=== PATIENT | male | born 1945 | race Caucasian/White ===

== ENCOUNTER 2023-04-25 18:19 | Emergency (ER) | payer MEDICARE ==
[~2023-04-25] VITALS: Ht 182 cm; Wt 91.0 kg
[~2023-04-25 18:19] MED LIST: AMLO1CAP4 PO; ASP81CT GT; HYDR12.56 PO; PROP1TAB77 PO
[2023-04-25 18:38] LABS: BASOPHILS % (AUTO) 0 % (0-10); EOSINOPHILS # (AUTO) 0.1 10^3/uL (0.0-0.3); EOSINOPHILS % (AUTO) 1 % (0-10); HEMATOCRIT 41 % (40-54); HEMOGLOBIN 14.7 g/dL (13.3-17.7); LYMPHOCYTES # (AUTO) 2.2 10^3/uL (1.0-4.0); LYMPHOCYTES % (AUTO) 19 % (12-44); MEAN CORPUSCULAR HEMOGLOBIN 32 pg (25-34); MEAN CORPUSCULAR HGB CONC 36 g/dL (32-36); MEAN CORPUSCULAR VOLUME 89 fL (80-99); MEAN PLATELET VOLUME 9.6 fL (9.0-12.2); MONOCYTES # (AUTO) 0.6 10^3/uL (0.0-1.0); MONOCYTES % (AUTO) 5 % (0-12); NEUTROPHILS # (AUTO) 8.7 10^3/uL (1.8-7.8); NEUTROPHILS % (AUTO) 75 % (42-75); PLATELET COUNT 277 10^3/uL (130-400); WHITE BLOOD COUNT 11.6 10^3/uL (4.3-11.0)
--- NOTE | 2023-04-25 18:41 | ED Fall/Injury ---
General Chief Complaint: Trauma-Non Activation Stated Complaint: FALL Nursing Triage Note: SEE TRIAGE Source: patient, EMS, old records Exam Limitations: no limitations History of Present Illness Date Seen by Provider: Apr 25, 2023 Time Seen by Provider: 18:24 Initial Comments This is 77-year-old gentleman presents to the emergency room via EMS after suffering a fall in his yard on concrete. He has been unsteady on his feet for about 1 week. He is unsure why that may be but does comment that he has ingrown toenails. He plans to have work done on those in the near future. He denies any chest pain, lightheadedness, dizziness, or shortness of breath. His falls seem to be mechanical in nature without prodrome. He is alert and oriented. He and EMS deny any loss of consciousness. He denies any nausea. Pain is rated as 3 or 4 out of 10 and he declines pain medication at this time. He has some mild pain in his neck and arrives in a c-collar applied by EMS. C-collar was adjusted for comfort during my evaluation. He has abrasions to the forehead, nose, lips, and chin. He has skin tear to the dorsum left hand. There is no significant active bleeding. There is contusion and swelling of the lips and nose. Vision seems unaffected. Patient denies any significant pain or dysfunction elsewhere. He moves all 4 extremities equally. EMS reported soft blood pressure of 99/60 and IV fluids were initiated by EMS. Location Injury Occurred: HOME Allergies and Home Medications Allergies Coded Allergies: No Known Drug Allergies (Unverified , 05/12/10) Patient Home Medication List Home Medication List Reviewed: Yes Amlodipine Besylate/Benazepril (Lotrel 5-10 Mg Capsule) 1 Cap Capsule, 1 EACH PO DAILY, (Reported) Entered as Reported by: DULCE ALBERTO on 04/23/10 0815 Aspirin (Baby Aspirin Chewable Tablet) 81 Mg Chew, 81 MG GT DAILY, (Reported) Entered as Reported by: ELIANE BOUDREAUX on 06/20/13 1314 Hydrochlorothiazide (Hydrochlorothiazide) 12.5 Mg Tablet, 1 EACH PO DAILY, (Reported) Entered as Reported by: DULCE ALBERTO on 04/23/10 0815 Review of Systems Review of Systems Constitutional: no symptoms reported Eyes: No Symptoms Reported Ears, Nose, Mouth, Throat: see HPI Respiratory: no symptoms reported Cardiovascular: see HPI Gastrointestinal: no symptoms reported Genitourinary: no symptoms reported Musculoskeletal: see HPI Skin: see HPI Psychiatric/Neurological: No Symptoms Reported Past Wokvhfz-Mgchnm-Qkvldr Hx Patient Social History Tobacco Use?: No Smoking Status: Former Smoker Substance use?: No Alcohol Use?: No Pt feels they are or have been: No Immunizations Up To Date First/Initial COVID19 Vaccinat: YES Second COVID19 Vaccination Tom: YES Past Medical History Surgery/Hospitalization HX: HTN, L LEG SURG Surgeries: Yes Abdominal (Colonoscopy), Orthopedic (Knee surgery) Cardiac: Yes High Cholesterol, Hypertension Neurological: No Reproductive Disorders: No Genitourinary: Yes (hx of prostate cancer) Gastrointestinal: Yes Diverticulosis, Hemorrhoids, Polyps Endocrine: No HEENT: No Cancer: Yes Prostate Psychosocial: No Integumentary: Yes (Ingrown toenails) Physical Exam Vital Signs Vital Signs - First Documented 04/25/23 18:27 Temp 36.4 Pulse 89 Resp 18 B/P (MAP) 106/82 (90) Pulse Ox 95 O2 Delivery Room Air Capillary Refill : Less Than 3 Seconds Height, Weight, BMI Height: 5'10.00" Weight: 190lbs. oz. 86.195130mt; 27.00 BMI Method: General Appearance: WD/WN, no apparent distress HEENT: PERRL/EOMI, other (Minor abrasions over the forehead. Contusion and abrasions over the nose extensively. Abrasions and contusions with swelling over the lips. Minor abrasions on the chin. No apparent dental injury.) Neck: normal inspection, other (In c-collar) Cardiovascular: regular rate, rhythm, no edema, no murmur Respiratory: chest non-tender, lungs clear, normal breath sounds, no respiratory distress Gastrointestinal: non tender, soft; No distended Extremities: non-tender, other (Skin tear on the dorsum of the left hand) Neurologic/Psychiatric: kettle room helper II-XII nml as tested, no motor/sensory deficits, alert, normal mood/affect, oriented x 3 Skin: normal color, warm/dry, other (as above) Progress/Results/Core Measures Results/Orders Lab Results Laboratory Tests Test 04/25/23 18:30 04/25/23 20:50 Range/Units White Blood Count 11.6 H 4.3-11.0 10^3/uL Red Blood Count 4.65 4.30-5.52 10^6/uL Hemoglobin 14.7 13.3-17.7 g/dL Hematocrit 41 40-54 % Mean Corpuscular Volume 89 80-99 fL Mean Corpuscular Hemoglobin 32 25-34 pg Mean Corpuscular Hemoglobin Concent 36 32-36 g/dL Red Cell Distribution Width 12.5 10.0-14.5 % Platelet Count 277 130-400 10^3/uL Mean Platelet Volume 9.6 9.0-12.2 fL Immature Granulocyte % (Auto) 1 % Neutrophils (%) (Auto) 75 42-75 % Lymphocytes (%) (Auto) 19 12-44 % Monocytes (%) (Auto) 5 0-12 % Eosinophils (%) (Auto) 1 0-10 % Basophils (%) (Auto) 0 0-10 % Neutrophils # (Auto) 8.7 H 1.8-7.8 10^3/uL Lymphocytes # (Auto) 2.2 1.0-4.0 10^3/uL Monocytes # (Auto) 0.6 0.0-1.0 10^3/uL Eosinophils # (Auto) 0.1 0.0-0.3 10^3/uL Basophils # (Auto) 0.0 0.0-0.1 10^3/uL Immature Granulocyte # (Auto) 0.1 0.0-0.1 10^3/uL Sodium Level 134 L 135-145 MMOL/L Potassium Level 3.3 L 3.6-5.0 MMOL/L Chloride Level 99 98-107 MMOL/L Carbon Dioxide Level 20 L 21-32 MMOL/L Anion Gap 15 H 5-14 MMOL/L Blood Urea Nitrogen 18 7-18 MG/DL Creatinine 1.17 0.60-1.30 MG/DL Estimat Glomerular Filtration Rate 64 BUN/Creatinine Ratio 15 Glucose Level 132 H 70-105 MG/DL Calcium Level 9.3 8.5-10.1 MG/DL Corrected Calcium 9.2 8.5-10.1 MG/DL Magnesium Level 1.9 1.6-2.4 MG/DL Total Bilirubin 0.9 0.1-1.0 MG/DL Aspartate Amino Transf (AST/SGOT) 26 5-34 U/L Alanine Aminotransferase (ALT/SGPT) 28 0-55 U/L Alkaline Phosphatase 64 40-136 U/L Total Protein 6.8 6.4-8.2 GM/DL Albumin 4.1 3.2-4.5 GM/DL Serum Alcohol < 10 <10 MG/DL Urine Color YELLOW Urine Clarity CLEAR Urine pH 6.5 5-9 Urine Specific [place] 1.020 1.016-1.022 Urine Protein NEGATIVE NEGATIVE Urine Glucose (UA) NEGATIVE NEGATIVE Urine Ketones 2+ H NEGATIVE Urine Nitrite NEGATIVE NEGATIVE Urine Bilirubin NEGATIVE NEGATIVE Urine Urobilinogen 0.2 < = 1.0 MG/DL Urine Leukocyte Esterase NEGATIVE NEGATIVE Urine RBC (Auto) TRACE H NEGATIVE Urine RBC 0-2 /HPF Urine WBC NONE /HPF Urine Squamous Epithelial Cells NONE /HPF Urine Crystals PRESENT H /LPF Urine Amorphous Sediment FEW NEYMAR URATES H /LPF Urine Bacteria TRACE /HPF Urine Casts PRESENT /LPF Urine Hyaline Casts 2-5 H /LPF Urine Waxy Casts /LPF Urine Mucus MODERATE H /LPF Urine Culture Indicated NO My Orders Orders - KHANG YOUNG MD Ekg Tracing (04/25/23 18:32) Monitor-Rhythm Ecg Trace Only (04/25/23 18:32) Ct Head/Face/Cervical Wo (04/25/23 18:33) Dipht/Pertuss(Acell)/Tet Adult (Dipht/Pe (04/25/23 18:45) Alcohol (04/25/23 18:33) Cbc With Automated Diff (04/25/23 18:33) Comprehensive Metabolic Panel (04/25/23 18:33) Magnesium (04/25/23 18:33) Ua Culture If Indicated (04/25/23 18:33) Dipht/Pertuss(Acell)/Tet Adult (Dipht/Pe (04/25/23 20:55) Medications Given in ED Vital Signs/I&O 04/25/23 04/25/23 18:27 23:20 Temp 36.4 Pulse 89 73 Resp 18 20 B/P (MAP) 106/82 (90) 143/92 Pulse Ox 95 97 O2 Delivery Room Air Room Air 04/25/23 23:59 Intake Total 250 ml Balance 250 ml Blood Pressure Mean: 90 Progress Progress Note #1: Progress Note Patient was interviewed and examined upon arrival. EMS was also interviewed. C-collar remains in place. CT imaging studies were ordered. Labs were also ordered. Labs were reviewed and interpreted in their entirety by me. Slight leukocytosis and slight electrolyte abnormalities were noted, none of which are clinically significant. CT of the head, facial bones, and cervical spine was viewed by me. There is a mass in the left cerebellum as well as nasal fractures. No intracranial hemorrhages noted. Radiologist's report was reviewed as below. Patient has a symptomatic cerebellar mass which will need further evaluation. He needs to be transferred to an appropriate neurosurgical capable facility. I will initiate the transfer process. Progress Note #2: Time: 20:52 Progress Note Patient is stable at this time. I have attempted transfer to the [facility]. At [facility] does not presently have a neurosurgeon environmental services technician. [facility] is at admission capacity. Patient has family in the [place] area, so I will start trying transfers to the [place] area. Progress Note #3: Time: 21:27 Progress Note Report was given to the [facility] transfer engineer. I am awaiting a call back. Progress Note #4: Time: 21:54 Progress Note Patient has been accepted to [facility] by Dr. Ron Reyna. We are awaiting bed assignment to neuro-ICU. No local EMS transfer service is available. Mode of transport is TBA. Progress Note #5: Progress Note Patient was ultimately transferred by air to [facility] in stable condition. Initial ECG Impression Date: Apr 25, 2023 Initial ECG Impression Time: 18:35 Initial ECG Rate: 72 Initial ECG Rhythm: Normal Sinus Comment Sinus rhythm with no ST elevation or depression. Right bundle branch block noted. No axis deviation. Diagnostic Imaging Diagonstic Imaging: CT Plain Films/CT/US/NM/MRI: facial bones, c-spine, head Comments NAME: MICHELE MCCLELLAN MED REC#: [id number] PT STATUS: REG ER : 1945 PHYSICIAN: KHANG YOUNG MD ADMIT DATE: 04/25/23/ER Signed Date of Exam:04/25/23 CT HEAD/FACE/CERVICAL WO PROCEDURE: CT head, face, and cervical spine without contrast. TECHNIQUE: Multiple contiguous axial images were obtained through the head, neck, and facial bones without the use of intravenous contrast. Sagittal and coronal reformations through the cervical spine and facial bones were also performed. Auto Exposure Controls were utilized during the CT exam to meet ALARA standards for radiation dose reduction. INDICATION: Headache, neck pain, and face pain after fall. COMPARISON: None FINDINGS: Mass within the left cerebellar hemisphere measuring 3.7 x 3.0 cm with surrounding edema within the left cerebellar hemisphere and mass effect on the 4th ventricle. The 3rd and 4th ventricle are mildly dilated with the 3rd ventricle measuring 0.9 cm. No acute intracranial hemorrhage. The meyer-white matter differentiation is preserved. No midline shift. No extra-axial fluid collections. The skull is intact. The paranasal sinuses and mastoids are clear. Acute displaced nasal bone fracture. The nasal septum is deviated to the right. No nasal septal hematoma. The maxilla is intact. The zygomatic arch is intact. The pterygoid plates are intact. The orbits are intact. The mandible is intact. Straightening of the cervical lordosis. Mild multilevel facet arthritis. Mild multilevel disc height loss and disc desiccation. No lytic or sclerotic bone lesion. No acute fracture or dislocation of the cervical spine. Included views of the soft tissues demonstrate bilateral carotid atherosclerosis. No mass or lymphadenopathy within the neck. Included lung apices demonstrate no significant findings. IMPRESSION: Mass within the left cerebellar hemisphere causing mass effect on the 4th ventricle. Mild enlargement of the lateral ventricles and 3rd ventricle. Recommend further workup with brain MRI with and without contrast. Advanced chronic small vessel ischemic disease. Mild global volume loss. Acute displaced nasal bone fracture. No acute cervical spine fracture. Dictated by: Dictated on workstation # [id number] Dict: 04/25/23 1855 Trans: 04/25/231899 [facility] [place] [id number] Interpreted by: MUMTAZ TRAN DO Electronically signed by: MUMTAZ TRAN DO 04/25/23 190 Departure Impression Primary Impression: Cerebellar mass Additional Impressions: Disequilibrium Fall on same level Qualified Codes: W18.30XA - Fall on same level, unspecified, initial encounter Nasal fracture Qualified Codes: S02.2XXA - Fracture of nasal bones, initial encounter for closed fracture Multiple abrasions Skin tear of left hand without complication Qualified Codes: S61.412A - Laceration without foreign body of left hand, initial encounter Disposition: 02 XFER [facility] Condition: Stable Transfer Transfer Reason: Exceeds level of care Transfer Time: 23:20 Transfer Facility: [facility] Method of Transfer: Air Departure-Patient Inst. Referrals: FELIPE CHANDLER MD (PCP/Family) Primary Care Physician Copy Copies To 1: [facility]/KHANG PERES MD Apr 25, 2023 18:41
[2023-04-25 18:43] LABS: ALBUMIN 4.1 GM/DL (3.2-4.5); CHLORIDE 99 MMOL/L (98-107); POTASSIUM 3.3 MMOL/L (3.6-5.0); SODIUM 134 MMOL/L (135-145)
[2023-04-25 18:44] LABS: CALCIUM 9.3 MG/DL (8.5-10.1)
[2023-04-25 18:45] LABS: GLUCOSE 132 MG/DL (70-105); TOTAL PROTEIN 6.8 GM/DL (6.4-8.2)
[2023-04-25] MEDS ORDERED: Tetanus/Diphtheria/Pertussis (Acell) ADULT Vaccine 0.5 ML IM ONE ×2 (18:45→20:55)
[2023-04-25 18:46] LABS: CARBON DIOXIDE 20 MMOL/L (21-32)
[2023-04-25 18:47] LABS: BILIRUBIN,TOTAL 0.9 MG/DL (0.1-1.0)
[2023-04-25 18:49] LABS: ALKALINE PHOSPHATASE 64 U/L (40-136); CREATININE SERUM 1.17 MG/DL (0.60-1.30); GFR ESTIMATED 64
[2023-04-25 18:50] LABS: BUN/CREATININE RATIO 15
[2023-04-25 18:52] LABS: ALANINE AMINOTRANSFERASE 28 U/L (0-55); MAGNESIUM 1.9 MG/DL (1.6-2.4)
--- NOTE | 2023-04-25 19:01 | Diagnostic Imaging Report ---
PROCEDURE: CT head, face, and cervical spine without contrast. TECHNIQUE: Multiple contiguous axial images were obtained through the head, neck, and facial bones without the use of intravenous contrast. Sagittal and coronal reformations through the cervical spine and facial bones were also performed. Auto Exposure Controls were utilized during the CT exam to meet ALARA standards for radiation dose reduction. INDICATION: Headache, neck pain, and face pain after fall. COMPARISON: None FINDINGS: Mass within the left cerebellar hemisphere measuring 3.7 x 3.0 cm with surrounding edema within the left cerebellar hemisphere and mass effect on the 4th ventricle. The 3rd and 4th ventricle are mildly dilated with the 3rd ventricle measuring 0.9 cm. No acute intracranial hemorrhage. The meyer-white matter differentiation is preserved. No midline shift. No extra-axial fluid collections. The skull is intact. The paranasal sinuses and mastoids are clear. Acute displaced nasal bone fracture. The nasal septum is deviated to the right. No nasal septal hematoma. The maxilla is intact. The zygomatic arch is intact. The pterygoid plates are intact. The orbits are intact. The mandible is intact. Straightening of the cervical lordosis. Mild multilevel facet arthritis. Mild multilevel disc height loss and disc desiccation. No lytic or sclerotic bone lesion. No acute fracture or dislocation of the cervical spine. Included views of the soft tissues demonstrate bilateral carotid atherosclerosis. No mass or lymphadenopathy within the neck. Included lung apices demonstrate no significant findings. IMPRESSION: Mass within the left cerebellar hemisphere causing mass effect on the 4th ventricle. Mild enlargement of the lateral ventricles and 3rd ventricle. Recommend further workup with brain MRI with and without contrast. Advanced chronic small vessel ischemic disease. Mild global volume loss. Acute displaced nasal bone fracture. No acute cervical spine fracture. Dictated by: Dictated on workstation # [id number]
[2023-04-25 21:08] LABS: AMORPHOUS SEDIMENT,UR FEW AMOR URATES /LPF; BACTERIA,URINE TRACE /HPF; BILIRUBIN,URINE NEGATIVE (NEGATIVE); CLARITY,URINE CLEAR; COLOR,URINE YELLOW; GLUCOSE, URINE (UA) NEGATIVE (NEGATIVE); KETONES,URINE 2+ (NEGATIVE); LEUKOCYTE ESTERASE ,URINE NEGATIVE (NEGATIVE); NITRITE,URINE NEGATIVE (NEGATIVE); PH,URINE 6.5 (5-9); PROTEIN,URINE NEGATIVE (NEGATIVE); RBC,URINE 0-2 /HPF
[2023-04-25 23:20] VITALS: BP 143/92
== END 2023-04-25 23:20 | disposition short-term general hospital (02) ==
LOC: EDUNIT# 18:19 → ER 18:23
DX: S02.2XXA Fracture of nasal bones, initial encounter for closed fracture (principal); S61.412A Laceration without foreign body of left hand, initial encounter; S00.531A Contusion of lip, initial encounter; S00.83XA Contusion of other part of head, initial encounter; G93.9 Disorder of brain, unspecified; I45.10 Unspecified right bundle-branch block; Z23 Encounter for immunization; Z87.891 Personal history of nicotine dependence; W18.30XA Fall on same level, unspecified, initial encounter; Y92.096 Garden or yard of other non-institutional residence as the place of occurrence of the external cause
CPT/HCPCS: 70450; 70486; 72125; 80053; 81000; 83735; 85025; 93005; 93041; 99285; G0480; 36415; 80320; 90715

== ENCOUNTER 2023-05-03 10:33 | Inpatient (IN) | payer MEDICARE ==
[~2023-05-03] VITALS: Ht 177.8 cm; Wt 91.3 kg
[2023-05-03] MEDS ORDERED: ASPI-1238 PO (12:56)
[2023-05-03] MEDS ORDERED: BENA10TA66 PO (12:56)
[2023-05-03] MEDS ORDERED: SENN1TAB93 PO (12:56)
[2023-05-03] MEDS ORDERED: AMLO-250 PO (12:56)
[2023-05-03] MEDS ORDERED: ACET325T38 PO (12:56)
[2023-05-03] MEDS ORDERED: HEPA50002 IJ (12:56)
[2023-05-03] MEDS ORDERED: OXC5T PO (12:56)
[2023-05-03] MEDS ORDERED: HYDR12.56 PO (12:56)
[2023-05-03] MEDS ORDERED: ROSU10TA28 PO (12:56)
[2023-05-03] MEDS ORDERED: CELE400C10 PO (12:56)
[2023-05-03] MEDS ORDERED: ACETAMINOPHEN 325 MG TABLET PO PRN ×2 (13:30→15:30)
[2023-05-03] MEDS ORDERED: diphenhydrAMINE 25 MG TABLET PO PRN (13:30)
[2023-05-03] MEDS ORDERED: CALCIUM CARBONATE 500 MG CHEW TABLET PO PRN (13:30)
[2023-05-03] MEDS ORDERED: DOCUSATE SODIUM 100 MG CAPSULE PO PRN (13:30)
[2023-05-03] MEDS ORDERED: BISACODYL 10 MG SUPPOSITORY PR PRN (13:30)
[2023-05-03] MEDS ORDERED: ONDANSETRON 4 MG ORAL DISSOLVE TABLET PO PRN (13:30)
[2023-05-03] MEDS ORDERED: LACTULOSE SYRUP 10GM/15ML 30ML UDC PO PRN (13:30)
[2023-05-03] MEDS ORDERED: guaiFENesin/CODEINE 10ML UDC PO PRN (13:30)
[2023-05-03] MEDS ORDERED: MELATONIN 3 MG TABLET PO PRN (13:30)
[2023-05-03] MEDS ORDERED: ALPRAZolam 0.25 MG TABLET PO PRN (13:30)
[2023-05-03] MEDS ORDERED: LOPERAMIDE 2 MG CAPSULE PO PRN (13:30)
[2023-05-03] MEDS ORDERED: Sodium Phosphate/Sodium Biphosphate ADULT enema PR PRN (13:30)
--- NOTE | 2023-05-03 13:33 | PM&R Post Admission Assessment ---
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 He has had no f/u for his prostate cancer after management in 2009. He is currently without pain and difficult to stay on topic when conversing and unsure if this is baseline. Chief complaint: Johnny Bautista is a 77 year old male who came into the [facility] ED on 04/25/23 after losing his balance and falling and hitting his face on concrete. HPI: He was taken to the ED via EMS. He and his family report shuffling gait for several months and that he had been having gait imbalance for the week prior to coming to the ED. He had a CT that showed a left cerebellar mass with mild hydrocephalus and a displaced nasal fracture. He was subsequently transferred to [facility]. At [facility] he was seen by neurosurgery who performed a full neuro exam on him, that was unremarkable. He had an MRI done that showed a large posterior fossa mass consistent with metastasis and a chest/abdomen CT that showed a lung mass and adrenal metastasis. Neurosurgery recommended a craniotomy and the pat ient consented. On 04/29/23, neurosurgery performed a suboccipital craniotomy with resection of the posterior fossa brain tumor. Surgery was uneventful. Post- surgical MRI on 04/29/23 showed good resection of the mass. Since the surgery, the patient has been seen by PT and OT and he has had some imbalance on mobility but overall shows improvement. He was subsequently transferred back to [facility] for inpatient rehabilitation on 05/03/23. PMH: Hypertension, hyperlipidemia, prostate cancer Past surgical history: knee surgery, recent craniotomy Allergies: No known allergies Medications: Amlodipine 5mg q.d., lisinopril 10mg q.d., docusate 100 mg BID, milk of magnesium 30ml q.d., senokot 1 tablet BID Social History: , 3 kids, former smoker (quit in 2021, 1ppd/50 years), alcohol 14 beers/week, no drugs Family history: no family history on file ROS: Denies nausea, vomiting, diarrhea, weakness, fatigue, fever/chills, change in appetite, chest pain, shortness of breath, orthopnea, headache, Admits: constipation, vision difficulty since his fall because he broke his glasses Exam: General: no acute distress, comfortable in bed, AOx3 HEENT: bruising under right eye, otherwise atraumatic, no JVD Heart: normal sinus rhythm, no murmurs appreciated Lungs: CTA bilaterally, no wheezing/rhonchi/rales appreciated on auscultation Neuro: no deficits in sensation, no deficits in muscle strength testing Extremities: pulses +2/4, no lower extremity edema Imaging and Labs: [facility] CT 04/25/23: left cerebellar mass with mild hydrocephalus and a displaced nasal fracture [facility] head MRI: large posterior fossa mass consistent with metastasis [facility] chest/abdomen CT: lung mass and adrenal metastasis No current labs since admission to [facility] Assessment: - s/p craniotomy - 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 - HTN - prostate cancer - hyperlipidemia Plan: - PT/OT - supportive treatment, pain control - regular neurological assessments - get oncology on board - restart home medications Past Powrbvf-Gtmxkp-Ggiemd Hx Past Med/Social Hx: Reviewed Nursing Past Med/Soc Hx, Reviewed and Corrections made Patient Social History Marrital Status: Employed/Student: retired Alcohol Use: Denies Use Smoking Status: Former Smoker Immunizations Up To Date Date of Pneumonia Vaccine: Jun 05, 2010 Date of Influenza Vaccine: Jul 06, 2014 Past Medical History Surgeries: Abdominal, Orthopedic craniotomy Cardiac: High Cholesterol, Hypertension Reproductive: No Gastrointestinal: Diverticulosis, Hemorrhoids, Polyps Cancer: Prostate PM&R Allergy/Meds/Data Review Allergies Coded Allergies: No Known Drug Allergies (Unverified , 05/12/10) Home Medications Scheduled Amlodipine Besylate (Amlodipine Besylate), 5 MG PO DAILY, (Reported) Aspirin (Aspirin EC), 81 MG PO DAILY, (Reported) Benazepril HCl (Benazepril HCl), 10 MG PO DAILY, (Reported) Celecoxib (Celecoxib), 400 MG PO DAILY, (Reported) Heparin Sodium,Porcine/Pf (Heparin Sod 5,000 Unit/0.5 ml), 0.5 ML IJ Q8H, (Reported) Hydrochlorothiazide (Hydrochlorothiazide), 12.5 MG PO DAILY, (Reported) Rosuvastatin Calcium (Rosuvastatin Calcium), 10 MG PO DAILY, (Reported) Sennosides/Docusate Sodium (Senna-Docusate Sodium Tablet), 1 EACH PO BID, (Reported) Scheduled PRN Acetaminophen (Tylenol), 650 MG PO Q4H PRN for PAIN-MILD (1-4), (Reported) Oxycodone Hcl (Oxyir Tablet), 5-10 MG PO Q4H PRN for PAIN-SEVERE (8-10), (Reported) Discontinued Medications Amlodipine Besylate/Benazepril (Lotrel 5-10 Mg Capsule), 1 EACH PO DAILY, (Reported) Discontinued Reason: No Longer Taking Aspirin (Baby Aspirin Chewable Tablet), 81 MG GT DAILY, (Reported) Discontinued Reason: No Longer Taking Hydrochlorothiazide (Hydrochlorothiazide), 1 EACH PO DAILY, (Reported) Discontinued Reason: No Longer Taking Current Medications Current Medications Reviewed Review of Systems Constitutional: see HPI, malaise, weakness EENTM: no symptoms reported Respiratory: no symptoms reported Cardiovascular: no symptoms reported Gastrointestinal: constipation Genitourinary: decreased output Musculoskeletal: back pain, joint pain Skin: no symptoms reported Psychiatric/Neurological: No Symptoms Reported All Other Systems Reviewed Negative Unless Noted: Yes Physical Exam Physical Exam Vital Signs Capillary Refill : Height, Weight, BMI Height: 5'10.00" Weight: 190lbs. oz. [id number]; 27.00 BMI Method: General Appearance: No Apparent Distress, WD/WN, Chronically ill, Obese Eyes: Bilateral Eye Normal Inspection, Bilateral Eye PERRL HEENT: PERRL/EOMI, Normal ENT Inspection, Pharynx Normal Neck: Full Range of Motion, Normal Inspection, Non Tender, Supple, Carotid Bruit Respiratory: Chest Non Tender, Lungs Clear, Normal Breath Sounds, No Accessory Muscle Use, No Respiratory Distress Cardiovascular: Regular Rate, Rhythm, No Edema, No Gallop, No JVD, No Murmur, Normal Peripheral Pulses Gastrointestinal: Normal Bowel Sounds, No Organomegaly, No Pulsatile Mass, Non Tender, Soft Back: Normal Inspection, No CVA Tenderness, No Vertebral Tenderness Extremity: Normal Capillary Refill, Normal Inspection, Normal Range of Motion, Non Tender, No Calf Tenderness, No Pedal Edema Neurologic/Psychiatric: Alert, Oriented x3, 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 Norm as Tested, Abnormal Gait, Depressed Affect, Motor Weakness (generalized ) Skin: Normal Color, Warm/Dry Lymphatic: No Adenopathy PM&R Medical Assessment & Plan REHAB/MEDICAL ASSESSMENT AND PLAN: REHAB IMPAIRMENT GROUP: Brain dysfunction non-traumatic ETIOLOGIC DIAGNOSIS: Cerebellar mass The comorbidities that impact the patients function and/or functional outcome by: advanced age, presumed cancer diagnosis, confusion REHAB PLAN: The patient is being admitted to our comprehensive inpatient rehabilitation facility and can tolerate the intensity of service consisting of at least: 180 minutes of therapy a day, 5 out of 7 days a week Rehab treatment will consist of: PT OT will focus on regaining function with use of AD in order to regain stamina and prevent falls and return home The patient/family has a good understanding of our discharge process and will benefit from an interdisciplinary inpatient rehabilitation program. The patient has potential to make improvement and is in need of at least two of the following multidisciplinary therapies including but not limited to physical, occupational, speech, and prosthetics and orthotics. Additionally the patient will need services from respiratory, nutritional services, wound care, psychology, etc. (Customize this to each patient). Given the patients complex condition and risk of further medical complications, rehabilitation services cannot be safely or effectively provided at a lower level of care such as a shelter facility. BARRIERS TO DISCHARGE: poor balance and fall risk ESTIMATED LOS: 10 days DISPOSITION: Home RELEVANT CHANGES SINCE PREADMISSION SCREENING: I have compared the patients medical and functional status at the time of the preadmission screening and there are: no changes PROGNOSIS: Fair REHABILITATION GOALS: 1. PT OT will focus on regaining function with use of AD in order to regain stamina and prevent falls and return home All the above goals were reviewed with the patient and he/she is in agreement. By signing this document, I acknowledge that I have personally performed a full physical examination on this patient within 24 hours of admission to this inpatient rehabilitation facility and have determined the patient to be able to tolerate the above course of treatment at an intensive level for a reasonable period of time. I will be completing a detailed individualized Plan of Care for this patient by day #4 of the patients stay based upon the Preadmission Screen, the Post-Admission Evaluation, and the therapy evaluations. Admission Dx/Comorbidities: (1) Brain dysfunction ICD Codes: G93.89 - Other specified disorders of brain (2) Brain injury ICD Codes: S06.9XAA - Unspecified intracranial injury with loss of consciousness status unknown, initial encounter (3) Cerebellar mass Status: Acute ICD Codes: G93.89 - Other specified disorders of brain (4) Disequilibrium Status: Acute ICD Codes: R42 - Dizziness and giddiness Assessment/Plan Assessment and Plan Assess & Plan/Chief Complaint Assessment: Cerebellar mass causing imbalance and falls Lung mass h/o prostate cancer 2009 without follow up HTN HLP Plan: Home meds Monitor for falls PT OT LOIDA CHRISTIAN DO May 03, 2023 13:33
[2023-05-03 14:30] VITALS: BP 156/80
--- OUTSIDE RECORDS SUMMARY | 2023-05-03 14:36 | XMS REPORT | Encounter Summary ---
Author Author [facility] Organization [facility] Address Unknown Phone Unavailable Care Team Providers Care Pharmaceutical Salesperson Name Role Phone JenniferAlexia tamayo FREDRICK PCP Reason for Referral * Consult, Test & Treat (Discharge Pending) - New Request Diagnoses / Procedures Referred By Contact Referred To Conta ct Specialty Diagnoses Brain mass Procedures APPOINTMENT REQUEST: [facility] Lubna Molina APRN-NP [address] [facility] [address] [place] [address] [address] [place] [address] Oncology Referral ID Status Reason Start Date Expiration Visits Vi sits Date Requested Authorized [id number] New Request 04/28/2023 04/27/2024 1 1 * Consult, Test & Treat (Discharge Pending) - New Request Diagnoses / Procedures Referred By Contact Referred To Conta ct Specialty Procedures APPOINTMENT REQUEST: NEUROSURGERY Glenn Flores MD [address] Ortho/Med Pavilion [address] [place] [address] [facility] [address] 3, [address] [place] [address] Neurosurgery Referral ID Status Reason Start Date Expiration Visits Vi sits Date Requested Authorized [id number] New Request 04/26/2023 04/25/2024 1 1 Reason for Visit * Auth/Cert (Routine) Diagnoses / Procedures Referred By Contact Referred To Conta ct Specialty Diagnoses Brain mass fall - new brain mass Referral ID Status Reason Start Date Expiration Visits Vi sits Date Requested Authorized [id number] 1 1 Encounter Details Care Team Description Date Type Department Ron Reyna MD [address] [place] [address] Glenn Flores MD [address] Ortho/Med Pavilion [address] [place] [address] Brain mass Discharge Disposition: Rehab Facility (Not [facility]) 04/26/2023 Hospital Intensive Care Unit CA5: 12:23 AM Encounter [facility] A CDT - [address] [facility] 05/03/2023 Level 5 11:49 AM [place], [place] CDT [id number] Social History Date Tobacco Use Types Packs/Day Years Used Quit: 09/05/2021 Smoking Tobacco: Former Cigarettes 1 50 Smokeless Tobacco: Never Tobacco Cessation: Counseling Given: Not Answered Comments Alcohol Use Standard Drinks/Week 2 beers every night Yes 14 (1 standard drink = 0.6 oz pure alcohol) Date Recorded Alcohol Use Answer Alcohol Use Yes Male: 9+ ounces (15+ Standard Drinks) per week Not o n file Threshold Female: 4.8+ ounces (8+ Standard Drinks) per week No t on file Threshold Date Recorded Sex and Gender Information Value 04/26/2023 5:30 AM CDT Sex Assigned at Male 04/26/2023 5:30 AM CDT Gender Identity Male 04/26/2023 5:30 AM CDT Sexual Orientation Straight documented as of this encounter Last Filed Vital Signs Reading Time Taken Comments Vital Sign 151/81 05/03/2023 8:00 AM CDT Blood Pressure 63 05/03/2023 8:00 AM CDT Pulse 36.8 C (98.2 F) 05/03/2023 8:00 AM CDT Temperature - - Respiratory Rate 96% 05/03/2023 8:00 AM CDT Oxygen Saturation - - Inhaled Oxygen Concentration 80.7 kg (177 lb 14.6 oz) 04/27/2023 5:00 AM CDT Weight 177.8 cm (5' 10") 04/26/2023 12:00 AM CDT Height 25.53 04/26/2023 12:00 AM CDT Body Mass Index documented in this encounter Functional Status Date of Assessment Functional Status Response 04/26/2023 Does the patient have a hearing impairment: No documented as of this encounter Discharge Summaries * Mary Green LMSW - 05/03/2023 7:22 AM CDT Case Management Progress Note NAME:Johnny Bautista : 945 AGE: 77 y.o. ADMISSION DATE: 04/26/2023 DAYS ADMITTED: LOS: 7 days Today's Date: 05/03/2023 PLAN: Pt will dc to [facility] today around 1130 via family trans port. Expected Discharge Date: 05/03/2023 12:00 PM Is Patient Medically Stable: Yes Are there Barriers to Discharge? no INTERVENTION/DISPOSITION: Discharge Planning Discharge Planning: No Needs Identified SW was notified insurance was approved. Family will be at the hospital by noon today to transport pt to [facility]. Has to be there by 3pm to be admitted. UVALDO notified provider [place] of dc today at 1130 UVALDO notified bedside nurse of dc today at 1130 and provided number for report. Said family is parking at the [facility] and nurse can bring him down. UVALDO printed and delivered transfer packet to pt bedside. UVALDO notified pt's family of dc today . REPORT [phone] UVALDO faxed dc orders to [phone] Transportation Does the Patient Need Case Management to Arrange Discharge Transport ? (ex: facility, ambulance, wheelchair/stretcher, Medicaid, cab, other): No Will the Patient Use Family Transport?: Yes Transportation Name, Phone and Availability #1: Tara [phone] Support Support: Pt/Family Updates re:POC or DC Plan, Huddle/team update Info or Referral Information or Referral to Community Resources: No Needs Identified Positive SDOH Domains and Potential Barriers Medication Needs Medication Needs: No Needs Identified Financial Financial: No Needs Identified Legal Legal: No Needs Identified Other Other/None: No needs identified Discharge Disposition Selected Continued Care - Admitted Since 04/26/2023 No services have been selected for the patient. SHAWNA Dunbar LMSW Social Work Case Management Available on [employer] * Geovanna Arteaga - 05/02/2023 5:56 PM CDT Per vm from [facility], this member has been approved for care at [facility] in [place] starting 04/30/23-05/13/23. Auth number is [id number]. Geovanna Arteaga Glass Forming Engineer * Geovanna Arteaga - 05/02/2023 4:55 PM CDT Request to check [facility] health status per OCTAVIO Dunbar. Auth is still pend ing at this time, Geovanna Arteaga Glass Forming Engineer * Aletha Toribio - 05/02/2023 1:15 PM CDT SPAGHETTI PRESS HELPER Note: Request from OCTAVIO Dunbar to check [facility] status, auth is still pend ing. ZEINA updated [facility] with chosen facility and sent updated clinical throu gh the portal. Aletha Toribio Glass Forming Engineer For additional assistance please contact [facility] * * Mary Green LMSW - 05/02/2023 8:05 AM CDT Case Management Progress Note NAME:Johnny Bautista : 945 AGE: 77 y.o. ADMISSION DATE: 04/26/2023 DAYS ADMITTED: LOS: 6 days Today's Date: 05/02/2023 PLAN: DC planning ongoing IPR vs home (pt's preference). Expected Discharge Date: 05/02/2023 12:00 PM Is Patient Medically Stable: No, Please explain: ongoing medical care Are there Barriers to Discharge? no INTERVENTION/DISPOSITION: Discharge Planning Discharge Planning: No Needs IdentifiedSW reviewed EMR and rehab doc saw pt. Pt prefers to go home with OTPT therapies if he can progress home. W ill discuss options with pt and family today. SW met with pt and family at bedside to discuss options for discharge. Pt is st ill resistant to rehab. Family expressed concerns with caring for him as she recently had cataract surgery. She can't drive him to OTPT therapy right aw ay. Expressed to pt why it would be important for him to be stronger before re turning home. Family will continue to discuss options but SW will try to get a rehab plan in place. Family does feel comfortable driving pt to rehab if therapy says this would be safe. [place] I[facility] can clinically accept. Waiting on insurance auth. Will have a b ed tomorrow. Have to be there by 3pm that day. Checked with therapy to see if family could safely transport pt to rehab. Therap y said family could transport. SW tasked SPAGHETTI PRESS HELPER to [facility] and [facility] as identified facility. Auth is still pending. Transportation Does the Patient Need Case Management to Arrange Discharge Transport ? (ex: facility, ambulance, wheelchair/stretcher, Medicaid, cab, other): No Will the Patient Use Family Transport?: Yes Transportation Name, Phone and Availability #1: Tara [phone] Support Support: Pt/Family Updates re:POC or DC Plan, Huddle/team update Info or Referral Information or Referral to Community Resources: No Needs Identified Positive SDOH Domains and Potential Barriers Medication Needs Medication Needs: No Needs Identified Financial Financial: No Needs Identified Legal Legal: No Needs Identified Other Other/None: No needs identified Discharge Disposition Selected Continued Care - Admitted Since 04/26/2023 No services have been selected for the patient. SHAWNA Dunbar LMSW Social Work Case Management Available on [employer] Work * Maida Kellogg - 04/30/2023 3:08 PM CDT [facility] ID : [facility] Auth ID : [id number] Service : IRF non-contracted Dates : NRD : * Mary Green LMSW - 04/30/2023 1:46 PM CDT Case Management Progress Note NAME:Johnny Bautista : 945 AGE: 77 y.o. ADMISSION DATE: 04/26/2023 DAYS ADMITTED: LOS: 4 days Today's Date: 04/30/2023 PLAN: Anticipate dc to IPR pending medical stability, facility acceptance and in surance auth. Expected Discharge Date: 05/02/2023 12:00 PM Is Patient Medically Stable: No, Please explain: ongoing medical care Are there Barriers to Discharge? No INTERVENTION/DISPOSITION: Discharge Planning Discharge Planning: No Needs Identified UVALDO was notified pt will nee d IPR placement. UVALDO called pt's to discuss possible placement but it kept going straight to [facility]. Reached pt's Tara and she put her kids on the call as well, so SW could disc uss possible facility options. Would prefer to get closer to home and go to [facility] I[facility]. UVALDO tasked SPAGHETTI PRESS HELPER to start auth through [facility] for IPR. UVALDO sent a referral to [facility] I[facility]. Transportation Does the Patient Need Case Management to Arrange Discharge Transport ? (ex: facility, ambulance, wheelchair/stretcher, Medicaid, cab, other): No Will the Patient Use Family Transport?: Yes Transportation Name, Phone and Availability #1: Tara [phone] Support Support: Pt/Family Updates re:POC or DC Plan, Huddle/team update Info or Referral Information or Referral to Community Resources: No Needs Identified Positive SDOH Domains and Potential Barriers Medication Needs Medication Needs: No Needs Identified Financial Financial: No Needs Identified Legal Legal: No Needs Identified Other Other/None: No needs identified Discharge Disposition Selected Continued Care - Admitted Since 04/26/2023 No services have been selected for the patient. Mary Green LMSW Social Work Case Management Available on [employer] Everywhere Work * Glory Cowan RN - 04/29/2023 3:09 PM CDT Case Management Progress Note NAME:Johnny Bautista : 945 AGE: 77 y.o. ADMISSION DATE: 04/26/2023 DAYS ADMITTED: LOS: 3 days Today's Date: 04/29/2023 PLAN: Patient to OR today. Expected Discharge Date: 05/02/2023 12:00 PM Is Patient Medically Stable: No, Please explain: OR today Are there Barriers to Discharge? No NCM reviewed EMR NCM attended and participated in neurosurgery huddle. Patient to OR today. NCM delivered Jury excuse letter to Francisca Bautista and received confirmat ion of fax. NCM will continue to follow for any discharge needs that may arise. INTERVENTION/DISPOSITION: Discharge Planning Discharge Planning: No Needs Identified Transportation Does the Patient Need Case Management to Arrange Discharge Transport ? (ex: facility, ambulance, wheelchair/stretcher, Medicaid, cab, other): No Will the Patient Use Family Transport?: Yes Transportation Name, Phone and Availability #1: Norbert Pacheco [phone] Support Support: Pt/Family Updates re:POC or DC Plan, Huddle/team update Info or Referral Information or Referral to Community Resources: No Needs Identified Positive SDOH Domains and Potential Barriers Medication Needs Medication Needs: No Needs Identified Financial Financial: No Needs Identified Legal Legal: No Needs Identified Other Other/None: No needs identified Discharge Disposition Selected Continued Care - Admitted Since 04/26/2023 No services have been selected for the patient. Glory Cowan RN Glory Cowan, RN, BSN Nurse Auto Engine Mechanic Available on [employer] * Glory Cowan RN - 04/26/2023 11:21 AM CDT Case Management Admission Assessment NAME:Johnny Bautista :[birth year] AGE: 77 y.o. ADMISSION DATE: 04/26/2023 DAYS ADMITTED: LOS: 0 days Todays Date: 04/26/2023 Source of Information: Patient and EMR. Problem: 8 AM lost balance and fell on his face on to concrete. Was taken by EMS to [facility]. 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 This CM met with pt for assessment on this date. Provided contact information a nd explanation of SW/NCM roles. Reviewed [facility], Preparing for Disc harge, and Preferred Provider Network hand-outs. Provided opportunity for quest ions and discussion. Pt/family encouraged to contact Case Management team with q uestions and concerns during hospitalization and until patient is able to transi tion back to the patient's primary care physician. NCM reviewed EMR NCM attended and participated in neurosurgery huddle. Pt resides in a two-level home with 3 steps to entry. Pt lives with Tara. Pt was independent with ADLs prior to admission. Pt could have 24/7 supervision, if needed. Pt utilizes no DME. Pt's previous history of HH, dialysis, eternal feeds, infusions, SNF, IPR an d LTACH includes: None Patient is current with PCP and has seen her within the last month. NCM to continue to follow for any dc needs that may arise. Plan Plan: Case Management Assessment, Assist PRN with SW/NCM Services Patient Address/Phone [address] [place] [id number] There are no phone numbers on file. Emergency Contact Extended Emergency Contact Information Primary Emergency Contact: Francisca Bautista "Tara" Mobile Relation: Spouse Healthcare Directive Healthcare Directive: No, patient does not have a healthcare directive Would patient like to fill out a (a new) Healthcare Directive?: No, patient decl ined Psych Advance Directive (Psych unit only): No, patient does not have a Psych Adv ance Directive Transportation Does the Patient Need Case Management to Arrange Discharge Transport? (ex: facil ity, ambulance, wheelchair/stretcher, Medicaid, cab, other): No Will the Patient Use Family Transport?: Yes Transportation Name, Phone and Availability #1: Norbert Pacheco [phone] Expected Discharge Date 04/29/2023 Living Situation Prior to Admission Living Arrangements Type of Residence: Home, independent Living Arrangements: Spouse/significant other Bathroom Shower / Tub: Walk-in Shower How many levels in the residence?: 2 Does residence have entry and/or inside stairs?: Yes (3 steps to enter) Assistance needed prior to admit or anticipated on discharge: Yes Who provides assistance or could if needed?: Are they in good health?: Yes Can support system provide 24/7 care if needed?: Yes Level of Function Prior level of function: Independent Cognitive Abilities Cognitive Abilities: Alert and Oriented, Engages in problem solving and planning , Participates in decision making, Recognizes impact of health condition on life style, Understands nature of health condition Financial Resources Coverage Primary Insurance: Medicare Secondary Insurance: Commercial insurance Additional Coverage: RX (Medicare Part D and [facility] AARP) Source of Income Source Of Income: SSI Financial Assistance Needed? NA Psychosocial Needs Mental Health Mental Health History: No Substance Use History Substance Use History Screen: Yes Comment: Patient has a few alcohol beverages per night Other NA Current/Previous Services PCP Alexia Benavides, , Pharmacy No Pharmacies Listed Durable Medical Equipment Durable Medical Equipment at home: None Home Health Receiving home health: No Hemodialysis or Peritoneal Dialysis Undergoing hemodialysis or peritoneal dialysis: No Tube/Enteral Feeds Receive tube/enteral feeds: No Infusion Receive infusions: No Private Duty Private duty help used: No Home and Community Based Services Home and community based services: No Young White Young White: N/A Hospice Hospice: No Outpatient Therapy PT: No OT: No BLUE LINE OPERATOR: No Half-Way Facility/Mcfp SNF: No NH: No Inpatient Rehab IPR: No [facility] LTACH: No Acute Hospital Stay Acute Hospital Stay: In the past Was patient's stay within the last 30 days?: No Glory Cowan RN, BSN Nurse Auto Engine Mechanic Available on [employer] documented in this encounter Discharge Instructions * Instructions* Dobbins, Carolyn, RN - 04/29/2023 3:51 PM CDT Johnny Bautista Suboccipital Craniotomy for Resection of Mass on 04/29/2023 with Glenn Flores MD Neurosurgery Discharge Instructions Contact information: Call the Neurosurgery clinic if you have questions or are experiencing problems at [phone]. After 5 PM, weekends, holidays please call [phone] to reach Neurosurgery senior vice president and chief information officer. Post-operative wound care: Your incision has sutures in place. Your incision may be open to air. Keep your incision dry for 5 days. Shower neck down until 05/03/23. Starting 04/07 use non-medicated soap to wash incision daily, pat dry and leave open to ai r. Avoid heavy water pressure over incision site. Only touch your incision with clean hands. Do not apply lotion, cream, or ointme nts to incision. Do not submerge (pool/tub) incision under water at all for 4 weeks. Have someone look at your incision every day. It should look the same or better each day. Activity restrictions: Avoid pushing, pulling, or lifting more than 10 pounds (about a gallon of milk). If you hold children, they should be placed in your lap or crawl into lap if old enough. Do NOT drive until you are cleared by your physician. Avoid bearing down or straining to have bowel movements. You must be off all pain medication before driving restriction is released. Post-operative pain and medications: Please use your pain medications and muscle relaxers as prescribed. Do not take NSAIDS (Ibuprofen, Advil, Aleve, Motrin, Naproxen) until Doctor appr sih. Pain medications can make you constipated. Please take stool softeners to aid t his process. Tylenol is approved for pain control. This is available over the counter. Follow up appointment: Scheduled appointments: May 11, 2023 1:30 PM Telehealth visit with BERNARDA Canas Neurosurgery: Medical [facility] (NeuroSurgery) [address] [facility] [address]. [address], [address] [facility] [id number] May 13, 2023 11:30 AM Simulation with Jorge Hester MD Radiation Oncology: Bruce stuart Tracykristel Rolle Rad Oncology Pav[facility] ([facility] Radiat ion Oncology) [address] [facility] [phone] May 17, 2023 11:45 AM (Arrive by 11:15 AM) MRI HEAD WO/W CONTRAST with MRI - [place] (1.5T) Imaging, MRI: [place] ([facility] Radiology) [address] [employer] [facility] [address] May 26, 2023 4:00 PM Postoperative visit with Glenn Flores MD Neurosurgery: [facility] (NeuroSurgery) [address] [facility] [address] Reasons to call the Neurosurgery Clinic ([phone]): Concerning lethargy (sleepiness), decreased level of consciousness, new confusio n. Worsening vision, facial weakness, tongue weakness, new hearing, or balance diff iculties. Fever 101 or greater. Redness or swelling of incision. Continuous oozing or persistent clear fluid coming from incision. Headaches increasing in severity and occurrences. A noticeable and increasing fluid collection developing under the skin, around y our incision. Intense pain that is getting worse or unrelieved by pain medications or muscle r elaxers. documented in this encounter Medications at Time of Discharge Start Date End Date Medication Sig Dispensed Refills 05/03/2023 acetaminophen (TYLENOL) Take two 0 325 mg tablet tablets by mouth every 4 hours as needed. amLODIPine (NORVASC) 5 mg Take one 0 tablet tablet by mouth daily. aspirin EC (ASPIR-LOW) 81 Take one 0 mg tablet tablet by mouth daily. benazepriL (LOTENSIN) 10 Take one 0 mg tablet tablet by mouth daily. 02/23/2023 celecoxib (CELEBREX) 400 Take one 0 mg capsule capsule by mouth daily. 05/03/2023 heparin (porcine) PF Inject 0.5 mL 0 5,000units/0.5mL under the injection syringe skin every 8 hours. DVT ppx hydroCHLOROthiazide 12.5 Take one 0 mg capsule capsule by mouth every morning. 05/03/2023 oxyCODONE (ROXICODONE) 5 Take one 0 mg tablet tablet to two tablets by mouth every 4 hours as needed. 02/23/2023 rosuvastatin (CRESTOR) 10 Take one 0 mg tablet tablet by mouth daily. 05/03/2023 sennosides-docusate Take one 90 tablet 0 sodium (SENOKOT-S) 8.6/50 tablet by mg tablet mouth twice daily. documented as of this encounter Ordered Prescriptions Start Date End Date Prescription Sig Dispensed Refills 05/03/2023 sennosides-docusate Take one 90 tablet 0 sodium (SENOKOT-S) 8.6/50 tablet by mg tablet mouth twice daily. 05/03/2023 oxyCODONE (ROXICODONE) 5 Take one 0 mg tablet tablet to two tablets by mouth every 4 hours as needed. 05/03/2023 heparin (porcine) PF Inject 0.5 mL 0 5,000units/0.5mL under the injection syringe skin every 8 hours. DVT ppx 05/03/2023 acetaminophen (TYLENOL) Take two 0 325 mg tablet tablets by mouth every 4 hours as needed. documented in this encounter Discharge Disposition Code Departure Means Destination Disposition Wheelchair Rehab Facility (Not [facility]) documented in this encounter Progress Notes * Elizabeth Alexis RN - 05/03/2023 10:39 AM CDT 1030: discharge paperwork gone over with Pt. Pt's peripheral IV removed. 1130: Pt transported [facility] front [facility]. All Pt belongings with Pt. P t's family to transport Pt to [facility]. All paperwork given to Pt. 1145: Report given Yany MEADOWS. * Jc Lang APRN-NP - 05/03/2023 6:43 AM CDT Neurosurgery Progress Note Admission Date: 04/26/2023 LOS: 7 days S: Without complaints this AM. Seen with Neurosurgery resident team. O: Vital Signs: 24 Hour Range BP: (105-172)/(78-103) Temp: [36.3 C (97.3 F)-36.8 C (98.2 F)] Pulse: [62-75] Respirations: [12 PER MINUTE-18 PER MINUTE] SpO2: [95 %-97 %] O2 Device: None (Room air) Physical Exam: Alert and engaged in exam Speech fluent Oriented to self, location, and year LENTZ, follows commands in all four symmetrically Incision C/D/I area with some fullness, no drainage or redness A/P: 77 y.o. 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 Also noted multiple suspicious lesions in left adrenal gland. OR 04/29/23 suboccipital crani for tumor resection 04/29 MRI head reviewed and shows good resection, notable DWI hit posterior to re section cavity Labs PRN Rad Onc and Onc following, will need outpatient follow up and treatment planning once dx established. Regular diet Dex taper SQH PT/OT post op evaluation recommend inpatient rehab. Rehab consult appropriate fo r inpatient. Medically ready for rehab Prophylaxis: A) GI: None B) Lines: No C) Urinary Catheter: No D) Antibiotic Usage: No E) VTE: Mechanical prophylaxis; Sequential compression device sq heparin F) Restraints: Patient assessed for need for restraints. Please page [phone] with any questions. BERNARDA Lopez [employer] me * Dot Moon OT - 05/02/2023 2:24 PM CDT OCCUPATIONAL THERAPY NOTE Name: Johnny Bautista : 1945 Age: 77 y.o. Admission Date: 04/26/2023 LOS: 6 days Date of Service: 05/02/2023 Patient unavailable as provider at bedside for extended period of time. OT will continue to follow and provide intervention as indicated. Therapist: Dot Moon, OTR/L [id number] Date: 05/02/2023 * Marilee Decker, PT - 05/02/2023 1:34 PM CDT PHYSICAL THERAPY NOTE Name: Johnny Bautista : 1945 Age: 77 y.o. Admission Date: 04/26/2023 LOS: 6 days Date of Service: 05/02/2023 0901 - Patient declined to participate despite encouragement and education about the role and benefits of Physical Therapy. 1317 - Patient declined to participate despite encouragement and education about the role and benefits of Physical Therapy. Rehabilitation services will contin ue to follow and provide intervention as indicated. Therapist: Marilee Decker, PT Date: 05/02/2023 * Jc Lang APRN-DATABASE DESIGN ANALYST - 05/02/2023 8:47 AM CDT Neurosurgery Progress Note Admission Date: 04/26/2023 LOS: 6 days S: Patient reports he is not resting well at night. Seen with Dr. Flores, we sp ent time encouraging him to consider Rehab prior to home. He also asked up to ev aluate his right thumb, he is able to move it, but it feels weird. O: Vital Signs: 24 Hour Range BP: (144-158)/(78-87) Temp: [36.3 C (97.4 F)-36.6 C (97.9 F)] Pulse: [65-71] Respirations: [16 PER MINUTE-18 PER MINUTE] SpO2: [95 %-97 %] O2 Device: None (Room air) Physical Exam: Alert and engaged in exam Speech fluent Oriented to self, location, and year LENTZ, follows commands in all four symmetrically Right thumb with bruising, able to demonstrate AROM, small area of joint depress ion without tenderness. Incision C/D/I area with some fullness, no drainage or redness A/P: 77 y.o. 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 Also noted multiple suspicious lesions in left adrenal gland. OR 04/29/23 suboccipital crani for tumor resection 04/29 MRI head reviewed and shows good resection, notable DWI hit posterior to re section cavity Na 135-chronic hyponatremia, stable labs Rad Onc and Onc following, will need outpatient follow up and treatment planning once dx established. Regular diet Dex taper SQH tonight PT/OT post op evaluation recommend inpatient rehab. Rehab consult appropriate fo r inpatient. Medically ready for rehab-will need to review thumb x-ray prior to leaving Prophylaxis: A) GI: None B) Lines: No C) Urinary Catheter: No D) Antibiotic Usage: No E) VTE: Mechanical prophylaxis; Sequential compression device sq heparin F) Restraints: Patient assessed for need for restraints. Please page [phone] with any questions. BERNARDA Lopez Voalte me * Gaurav Gimenez MD - 05/01/2023 7:13 AM CDT Neurosurgery Progress Note Admission Date: 04/26/2023 LOS: 5 days S: No acute overnight events. Patient seen this morning without family at the [facility]. He reports no new concerns this AM. Discussed that the recommendation fro m PT/OT was for inpatient rehab and that rehab team should be by to see him at [facility]me point soon. O: Vital Signs: 24 Hour Range BP: (132-155)/(69-87) Temp: [36.7 C (98.1 F)-36.9 C (98.5 F)] Pulse: [63-73] Respirations: [16 PER MINUTE-18 PER MINUTE] SpO2: [95 %-97 %] O2 Device: None (Room air) Physical Exam: Alert and engaged in exam Speech fluent Oriented to self, location, and year LENTZ, follows commands in all four symmetrically Baseline trauma to his nose after recent fall Dressing removed, incision clean dry and intact A/P: 77 y.o. 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 Also noted multiple suspicious lesions in left adrenal gland. OR 04/29/23 suboccipital crani for tumor resection 04/29 MRI head reviewed and shows good resection, notable DWI hit posterior to re section cavity Na 136-chronic hyponatremia, continue to montior Rad Onc and Onc following, will need outpatient follow up and treatment planning once dx established. Regular diet Dex taper Start SQH tonight PT/OT post op evaluation recommend inpatient rehab. Rehab consult pending Continue floor status, dispo pending rehab consult Prophylaxis: A) GI: None B) Lines: No C) Urinary Catheter: No D) Antibiotic Usage: No E) VTE: Mechanical prophylaxis; Sequential compression device F) Restraints: Patient assessed for need for restraints. Please page [phone] with any questions. Gaurav Gimenez MD Voalte me * Priya Santillan, PT - 04/30/2023 1:15 PM CDT PHYSICAL THERAPY RE-ASSESSMENT Name: Johnny Bautista : 1945 Age: 77 y.o. Admission Date: 04/26/2023 LOS: 4 days Date of Service: 04/30/2023 Subjective Significant hospital events: h/o prostate cancer, admitted after fall, nasal bon e fractures, found to have cerebellar mass. s/p suboccipital crani for resection on 04/29. Mental / Cognitive Status: Alert;Oriented;Cooperative Persons Present: Occupational Therapist;Family Pain: Patient complains of pain;Patient does not rate pain Pain Location: Post-surgical Pain Description: Aching Pain Interventions: Patient agrees to participate in therapy;Treatment altered t o patient's pain tolerance;Patient assisted into position of comfort Ambulation Assist: Independent Mobility in Community without Device Patient Owned Equipment: None Home Situation: Lives with Family;Has Assistance Available as Needed Type of Home: House Entry Stairs: 3-5 Stairs;No Rail (3 steps) ROM R LE ROM: WFL L LE ROM: WFL Strength Overall Strength: WFL Posture/Neurological Head Control: Independent Bed Mobility/Transfer Bed Mobility: Supine to Sit: Standby Assist;Safety Considerations Transfer Type: Sit to Stand Transfer: Assistance Level: From;Bed;Minimal Assist Transfer: Assistive Device: Roller Walker Transfers: Type Of Assistance: Verbal Cues;For Balance;For Safety Considerations End Of Activity Status: Up in Chair;Nursing Notified;Instructed Patient to Reque st Assist with Mobility;Instructed Patient to Use Call Light (chair alarm active , all needs met) Balance Sitting Balance: Standby Assist Standing Balance: Minimal Assist Gait Gait Distance: 200 feet Gait: Assistance Level: Minimal Assist;Safety Considerations Gait: Assistive Device: Roller Walker Gait: Descriptors: Pace: Slow;Decreased foot clearance RLE;Decreased heel strike RLE Comments: Veers to right, more prominent with fatigue. Decreased step length on R, more prominent with fatigue. Activity Limited By: Complaint of Fatigue Assessment/Progress Impaired Mobility Due To: Impaired Balance;Safety Concerns;Medical Status Limita tion Assessment/Progress: Should Improve w/ Continued PT;Expect Good Progress AM-PAC 6 Clicks Basic Mobility Inpatient Turning from your back to your side while in a flat bed without using bed rails: None Moving from lying on your back to sitting on the side of a flat bed without usin g bedrails : A Little Moving to and from a bed to a chair (including a wheelchair): A Little Standing up from a chair using your arms (e.g. wheelchair, or bedside chair): A Little To walk in hospital room: A Little Climbing 3-5 steps with a railing: A Lot Basic Mobility Inpatient Raw Score: 18 Standardized (T-scale) Score: 41.05 Goals Goal Formulation: With Patient Time For Goal Achievement: 7 days Patient Will Go Supine To/From Sit: w/ Stand By Assist Patient Will Ambulate: 151-200 Feet, w/ Stand By Assist Patient Will Go Up / Down Stairs: 3-5 Stairs, w/ Minimal Assist Plan Treatment Interventions: Mobility Training;Strengthening;Balance Activities Plan Frequency: 5 Days per Week PT Plan for Next Visit: Re-assess 10MWT, standing balance PT Discharge Recommendations Recommendation: Inpatient setting;Recommend rehab medicine consult Patient Currently Requires Physical Assist With: Ambulation;In and out of house; Stairs;Transfers Comments: Patient independent prior to admit. Will benefit from intensive physic al therapy prior to return home to facilitate indepndent functional mobility. Therapist Priya Santillan, [place], DPT [id number] Date 04/30/2023 * Brenna Dean OT - 04/30/2023 1:10 PM CDT OCCUPATIONAL THERAPY RE-ASSESSMENT NOTE Name: Johnny Bautista : 1945 Age: 77 y.o. Admission Date: 04/26/2023 LOS: 4 days Date of Service: 04/30/2023 Mobility Patient Turn/Position: Chair Progressive Mobility Level: Walk in hallway Distance Walked (feet): 200 ft Level of Assistance: Assist X1 Assistive Device: Walker Activity Limited By: Weakness (balance deficits) Subjective Pertinent Dx per Physician: h/o prostate cancer, admitted after fall, nasal bone fractures, found to have cerebellar mass. s/p suboccipital crani for resection on 04/29. Precautions: Falls Pain / Complaints: Patient agrees to participate in therapy Objective Psychosocial Status: Willing and Cooperative to Participate Persons Present: Family;Physical Therapist Home Living Type of Home: House Home Layout: (3 step entry) Bathroom Shower / Tub: Walk-in Shower Prior Function Level Of [place]: Independent with ADLs and functional transfers Lives With: Spouse Vision Corrective Lenses: Wears glasses all of the time Comment: Pt denies acute visual changes. Appears functional during mobility and ADLs. Will continue to assess. ADL's Where Assessed: Edge of Bed;Standing at Sink;In Bathroom Eating Assist: Independent Eating Deficits: No Assist Needed Grooming Assist: Minimal Assist Grooming Deficits: Steadying;Wash/Dry Face Toileting Assist: Minimal Assist Toileting Deficits: Steadying;Clothing Management Up;Clothing Management Down Comment: Pt retropulsive while standing at the sink and at the toilet. ADL Mobility Bed Mobility: Supine to Sit: Standby assist Transfer Type: Sit to stand Transfer: Assistance Level: From;Bed;Minimal assist Transfer: Assistive Device: Roller walker Transfer: Type of Assistance: For safety considerations;For balance End of Activity Status: Up in chair;Instructed patient to request assist with mo bility;Nursing notified Gait Distance: 200 feet Gait: Assistance Level: Minimal assist Gait: Assistive Device: Roller walker Gait Comments: Pt lists to the R and with fatigue has decreased coordination of RLE. Ambulates at slow pace, also requires cues for walker management. Pt left i n chair at end of session with all needs met and chair alarm set. RN aware. Cognition Overall Cognitive Status: Impaired ROM R UE ROM: WFL R UE ROM Method: Active L UE ROM: WFL L UE ROM Method: Active Education Persons Educated: Patient Teaching Methods: Verbal Instruction Patient Response: Verbalized and Demo Understanding;More Instruction Required Topics: Role of OT, Goals for Therapy Goal Formulation: With Patient Assessment Assessment: Decreased ADL Status;Decreased Safe/Judg during ADL;Decreased Cognit ion;Visual Deficit;Decreased Self-Care Trans;Decreased High-Level ADLs;Decreased Fine Motor Coordination AM-PAC 6 Clicks Daily Activity Inpatient Putting on and taking off regular lower body clothes: A Little Bathing (Including washing, rinsing, drying): A Little Toileting, which includes using toilet, bedpan, or urinal: A Little Putting on and taking off regular upper body clothing: A Little Taking care of personal grooming such as brushing teeth: A Little Eating meals: None Daily Activity Raw Score: 19 Standardized (T-scale) Score: 40.22 Plan OT Frequency: 5x/week OT Plan for Next Visit: UE outcome measure (9-hole), lower body ADLs, mobility w ith RW Further Evaluation Goals Other Further Evaluation Goal : 9 hole peg test ADL Goals Patient Will Perform All ADL's: w/ Modified [place] Functional Transfer Goals Pt Will Perform All Functional Transfers: w/ Stand By Assist OT Discharge Recommendations Recommendation: Inpatient setting;Recommend rehab medicine consult Patient Currently Requires Physical Assist With: All mobility;All personal care ADLs Therapist: ELLIOT Oneill/Angel [id number] Date: 04/30/2023 * Gaurav Gimenez MD - 04/30/2023 7:21 AM CDT Neurosurgery Progress Note Admission Date: 04/26/2023 LOS: 4 days S: No acute overnight events. Patient seen this morning without family at the [facility]. He reports no new concerns this AM. O: Vital Signs: 24 Hour Range BP: (122-152)/(71-91) ABP: (133-174)/(56-70) Temp: [36.6 C (97.8 F)-36.9 C (98.4 F)] Pulse: [58-93] Respirations: [9 PER MINUTE-18 PER MINUTE] SpO2: [92 %-98 %] O2 Device: None (Room air) Physical Exam: Alert and engaged in exam Speech fluent Oriented to self, location, and year LENTZ, follows commands in all four symmetrically Baseline trauma to his nose after recent fall Incision with dressing in place A/P: 77 y.o. 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 Also noted multiple suspicious lesions in left adrenal gland. OR 04/29/23 suboccipital crani for tumor resection MRI head head reviewed and shows good resection, notable DWI hit posterior to re section cavity PT/OT following, will need post op assessment, monitor closely for Rehab need Na 133-chronic hyponatremia, continue to montior Rad Onc and Onc following, will need outpatient follow up and treatment planning once dx established. Regular diet Ancef Dex taper Hold SQH until 48 post op Plan to transition to floor status today Prophylaxis: A) GI: None B) Lines: No C) Urinary Catheter: No D) Antibiotic Usage: No E) VTE: Mechanical prophylaxis; Sequential compression device F) Restraints: Patient assessed for need for restraints. Please page [phone] with any questions. Gaurav Gimenez MD Voalte me * Sea Mejia RN - 04/29/2023 7:18 PM CDT I have reviewed the notes, assessments, and/or procedures performed by ABDIEL Gonzalez, and concur with her/his documentation unless otherwise noted. * Jc Lang APRN-NP - 04/29/2023 10:55 AM CDT Neurosurgery Progress Note Admission Date: 04/26/2023 LOS: 3 days S: No new questions this AM, as ready as he can be for surgery today. O: Vital Signs: 24 Hour Range BP: (121-159)/(74-94) Temp: [36.3 C (97.4 F)-36.8 C (98.2 F)] Pulse: [57-73] Respirations: [13 PER MINUTE-18 PER MINUTE] SpO2: [96 %-99 %] O2 Device: None (Room air) Physical Exam: Alert and engaged in exam Oriented x 3 LENTZ, follows commands Baseline trauma to his nose after recent fall A/P: 77 y.o. male Principal Problem: Brain mass Active Problems: Chronic hyponatremia 04/26-MRI head left cerebellar-vermian mass-concern for mets, noted cerebellar ed loi and brain compression. 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 Also noted multiple suspicious lesions in left adrenal gland. OR 04/29/23 suboccipital crani for tumor resection PT/OT following, will need post op assessment, monitor closely for Rehab need Na 134-chronic hyponatremia Rad Onc and Onc following, will need outpatient follow up and treatment planning once dx established. NPO for OR Pre-op for OR, CHG bath ordered x 2 Prophylaxis: A) GI: None B) Lines: No C) Urinary Catheter: No D) Antibiotic Usage: No E) VTE: Mechanical prophylaxis; Sequential compression device F) Restraints: Patient assessed for need for restraints. Please page [phone] with any questions. BERNARDA Lopez Voalte me * Brenda Alonzo, PT - 04/29/2023 9:53 AM CDT PHYSICAL THERAPY NOTE Name: Johnny Bautista : 1945 Age: 77 y.o. Admission Date: 04/26/2023 LOS: 3 days Date of Service: 04/29/2023 Patient unavailable for therapy treatment on this date due to being off unit in OR for test/ procedure. Therapy will continue to follow and provide further assi stance with care as able. Therapist: Brenda Alonzo, PT Date: 04/29/2023 * Jc Lang APRN-NP - 04/28/2023 1:53 PM CDT Neurosurgery Progress Note Admission Date: 04/26/2023 LOS: 2 days S: Seen with Dr. Flores, patient reports he is ready for surgery tomorrow, no n ew questions. O: Vital Signs: 24 Hour Range BP: (121-150)/(66-94) Temp: [36.4 C (97.5 F)-36.8 C (98.2 F)] Pulse: [55-69] Respirations: [18 PER MINUTE] SpO2: [96 %-97 %] O2 Device: None (Room air) Physical Exam: Alert and engaged in exam Oriented x 3 LENTZ, follows commands Baseline trauma to his nose after recent fall A/P: 77 y.o. male Principal Problem: Brain mass 04/26-MRI head left cerebellar-vermian mass-concern for mets, noted cerebellar ed loi and brain compression. 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 Also noted multiple suspicious lesions in left adrenal gland. Plan for OR 04/29/23 suboccipital crani for tumor resection PT/OT following, will need post op assessment, monitor closely for Rehab need Na 136 Rad Onc and Onc following, will need outpatient follow up and treatment planning once dx established. Regular diet Pre-op for OR, CHG bath ordered x 2 Prophylaxis: A) GI: None B) Lines: No C) Urinary Catheter: No D) Antibiotic Usage: No E) VTE: Mechanical prophylaxis; Sequential compression device F) Restraints: Patient assessed for need for restraints. Please page [phone] with any questions. BERNARDA Lopez Voalte me * Tracy Lubna BERNARDA Wynn - 04/28/2023 10:23 AM CDT Oncology Consult Progress Note Name: Johnny Bautista Today's Date: 04/28/2023 Admission Date: 04/26/2023 LOS: 2 days Assessment/Plan: Principal Problem: Brain mass Brain mass Left lung mass - +hx tobacco use, quit in Oct 2019 - 04/26 MRI head: L cerebellar mass, presumably a hemorrhagic met w/ associated e chinyere and mass effect, without obvious obstructive hydrocephalus. Add'l R cerebel lar focus- could be benign enhancement vs add'l tiny met. - CT c/a/p: 3.6 X 2.5cm ARCHANA perihilar mass. At least 2 lung nodules in LLL, mult iple other sub cm lung nodules indeterminate. Mediastinal or L hilar metastatic LAD. Indeterminate R hilar LAD. Left adrenal met. - Neurosurgery following- OR on Sunday 04/29 for brain mass resection - Rad Onc consulted- plan for post op radiation, plan simulation ~2 weeks post o p History of prostate cancer - 2009, received brachytherapy only - last PSA <1 (within the past year) per patient Plan - follow up pathology from brain resection, plan to send NGS testing on tissue - systemic treatment recommendation pending tissue diagnosis - Med Onc follow up at [facility] after discharge, patient may wish to receive ongoing treatments closer to home in [facility] Patient discussed with Dr. Adkins Subjective Johnny Bautista is a 77 y.o. male. His pain is controlled. Still having problems with walking. Medications Scheduled Meds:amLODIPine (NORVASC) tablet 5 mg, 5 mg, Oral, QDAY And lisinopriL (ZESTRIL) tablet 10 mg, 10 mg, Oral, QDAY docusate (COLACE) capsule 100 mg, 100 mg, Oral, BID milk of magnesium oral suspension 30 mL, 30 mL, Oral, QDAY sennosides-docusate sodium (SENOKOT-S) tablet 1 tablet, 1 tablet, Oral, BID Continuous Infusions: PRN and Respiratory Meds:acetaminophen Q4H PRN, ondansetron (ZOFRAN) IV Q6H PRN, oxyCODONE Q4H PRN Objective Vital Signs: Last Filed Vital Signs: 24 Carol Ann r Range BP: 135/74 (04/28 741) Temp: 36.7 C (98 F) (04/28 741) Pulse: 69 (04/28 741) Respirations: 18 PER MINUTE (04/28 741) SpO2: 96 % (04/28 741) O2 Device: None (Room air) (04/28 741) BP: (135-150)/(66-78) Temp: [36.4 C (97.5 F)-36.7 C (98 F)] Pulse: [55-69] Respirations: [18 PER MINUTE] SpO2: [96 %-97 %] O2 Device: None (Room air) Vitals: 04/26/23 0000 04/26/23 0400 04/27/23 0500 Weight: 87.5 kg (192 lb 14.4 oz) 87.5 kg (192 lb 14.4 oz) 80.7 kg (177 lb 14.6 o z) Intake/Output Summary: (Last 24 hours) Intake/Output Summary (Last 24 hours) at 04/28/2023 1023 Last data filed at 04/28/2023 0346 Gross per 24 hour Intake 483 ml Output -- Net 483 ml Stool Occurrence: 1 Review of Systems Constitutional: Positive for malaise/fatigue. Neurological: Negative for headaches. Gait disturbance Physical Exam General appearance: alert, cooperative and no distress Head: Normocephalic, bruising and healing abrasions to face Eyes: PERRL Lungs: non labored, on RA Neurologic: Grossly normal Lab Review 24-hour labs: Results for orders placed or performed during the hospital encounter of 04/26/23 (from the past 24 hour(s)) BASIC METABOLIC PANEL Collection Time: 04/28/23 3:41 AM Result Value Ref Range Sodium 136 (L) 137 - 147 MMOL/L Potassium 3.5 3.5 - 5.1 MMOL/L Chloride 102 98 - 110 MMOL/L CO2 23 21 - 30 MMOL/L Anion Gap 11 3 - 12 Glucose 98 70 - 100 MG/DL Blood Urea Nitrogen 14 7 - 25 MG/DL Creatinine 0.82 0.4 - 1.24 MG/DL Calcium 9.3 8.5 - 10.6 MG/DL eGFR >60 >60 mL/min CBC Collection Time: 04/28/23 3:41 AM Result Value Ref Range White Blood Cells 9.3 4.5 - 11.0 K/UL RBC 4.56 4.4 - 5.5 M/UL Hemoglobin 14.6 13.5 - 16.5 GM/DL Hematocrit 42.8 40 - 50 % MCV 94.0 80 - 100 FL MCH 32.1 26 - 34 PG MCHC 34.2 32.0 - 36.0 G/DL RDW 13.8 11 - 15 % Platelet Count 248 150 - 400 K/UL MPV 8.0 7 - 11 FL Point of Care Testing (Last 24 hours) Glucose: 98 (04/28/23 0341) Radiology and other Diagnostics Review: Pertinent radiology reviewed. Lubna Molina APRN Pager [phone] Voalte * Brenda Alonzo, PT - 04/27/2023 11:32 AM CDT PHYSICAL THERAPY PROGRESS NOTE Name: Johnny Bautista : 1945 Age: 77 y.o. Admission Date: 04/26/2023 LOS: 1 day Date of Service: 04/27/2023 Mobility Patient Turn/Position: Weight shifted (Bed) Progressive Mobility Level: Walk in hallway Distance Walked (feet): 125 ft Level of Assistance: Assist X1 Assistive Device: Walker Activity Limited By: Patient request to stop Subjective Significant hospital events: PMH of HTN, HLD, Prostate Cancer, Knee Surgery. Jasmnie coronelnt had been experiencing gait imbalance for the past week. 04/25 AM lost balanc e and fell on his face on to concrete. Imaging positive for L cerebellar mass wi th mild hydrocephalus and displaced nasal fractures. Anticipate OR this Sunday 04/29 with neurosurgery. Mental / Cognitive Status: Alert;Oriented;To Person;To Place;To Situation;Reinaldo ative;Follows Commands Persons Present: Occupational Therapist (at end of therapy session) Pain: Patient complains of pain Ambulation Assist: Independent Mobility in Community without Device Patient Owned Equipment: None Home Situation: Lives with Family;Has Assistance Available as Needed (spouse) Type of Home: House Entry Stairs: 3-5 Stairs;No Rail (3 steps to enter) Bed Mobility/Transfer Bed Mobility: Sit to Supine: Standby Assist Comments: Patient sitting on the toilet upon arrival. Transfer Type: Sit to/from Stand Transfer: Assistance Level: To/From;Bed;Toilet;Standby Assist Transfer: Assistive Device: Roller Walker Transfers: Type Of Assistance: For Balance;For Safety Considerations;Requires Ex tra Time End Of Activity Status: Instructed Patient to Request Assist with Mobility;Instr ucted Patient to Use Call Light;Nursing Notified;In Bed (OT in room at end of ) Balance Sitting Balance: Standby Assist Standing Balance: Minimal Assist Gait Gait Distance: 125 feet Gait: Assistance Level: Minimal Assist;Safety Considerations (CGA) Gait: Assistive Device: Roller Walker Gait: Descriptors: Pace: Slow;Forward trunk flexion;Decreased step length;No bal ance loss;Decreased foot clearance RLE;Decreased foot clearance LLE Activity Limited By: Patient Choice Education Persons Educated: Patient Patient Barriers To Learning: None Noted Teaching Methods: Verbal Instruction Patient Response: More Instruction Required Topics: Plan/Goals of PT Interventions;Use of Assistive Device/Orthosis;Mobility Progression;Safety Awareness;Importance of Increasing Activity;Recommend Contin ued Therapy Assessment/Progress Impaired Mobility Due To: Impaired Balance;Safety Concerns;Medical Status Limita tion Assessment/Progress: Expect Good Progress Patient completed 10MWT with RW use. Patient completed with an average of 16.5 seconds with roller walker and minimal assistance. Patient's score indicates pat ient is a household walker and requires intervention to reduce falls. AM-PAC 6 Clicks Basic Mobility Inpatient Turning from your back to your side while in a flat bed without using bed rails: None Moving from lying on your back to sitting on the side of a flat bed without usin g bedrails : A Little Moving to and from a bed to a chair (including a wheelchair): A Little Standing up from a chair using your arms (e.g. wheelchair, or bedside chair): A Little To walk in hospital room: A Little Climbing 3-5 steps with a railing: A Lot Basic Mobility Inpatient Raw Score: 18 Standardized (T-scale) Score: 41.05 Goals Goal Formulation: With Patient Time For Goal Achievement: 7 days Patient Will Go Supine To/From Sit: w/ Stand By Assist Patient Will Ambulate: 151-200 Feet, w/ Stand By Assist Patient Will Go Up / Down Stairs: 3-5 Stairs, w/ Minimal Assist Plan Treatment Interventions: Mobility Training;Strengthening;Balance Activities Plan Frequency: 5-7 Days per Week PT Plan for Next Visit: Will assess balance with outcome measure and balance wit hout a device longer distances as long as BP is within goal ranges. PT Discharge Recommendations Recommendation: Inpatient setting (as pt awaiting further intervention on 04/29. Will readdress recommendations post procedurally.) Therapist: Brenda Alonzo, PT Date: 04/27/2023 * Swetha Weldon OT - 04/27/2023 11:32 AM CDT OCCUPATIONAL THERAPY ASSESSMENT NOTE Name: Johnny Bautista : 1945 Age: 77 y.o. Admission Date: 04/26/2023 LOS: 1 day Date of Service: 04/27/2023 Mobility Progressive Mobility Level: Walk in room Distance Walked (feet): 35 ft Level of Assistance: Assist X1 Assistive Device: Walker Subjective Pertinent Dx per Physician: h/o prostate cancer, admitted after fall, nasal bone fractures, found to have cerebellar mass. Plan for resection 04/29. Precautions: Falls Pain / Complaints: Patient has no c/o pain Objective Psychosocial Status: Willing and Cooperative to Participate Home Living Type of Home: House Home Layout: (3 step entry) Prior Function Level Of [place]: Independent with ADLs and functional transfers Lives With: Spouse Vision Corrective Lenses: Wears glasses all of the time Comment: currently wearing a pair of sunglasses with old prescription lenses, as his up to date prescription glasses were broken in the fall. Pt reports he is h aving difficulty seeing adequately. While seated edge of bed pt reached for OT's pant leg, grasping zipper, then realized it was a zipper and said, "oh, that's a zipper. I thought it was lint." Pt able to track in all quadrants but eye move ments not smooth. Difficult to fully assess as pt's sunglasses are very dark. Pt was able to do finger to nose testing with good accuracy, though slowing down s lightly with LUE to accurately touch target. Reports he has noticed some difficu lty with accurately reaching for ADL objects. Unclear if this is due to vision o r coordination deficit. Will continue to monitor. ADL's LE Dressing Assist: Stand By Assist LE Dressing Deficits: Don/Doff R Sock;Don/Doff L Sock (sitting edge of bed. Comb ination of crossing legs in lap and bending forward. No loss of balance or dizzi ness.) ADL Mobility Bed Mobility: Supine to Sit: Standby assist Bed Mobility: Sit to Supine: Standby assist Transfer Type: Sit to stand;Stand to sit;Stand pivot Transfer: Assistance Level: Minimal assist Gait Distance: 35 feet Gait: Assistance Level: Minimal assist Gait: Assistive Device: Roller walker Activity Tolerance Comment: Pt had just completed session with PT prior to OT session. Cognition Social Interaction: Cueing for Appropriateness Cognition Comment: Pt reached to pick off what he thought was a piece of lint of f of OT's pant leg (it was actually the zipper). ROM Coordination: Serial Opposition WNL for Rate, Rhythm, Placement (no obvious atax ia, though does slow down with dominant LUE when nearing target. Unclear if due to vision vs coordination impairment. Will continue to monitor.) ROM Comments: BUE WFL Sensory Comment: denies deficit UE Strength / Tone Strength Comments: BUE WFL Education Persons Educated: Patient Teaching Methods: Verbal Instruction Patient Response: Verbalized and Demo Understanding;More Instruction Required Topics: Role of OT, Goals for Therapy Goal Formulation: With Patient Assessment Assessment: Decreased ADL Status;Decreased Safe/Judg during ADL;Decreased Cognit ion;Visual Deficit;Decreased Self-Care Trans;Decreased High-Level ADLs Prognosis: Good;w/Cont OT s/p Acute Discharge AM-PAC 6 Clicks Daily Activity Inpatient Putting on and taking off regular lower body clothes: A Little Bathing (Including washing, rinsing, drying): A Little Toileting, which includes using toilet, bedpan, or urinal: A Little Putting on and taking off regular upper body clothing: A Little Taking care of personal grooming such as brushing teeth: A Little Eating meals: None Daily Activity Raw Score: 19 Standardized (T-scale) Score: 40.22 Plan OT Frequency: 3-5x/week OT Plan for Next Visit: re-eval postop (OR planned 04/29) Further Evaluation Goals Other Further Evaluation Goal : 9 hole peg test ADL Goals Patient Will Perform All ADL's: w/ Minimal Assist Functional Transfer Goals Pt Will Perform All Functional Transfers: w/ Stand By Assist, w/ Good Judgment/S afety OT Discharge Recommendations Recommendation: Inpatient setting;Recommend rehab medicine consult Patient Currently Requires Physical Assist With: All mobility;All personal care ADLs;All home functioning ADLs Comments: 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 Therapist: Swetha Weldon OT Date: 04/27/2023 * Jc Lang APRN-DATABASE DESIGN ANALYST - 04/27/2023 10:45 AM CDT Neurosurgery Progress Note Admission Date: 04/26/2023 LOS: 1 day S: Reports he is doing well this AM, denies any further questions regarding upco mary kate surgery on Tuesday. Reports he is eating fine. Encourage out of bed activity , up to chair work with therapy to keep his strength up. O: Vital Signs: 24 Hour Range BP: (118-157)/(63-103) Temp: [36.3 C (97.3 F)-36.7 C (98 F)] Pulse: [58-68] Respirations: [8 PER MINUTE-18 PER MINUTE] SpO2: [94 %-97 %] O2 Device: None (Room air) Physical Exam: Alert and engaged in exam Oriented x 3 LENTZ, follows commands Baseline trauma to his nose after recent fall A/P: 77 y.o. male Principal Problem: Brain mass 04/26-MRI head left cerebellar-vermian mass-concern for mets, noted cerebellar ed loi and brain compression. 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 Also noted multiple suspicious lesions in left adrenal gland. Plan for OR 04/29/23 suboccipital crani for tumor resection PT/OT following, will need post op assessment, monitor closely for Rehab need Na 134 Rad Onc and Onc following, will need outpatient follow up and treatment planning once dx established. Regular diet Prophylaxis: A) GI: None B) Lines: No C) Urinary Catheter: No D) Antibiotic Usage: No E) VTE: Mechanical prophylaxis; Sequential compression device F) Restraints: Patient assessed for need for restraints. Please page [phone] with any questions. BERNARDA Lopez Voalte me * Swetha Weldon, OT - 04/26/2023 3:49 PM CDT OCCUPATIONAL THERAPY NOTE Name: Johnny Bautista : 1945 Age: 77 y.o. Admission Date: 04/26/2023 LOS: 0 days Date of Service: 04/26/2023 Pt educated on OT role and initially agreeable to session, however then declined to get up at this time. Agreeable to OT follow up tomorrow. 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 Lives with his . Has no DME. Will continue to follow. Therapist: Swetha Weldon OT Date: 04/26/2023 * Evelin Holt, PT - 04/26/2023 1:34 PM CDT PHYSICAL THERAPY ASSESSMENT Name: Johnny Bautista : 1945 Age: 77 y.o. Admission Date: 04/26/2023 LOS: 0 days Date of Service: 04/26/2023 Mobility Patient Turn/Position: Chair Distance Walked (feet): 20 ft Level of Assistance: Assist X1 Assistive Device: Walker Subjective Significant hospital events: PMH of HTN, HLD, Prostate Cancer, Knee Surgery. Jasmine baird had been experiencing gait imbalance for the past week. 04/25 AM lost balanc e and fell on his face on to concrete. Imaging positive for L cerebellar mass wi th mild hydrocephalus and displaced nasal fractures. Anticipate OR this Sunday 04/29 with neurosurgery. Mental / Cognitive Status: Alert;Oriented;To Person;To Place;To Situation;Reinaldo ative;Follows Commands Persons Present: Nursing Staff Pain: Patient demonstrates non-verbal signs of pain (denies headache but says "f marcel hurts some") Ambulation Assist: Independent Mobility in Community without Device Patient Owned Equipment: None Home Situation: Lives with Family;Has Assistance Available as Needed (spouse) Type of Home: House Entry Stairs: 3-5 Stairs;No Rail (3 steps to enter) Strength Strength Position Assessed: Supine Overall Strength: WFL (BLE) Posture/Neurological Head Control: Able to Assist With Head/Neck Control Posture/Neuro Comments: Pt currently with impaired vision at this time due to hi s prescription glasses are broken. He reports his spouse should be bringing his prescription sunglasses up so that he can read/ see better. Once standing pt r eports challenges in getting his LE's to move "right". Pt had received medication prior to this therapist arrival to get SBP back into range. SBP began at 174/91 in supine and after sitting up was 153/84. In stand ing BP was 127/76. Pt denied dizziness but endorsed feelings of unsteadiness. After short bout of ambulation in the room and sitting break BP was 146/99. Pt agreeable to sitting up in bedside chair to eat breakfast that he ordered. Bed Mobility/Transfer Bed Mobility: Supine to Sit: Standby Assist Transfer Type: Sit to/from Stand Transfer: Assistance Level: To/From;Bed;Bed Side Chair;Minimal Assist Transfer: Assistive Device: Roller Walker Transfers: Type Of Assistance: For Balance;For Safety Considerations;Requires Ex tra Time End Of Activity Status: Up in Chair;Instructed Patient to Request Assist with Mo bility;Instructed Patient to Use Call Light;Nursing Notified (nursing assisted p t with ordering breakfast) Balance Sitting Balance: Standby Assist Standing Balance: Minimal Assist Gait Gait Distance: 30 feet Gait: Assistance Level: Minimal Assist Gait: Assistive Device: Roller Walker Gait: Descriptors: Variable step length (shuffling/decreased foot clearance.) Comments: Provided pt with walker to use with nursing staff as pt using IV pole and furniture walking to the bathrooms. Also did 20 reps of standing marching with equal foot clearance noted and no ove rt signs of ataxia. Anticipate that balance deficits may be visuospatial in juan ure but could be difficult to determine due to impaired vision also due to lack of needed vision prescription to accommodate for baseline deficits. Education Persons Educated: Patient Patient Barriers To Learning: None Noted Teaching Methods: Verbal Instruction Patient Response: More Instruction Required Topics: Plan/Goals of PT Interventions;Use of Assistive Device/Orthosis;Mobility Progression;Safety Awareness;Importance of Increasing Activity;Recommend Contin ued Therapy Assessment/Progress Impaired Mobility Due To: Impaired Balance;Safety Concerns;Medical Status Limita tion Assessment/Progress: Expect Good Progress AM-PAC 6 Clicks Basic Mobility Inpatient Turning from your back to your side while in a flat bed without using bed rails: None Moving from lying on your back to sitting on the side of a flat bed without usin g bedrails : A Little Moving to and from a bed to a chair (including a wheelchair): A Little Standing up from a chair using your arms (e.g. wheelchair, or bedside chair): A Little To walk in hospital room: A Little Climbing 3-5 steps with a railing: A Lot Basic Mobility Inpatient Raw Score: 18 Standardized (T-scale) Score: 41.05 Goals Goal Formulation: With Patient Time For Goal Achievement: 7 days Patient Will Go Supine To/From Sit: w/ Stand By Assist Patient Will Ambulate: 151-200 Feet, w/ Stand By Assist Patient Will Go Up / Down Stairs: 3-5 Stairs, w/ Minimal Assist Plan Treatment Interventions: Mobility Training;Strengthening;Balance Activities Plan Frequency: 5-7 Days per Week PT Plan for Next Visit: Will assess balance with outcome measure and balance wit hout a device longer distances as long as BP is within goal ranges. PT Discharge Recommendations Recommendation: Inpatient setting at this time as pt awaiting further interventi on on 04/29. Will readdress recommendations post procedurally. Therapist Evelin Holt, PT Date 04/26/2023 * Yanci Marlow APRN-NP - 04/26/2023 9:21 AM CDT Neurosurgery Progress Note Admission Date: 04/26/2023 LOS: 0 days Subjective: No acute events noted. Seen this AM with the neurosurgery resident marcella rojas and discussed with Dr. Flores. No family present during exam. Objective: Awake and alert Oriented to person, place and time LENTZ, follows commands A/P: Johnny Bautista is a 77 y.o. male with Brain mass [G93.89] Patient Active Problem List Diagnosis Date Noted Brain mass 04/26/2023 Neuro: Neurologically stable >MRI head reviewed >neuro checks Q2H > OR Tuesday for mass resection (case requested) Pulmonary: Stable on room air; titrated to keep SpO2> 92% CV: Maintain normotension GI: Regular diet FEN: Maintain euvolemia; Na 131, recheck at 1000 ID: Afebrile, WBC 13.8 Heme: Hgb 15.1; Plt 285 Disposition/Family: Progress to med/surg status. PT/OT as able. Oncology and Ra diation oncology consulted Prophylaxis: A)GI: PPI B) Lines: No C) Urinary Catheter: No D) Antibiotic Usage: No E) VTE: Mechanical prophylaxis; Sequential compression device F) Restraints: Patient assessed for need for restraints. Please page [phone] with any questions. BERNARDA Benson Voalte me * Nba Sepulveda DO - 04/26/2023 9:07 AM CDT Neuro Critical Care Progress Note Johnny Bautista Admission Date: 04/26/2023 LOS: 0 days Full Code Patient Active Problem List Diagnosis (Hosp) Brain mass A/P 77-year-old male with large cerebellar mass likely metastasis cerebellar mas s Neuro: Cerebellar mass, facial fractures - OR Tuesday per Neurosurgery - Trauma to see for facial injury - Will discuss with nsgy about dexamethasone - close neuro checks Sedation/Pain Management: Tylenol and oxycodone and Zofran Cardiac: History of hypertension hyperlipidemia blood pressure goal <160 Can restart home BP meds hold 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 I spent 50 minutes (excluding time spent performing or supervising any procedures) providing and personally directi critical care services including laboratory data review, radiographic interpr etations, blood gas analysis, formulating rapid response care plan and discussin g prognosis with patient and family. Johnny Bautista is a 77 y.o. male. Overnight Events: No new events noted. Patie nt resting comfortably, discussed ct and mri results Vital Signs: Last Filed Vital Signs: 24 Hour Ra nge BP: 146/76 (04/26 900) Temp: 36.6 C (97.9 F) (04/26 800) Pulse: 61 (04/26 900) Respirations: 13 PER MINUTE (04/26 900) SpO2: 95 % (04/26 900) O2 Device: None (Room air) (04/26 900) Height: 177.8 cm (5' 10") (04/26 0000) Weight: 87.5 kg (192 lb 14.4 oz) (04/26 0400) Admission / Dosing Weight: 87.5 kg (192 lb 14.4 oz) (04/26 0000) BP: (124-165)/ (68-101) Temp: [36.5 C (97.7 F)-36.7 C (98.1 F)] Pulse: [58-82] Respirations: [13 PER MINUTE-17 PER MINUTE] SpO2: [94 %-97 %] O2 Device: None (Room air) Intake/Output Summary: (Last 24 hours) Intake/Output Summary (Last 24 hours) at 04/26/2023906 Last data filed at 04/26/2023 0900 Gross per 24 hour Intake 25 ml Output 1800 ml Net -1775 ml Physical Exam: Neuro: Mental Status: Awake and alert Speech: Fluent, clear Cranial Nerves: Pupils equal and reactive, no nystagmuc Motor: antigravity x 4 Cerebellar: ataxia with FNF on the left and HTS on the left Sensory: intact to light touch HEENT: Bruising on nose and face Lungs: clear to auscultation bilaterally Heart: regular rate and rhythm, S1, S2 normal, no murmur, click, rub or gallop Abdomen: soft, non-tender. Bowel sounds normal. No masses, no organomegaly Extremities: extremities normal, atraumatic, no cyanosis or edema Skin: Skin color, texture, turgor normal. No rashes or lesions Radiology and Other Diagnostic Procedures Review: Pertinent radiologic and diag nostic procedures reviewed. Nba Sepulveda DO Date: 04/26/[phone] * Leslie Lange RN - 04/26/2023 7:01 AM CDT I have reviewed the notes, assessments, and/or procedures performed by lorna Monique nd concjose rafael with her/his documentation unless otherwise noted. * Fabi Parmar APRN-NP - 04/26/2023 6:33 AM CDT Neuro Critical Care Progress Note Johnny Bautista Admission Date: 04/26/2023 LOS: 0 days Full Code ASSESSMENT/PLAN Patient Active Problem List Diagnosis Date Noted Brain mass 04/26/2023 Johnny Bautista is a 77 y.o. male with a PMH of HTN, HLD, Prostate Cancer, Knee S urgery. Patient had been experiencing gait imbalance for the past week. 8 AM lost balance and fell on his face on to concrete. Was taken by EMS to [facility]. Initial imaging with CT showed a left cerebellar mass with mild hydrocephalus and displaced nasal fractures. Requested for transfer out to [facility] e to lack of NSGY services at sending hospital. Patient admitted to [facility] for monitoring and further management by NSGY. NEICU consulted to assist with ongoi ng management. Hospital and ICU course: 04/25: Admit to NEICU 04/26: Consulted Oncology, restarted VOLLEYBALL ASSISTANT COACH lotrel. Neuro/ENT: Left Cerebellar Mass, presumably hemorrhagic met w assoc. edema and mass effect Displaced Nasal Fractures - 1 week Hx of Disequilibrium - Lost balance and fell on his face onto concrete 04/25 AM - Taken by EMS to [facility] - CTH, Face, Neck @ OSH: 3.7 cm x 3 cm mass within left cerebellar hemisphere ca using mass effect on the 4th ventricle, mild enlargement of the lateral ventricl es and 3rd ventricle. No midline shift. Displaced nasal fractures. No C-Spine in jury. - NSG primary: No acute surgical intervention MRI 04/26: Heterogeneously enhancing hemorrhagic left cerebellar-vermian mass, presumably a hemorrhagic metastasis. Associated cerebellar edema and posterior fossa mass ef fect without obvious obstructive hydrocephalus. Additional enhancing punctate ri ght cerebellar focus, nonspecific, though, likely benign venous enhancement or a n additional tiny metastasis. At least mild generalized cerebral volume loss and marked supratentorial white matter and mild pontine FLAIR hyperintensities, lik keila sequelae of chronic microvascular ischemia. Small right frontal scalp contus ion and presumed left suboccipital paraspinous musculature strain. Plan: - NSG following for cerebellar mass, likely OR 04/29 for resection - Trauma consulted for nasal fractures - Neuro-ICU monitoring, neurochecks q 1 hrs Sedation/Pain Management: - PRN Tyelonol 650mg q4 - PRN fentanyl 25-50 q1 - PRN oxycodone 5-10mg q4 - Assess for delirium daily Cardiac: HTN HLD - Restarted VOLLEYBALL ASSISTANT COACH Lotrel 5/10 mg Daily, - Continue to gold HCTZ 12.5 mg Daily, ASA81 mg - SBP goal: <160 - MAP goal > 65 Plan: - Restarted VOLLEYBALL ASSISTANT COACH Lotrel - Hold HCTZ if surgery necessitated tomorrow - PRN Labetalol and Hydralazine to maintain BP goals Respiratory: h/o Tobacco abuse (quit Sep/Oct 2019) Left Lower lobe Lung nodules (new) - saturating well on room air - PaO2 goal >100, Spo2 goal >95%, CTA chest 04/26: At least 2 suspicious pulmonary nodules in left lower lobe. Multiple other subcentimeter pulmonary nodules remain indeterminate and attention on follow-up is recommended. Mediastinal or left hilar metastatic lymphadenopathy. Indeterminate right hilar lymphadenopathy. GI/: - Feeding: NPO - neuro bowel regimen, ensure daily BM Heme/Onc: h/o Prostate cancer - 2009, received brachytherapy only - Last PSA <1 (within the past year) per patient Left upper lobe perihilar mass (3.6x 2.5cm) - Newly diagnosed Left adrenal Met - newly diagnosed - Consulted oncology, recs pending - Hgb 15.1/ Plts 285 - DVT ppx: SCDs - assess for coagulopathy, maintain platelets above 100k, INR <1.5 - Daily CBC ID: - Afebrile - WBC 13.8 - aim for normothermia, Temp <38.3 celsius, normothermia protocol if febrile Renal: - Creat 0.95/ BUN 16 - Aim for normovolemia Intake/Output Summary (Last 24 hours) at 04/26/2023 0645 Last data filed at 04/26/2023 0400 Gross per 24 hour Intake -- Output 1050 ml Net -1050 ml CTA A/P 04/26: Left adrenal metastases Endocrine: - Blood glucose on chemistry 112 - Blood glucose goal 100-180mg/dl FEN: - IVF: SL - Magnesium goal >2.0, i-Bryn goal > 1.0, Potassium goal >4.0 mEq/L - Adult critical care electrolyte replacement ordered Prophylaxis Review: A) GI: None B) Lines: No, PIV x 2 C) Urinary Catheter: No D) Antibiotic Usage: No E) VTE: Mechanical prophylaxis; Sequential compression device F) Isolation: No G)Seizures: No H) Restraints: Patient assessed for need for restraints. I) Disposition/Family: Unchanged. Primary service: Neurosurgery Consults: Neurocritical care, PT/OT and Rehab SUBJECTIVE Johnny Bautista is a 77 y.o. male. Overnight Events: No new events noted. Patie nt in bed this morning resting. Stated he was having some pain in his face in ar eas of injury but stated tylenol is working. Just wanted to know the plan for . Advised him that once the images result we will discuss at bedside with Tenisha Sepulveda OBJECTIVE Vital Signs: Last Filed Vital Signs: 24 Hour Ra nge BP: 138/78 (04/26 0600) Temp: 36.7 C (98.1 F) (04/26 400) Pulse: 58 (04/26 600) Respirations: 15 PER MINUTE (04/26 600) SpO2: 94 % (04/26 600) O2 Device: None (Room air) (04/26 600) Height: 177.8 cm (5' 10") (04/26) Weight: 87.5 kg (192 lb 14.4 oz) (04/26 400) Admission / Dosing Weight: 87.5 kg (192 lb 14.4 oz) (04/26) BP: (124-165)/ (78-101) Temp: [36.5 C (97.7 F)-36.7 C (98.1 F)] Pulse: [58-82] Respirations: [13 PER MINUTE-17 PER MINUTE] SpO2: [94 %-97 %] O2 Device: None (Room air) Intensity Pain Scale (Self Report): (not recorded) Vitals: 04/26/23 0000 04/26/23 0400 Weight: 87.5 kg (192 lb 14.4 oz) 87.5 kg (192 lb 14.4 oz) Artificial airway: None Ventilator/ Respiratory Therapy: No Vent weaning trial: Not applicable Lines: Peripheral Line Drains: None Critical Care Vitals: ICP Monitoring: Hemodynamics/Oxycalcs: Intake/Output Summary: (Last 24 hours) Intake/Output Summary (Last 24 hours) at 04/26/2023 0651 Last data filed at 04/26/2023 0400 Gross per 24 hour Intake -- Output 1050 ml Net -1050 ml Physical Exam: Blood pressure 138/78, pulse 58, temperature 36.7 C (98.1 F), height 177.8 c m (5' 10"), weight 87.5 kg (192 lb 14.4 oz), SpO2 94 %. Lynnette coma score: E: 4 - Opens eyes on own M: 6 - Follows simple motor commands V: 5 - Alert and oriented Neuro: Mental Status: A/O x 4 Cranial Nerves: Cranial nerves 2-12 INTACT by inspection. - Pupil exam: Size: 3 Reactivity: Brisk and Reactive bilaterally - EOM: Intact - Corneal reflex: R - present L - present - Grimace/facial movement: present - Cough: present - Gag reflex: present Motor: RUE: Strength: 5/5; FCs RLE: Strength: 5/5; FCs LUE: Strength: 5/5; FCs LLE: Strength: 5/5; FCs Sensory: normal Coordination: dizzy and off balance when walking Lungs: clear to auscultation bilaterally Pulmonary: Respiratory status: Stable Heart: regular rate and rhythm, S1, S2 normal, no murmur, click, rub or gallop Abdomen: soft, non-tender. Bowel sounds normal. No masses, no organomegaly Extremities: extremities normal, atraumatic, no cyanosis or edema Skin: Skin color, texture, turgor normal. No rashes or lesions Point of Care Testing: (Last 24 hours) Glucose: (!) 112 (04/26/23 0050) Lab Review: Hematology: Lab Results Component Value Date HGB 15.1 04/26/2023 HCT 43.5 04/26/2023 PLTCT 285 04/26/2023 WBC 13.8 04/26/2023 NEUT 71 04/26/2023 ANC 9.82 04/26/2023 ALC 3.14 04/26/2023 SOWMYA 5 04/26/2023 AMC 0.69 04/26/2023 EOSA 0 04/26/2023 ABC 0.11 04/26/2023 MCV 92.6 04/26/2023 MCH 32.2 04/26/2023 MCHC 34.8 04/26/2023 MPV 8.3 04/26/2023 RDW 13.7 04/26/2023 , Coagulation: Lab Results Component Value Date PT 11.9 04/26/2023 PTT 28.5 04/26/2023 INR 1.1 04/26/2023 and Endocrine: No results found for: "MIA", "FREET4", "TSH" Radiology and Other Diagnostic Procedures Review: Pertinent radiologic and diag nostic procedures reviewed. I spent 45 minutes managing the care of this patient. Johnny Bautista is in criti bryn condition s/p fall at home and newly diagnosed cerebellar mass, as well as n ewly diagnosed lung and adrenal mass. Cares included: detailed neurologic and sy stems exam, medication review, laboratory data review and interpretation, electr olyte management, review of available imaging, DVT/PE prophylaxis review, diet r eview, activity review, and coordination of care with consulted teams BERNARDA Dalal Date: 04/26/[phone] * Eneida Willis RN - 04/26/2023 6:27 AM CDT Pt arrived via flight team at 0000. Pt was settled then taken to CT and MRI. Inge hna with neurology notified about sodium of 131 at 0200, urine sent. Pt remaine d stable throughout shift. documented in this encounter H&P Notes * Glenn Flores MD - 04/25/2023 11:12 PM CDT Neurosurgery History and Physical Note Admission Date: 04/26/2023 LOS: 0 days Assessment/Plan: Johnny Bautista is a 77 y.o. male with PMH of HTN, HLD, Prostate Cancer, Knee Angelina mamta. Patient had been experiencing gait imbalance ~1 week. 8 AM lost balance and fell on his face on to concrete. Initial imaging at OSH showed a left cereb ellar mass with mild hydrocephalus and displaced nasal fractures. On exam pt is AOx3, no focal deficits. VOLLEYBALL ASSISTANT COACH ASA 81 - No acute neurosurgical intervention - NEICU admission, EVD watch - MRI w/wo contrast, tumor protocol - CT CAP to evaluate for metastatic disease - NPO for possible surgical intervention - Hold steroids until after MRI head - Hold AC/AP Marichuy Saez MD Neurological Surgery, PGY-2 Please page [phone] with questions. History of Present Illness: Johnny Bautista is a 77 y.o. male with HTN, HLD, Prostate Cancer, Knee Surgery. P atient states that he has been experiencing gait imbalance for the past week, st ates that he is dizzy when he is squatting as well. Denied any dizziness with po stural changes. On 04/25 AM he lost balance and fell on his face on to concrete, broke glasses. Initially he was taken by EMS to [facility]. Denied any headaches. Initial imaging with CT showed a left cerebellar mass with mild hydrocephalus and displaced nasal fractures. Transfered to for higher level o f care. Pt has history of prostate cancer in 2009, was treated with brachytherapy. Follo PSA yearly, states levels have been low. Does not follow with oncologist Past Medical History: History of prostate cancer Past Surgical History: No past surgical history on file. Social History: Family History: Non contributory Allergies: Patient has no allergy information on record. Medications: VOLLEYBALL ASSISTANT COACH: No current outpatient medications Inpatient: Scheduled Meds:Continuous Infusions: PRN and Respiratory Meds: Review of Systems: Full 10 point review of systems negative except for HPI Physical Exam: Vital Signs: Last Filed in 24 hours Vital Signs: 24 hour Range BP: (P) 156/101 (04/26) Temp: 36.5 C (97.7 F) (04/26) Pulse: (P) 82 (04/26) Respirations: (P) 17 PER MINUTE (04/26) SpO2: (P) 96 % (04/26) O2 Device: (P) None (Room air) (04/26) BP: (P) 156/101 Temp: [36.5 C (97.7 F)] Pulse: [82] Respirations: [17 PER MINUTE] SpO2: [96 %] O2 Device: (P) None (Room air) General appearance: No acute distress Neurologic Exam: Mental Status: Awake, alert and oriented x 4, fluent speech, normal cognition Pupils: Pupils equal round and reactive to light Cranial Nerves: CN II-XII individually tested and found to be intact, gag not te sted Motor: AA EF EE G HF KF KE DF PF Left 5 5 5 5 5 5 5 5 5 Right 5 5 5 5 5 5 5 5 5 Normal muscle bulk and tone No pronator drift Sensation: Sensation intact to light touch throughout Deep Tendon Reflexes: Brisk reflexes throughout Plantar responses toes downgoing bilaterally RLUE clonus No whitfield's sign bilaterally Cerebellar: No dysmetria, No dysdiadochokinesia LabTests: Hematology: No results found for: "HGB", "HCT", "PLTCT", "WBC", "NEUT", "ANC", "LYMPH", "ALC", "ABSLYMPHCT", "SOWMYA", "AMC", "EOSA", "ABC", "BASOPHILS", "MCV", "MCH", "MCHC", "MPV", "RDW" General Chemistry: No results found for: "NA", "K", "CL", "CO2", "BUN", "CR", "G MANDA", "OBSCA", "CA", "MG", "PO4", "FREEPHENY" General Chemistry: No results found for: "GAP", "KETONES", "ALBUMIN", "LACTIC", "TOTBILI", "DBILI", "BILIIND", "TOTBILCB", "TOTPROT", "LIPASE", "THAI", "AST", "A LT", "ALKPHOS", "LDH" Radiology and other Diagnostics Review: Pertinent radiology reviewed Marichuy Saez MD 04/26/2023 Neurological Surgery, PGY-2 ATTESTATION I personally performed the manzano portions of the E/M visit, discussed case with re sident and concur with resident documentation of history, physical exam, assessm ent, and treatment plan unless otherwise noted. Patient presenting with falls and gait difficulty. His brain MRI: large posterior fossa mass consistent with metastasis. His CT chest/abdomen and pelvis: suggestive of lung and adrenal metastatic disea se. I discussed the condition with him and answered his questions. In view of the large size of the posterior fossa mass, I recommend craniotomy fo r resection. Risks of surgery clearly discussed. The plan is to proceed with surgery on Tuesday Staff name: Glenn Flores MD Date: 04/26/2023 documented in this encounter Procedure Notes * Glenn Flores MD - 04/29/2023 4:02 PM CDT THE [address] [id number] PATIENT NAME: JOHNNY BAUTISTA MR#/PT#: [id number] Page 1 OPERATIVE REPORT DATE OF OPERATION: 04/29/2023 SURGEON: Glenn Flores MD DIRECTOR INTERNAL COMMUNICATIONS(S): Dr. Gaurav Gimenez. PREOPERATIVE DIAGNOSIS: Posterior fossa brain tumor. POSTOPERATIVE DIAGNOSIS: The same. OPERATIVE PROCEDURE: Suboccipital craniotomy, resection of posterior fossa brain tumor. ANESTHESIA: General. FINDINGS: The frozen section was consistent with a brain metastasis. DESCRIPTION AND FINDINGS OF OPERATIVE PROCEDURE: Under general anesthesia, the patient's head was fixed in [place] head waiter. The patient was put in the prone position with the head in the midline. The po sterior aspect of the head was shaved using the clipper, scrubbed and draped in the regular fashion. A linear skin incision was done in the midline. The incis ion was deepened down to the bone and self-retaining retractor was applied. The n, using the high-speed drill, a suboccipital craniotomy was performed and the b one flap was capped and used at the end of the surgery. Then, the dura was open ed and reflected using 4-0 Nurolon sutures. At that point, under the microscope and using microsurgical techniques, the cortical surface of the cerebellum was coagulated and opened and dissection was done until reaching the tumor. The taty or itself was rather soft and friable and it was significantly vascular with amanda dence of previous hemorrhage. It was overall consistent with the appearance of brain metastasis. Dissection was performed at the interface between the normal cerebellar tissue and the tumor and this plane was carried out in all directions until complete removal of the tumor. At the end of surgery, hemostasis was sec ured then for the closure we used a piece of Lyoplant that was sutured to the re st of the dura using 4-0 Nurolon sutures. The craniotomy flap was put back and fixed to the rest of the skull using miniplates and screws. The rest of the marc sure was done using 2-0 Vicryl for closure of the muscular layer and fascia, 2-0 Vicryl for closure of the galea and 3-0 nylon for closure of the skin. The jasmine baird tolerated the procedure well, then was transferred to the intensive care un it for further monitoring and care. ESTIMATED BLOOD LOSS: 150 mL. SPECIMENS REMOVED: Posterior fossa brain tumor. Glenn Flores MD RC / MEDQ /[id number] cc: - Glenn Flores MD documented in this encounter Consult Notes * Dev Alberto DO - 05/01/2023 2:51 PM CDTAssociated Order(s): CONSULT REHABILITATION MEDICINE PHYSICIAN Physical Medicine & Rehabilitation Consult Service Name: Johnny Bautista : 1945 Age: 77 y.o. Admission Date: 04/26/2023 LOS: 5 days Date of Service: 05/01/2023 Date of Service: 05/01/2023 Financial Class: Payor: [facility] MEDICARE / Plan: [facility] MEDICARE REPLACEMENT - [id number] / Product Type: Medicare / Referring Physician: Glenn Flores MD Reason for Consult: evaluate for Post-Acute Rehab/Placement Precautions: Fall, Weight Bearing Precautions: none Assessment & Plan: Principal Problem: Brain mass Active Problems: Chronic hyponatremia HTN (hypertension) HLD (hyperlipidemia) Gait abnormality Impaired mobility/ADLs Impaired transfers Johnny Bautista is a 77 y.o. year old male admitted to [facility] on 04/26/2023 with the following issues: non-traumatic brain injury Impairments: loss of coordination, poor activity tolerance, sensory loss and wea kness Activity Limitations: transfers, ambulation and stairs Participation Restrictions: unable to return home safely Family / Patient Dispositional Goals: return home to previous level of function Overall Functional Goals Gait and mobility independent Transfers independent Upper body dressing independent Lower body dressing independent Toileting independent Bathing independent Cognition / Communication Cognition grossly intact and Speech intact Recommendations: Post-acute care rehabilitation needs: acute inpatient rehabilitation Patient s medical complexity warrants daily physician oversight and functional goals con sistent with intensive rehabilitation in acute inpatient rehabilitation. We have discussed with the patient that he would be a good candidate for inpatie nt rehabilitation. However we understand patient's current desires to discharge home with outpatient therapies. We will continue to follow him and if patient decides to pursue inpatient rehab he would be more than glad to assist in provid ing further recommendations as needed. Barriers/Facilitators: Barriers: Patient motivation Facilitators: good home setup, controlled pain, good family / social support, im proving strength / endurance and improving medical condition Rehabilitation Prognosis: Good . Tolerance for three hours of therapy a day: Good Prior to the inpatient rehabilitation admission complete the following: *Endurance The patient will need to be clearly able to or reasonably expected to be able to endure 3 hours of constructive therapy per day. This will need to be determined prior to considering admission to acute inpatient rehabilitation. *Therapeutic goals The patient will need to have clear therapeutic goals with at least 2 out of 3 therapeutic disciplines, including PT, OT, and BLUE LINE OPERATOR. This will need to be determined prior to considering admission to acute inpatient rehabil itation. Impaired gait/mobility/transfers: The patient will benefit from continued work with PT to address mobility deficit s Impaired ADLs: The patient will benefit from ongoing OT to address functional deficits Other recommendations (bowel, bladder, skin, pain, etc.) Thank you for this consultation. Please call our consult pager with questions o r concerns. Dev Alberto, DO Rehab Consult Pager: [place] History of Present Illness: CC: Brain mass Hospital Course: Mr. Bautista is a pleasant 77 y.o. male with PMH of HTN, HLD, Pro state Cancer, Knee Surgery, who was admitted for left cerebellar vermian mass co ncern for mets. Patient has been having a shuffling gait for multiple months pe r family members has been independent of all activities of daily living as well as mobility. Has only had 1 other recent fall within the last year. Derian pedraza had another fall within the last week and as result was brought to the hospi puma for evaluation and work-up. Imaging found with intracranial mass and underw ent surgical excision on 04/29/2023. Since surgery has been having some imbalanc e on mobility however has shown significant improvement since surgery. On discu ssion with rehab team patient understands potential benefit from inpatient hospi talization however is extremely reluctant and is currently pursuing discharge ho ca. The primary team has consulted PT and OT, and will continue working with therapi es to address functional and mobility deficits, rehab is now consulted for post- acute rehab/placement recommendations. BLUE LINE OPERATOR has not yet been consulted. The patient's family/social support consists of: Multiple family members. Medical History: Diagnosis Date Prostate cancer (HCC) 2009 Surgical History: Procedure Laterality Date Suboccipital crainiotomy for resection of mass Left 04/29/2023 Performed by Glenn Flores MD at [facility] OR MICROSURGICAL TECHNIQUES - REQUIRING OPERATING MICROSCOPE USE Left 04/29/2023 Performed by Glenn Flores MD at [facility] OR Social History Socioeconomic History Marital status: Number of children: 3 Tobacco Use Smoking status: Former Packs/day: 1.00 Years: 50.00 Additional pack years: 0.00 Total pack years: 50.00 Types: Cigarettes Quit date: 09/05/2021 Years since quittin.6 Smokeless tobacco: Never Vaping Use Vaping Use: Never used Substance and Sexual Activity Alcohol use: Yes Alcohol/week: 14.0 standard drinks of alcohol Types: 14 Cans of beer per week Comment: 2 beers every night Drug use: Not Currently Family history reviewed; non-contributory History reviewed. No pertinent family history. Scheduled Meds:amLODIPine (NORVASC) tablet 5 mg, 5 mg, Oral, QDAY And lisinopriL (ZESTRIL) tablet 10 mg, 10 mg, Oral, QDAY dexAMETHasone tablet 2 mg, 2 mg, Oral, BID docusate (COLACE) capsule 100 mg, 100 mg, Oral, BID heparin (porcine) PF syringe 5,000 Units, 5,000 Units, Subcutaneous, Q8H milk of magnesium oral suspension 30 mL, 30 mL, Oral, QDAY sennosides-docusate sodium (SENOKOT-S) tablet 1 tablet, 1 tablet, Oral, BID Continuous Infusions: PRN and Respiratory Meds:acetaminophen Q4H PRN, calcium gluconate IV PRN (On Ca ll from Rx) AND Ionized Calcium PRN AND Notify Physician Ongoing, hydrAL AZINE Q4H PRN, labetalol (NORMODYNE; TRANDATE) injection Q1H PRN, magnesium sulf ate PRN AND Magnesium PRN AND Notify Physician Ongoing, ondansetron (ZOF RAN) IV Q6H PRN, oxyCODONE Q4H PRN, potassium chloride PRN OR potassium chlo ride PRN OR potassium chloride in water PRN No Known Allergies Prior Level of Function: Gait and mobility independent Transfers independent Upper body dressing independent Lower body dressing independent Toileting independent Bathing independent The patient was independent for all mobility/ambulation and activities of daily living. Home Environment: Home Situation: Lives with Family; Has Assistance Available as Needed (04/30/2023 3:00 PM) Patient Owned Equipment: None (04/30/2023 3:00 PM) Type of Home: House (04/30/2023 3:00 PM) Entry Stairs: 3-5 Stairs; No Rail (3 steps) (04/30/2023 3:00 PM) No data recorded No data recorded No data recorded @ADDRESSFULL@ Current Level Of Function: PT Gait:Gait Distance: 200 feet Gait: Assistance Level: Minimal Assist, Safety C onsiderations Gait: Assistive Device: Roller Walker Bed Mobility/Transfers Bed Mobility: Supine to Sit: Standby Assist, Safety Considerations Bed Mobility: Sit to Supine: Standby Assist Comments: Patient sitting on the toilet upon arrival. Transfer Type: Sit to Stand Transfer: Assistance Level: From, Bed, Minimal Assist Transfer: Assistive Device: Roller Walker Transfers: Type Of Assistance: Verbal Cues, For Balance, For Safety Consideratio ns End Of Activity Status: Up in Chair, Nursing Notified, Instructed Patient to Req uest Assist with Mobility, Instructed Patient to Use Call Light (chair alarm act norman, all needs met) OT ADL's Where Assessed: Edge of Bed, Standing at Sink, In Bathroom Eating Assist: Independent Eating Deficits: No Assist Needed Grooming Assist: Minimal Assist Grooming Deficits: Steadying, Wash/Dry Face LE Dressing Assist: Stand By Assist LE Dressing Deficits: Don/Doff R Sock, Don/Doff L Sock (sitting edge of bed. Com bination of crossing legs in lap and bending forward. No loss of balance or dizz iness.) Toileting Assist: Minimal Assist Toileting Deficits: Steadying, Clothing Management Up, Clothing Management Down Comment: Pt retropulsive while standing at the sink and at the toilet. BLUE LINE OPERATOR COGNITIVE EVALUATION SUMMARY PRAGMATICS: BEHAVIOR: AUDITORY COMPREHENSION: ORIENTATION: AUDITORY ATTENTION/WORKING MEMORY: AUDITORY MEMORY/SUSTAINED ATTENTION: NEW LEARNING: SEQUENCING/ORGANIZATION: PROBLEM SOLVING: REASONING: MATH/MONEY SKILLS: VISUAL PERCEPTUAL: SWALLOW EVALUATION SUMMARY Review of Systems: A 14 point review of systems was negative except for: that noted in the HPI Physical Exam: BP: 146/82 (05/01 1200) Temp: 36.6 C (97.9 F) (05/01 1200) Pulse: 65 (05/01 1200) Respirations: 16 PER MINUTE (05/01 1200) SpO2: 97 % (05/01 1200) O2 Device: None (Room air) (05/01 1200) SpO2 Pulse: 64 (05/01 0400) Body mass index is 25.53 kg/m. Gen: Alert & Oriented X 3 HEENT: EOMI, posterior incisions noted Neck: Supple, no elevated JVP Heart: Extremities well perfused Lungs: non labored breathing Abdomen: Soft, non-tender, non-distended, +BS : - Phillips Skin: no gross lesions appreciated Ext: purposeful movement of extremities MS: Root Right Left Shoulder Abduction C5 5 5 Elbow Flexion C5 5 5 Elbow Extension C7 5 5 Wrist Extension C6 5 5 Finger Flexion C8 5 5 Finger Abduction T1 5 5 Hip Flexion L2 5 5 Knee Flexion L5/S1 5 5 Knee Extension L3 5 5 Dorsiflexion L4 5 5 Plantarflexion S1 5 5 EHL Extension L5 5 5 Neuro: Cranial Nerves Cranial Nerves 2-12 are grossly intact Babinski Plantar Reflex is Downgoing Bilaterally Upper Extremity Tone Normal Lower Extremity Tone Normal Upper Extremity Sensation Intact to light touch bilaterally Lower Extremity Sensation Intact to light touch bilaterally Memory/Cognition/Speech Within limits Intake/Output Summary (Last 24 hours) at 05/01/2023 1451 Last data filed at 05/01/2023 0600 Gross per 24 hour Intake 350 ml Output 600 ml Net -250 ml Hematology: Lab Results Component Value Date HGB 13.1 05/01/2023 HCT 37.2 05/01/2023 PLTCT 232 05/01/2023 WBC 13.4 05/01/2023 NEUT 71 04/26/2023 ANC 9.82 04/26/2023 ALC 3.14 04/26/2023 SOWMYA 5 04/26/2023 AMC 0.69 04/26/2023 EOSA 0 04/26/2023 ABC 0.11 04/26/2023 MCV 93.1 05/01/2023 MCH 32.8 05/01/2023 MCHC 35.3 05/01/2023 MPV 8.1 05/01/2023 RDW 13.9 05/01/2023 , Coagulation: Lab Results Component Value Date PT 11.9 04/26/2023 PTT 28.5 04/26/2023 INR 1.1 04/26/2023 and General Chemistry: Lab Results Component Value Date NA 136 05/01/2023 K 3.9 05/01/2023 CL 102 05/01/2023 CO2 24 05/01/2023 GAP 10 05/01/2023 BUN 17 05/01/2023 CR 0.84 05/01/2023 GLU 127 05/01/2023 CA 9.1 05/01/2023 ALBUMIN 4.3 04/26/2023 OBSCA 1.16 05/01/2023 MG 2.0 05/01/2023 TOTBILI 0.8 04/26/2023 PO4 2.6 05/01/2023 Radiology: Reviewed Dev Alberto DO Associated attestation - Christa Brenner MD - 05/01/2023 10:56 PM CDT ATTESTATION I personally observed the resident performing the E/M, discussed case with resid ent, and concur with resident documentation of history, physical assessment and treatment plan unless otherwise noted. 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 Patient demonstrates goals with PT, OT and may benefit from BLUE LINE OPERATOR cognitive evalua tion. he would be able to tolerate and benefit from 3 hours of therapy per day. Patient seen with many family members at the bedside. Discussed discharge to IR F vs further mobility progression in acute care with subsequent ability to retur n home with family assist and home health/ outpatient therapies. Patient is in favor of discharge as soon as possible but family seems to prefer consideration of IRF which the patient is currently appropriate for. Staff name: Christa Brenner MD Date: 05/01/2023 * Leia Yang, FREDRICK-DATABASE DESIGN ANALYST - 04/29/2023 5:03 PM CDTAssociated Order(s): CONSULT NEURO CRITICAL CARE PHYSICIAN Neuro Critical Care Consult Johnny Bautista Admission Date: 04/26/2023 LOS: 3 days Full Code ASSESSMENT/PLAN Patient Active Problem List Diagnosis Date Noted Chronic hyponatremia 04/29/2023 Brain mass 04/26/2023 Johnny Bautista is a 77 y.o. male with a Medical Hx. Significant for HTN, HLD, Pr ostate Cancer, Knee Surgery. Patient had been experiencing gait imbalance for th e past week. Initially admitted 8/ AM after he lost balance and fell on his fa ce on to concrete. Was taken by EMS to [facility]. Initial imaging with CT showed a left cerebellar mass with mild hydrocephalus and displaced desmond al fractures. Requested for transfer to due to lack of NSGY services at [facility]. [facility] s/p crani for resection of the left c erebellar mass. Hospital and ICU course: 04/25: Admit to NEICU 04/29: Return to NEICU post op Neuro/ENT: Left Cerebellar Mass Displaced Nasal Fractures - 1 week Hx of Disequilibrium - Lost balance and fell on his face onto concrete 04/25 AM - Taken by EMS to [facility], Face, Neck: 3.7 cm x 3 cm mass within left cerebellar hemisphere causing mass effect on the 4th ventricle, mild enlargement of the lateral ventricles and 3rd ventricle. No midline shift. Displaced nasal fractures. No C-Spine injury. - MRI 04/26: Heterogeneously enhancing hemorrhagic left cerebellar-vermian mass , presumably a hemorrhagic metastasis - 04/29 s/p crani for resection of L cerebellar mass - Dexamethasone 4mg q6h - Ancef surgical ppx - MRI post op pending - Trauma followed for nasal fx - Neuro-ICU monitoring, neurochecks q 1 hrs, parameters for Prevention of second is[place] brain injury(avoid hypotension, hypoxia, fever, hyperglycemia,significant an emia, diagnose and treatment of seizures, electrolyte abnormalities) Sedation/Pain Management: - PRN APAP, oxycodone - Assess for delirium daily Cardiac: HTN HLD - VOLLEYBALL ASSISTANT COACH Meds: Lotrel 5/10 mg Daily, HCTZ 12.5 mg Daily, ASA 81 mg Plan: - SBP goal < 160 mmHg - MAP goal > 65 - PRN Labetalol and Hydralazine to maintain BP goals - Continue amlodipine 5mg daily, lisinopril 10mg daily - Hold ASA post op Respiratory: h/o Tobacco abuse (quit Oct 2019) Left upper lobe perihilar mass (3.6x 2.5cm) - Newly diagnosed CTA chest 04/26: At least 2 suspicious pulmonary nodules in left lower lobe. Multiple other subcentimeter pulmonary nodules remain indeterminate and attention on follow-up is recommended. Mediastinal or left hilar metastatic lymphadenopathy. Indeterminate right hilar lymphadenopathy. - Doing well on RA - PaO2 goal >100, Spo2 goal >95%, PCO2 goal 35-40 torr, chest physiotherapy, bronchotherapy, PD& V q 6 hrs GI: - Feeding: Regular Diet - Neurosurgery bowel regimen, ensure daily BM Heme/Onc: H/o Prostate CA Left upper lobe perihilar mass (3.6x 2.5cm) - Newly diagnosed Left adrenal Met - newly diagnosed Left cerebellar mass - assess for coagulopathy, maintain platelets above 100k, INR <1.5 - Daily CBC ID: - Daily CBC - aim for normothermia, Temp <38.3 celsius, normothermia protocol if febrile Renal: - Daily BMP - Monitor I/Os - Aim for normovolemia - Daily BMP Endocrine: - Blood glucose goal 100-180mg/dl FEN: - IVF: SL- Given 2L IVF and albumin in OR - Replace electrolytes as needed - Magnesium goal >2.0, i-Bryn goal > 1.0, Potassium goal >4.0 mEq/L Primary service: NSGY Consults: [facility] SUBJECTIVE Chief Complaint: Fall, Left Cerebellar Mass History of Present Illness: Johnny Bautista is a 77 y.o. male with a Medical Hx. Significant for HTN, HLD, Pr ostate Cancer, Knee Surgery. Patient had been experiencing gait imbalance for th e past week. 8/ AM lost balance and fell on his face on to concrete. Was taken by EMS to [facility]. Initial imaging with CT showed a left cereb ellar mass with mild hydrocephalus and displaced nasal fractures. Requested for transfer out to due to lack of NSGY services at sending hospital. Patient adm itted to [facility] for monitoring and further management by NSGY. He now presents back to [facility] s/p crani for resection of the left cerebellar mass. History reviewed. No pertinent past medical history. History reviewed. No pertinent surgical history. History reviewed. No pertinent family history. Social History Social History Narrative Not on file Code Status: Full Code Decision Maker: , Francisca Bautista Immunizations (includes history and patient reported): Immunization History Administered Date(s) Administered COVID-19 (MODERNA), mRNA vacc, 100 mcg/0.5 mL (PF) 10/02/2020, 10/30/2020, 1 09/23/2020, 12/09/2021 Allergies: Patient has no known allergies. Medications Prior to Admission Medication Sig amLODIPine-benazepril (LOTREL) 5-10 mg capsule Take one capsule by mouth niles ly. aspirin EC (ASPIR-LOW) 81 mg tablet Take one tablet by mouth daily. hydroCHLOROthiazide 12.5 mg capsule Take one capsule by mouth every morning. Review of Systems: All other systems reviewed and are negative. OBJECTIVE Vital Signs: Last Filed Vital Signs: 24 Hour Ra nge BP: 152/91 (04/29 939) Temp: 36.7 C (98 F) (04/29 939) Pulse: 62 (04/29 939) Respirations: 13 PER MINUTE (04/29 939) SpO2: 98 % (04/29 939) O2 Device: None (Room air) (04/29 939) SpO2 Pulse: 63 (04/29 939) BP: (133-159)/(74-91) Temp: [36.3 C (97.4 F)-36.7 C (98 F)] Pulse: [57-73] Respirations: [13 PER MINUTE-18 PER MINUTE] SpO2: [96 %-99 %] O2 Device: None (Room air) Intensity Pain Scale (Self Report): (not recorded) Vitals: 04/26/23 0000 04/26/23 0400 04/27/23 0500 Weight: 87.5 kg (192 lb 14.4 oz) 87.5 kg (192 lb 14.4 oz) 80.7 kg (177 lb 14.6 o z) Artificial airway: None Ventilator/ Respiratory Therapy: No Vent weaning trial: Not applicable Lines: Peripheral Line Drains: None Critical Care Vitals: ICP Monitoring: Hemodynamics/Oxycalcs: Intake/Output Summary: (Last 24 hours) Intake/Output Summary (Last 24 hours) at 04/29/2023 1707 Last data filed at 04/29/2023 1630 Gross per 24 hour Intake 2090 ml Output 435 ml Net 1655 ml Stool Occurrence: 0 Physical Exam: Blood pressure (!) 152/91, pulse 62, temperature 36.7 C (98 F), height 177.8 cm (5' 10"), weight 80.7 kg (177 lb 14.6 oz), SpO2 98 %. Lynnette coma score: E: 4 - Opens eyes on own M: 6 - Follows simple motor commands V: 5 - Alert and oriented Neuro: Mental Status: Alert, Oriented x4, Speech Intact Cranial Nerves: Cranial nerves 2-12 INTACT. - Pupil exam: Size: 3mm B/L Reactivity: Brisk - EOM:intact - Corneal reflex: R - present L - present - Grimace/facial movement: present - Cough: present Motor: RUE: Strength: 5/5; RLE: Strength: 5/5; LUE: Strength: 5/5; LLE: Strength: 5/5; Sensory: normal Coordination: Intact, No gross ataxia or dysmetria on FTN or HTS Lungs: clear to auscultation bilaterally Pulmonary: Respiratory status: Stable Heart: regular rate and rhythm, S1, S2 normal, no murmur, click, rub or gallop Abdomen: soft, non-tender. Bowel sounds normal. No masses, no organomegaly Extremities: extremities normal, atraumatic, no cyanosis or edema Skin: Skin color, texture, turgor normal. No rashes or lesions Point of Care Testing: (Last 24 hours): Glucose: (!) 105 (04/29/23 0340) Lab Review: 24-hour labs: Results for orders placed or performed during the hospital encounter of 04/26/23 (from the past 24 hour(s)) BASIC METABOLIC PANEL Collection Time: 04/29/23 3:40 AM Result Value Ref Range Sodium 134 (L) 137 - 147 MMOL/L Potassium 3.8 3.5 - 5.1 MMOL/L Chloride 100 98 - 110 MMOL/L CO2 23 21 - 30 MMOL/L Anion Gap 11 3 - 12 Glucose 105 (H) 70 - 100 MG/DL Blood Urea Nitrogen 14 7 - 25 MG/DL Creatinine 1.00 0.4 - 1.24 MG/DL Calcium 9.2 8.5 - 10.6 MG/DL eGFR >60 >60 mL/min CBC Collection Time: 04/29/23 3:40 AM Result Value Ref Range White Blood Cells 11.1 (H) 4.5 - 11.0 K/UL RBC 4.58 4.4 - 5.5 M/UL Hemoglobin 14.7 13.5 - 16.5 GM/DL Hematocrit 42.9 40 - 50 % MCV 93.5 80 - 100 FL MCH 32.0 26 - 34 PG MCHC 34.2 32.0 - 36.0 G/DL RDW 13.5 11 - 15 % Platelet Count 271 150 - 400 K/UL MPV 8.5 7 - 11 FL Radiology and Other Diagnostic Procedures Review: Pertinent radiologic and diag nostic procedures reviewed. I spent 35 minutes managing the care of this patient. Johnny Bautista is in criti bryn condition s/p fall at home and newly diagnosed cerebellar mass s/p crani for resection, as well as newly diagnosed lung and adrenal mass. Cares included: d etailed neurologic and systems exam, medication review, laboratory data review a nd interpretation, electrolyte management, review of available imaging, DVT/PE p rophylaxis review, diet review, activity review, mechanical ventilation and jose maria tion management, and coordination of care with consulted teams Leia Yang, DIETARY ASSISTANT-DATABASE DESIGN ANALYST Date: 04/29/[phone] * Jorge Hester MD - 04/26/2023 5:47 PM CDTAssociated Order(s): CONSULT RADIATION ONCOLOGY PHYSICIAN Radiation Oncology Consultation Date: 04/25/2023 Johnny Bautista is a 77 y.o. male. Requesting Provider: Riaz Fagan MD The encounter diagnosis was Brain mass. Staging: Cancer Staging No matching staging information was found for the patient. History of Present Illness: Johnny Bautista is a 77 y.o. male with history of prostate cancer treated with br achytherapy, and previous smoking history now admitted to [facility] following a fall with imaging work-up showing a cerebellar mass. Patient notes an approximate 2-week history of difficulty with balance. He suff ered a fall on April 25 and was admitted locally where head CT showed a cerebel lar mass and nasal fractures. He was transferred to [facility] for further care. Brain MRI today showed heterogeneously enhancing hemorrhagic left cerebellar donavon van mass consistent with metastasis. The mass measures 4.3 x 3.2 x 2.7 cm. An additional punctate nonspecific right cerebellar was also noted. CT scans of t he chest abdomen and pelvis showed a left upper lobe lung mass, additional suspi cious pulmonary nodules, mediastinal or hilar adenopathy, and suspected adrenal metastases. We have been consulted for management recommendations. Per the patient report zahira ferreira has felt unsteady on his feet over the last couple of weeks. He has had a sin gle fall resulting in abrasions to his face. He notes he has had 1 other previo us fall which occurred approximately 6 months ago. He denies any associated hea daches, cough, shortness of breath, or unexplained weight loss. Past Medical History: Patient Active Problem List Diagnosis Date Noted Brain mass 04/26/2023 No past medical history on file. No past surgical history on file. Social History Tobacco Use Smoking status: Former Packs/day: 1.00 Years: 50.00 Additional pack years: 0.00 Total pack years: 50.00 Types: Cigarettes Quit date: 09/05/2021 Years since quittin.6 Smokeless tobacco: Never Vaping Use Vaping Use: Never used Substance and Sexual Activity Alcohol use: Yes Alcohol/week: 14.0 standard drinks of alcohol Types: 14 Cans of beer per week Comment: 2 beers every night Drug use: Not Currently Prior Radiation History: Prostate brachytherapy Medications No current outpatient medications on file. Allergies: No Known Allergies Family History: No family history on file. Review of Systems Patient Evaluated for a Clinical Trial: No treatment clinical trial available fo r this patient. KARNOFSKY PERFORMANCE SCORE: 50% Requires considerable assistance and frequent medical care Physical Exam General: Elderly man, lying in hospital bed, in no acute distress. Mental Status: Patient is alert and well oriented with clear speech and normal affect. Head: Normocephalic. Multiple abrasions on face. Neurologic: Patient is moving all extremities spontaneously. LABORATORY: Comprehensive Metabolic Profile Lab Results Component Value Date/Time NA 132 (L) 04/26/2023 11:00 AM K 3.5 04/26/2023 12:50 AM CL 97 (L) 04/26/2023 12:50 AM CO2 20 (L) 04/26/2023 12:50 AM GAP 14 (H) 04/26/2023 12:50 AM BUN 16 04/26/2023 12:50 AM CR 0.95 04/26/2023 12:50 AM GLU 112 (H) 04/26/2023 12:50 AM Lab Results Component Value Date/Time CA 9.5 04/26/2023 12:50 AM PO4 3.2 04/26/2023 12:50 AM ALBUMIN 4.3 04/26/2023 12:50 AM TOTPROT 7.4 04/26/2023 12:50 AM ALKPHOS 67 04/26/2023 12:50 AM AST 31 04/26/2023 12:50 AM ALT 22 04/26/2023 12:50 AM TOTBILI 0.8 04/26/2023 12:50 AM CBC w diff Lab Results Component Value Date/Time WBC 13.8 (H) 04/26/2023 12:50 AM RBC 4.69 04/26/2023 12:50 AM HGB 15.1 04/26/2023 12:50 AM HCT 43.5 04/26/2023 12:50 AM MCV 92.6 04/26/2023 12:50 AM MCH 32.2 04/26/2023 12:50 AM MCHC 34.8 04/26/2023 12:50 AM RDW 13.7 04/26/2023 12:50 AM PLTCT 285 04/26/2023 12:50 AM MPV 8.3 04/26/2023 12:50 AM Lab Results Component Value Date/Time NEUT 71 04/26/2023 12:50 AM ANC 9.82 (H) 04/26/2023 12:50 AM LYMA 23 (L) 04/26/2023 12:50 AM ALC 3.14 04/26/2023 12:50 AM SOWMYA 5 04/26/2023 12:50 AM AMC 0.69 04/26/2023 12:50 AM EOSA 0 04/26/2023 12:50 AM AEC 0.03 04/26/2023 12:50 AM BASA 1 04/26/2023 12:50 AM ABC 0.11 04/26/2023 12:50 AM IMAGING: CT chest, abdomen, pelvis 04/26/23 CHEST FINDINGS: Lower Neck: Unremarkable Axilla, Mediastinum, and Nupur: Mediastinal or left hilar lymphadenopathy. Examples include a 1.8 cm subcarinal lymph node on image 58 series 2, and 1.3 cm left hilar lymph node on image 36 series 2. Nonenlarged right hilar lymph nodes, indeterminate. There is no axillary lymphadenopathy. Heart and Great Vessels: The heart is not enlarged. No pericardial effusion. Normal caliber thoracic aorta with moderate atherosclerotic changes. At least moderate atherosclerotic changes of coronary arteries. Airway, Lungs, and Pleura: There is 3.6 x 2.5 cm lobulated mass in left upper lobe perihilar region on image 53 series 302. A few other suspicious pulmonary nodules are noted. These include 9 mm left lower lobe nodule on image 55 series 302, and 8 mm pulmonary nodule along the medial aspect of left lower lobe on image 51 series 302. Scattered other subcentimeter groundglass and pulmonary nodules which remain indeterminate, for example 4 mm nodule in right upper lobe on image 35, and 7 mm groundglass nodule in right apex on image 18 series 302. No pleural effusion. Scattered areas of atelectasis and/of scarring. Chest Wall and Osseous Structures: No suspicious bony lesion. ABDOMEN AND PELVIS FINDINGS: Liver and Biliary system: Tiny hepatic hypodensity in the dome, likely representing a tiny biliary radicle versus cyst. No suspicious liver lesion. No intrahepatic or extrahepatic biliary dilatation. Spleen: Unremarkable. Adrenal Glands and Kidneys: Multiple suspicious lesions in left adrenal gland which overall measures 3.2 x 1.9 cm on image 179 series 2. No discrete lesion noted in the right adrenal gland. Renal cysts. No suspicious renal lesion. No hydronephrosis. Pancreas and Retroperitoneum: Unremarkable. Aorta and Major Vessels: Normal caliber abdominal aorta and iliac arteries with moderate to severe atherosclerotic changes. Bowel, Mesentery, and Peritoneal space: Colonic diverticulosis without diverticulitis. No dilated loops of small bowel or colon. No mesenteric lymphadenopathy. No ascites. Pelvis: Normal urinary bladder. Brachytherapy seeds are in place within prostate gland. The prostate gland is atrophic. No pelvic lymphadenopathy. Abdominal Wall and Osseous Structures: Small fat-containing right inguinal hernia. No suspicious bony lesion. IMPRESSION In this patient with newly diagnosed brain mass lesion, there is concern for primary malignancy in the left upper lobe perihilar region. At least 2 suspicious pulmonary nodules in left lower lobe. Multiple other subcentimeter pulmonary nodules remain indeterminate and attention on follow-up is recommended. Mediastinal or left hilar metastatic lymphadenopathy. Indeterminate right hilar lymphadenopathy. Left adrenal metastases. MRI Head 04/26/23 IMPRESSION 1. Heterogeneously enhancing hemorrhagic left cerebellar-vermian mass, presumably a hemorrhagic metastasis. Associated cerebellar edema and posterior fossa mass effect without obvious obstructive hydrocephalus. 2. Additional enhancing punctate right cerebellar focus, nonspecific, though, likely benign venous enhancement or an additional tiny metastasis. 3. At least mild generalized cerebral volume loss and marked supratentorial white matter and mild pontine FLAIR hyperintensities, likely sequelae of chronic microvascular ischemia. 4. Small right frontal scalp contusion and presumed left suboccipital paraspinous musculature strain. PATHOLOGY: NA ASSESSMENT: 77 y.o. male with with a history of prostate cancer and smoking hist ory who was admitted locally following a fall. Imaging work-up showed cerebella r mass and he was transferred to [facility] for further care. He has had imaging work -up including a brain MRI showing a large cerebellar mass as well as CT scans of the chest abdomen and pelvis showing a suspected left lung primary malignancy w ith metastases to mediastinal and hilar lymph nodes as well as adrenal gland. W e have been consulted for management recommendations. We discussed the patient's presentation is most consistent with a primary lung c ancer. He does have a single large brain metastasis with mass effect and associ ated symptoms noted on MRI of his head. He has been evaluated by neurosurgery w [facility] recommendations for surgical resection, tentatively scheduled for 3 days fro m now. We agree with recommendations for surgical resection of his dominant bra in mass and would plan for postoperative radiation to the operative bed. We rosi l make arrangements for CT simulation and treatment planning imaging to be perfo rmed approximately 2 weeks after completion of his surgery. RECOMMENDATIONS: 1. Agree with recommendations for surgical resection of brain mass. 2. Patient will need post operative radiation therapy. We will make arrangemen ts for treatment planning imaging and CT simulation to be performed approximatel y 2 weeks post operatively. Please call or page with questions Jorge Hester MD Radiation Oncology CC: A copy of this note has been sent to the referring provider, Riaz Lozoya MD. * ManiluisaLubna Kingsley, DIETARY ASSISTANT-DATABASE DESIGN ANALYST - 04/26/2023 1:17 PM CDTAssociated Order(s): CONSULT ONCOLOGY PHYSICIAN Duplicate order. See Onc consult note signed by Dr. Adkins on 04/26/23. * ManiluisaLubna, FREDRICK-DATABASE DESIGN ANALYST - 04/26/2023 9:28 AM CDTAssociated Order(s): CONSULT ONCOLOGY PHYSICIAN Oncology Consult Note Admission Date: 04/26/2023 LOS: 0 days Reason for Consult: hx of prostate CA; new brain mass with concerning nodules o n CT C/A/P Consult type: Co-Management w/Signed Orders Assessment/Plan Brain mass Left lung mass - +hx tobacco use, quit in Oct 2019 - 04/26 MRI head: L cerebellar mass, presumably a hemorrhagic met w/ associated e chinyere and mass effect, without obvious obstructive hydrocephalus. Add'l R cerebel lar focus- could be benign enhancement vs add'l tiny met. - CT c/a/p: 3.6 X 2.5cm ARCHANA perihilar mass. At least 2 lung nodules in LLL, mult iple other sub cm lung nodules indeterminate. Mediastinal or L hilar metastatic LAD. Indeterminate R hilar LAD. Left adrenal met. - Neurosurgery following- likely OR on Sunday 04/29 for brain mass resection History of prostate cancer - 2009, received brachytherapy only - last PSA <1 (within the past year) per patient Plan - agree with resection of left cerebellar mass, this will provide the best local control - recommend Radiation Oncology evaluation for radiation options for brain mass - follow up pathology from brain resection, plan to send NGS testing on tissue - systemic treatment recommendation pending tissue diagnosis - Med Onc follow up in [facility] after discharge Thank you for this consult. Please page with questions. Patient seen and discuss ed with Dr. Adkins. History of Present Illness: Johnny Bautista is a 77 y.o. male who presented to [facility] on 04/26/23 with c/o gait imbalance for the past week. Yesterday morning he fell and was taken to a local hospital. 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 He was transferred to [facility] for care. Other than gait disturbances, he denies other acute complaints- no weight loss, dyspnea, cough, bowel changes or bleeding. He lives with his , has been inde pendent of ADLs. No past medical history on file. No past surgical history on file. Social History Tobacco Use Smoking status: Former Packs/day: 1.00 Years: 50.00 Additional pack years: 0.00 Total pack years: 50.00 Types: Cigarettes Quit date: 09/05/2021 Years since quittin.6 Smokeless tobacco: Never Substance and Sexual Activity Alcohol use: Yes Alcohol/week: 14.0 standard drinks of alcohol Types: 14 Cans of beer per week Comment: 2 beers every night Drug use: Not Currently No family history on file. Allergies: Patient has no known allergies. Scheduled Meds:amLODIPine (NORVASC) tablet 5 mg, 5 mg, Oral, QDAY And lisinopriL (ZESTRIL) tablet 10 mg, 10 mg, Oral, QDAY docusate (COLACE) capsule 100 mg, 100 mg, Oral, BID milk of magnesium oral suspension 30 mL, 30 mL, Oral, QDAY sennosides-docusate sodium (SENOKOT-S) tablet 1 tablet, 1 tablet, Oral, BID SODIUM CHLORIDE 0.9 % IV SOLP (Cabinet Override), , , NOW Continuous Infusions: PRN and Respiratory Meds:acetaminophen Q4H PRN, calcium gluconate IV PRN (On Ca ll from Rx) AND Ionized Calcium PRN AND Notify Physician Ongoing, fentaN YL citrate PF Q1H PRN, magnesium sulfate PRN AND Magnesium PRN AND Notif y Physician Ongoing, ondansetron (ZOFRAN) IV Q6H PRN, oxyCODONE Q4H PRN, potassi um chloride PRN OR potassium chloride PRN OR potassium chloride in water PRN Review of Systems: Constitutional: negative for fevers, chills and weight loss Eyes: negative for visual disturbance ENT: negative for nasal congestion, epistaxis and sore throat Respiratory: negative for cough, hemoptysis or dyspnea on exertion Cardiovascular: negative for chest pain, chest pressure/discomfort, lower extrem ity edema Gastrointestinal: negative for dysphagia, nausea, vomiting, diarrhea, constipati on and abdominal pain Genitourinary:negative for frequency and dysuria Integument/breast: negative for rash Hematologic/lymphatic: negative for bleeding Musculoskeletal:negative for myalgias and back pain Neurological: + dizziness and coordination problems Behavioral/Psych: negative for altered mental status Vital Signs: Last Filed in 24 hours Vital Signs: 24 hour Range BP: 146/76 (04/26 900) Temp: 36.6 C (97.9 F) (04/26 800) Pulse: 61 (04/26 900) Respirations: 13 PER MINUTE (04/26 900) SpO2: 95 % (04/26 900) O2 Device: None (Room air) (04/26 900) Height: 177.8 cm (5' 10") (04/26 0000) BP: (124-165)/(68-101) Temp: [36.5 C (97.7 F)-36.7 C (98.1 F)] Pulse: [58-82] Respirations: [13 PER MINUTE-17 PER MINUTE] SpO2: [94 %-97 %] O2 Device: None (Room air) Physical Exam: General appearance: alert, cooperative and no distress Head: Normocephalic, bruising and abrasions s/p fall Eyes: PERRL Lungs: non labored, on RA Neurologic: Grossly normal Skin: No rash Lab/Radiology/Other Diagnostic Tests: 24-hour labs: Results for orders placed or performed during the hospital encounter of 04/26/23 (from the past 24 hour(s)) CBC AND DIFF Collection Time: 04/26/23 12:50 AM Result Value Ref Range White Blood Cells 13.8 (H) 4.5 - 11.0 K/UL RBC 4.69 4.4 - 5.5 M/UL Hemoglobin 15.1 13.5 - 16.5 GM/DL Hematocrit 43.5 40 - 50 % MCV 92.6 80 - 100 FL MCH 32.2 26 - 34 PG MCHC 34.8 32.0 - 36.0 G/DL RDW 13.7 11 - 15 % Platelet Count 285 150 - 400 K/UL MPV 8.3 7 - 11 FL Neutrophils 71 41 - 77 % Lymphocytes 23 (L) 24 - 44 % Monocytes 5 4 - 12 % Eosinophils 0 0 - 5 % Basophils 1 0 - 2 % Absolute Neutrophil Count 9.82 (H) 1.8 - 7.0 K/UL Absolute Lymph Count 3.14 1.0 - 4.8 K/UL Absolute Monocyte Count 0.69 0 - 0.80 K/UL Absolute Eosinophil Count 0.03 0 - 0.45 K/UL Absolute Basophil Count 0.11 0 - 0.20 K/UL PROTIME INR (PT) Collection Time: 04/26/23 12:50 AM Result Value Ref Range Protime 11.9 9.5 - 14.2 SEC INR 1.1 0.8 - 1.2 PTT (APTT) Collection Time: 04/26/23 12:50 AM Result Value Ref Range APTT 28.5 24.0 - 36.5 SEC COMPREHENSIVE METABOLIC PANEL Collection Time: 04/26/23 12:50 AM Result Value Ref Range Sodium 131 (L) 137 - 147 MMOL/L Potassium 3.5 3.5 - 5.1 MMOL/L Chloride 97 (L) 98 - 110 MMOL/L Glucose 112 (H) 70 - 100 MG/DL Blood Urea Nitrogen 16 7 - 25 MG/DL Creatinine 0.95 0.4 - 1.24 MG/DL Calcium 9.5 8.5 - 10.6 MG/DL Total Protein 7.4 6.0 - 8.0 G/DL Total Bilirubin 0.8 0.3 - 1.2 MG/DL Albumin 4.3 3.5 - 5.0 G/DL Alk Phosphatase 67 25 - 110 U/L AST (SGOT) 31 7 - 40 U/L CO2 20 (L) 21 - 30 MMOL/L ALT (SGPT) 22 7 - 56 U/L Anion Gap 14 (H) 3 - 12 eGFR >60 >60 mL/min IONIZED CALCIUM Collection Time: 04/26/23 12:50 AM Result Value Ref Range Ionized Calcium 1.07 1.0 - 1.3 MMOL/L MAGNESIUM Collection Time: 04/26/23 12:50 AM Result Value Ref Range Magnesium 2.1 1.6 - 2.6 mg/dL PHOSPHORUS Collection Time: 04/26/23 12:50 AM Result Value Ref Range Phosphorus 3.2 2.0 - 4.5 MG/DL SODIUM-URINE RANDOM Collection Time: 04/26/23 3:00 AM Result Value Ref Range Sodium, Random 62 MMOL/L OSMOLALITY-URINE RANDOM Collection Time: 04/26/23 3:00 AM Result Value Ref Range Osmolality-Urine 300 50 - 1,400 MOS/KG CREATININE-URINE RANDOM Collection Time: 04/26/23 3:00 AM Result Value Ref Range Creatinine, Random 25 MG/DL UREA NITROGEN-URINE RANDOM Collection Time: 04/26/23 3:00 AM Result Value Ref Range Urea Nitrogen 203 MG/DL OSMOLALITY Collection Time: 04/26/23 3:00 AM Result Value Ref Range Osmolality 286 280 - 307 MOSMOL/KG Pertinent radiology reviewed. Lubna Molina APRN Pager [phone] Voalte Associated attestation - Deshawn Adkins MD - 04/26/2023 5:17 PM CDT I personally interviewed and examined the patient. I have reviewed the history, physical, impression and plan outlined by the Nurse Practitioner Lubna Molina APRN The patient presents with (HPI) admitted with poor balance, brain/ cerebellar ma ss. CT showed lung and adrenal mass as well. On examination there is CT and MRI reviewed. 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 My plan is agree with resection of large mass for better local control, this rosi l also provide histological diagnosis and tissue for NGS. We will make more spec [facility] recommendation of systemic therapy after pathology and molecular profile av ailable. Recommend post resection radiation at this time and follow up in medica l oncology. Deshawn Adkins MD * Torrie Mays MBBS - 04/25/2023 10:03 PM CDTAssociated Order(s): CONSULT NEURO CRITICAL CARE PHYSICIAN Neuro Critical Care Consult Johnny Bautista Admission Date: (Not on file) LOS: 0 days No Order ASSESSMENT/PLAN There are no problems to display for this patient. Johnny Bautista is a 77 y.o. male with a Medical Hx. Significant for HTN, HLD, Pr ostate Cancer, Knee Surgery. Patient had been experiencing gait imbalance for e past week. 04/25 AM lost balance and fell on his face on to concrete. Was taken by EMS to [facility] [facility]. Initial imaging with CT showed a left cereb ellar mass with mild hydrocephalus and displaced nasal fractures. Requested for transfer out to due to lack of NSGY services at sending hospital. Patient adm itted to NEICU for monitoring and further management by NSGY. NEICU consulted to assist with ongoing management. Hospital and ICU course: 04/25: Admit to NEICU Neuro/ENT: Left Cerebellar Mass Displaced Nasal Fractures - 1 week Hx of Disequilibrium - Lost balance and fell on his face onto concrete 04/25 AM - Taken by EMS to [facility] - CTH, Face, Neck: 3.7 cm x 3 cm mass within left cerebellar hemisphere causing mass effect on the 4th ventricle, mild enlargement of the lateral ventricles and 3rd ventricle. No midline shift. Displaced nasal fractures. No C-Spine injury. Plan: - MRI Head w/wo Tumour Protocol - Consider LP after MRI - OP, CP - Cell counts, Glucose, WBC, Protein - Cytology, Flow Cytometry - Neurosurgery Primary - No acute surgical intervention - CT CAP for metastatic disease - Trauma Consult - Neuro-ICU monitoring, neurochecks q 1 hrs, parameters for Prevention of second israel brain injury(avoid hypotension, hypoxia, fever, hyperglycemia,significant an emia, diagnose and treatment of seizures, electrolyte abnormalities) Sedation/Pain Management: - Patient denies pain - Assess for delirium daily Cardiac: HTN HLD - VOLLEYBALL ASSISTANT COACH Meds: Lotrel 5/10 mg Daily, HCTZ 12.5 mg Daily, ASA81 mg Plan: - Hold VOLLEYBALL ASSISTANT COACH Benazepril and HCTZ if surgery necessitated tomorrow - PRN Labetalol and Hydralazine to maintain BP goals - SBP goal < 160 mmHg - MAP goal > 65 Respiratory: - No current respiratory concerns, saturating well on room air Plan: - PaO2 goal >100, Spo2 goal >95%, PCO2 goal 35-40 torr, chest physiotherapy, bronchotherapy, PD& V q 6 hrs GI: - Feeding: PO, Advance as tolerated to Regular Diet Plan: - Neurosurgery bowel regimen, ensure daily BM - PRN Senna-Docusate - PRN Miralax Heme: - No current hematological concerns Plan: - assess for coagulopathy, maintain platelets above 100k, INR <1.5 - Daily CBC ID: - WBC on admit - No current infectious concerns Plan: - aim for normothermia, Temp <38.3 celsius, normothermia protocol if febrile Renal: - No history of renal dysfunction Plan: - Monitor I/Os - Aim for normovolemia - Daily BMP Endocrine: - Blood glucose goal 100-180mg/dl FEN: - IVF: None for now - Magnesium goal >2.0, i-Bryn goal > 1.0, Potassium goal >4.0 mEq/L Prophylaxis Review: A)GI: None B) Lines: PIV x2 C) Urinary Catheter: None D) Antibiotic Usage: No E) VTE: Mechanical prophylaxis; Sequential compression device F) Isolation: No G)Seizures: No I) Restraints: Patient assessed for need for restraints. Disposition/Family: Unchanged. Primary service: NSGY Consults: RICHARD SUBJECTIVE Chief Complaint: Fall, Left Cerebellar Mass on Imaging History of Present Illness: Johnny Bautista is a 77 y.o. male with a Medical Hx. Significant for HTN, HLD, Pr ostate Cancer, Knee Surgery. Patient had been experiencing gait imbalance for th e past week. 8 AM lost balance and fell on his face on to concrete. Was taken by EMS to [facility]. Initial imaging with CT showed a left cereb ellar mass with mild hydrocephalus and displaced nasal fractures. Requested for transfer out to due to lack of NSGY services at sending hospital. Patient adm itted to [facility] for monitoring and further management by NSGY. NEICU consulted to assist with ongoing management. Patient reports he was diagnosed with prostate cancer 2009 and was treated with Brachytherapy. No ongoing chemotherapy. Undergoes regular PSA screening which leger s been unremarkable so far. Patient denies any fevers, chills, nightsweats, headaches, nausea, visual change s, ringing in ears, nasal stuffiness/discharge, oral ulcers, difficulty swallowi ng, throat pain, cough, shortness of breath, chest pain, abdominal pain, diarrhe a or constipation, urinary disturbances, blood in stool or urine, joint pain/swe lling, skin rashes, or weakness/numbness/tingling of extremities. No past medical history on file. No past surgical history on file. No family history on file. Social History Social History Narrative Not on file Code Status: Full Code Decision Maker: , Francisca Bautista Immunizations (includes history and patient reported): There is no immunization history on file for this patient. Allergies: Patient has no allergy information on record. No medications prior to admission. Review of Systems: All other systems reviewed and are negative. OBJECTIVE Vital Signs: Last Filed Vital Signs: 24 Hour Ra nge Intensity Pain Scale (Self Report): (not recorded) There were no vitals filed fo r this visit. Artificial airway: None Ventilator/ Respiratory Therapy: No Vent weaning trial: Not applicable Lines: Peripheral Line Drains: None Critical Care Vitals: ICP Monitoring: Hemodynamics/Oxycalcs: Intake/Output Summary: (Last 24 hours) No intake or output data in the 24 hours ending 04/25/23 2203 Physical Exam: There were no vitals taken for this visit. [place]enton coma score: E: 4 - Opens eyes on own M: 6 - Follows simple motor commands V: 5 - Alert and oriented Neuro: Mental Status: Alert, Oriented x4, Speech Intact Cranial Nerves: Cranial nerves 2-12 INTACT. - Pupil exam: Size: 3mm B/L Reactivity: Brisk - EOM: Full, No nystagmus - Visual Hutton: Full to Counting Fingers - Corneal reflex: R - present L - present - Grimace/facial movement: present - Cough: present - Gag reflex: present Motor: RUE: Strength: 5/5; RLE: Strength: 5/5; LUE: Strength: 5/5; LLE: Strength: 5/5; Sensory: normal Coordination: Intact, No gross ataxia or dysmetria on FTN or HTS DTRs: Right LE 3+ Knee with Crossed Adductors, 5-6 beats of clonus, Babinski up Gait: Slow, broad based Lungs: clear to auscultation bilaterally Pulmonary: Respiratory status: Stable Heart: regular rate and rhythm, S1, S2 normal, no murmur, click, rub or gallop Abdomen: soft, non-tender. Bowel sounds normal. No masses, no organomegaly Extremities: extremities normal, atraumatic, no cyanosis or edema Skin: Skin color, texture, turgor normal. No rashes or lesions Point of Care Testing: (Last 24 hours): Lab Review: 24-hour labs: Results for orders placed or performed during the hospital encounter of 04/26/23 (from the past 24 hour(s)) CBC AND DIFF Collection Time: 04/26/23 12:50 AM Result Value Ref Range White Blood Cells 13.8 (H) 4.5 - 11.0 K/UL RBC 4.69 4.4 - 5.5 M/UL Hemoglobin 15.1 13.5 - 16.5 GM/DL Hematocrit 43.5 40 - 50 % MCV 92.6 80 - 100 FL MCH 32.2 26 - 34 PG MCHC 34.8 32.0 - 36.0 G/DL RDW 13.7 11 - 15 % Platelet Count 285 150 - 400 K/UL MPV 8.3 7 - 11 FL Neutrophils 71 41 - 77 % Lymphocytes 23 (L) 24 - 44 % Monocytes 5 4 - 12 % Eosinophils 0 0 - 5 % Basophils 1 0 - 2 % Absolute Neutrophil Count 9.82 (H) 1.8 - 7.0 K/UL Absolute Lymph Count 3.14 1.0 - 4.8 K/UL Absolute Monocyte Count 0.69 0 - 0.80 K/UL Absolute Eosinophil Count 0.03 0 - 0.45 K/UL Absolute Basophil Count 0.11 0 - 0.20 K/UL IONIZED CALCIUM Collection Time: 04/26/23 12:50 AM Result Value Ref Range Ionized Calcium 1.07 1.0 - 1.3 MMOL/L Radiology and Other Diagnostic Procedures Review: Pertinent radiologic and diag nostic procedures reviewed. WALTER Marinelli Date: 04/25/[phone] documented in this encounter Nursing Notes * Carolyn Dobbins RN - 05/03/2023 10:39 AM CDT Johnny Bautista Suboccipital Craniotomy for Resection of Mass on 04/29/2023 with Glenn Flores MD Neurosurgery Discharge Instructions Contact information: Call the Neurosurgery clinic if you have questions or are experiencing probl ems at [phone]. After 5 PM, weekends, holidays please call [phone] to reach Neurosurger y senior vice president and chief information officer. Post-operative wound care: Your incision has dissolving sutures in place. Your incision may be open to air. Keep your incision dry for 5 days. Shower neck down until 05/03/23. Starting 05/04/23 use non-medicated soap to wash incision daily, pat dry and leave open to air. Avoid heavy water pressure over incision site. Only touch your incision with clean hands. Do not apply lotion, cream, or oi ntments to incision. Do not submerge (pool/tub) incision under water at all for 4 weeks. Have someone look at your incision every day. It should look the same or bet ter each day. Activity restrictions: Avoid pushing, pulling, or lifting more than 10 pounds (about a gallon of mi lk). If you hold children, they should be placed in your lap or crawl into lap i f old enough. Do NOT drive until you are cleared by your physician. Avoid bearing down or straining to have bowel movements. You must be off all pain medication before driving restriction is released. Post-operative pain and medications: Please use your pain medications and muscle relaxers as prescribed. Do not take NSAIDS (Ibuprofen, Advil, Aleve, Motrin, Naproxen) until Doctor approved. Pain medications can make you constipated. Please take stool softeners to a id this process. Tylenol is approved for pain control. This is available over the counter. Follow up appointment: Scheduled appointments: May 11, 2023 1:30 PM Telehealth visit with BERNARDA Canas Neurosurgery: [facility] [address] [facility] [facility] [id number] May 13, 2023 11:30 AM Simulation with Jorge Hester MD Radiation Oncology: [facility] ([facility] Radiat ion Oncology) [address] [facility] [address] [facility] [facility] [address] May 17, 2023 11:45 AM (Arrive by 11:15 AM) MRI HEAD WO/W CONTRAST with MRI - [facility] (1.5T) Imaging, MRI: [facility] ([facility]) [address] [employer] [facility] [id number] May 26, 2023 4:00 PM Postoperative visit with Glenn Flores MD Neurosurgery: [facility] ([facility]) [address] [facility]. [address] [facility] [id number] Reasons to call the Neurosurgery Clinic ([phone]): Concerning lethargy (sleepiness), decreased level of consciousness, new conf usion. Worsening vision, facial weakness, tongue weakness, new hearing, or balance difficulties. Fever 101 or greater. Redness or swelling of incision. Continuous oozing or persistent clear fluid coming from incision. Headaches increasing in severity and occurrences. A noticeable and increasing fluid collection developing under the skin, arou nd your incision. Intense pain that is getting worse or unrelieved by pain medications or musc le relaxers. Education document reviewed with patient/ on speaker phone. Incision with d issolving sutures/clean/dry/HEPATOLOGIST. Advised of wound care, activity restrictions, goals of mobility. Discussed prescribed medications for optimal pain control. Appointments confirmed, all question answered, encouraged to call with any fernández es/needs. Carolyn Dobbins RN Clinical Nurse Coordinator Neurosurgery Available via Vo[employer]te documented in this encounter Miscellaneous Notes * Care Plan - Kana Garcia RN - 05/01/2023 5:30 AM CDT Problem: Discharge Planning Goal: Participation in plan of care Outcome: Goal Ongoing Flowsheets (Taken 05/01/2023527) Participation in Plan of Care: Involve patient/caregiver in care planning decisi on making Goal: Knowledge regarding plan of care Outcome: Goal Ongoing Flowsheets (Taken 05/01/2023527) Knowledge regarding plan of care: Provide plan of care education Provide fall prevention education Provide infection prevention education Provide medication management education Goal: Prepared for discharge Outcome: Goal Ongoing Problem: High Fall Risk Goal: High Fall Risk Outcome: Goal Ongoing Flowsheets (Taken 05/01/2023527) High Fall Risk: All patients will receive: High fall risk sign, yellow wristband, yellow socks, gait belt, and shower shoes Engage bed alarm - middle setting Stay with the patient while toileting/showering PT/OT consult for fall prevention assessment if scoring in Unsteady Gait or Vis ual or Auditory impairment Move patient near RN station if confused (if possible) Remove excess equipment/supplies Educate patient to use call-light if tethered Use safe patient handling equipment as appropriate Problem: Skin Integrity Goal: Skin integrity intact Outcome: Goal Ongoing Flowsheets (Taken 05/01/2023 05) Skin integrity intact: Promote nutrition Assure position change Monitor skin integrity Reduce skin shear, friction and tissue load Provide skin care interventions Goal: Healing of skin (Wound & Incision) Outcome: Goal Ongoing Flowsheets (Taken 05/01/2023527) Healing of wound (wounds and Incisions): Assess for signs and symptoms of wound infection Assess wound site healing Implement wound/incision care as ordered Provide wound/incision care as ordered Goal: Healing of skin (Pressure Injury) Outcome: Goal Ongoing * Care Plan - Dorothy Interiano RN - 04/29/2023 1:01 AM CDT Problem: Discharge Planning Goal: Participation in plan of care Outcome: Goal Ongoing Goal: Knowledge regarding plan of care Outcome: Goal Ongoing Goal: Prepared for discharge Outcome: Goal Ongoing Problem: High Fall Risk Goal: High Fall Risk Outcome: Goal Ongoing Problem: Skin Integrity Goal: Skin integrity intact Outcome: Goal Ongoing Goal: Healing of skin (Wound & Incision) Outcome: Goal Ongoing Goal: Healing of skin (Pressure Injury) Outcome: Goal Ongoing * Clinical Clarification - Jc Lang APRN-NP - 04/28/2023 5:27 PM CDT Request for Documentation Clarification Johnny Bautista ; VISIT [id number] Query Response Sent: 04/28/23 17:26 CDT From: JC LANG APRN-NP Query question: Based on the clinical information below, please specify the appr opriate diagnosis below Provider response: Other explanation of clinical findings: Chronic hyponatremia Original Query Sent: 04/28/23 15:29 CDT From: Francisco Leahy CDI To: JC LANG APRN-NP This query and your reply are permanent parts of the medical record. The fact th at this query asks for additional clarification does not imply that any particul ar answer is desired or expected. Based on the clinical information below, please specify the appropriate diagnosi s below * Hyponatremia * Other explanation of clinical findings Clinical Information * Patient Summary: 77 y/o M admitted with Left Cerebellar Mass, presumably hemor rhagic met w assoc. 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" * Care Plan - Sharron Menjivar RN - 04/28/2023 10:10 AM CDT Problem: Discharge Planning Goal: Participation in plan of care Outcome: Goal Ongoing Goal: Knowledge regarding plan of care Outcome: Goal Ongoing Goal: Prepared for discharge Outcome: Goal Ongoing Problem: High Fall Risk Goal: High Fall Risk Outcome: Goal Ongoing Problem: Skin Integrity Goal: Skin integrity intact Outcome: Goal Ongoing Goal: Healing of skin (Wound & Incision) Outcome: Goal Ongoing Goal: Healing of skin (Pressure Injury) Outcome: Goal Ongoing * Care Plan - Dorothy Interiano RN - 04/28/2023 12:01 AM CDT Problem: Discharge Planning Goal: Participation in plan of care Outcome: Goal Ongoing Goal: Knowledge regarding plan of care Outcome: Goal Ongoing Goal: Prepared for discharge Outcome: Goal Ongoing Problem: High Fall Risk Goal: High Fall Risk Outcome: Goal Ongoing Problem: Skin Integrity Goal: Skin integrity intact Outcome: Goal Ongoing Goal: Healing of skin (Wound & Incision) Outcome: Goal Ongoing Goal: Healing of skin (Pressure Injury) Outcome: Goal Ongoing * Care Plan - Sharron Menjivar RN - 04/27/2023 10:43 AM CDT Problem: Discharge Planning Goal: Participation in plan of care Outcome: Goal Ongoing Goal: Knowledge regarding plan of care Outcome: Goal Ongoing Goal: Prepared for discharge Outcome: Goal Ongoing Problem: High Fall Risk Goal: High Fall Risk Outcome: Goal Ongoing Problem: Skin Integrity Goal: Skin integrity intact Outcome: Goal Ongoing Goal: Healing of skin (Wound & Incision) Outcome: Goal Ongoing Goal: Healing of skin (Pressure Injury) Outcome: Goal Ongoing * Care Plan - Eneida Willis RN - 04/26/2023 5:32 AM CDT Problem: Discharge Planning Goal: Participation in plan of care Outcome: Goal Ongoing Goal: Knowledge regarding plan of care Outcome: Goal Ongoing Goal: Prepared for discharge Outcome: Goal Ongoing Problem: High Fall Risk Goal: High Fall Risk Outcome: Goal Ongoing Problem: Skin Integrity Goal: Skin integrity intact Outcome: Goal Ongoing Goal: Healing of skin (Wound & Incision) Outcome: Goal Ongoing Goal: Healing of skin (Pressure Injury) Outcome: Goal Ongoing documented in this encounter Plan of Treatment Date/Time Name Type Priority Associated Diag noses 04/29/2023 2:45 PM CDT SURGICAL PATHOLOGY Pathology Routine Brain mass Order Schedule Name Type Priority Associated Diag noses Release Upon Ordering for 1 Occurrences starting 04/29/2023 SURGICAL PATHOLOGY Pathology Routine Brain mass documented as of this encounter Goals Goal Patient Associated Recent Progress Patient-Stat Aut hor Goal Type Problems ed? Resume normal activities Hospital On track (04/26/2023 Yes Eloy, 5:35 PM CDT) ABDIEL Freeman Note: Walk without falling down documented as of this encounter Procedures Comments Procedure Name Priority Date/Time Associated Diag nosis FINGER MIN 2V RIGHT THUMB Routine 05/02/2023 12:03 PM CDT HC CBC W/ AUTOMATED DIFF Routine 05/02/2023 3:45 AM CDT HC PHOSPHOROUS, SERUM Routine 05/02/2023 3:45 AM CDT HC CALCIUM IONIZED Routine 05/02/2023 3:45 AM CDT HC BASIC METABOLIC PANEL Routine 05/02/2023 3:45 AM CDT HC CBC,AUTOMATED Routine 05/01/2023 4:29 AM CDT HC PHOSPHOROUS, SERUM Routine 05/01/2023 4:29 AM CDT HC MAGNESIUM Add on 05/01/2023 4:29 AM CDT HC CALCIUM IONIZED Routine 05/01/2023 4:29 AM CDT HC BASIC METABOLIC PANEL Routine 05/01/2023 4:29 AM CDT HC CBC,AUTOMATED Routine 04/30/2023 2:25 AM CDT HC PHOSPHOROUS, SERUM Routine 04/30/2023 2:25 AM CDT HC MAGNESIUM Add on 04/30/2023 2:25 AM CDT HC CALCIUM IONIZED Routine 04/30/2023 2:25 AM CDT HC BASIC METABOLIC PANEL Routine 04/30/2023 2:25 AM CDT MRI HEAD WO/W CONTRAST Routine 04/29/2023 11:15 PM CDT MICROSURGICAL TECHNIQUES 04/29/2023 Brain mass - REQUIRING OPERATING 12:34 PM CDT MICROSCOPE USE CRANIECTOMY/ CRANIOTOMY 04/29/2023 Brain mass DECOMPRESSION 12:34 PM CDT HC CBC,AUTOMATED Routine 04/29/2023 3:40 AM CDT HC BASIC METABOLIC PANEL Routine 04/29/2023 3:40 AM CDT HC BLOOD TYPING, ABO 04/28/2023 CONFIRM 91 10:46 AM CDT TYPE & CROSSMATCH Routine 04/28/2023 10:05 AM CDT HC CBC,AUTOMATED Routine 04/28/2023 3:41 AM CDT HC BASIC METABOLIC PANEL Routine 04/28/2023 3:41 AM CDT HC CBC,AUTOMATED Routine 04/27/2023 4:23 AM CDT HC BASIC METABOLIC PANEL Routine 04/27/2023 4:23 AM CDT SODIUM STAT 04/26/2023 11:00 AM CDT MRI HEAD WO/W CONTRAST JANETT 04/26/2023 4:28 AM CDT HC UREA NITROGEN-URINE Routine 04/26/2023 3:00 AM CDT HC SODIUM-URINE Routine 04/26/2023 3:00 AM CDT HC OSMOLALITY-URINE Routine 04/26/2023 3:00 AM CDT HC CREATININE-URINE Routine 04/26/2023 3:00 AM CDT HC OSMOLALITY;BLOOD Routine 04/26/2023 3:[address] ABD/PELV W CONTRAST Routine 04/26/2023 1:[address] CHEST W CONTRAST JANETT 04/26/2023 1:38 AM CDT HC PTT(APTT) STAT 04/26/2023 12:50 AM CDT HC PT(INR) STAT 04/26/2023 12:50 AM CDT HC CBC W/ AUTOMATED DIFF STAT 04/26/2023 12:50 AM CDT HC PHOSPHOROUS, SERUM STAT 04/26/2023 12:50 AM CDT HC MAGNESIUM STAT 04/26/2023 12:50 AM CDT HC CALCIUM IONIZED STAT 04/26/2023 12:50 AM CDT HC COMPREHENSIVE STAT 04/26/2023 METABOLIC PANEL 12:50 AM CDT documented in this encounter Results * FINGER MIN 2V RIGHT THUMB (05/02/2023 12:03 PM CDT) Modality Anatomical Region Laterality Computed Radiography UPPEREXT Right Anatomical Location / Laterality Collection Method / Volume Gavin ection Time Received Time Specimen (Source) 05/02/2023 12:48 PM CDT Right Impressions 05/02/2023 12:50 PM CDT 1. Small ossicle along the radial aspe ct of the first metacarpal head is age- indeterminate but may represent capsular avulsion injury. Correlate with point tenderness. Additional chronic appearing ossicle along the thumb IP joint. Otherwise no acute fracture or malalignment. 2. 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 Mild degenerative changes elsewhere. Finalized by Naresh Willis M.D. on 05/02/2023 12:50 PM. Dictated by Naresh Willis M.D. on 05/02/2023 12:48 PM. Narrative 05/02/2023 12:50 PM CDT EXAM: FINGER MIN 2V RIGHT THUMB CLINICAL INDICATION: 77 years. Fall history with bruising and swelling to right thumb. COMPARISON: None. Procedure Note Naresh Willis MD - 05/02/2023 EXAM: FINGER MIN 2V RIGHT THUMB CLINICAL INDICATION: 77 years. Fall history with bruising and swelling to right thumb. COMPARISON: None. IMPRESSION 1. Small ossicle along the radial aspec t of the first metacarpal head is age- indeterminate but may represent capsular avulsion injury. Correlate with point tenderness. Additional chronic appearing ossicle along the thumb IP joint. Otherwise no acute fracture or malalignment. 2. Severe first CMC and moderate STT kailey int degenerative arthritis. Mild degenerative changes elsewhere. Finalized by Naresh Willis M.D. on 05/02/2023 12:50 PM. Dictated by Naresh Willis M.D. on 05/02/2023 12:48 PM. Jc Lang DIAGNOSTIC IMAGING ORDERABL ES DIETARY ASSISTANT-DATABASE DESIGN ANALYST * (ABNORMAL) CBC AND DIFF (05/02/2023 3:45 AM CDT) Pathologist Signature Component Value Ref Test Method Analysis Performed A t Range Time White Blood Cells 10.6 4.5 - 05/02/2023 [facility] DE PT PATH AND 11.0 4:16 AM LAB MEDICINE K/UL CDT RBC 4.04 (L) 4.4 - 05/02/2023 [facility] DEPT PAT H AND 5.5 M/UL 4:16 AM LAB MEDICINE CDT Hemoglobin 12.9 (L) 13.5 - 05/02/2023 [facility] DEPT PAT H AND 16.5 4:16 AM LAB MEDICINE GM/DL CDT Hematocrit 37.4 (L) 40 - 50 05/02/2023 [facility] DEPT PAT H AND % 4:16 AM LAB MEDICINE CDT MCV 92.4 80 - 100 05/02/2023 [facility] DEPT PAT H AND FL 4:16 AM LAB MEDICINE CDT MCH 31.8 26 - 34 05/02/2023 [facility] DEPT PAT H AND PG 4:16 AM LAB MEDICINE CDT MCHC 34.4 32.0 - 05/02/2023 [facility] DEPT PAT H AND 36.0 4:16 AM LAB MEDICINE G/DL CDT RDW 13.9 11 - 15 05/02/2023 [facility] DEPT PAT H AND % 4:16 AM LAB MEDICINE CDT Platelet Count 266 150 - 05/02/2023 [facility] DEPT PATH AND 400 K/UL 4:16 AM LAB MEDICINE CDT MPV 8.7 7 - 11 05/02/2023 [facility] DEPT PAT H AND FL 4:16 AM LAB MEDICINE CDT Neutrophils 78 (H) 41 - 77 05/02/2023 [facility] DEPT PAT H AND % 4:16 AM LAB MEDICINE CDT Lymphocytes 16 (L) 24 - 44 05/02/2023 [facility] DEPT PAT H AND % 4:16 AM LAB MEDICINE CDT Monocytes 5 4 - 12 % 05/02/2023 [facility] DEPT PAT H AND 4:16 AM LAB MEDICINE CDT Eosinophils 0 0 - 5 % 05/02/2023 [facility] DEPT PAT H AND 4:16 AM LAB MEDICINE CDT Basophils 1 0 - 2 % 05/02/2023 [facility] DEPT PAT H AND 4:16 AM LAB MEDICINE CDT Absolute Neutrophil 8.21 (H) 1.8 - 05/02/2023 [facility] DEPT PATH AND Count 7.0 K/UL 4:16 AM LAB MEDICINE CDT Absolute Lymph Count 1.73 1.0 - 05/02/2023 [facility] DEPT PATH AND 4.8 K/UL 4:16 AM LAB MEDICINE CDT Absolute Monocyte 0.57 0 - 0.80 05/02/2023 [facility] DE PT PATH AND Count K/UL 4:16 AM LAB MEDICINE CDT Absolute Eosinophil 0.02 0 - 0.45 05/02/2023 [facility] DEPT PATH AND Count K/UL 4:16 AM LAB MEDICINE CDT Absolute Basophil 0.06 0 - 0.20 05/02/2023 [facility] DE PT PATH AND Count K/UL 4:16 AM LAB MEDICINE CDT Anatomical Location / Laterality Collection Method / Volume Gavin ection Time Received Time Specimen (Source) BLOOD / Unknown 05/02/2023 3:45 AM CDT 05/02/20 4:05 AM CDT Glenn Flores MD LABORATORY ORDERABLES City/State/ZIP Code Phone Number Performing Address [place] [address], [facility] DEPT PATH AND [address] [facility] LAB MEDICINE * (ABNORMAL) BASIC METABOLIC PANEL (05/02/2023 3:45 AM CDT) Pathologist Signature Component Value Ref Test Method Analysis Performed A t Range Time Sodium 135 (L) 137 - 05/02/2023 [facility] DEPT PAT H AND 147 4:40 AM LAB MEDICINE MMOL/L CDT Potassium 3.8 3.5 - 05/02/2023 [facility] DEPT PAT H AND 5.1 4:40 AM LAB MEDICINE MMOL/L CDT Chloride 101 98 - 110 05/02/2023 [facility] DEPT PAT H AND MMOL/L 4:40 AM LAB MEDICINE CDT CO2 25 21 - 30 05/02/2023 [facility] DEPT PAT H AND MMOL/L 4:40 AM LAB MEDICINE CDT Anion Gap 9 3 - 12 05/02/2023 [facility] DE[facility] PAT H AND 4:40 AM LAB MEDICINE CDT Glucose 126 (H) 70 - 100 05/02/2023 [facility] DE[facility] PAT H AND MG/DL 4:40 AM LAB MEDICINE CDT Blood Urea Nitrogen 16 7 - 25 05/02/2023 [facility] DEPT PATH AND MG/DL 4:40 AM LAB MEDICINE CDT Creatinine 0.82 0.4 - 05/02/2023 [facility] DEPT PAT H AND 1.24 4:40 AM LAB MEDICINE MG/DL CDT Calcium 8.9 8.5 - 05/02/2023 [facility] DEPT PAT H AND 10.6 4:40 AM LAB MEDICINE MG/DL CDT eGFR >60 >60 05/02/2023 [facility] DEPT PAT H AND mL/min 4:40 AM LAB MEDICINE CDT Comment: eGFR calculated using the CKD-EPIcr_R equation Anatomical Location / Laterality Collection Method / Volume Gavin ection Time Received Time Specimen (Source) BLOOD / Unknown 05/02/2023 3:45 AM CDT 05/02/20 4:05 AM CDT Glenn Flores MD LABORATORY ORDERABLES City/State/ZIP Code Phone Number Performing Address Organization [place], [place] [id number] [place], [place] [address]T PATH AND [address] [facility] LAB MEDICINE * IONIZED CALCIUM (05/02/2023 3:45 AM CDT) Pathologist Signature Component Value Ref Test Method Analysis Performed A t Range Time Ionized Calcium 1.12 1.0 - 05/02/2023 [facility] DEPT PATH AND 1.3 4:13 AM LAB MEDICINE MMOL/L CDT Anatomical Location / Laterality Collection Method / Volume Gavin ection Time Received Time Specimen (Source) BLOOD / Unknown 05/02/2023 3:45 AM CDT 05/02/20 23 4:06 AM CDT Ish Doe LABORATORY ORDERABLES DIETARY ASSISTANT-DATABASE DESIGN ANALYST City/State/ZIP Code Phone Number Performing Address Organization [place] [employer] DEPT PATH AND [address] [facility] MEDICINE * PHOSPHORUS (05/02/2023 3:45 AM CDT) Pathologist Signature Component Value Ref Test Method Analysis Performed A t Range Time Phosphorus 2.5 2.0 - 05/02/2023 [facility] DEPT PAT H AND 4.5 4:40 AM LAB MEDICINE MG/DL CDT Anatomical Location / Laterality Collection Method / Volume Gavin ection Time Received Time Specimen (Source) BLOOD / Unknown 05/02/2023 3:45 AM CDT 05/02/20 4:05 AM CDT Ish J Sharp-Jackie LABORATORY ORDERABLES DIETARY ASSISTANT-DATABASE DESIGN ANALYST City/State/ZIP Code Phone Number Performing Address Organization [address] [employer] DEPT PATH AND [address] [facility] * MAGNESIUM (05/01/2023 4:29 AM CDT) Pathologist Signature Component Value Ref Test Method Analysis Performed A t Range Time Magnesium 2.0 1.6 - 05/01/2023 [facility] DEPT PAT H AND 2.6 6:10 AM LAB MEDICINE mg/dL CDT Anatomical Location / Laterality Collection Method / Volume Gavin ection Time Received Time Specimen (Source) 05/01/2023 4:29 AM CDT 05/01/20 4:37 AM CDT Marichuy Saez MD LABORATORY ORDERABLES City/State/ZIP Code Phone Number Performing Address Organization [address] [facility] AND [facility] * IONIZED CALCIUM (05/01/2023 4:29 AM CDT) Pathologist Signature Component Value Ref Test Method Analysis Performed A t Range Time Ionized Calcium 1.16 1.0 - 05/01/2023 [facility] DEPT PATH AND 1.3 5:02 AM LAB MEDICINE MMOL/L CDT Anatomical Location / Laterality Collection Method / Volume Gavin ection Time Received Time Specimen (Source) BLOOD / Unknown 05/01/2023 4:29 AM CDT 05/01/20 4:47 AM CDT Ish J Sharp-Jackie LABORATORY ORDERABLES DIETARY ASSISTANT-DATABASE DESIGN ANALYST City/State/ZIP Code Phone Number Performing [place] [address], [employer] DEPT PATH AND [address] LAB MEDICINE * PHOSPHORUS (05/01/2023 4:29 AM CDT) Pathologist Signature Component Value Ref Test Method Analysis Performed A t Range Time Phosphorus 2.6 2.0 - 05/01/2023 [facility] DEPT PAT H AND 4.5 5:14 AM LAB MEDICINE MG/DL CDT Anatomical Location / Laterality Collection Method / Volume Gavin ection Time Received Time Specimen (Source) BLOOD / Unknown 05/01/2023 4:29 AM CDT 05/01/20 4:37 AM CDT Ish Doe LABORATORY ORDERABLES DIETARY ASSISTANT-DATABASE DESIGN ANALYST City/State/ZIP Code Phone Number Performing [place] [address], [facility] DEPT PATH AND [address] [facility] LAB MEDICINE * (ABNORMAL) CBC (05/01/2023 4:29 AM CDT) Pathologist Signature Component Value Ref Test Method Analysis Performed A t Range Time White Blood Cells 13.4 (H) 4.5 - 05/01/2023 [facility] DE PT PATH AND 11.0 4:50 AM LAB MEDICINE K/UL CDT RBC 4.00 (L) 4.4 - 05/01/2023 [facility] DEPT PAT H AND 5.5 M/UL 4:50 AM LAB MEDICINE CDT Hemoglobin 13.1 (L) 13.5 - 05/01/2023 [facility] DEPT PAT H AND 16.5 4:50 AM LAB MEDICINE GM/DL CDT Hematocrit 37.2 (L) 40 - 50 05/01/2023 [facility] DEPT PAT H AND % 4:50 AM LAB MEDICINE CDT MCV 93.1 80 - 100 05/01/2023 [facility] DEPT PAT H AND FL 4:50 AM LAB MEDICINE CDT MCH 32.8 26 - 34 05/01/2023 [facility] DEPT PAT H AND PG 4:50 AM LAB MEDICINE CDT MCHC 35.3 32.0 - 05/01/2023 [facility] DEPT PAT H AND 36.0 4:50 AM LAB MEDICINE G/DL CDT RDW 13.9 11 - 15 05/01/2023 [facility] DEPT PAT H AND % 4:50 AM LAB MEDICINE CDT Platelet Count 232 150 - 05/01/2023 [facility] DEPT PATH AND 400 K/UL 4:50 AM LAB MEDICINE CDT MPV 8.1 7 - 11 05/01/2023 [facility] DEPT PAT H AND FL 4:50 AM LAB MEDICINE CDT Anatomical Location / Laterality Collection Method / Volume Gavin ection Time Received Time Specimen (Source) BLOOD / Unknown 05/01/2023 4:29 AM CDT 05/01/20 4:37 AM CDT Ron Reyna MD LABORATORY ORDERABLES City/State/ZIP Code Phone Number Performing [place] [address], [facility] DEPT PATH AND [address] [facility] LAB MEDICINE * (ABNORMAL) BASIC METABOLIC PANEL (05/01/2023 4:29 AM CDT) Pathologist Signature Component Value Ref Test Method Analysis Performed A t Range Time Sodium 136 (L) 137 - 05/01/2023 [facility] DEPT PAT H AND 147 5:14 AM LAB MEDICINE MMOL/L CDT Potassium 3.9 3.5 - 05/01/2023 [facility] DEPT PAT H AND 5.1 5:14 AM LAB MEDICINE MMOL/L CDT Chloride 102 98 - 110 05/01/2023 [facility] DEPT PAT H AND MMOL/L 5:14 AM LAB MEDICINE CDT CO2 24 21 - 30 05/01/2023 [facility] DEPT PAT H AND MMOL/L 5:14 AM LAB MEDICINE CDT Anion Gap 10 3 - 12 05/01/2023 [facility] DEPT PAT H AND 5:14 AM LAB MEDICINE CDT Glucose 127 (H) 70 - 100 05/01/2023 [facility] DEPT PAT H AND MG/DL 5:14 AM LAB MEDICINE CDT Blood Urea Nitrogen 17 7 - 25 05/01/2023 [facility] DEPT PATH AND MG/DL 5:14 AM LAB MEDICINE CDT Creatinine 0.84 0.4 - 05/01/2023 [facility] DEPT PAT H AND 1.24 5:14 AM LAB MEDICINE MG/DL CDT Calcium 9.1 8.5 - 05/01/2023 [facility] DEPT PAT H AND 10.6 5:14 AM LAB MEDICINE MG/DL CDT eGFR >60 >60 05/01/2023 [facility] DEPT PAT H AND mL/min 5:14 AM LAB MEDICINE CDT Comment: eGFR calculated using the CKD-EPIcr_R equation Anatomical Location / Laterality Collection Method / Volume Gavin ection Time Received Time Specimen (Source) BLOOD / Unknown 05/01/2023 4:29 AM CDT 05/01/20 4:37 AM CDT Ron Reyna MD LABORATORY ORDERABLES City/State/ZIP Code Phone Number Performing [place] [address], [employer] DEPT PATH AND [address] [facility] LAB MEDICINE * MAGNESIUM (04/30/2023 2:25 AM CDT) Pathologist Signature Component Value Ref Test Method Analysis Performed A t Range Time Magnesium 1.8 1.6 - 04/30/2023 [facility] DEPT PAT H AND 2.6 3:52 AM LAB MEDICINE mg/dL CDT Anatomical Location / Laterality Collection Method / Volume Gavin ection Time Received Time Specimen (Source) 04/30/2023 2:25 AM CDT 04/30/20 2:40 AM CDT Marichuy Saez MD LABORATORY ORDERABLES [facility]/ZIP Code Phone Number Performing [place] [address], [employer] DEPT PATH AND [address] [facility] LAB MEDICINE * IONIZED CALCIUM (04/30/2023 2:25 AM CDT) Pathologist Signature Component Value Ref Test Method Analysis Performed A t Range Time Ionized Calcium 1.07 1.0 - 04/30/2023 [facility] DEPT PATH AND 1.3 2:33 AM LAB MEDICINE MMOL/L CDT Anatomical Location / Laterality Collection Method / Volume Gavin ection Time Received Time Specimen (Source) BLOOD / Unknown 04/30/2023 2:25 AM CDT 04/30/20 2:30 AM CDT Ish Doe LABORATORY ORDERABLES DIETARY ASSISTANT-DATABASE DESIGN ANALYST [facility]/State/ZIP Code Phone Number Performing [place] [address], [employer] DEPT PATH AND [address] [facility]. LAB MEDICINE * PHOSPHORUS (04/30/2023 2:25 AM CDT) Pathologist Signature Component Value Ref Test Method Analysis Performed A t Range Time Phosphorus 2.7 2.0 - 04/30/2023 [facility] DEPT PAT H AND 4.5 3:22 AM LAB MEDICINE MG/DL CDT Anatomical Location / Laterality Collection Method / Volume Gavin ection Time Received Time Specimen (Source) BLOOD / Unknown 04/30/2023 2:25 AM CDT 04/30/20 2:40 AM CDT Ish Doe LABORATORY ORDERABLES DIETARY ASSISTANT-DATABASE DESIGN ANALYST City/State/ZIP Code Phone Number Performing [place] [address], [facility] DEPT PATH AND [address] LAB MEDICINE * (ABNORMAL) CBC (04/30/2023 2:25 AM CDT) Pathologist Signature Component Value Ref Test Method Analysis Performed A t Range Time White Blood Cells 10.9 4.5 - 04/30/2023 [facility] DE PT PATH AND 11.0 2:56 AM LAB MEDICINE K/UL CDT RBC 4.04 (L) 4.4 - 04/30/2023 [facility] DEPT PAT H AND 5.5 M/UL 2:56 AM LAB MEDICINE CDT Hemoglobin 13.0 (L) 13.5 - 04/30/2023 [facility] DEPT PAT H AND 16.5 2:56 AM LAB MEDICINE GM/DL CDT Hematocrit 37.8 (L) 40 - 50 04/30/2023 [facility] DEPT PAT H AND % 2:56 AM LAB MEDICINE CDT MCV 93.5 80 - 100 04/30/2023 [facility] DEPT PAT H AND FL 2:56 AM LAB MEDICINE CDT MCH 32.3 26 - 34 04/30/2023 [facility] DEPT PAT H AND PG 2:56 AM LAB MEDICINE CDT MCHC 34.5 32.0 - 04/30/2023 [facility] DEPT PAT H AND 36.0 2:56 AM LAB MEDICINE G/DL CDT RDW 13.6 11 - 15 04/30/2023 [facility] DEPT PAT H AND % 2:56 AM LAB MEDICINE CDT Platelet Count 261 150 - 04/30/2023 [facility] DEPT PATH AND 400 K/UL 2:56 AM LAB MEDICINE CDT MPV 8.3 7 - 11 04/30/2023 [facility] DEPT PAT H AND FL 2:56 AM LAB MEDICINE CDT Anatomical Location / Laterality Collection Method / Volume Gavin ection Time Received Time Specimen (Source) BLOOD / Unknown 04/30/2023 2:25 AM CDT 04/30/20 23 2:40 AM CDT Ron Reyna MD LABORATORY ORDERABLES City/State/ZIP Code Phone Number Performing [place] [address], [facility] DEPT PATH AND [address] [facility] LAB MEDICINE * (ABNORMAL) BASIC METABOLIC PANEL (04/30/2023 2:25 AM CDT) Pathologist Signature Component Value Ref Test Method Analysis Performed A t Range Time Sodium 133 (L) 137 - 04/30/2023 [facility] DEPT PAT H AND 147 3:22 AM LAB MEDICINE MMOL/L CDT Potassium 3.7 3.5 - 04/30/2023 [facility] DEPT PAT H AND 5.1 3:22 AM LAB MEDICINE MMOL/L CDT Chloride 101 98 - 110 04/30/2023 [facility] DEPT PAT H AND MMOL/L 3:22 AM LAB MEDICINE CDT CO2 22 21 - 30 04/30/2023 [facility] DEPT PAT H AND MMOL/L 3:22 AM LAB MEDICINE CDT Anion Gap 10 3 - 12 04/30/2023 [facility] DEPT PAT H AND 3:22 AM LAB MEDICINE CDT Glucose 145 (H) 70 - 100 04/30/2023 [facility] DEPT PAT H AND MG/DL 3:22 AM LAB MEDICINE CDT Blood Urea Nitrogen 13 7 - 25 04/30/2023 [facility] DEPT PATH AND MG/DL 3:22 AM LAB MEDICINE CDT Creatinine 0.91 0.4 - 04/30/2023 [facility] DEPT PAT H AND 1.24 3:22 AM LAB MEDICINE MG/DL CDT Calcium 8.4 (L) 8.5 - 04/30/2023 [facility] DEPT PAT H AND 10.6 3:22 AM LAB MEDICINE MG/DL CDT eGFR >60 >60 04/30/2023 [facility] DEPT PAT H AND mL/min 3:22 AM LAB MEDICINE CDT Comment: eGFR calculated using the CKD-EPIcr_R equation Anatomical Location / Laterality Collection Method / Volume Gavin ection Time Received Time Specimen (Source) BLOOD / Unknown 04/30/2023 2:25 AM CDT 04/30/20 23 2:40 AM CDT Ron Reyna MD LABORATORY ORDERABLES [facility]/State/ZIP Code Phone Number Performing [place] [address], [employer] DEPT PATH AND [address] [place] [address] * MRI HEAD WO/W CONTRAST (04/29/2023 11:15 PM CDT) Modality Anatomical Region Laterality Magnetic Resonance Head Anatomical Location / Laterality Collection Method / Volume Gavin ection Time Received Time Specimen (Source) 04/29/2023 11:49 PM CDT Impressions 04/30/2023 12:11 AM CDT 1. Interval occipital craniotomy and res ection of the left cerebellar/midline vermin mass. There is fluid, hemorrhage, and gas within the resection cavity with thin marginal nonmasslike enhancement. 2. 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 Additional small infarct within the anterior vermis in front of the resection cavity. 3. Punctate 2 mm enhancing lesion within the inferior left cerebellum suspicious for an additional metastasis. Linear enhancement just lateral to this is thought to most likely be vascular. 4. Stable punctate focus of enhancement within the superior right cerebellum an additional stable punctate focus of enhancement in the anterior right occipital lobe. These are indeterminate and could be either tiny metastases or vascular. 5. Stable cerebellar vasogenic edema, ma ss effect, and fourth ventricular effacement without change of ventricular sizes. 6. Marked cerebral FLAIR hyperintensitie s, compatible with chronic microvascular ischemic changes. Finalized by Bret Santillan M.D. on 04/30/2023 12:11 AM. Dictated by Bret Santillan M.D. on 04/29/2023 11:49 PM. Narrative 04/30/2023 12:11 AM CDT MRI head HISTORY: Status post resection of left cerebellar brain tumor. TECHNIQUE: Multiplanar, multisequence MRI images were obtained through the head with and without contrast. MultiHance was injected. FINDINGS: Comparison is made with a previous MRI of the head from 04/26/2023. There has been an interval midline occipital craniotomy and resection of the mass involving a portion of the cerebellar vermis and left cerebellum. There is precontrast T1 signal within the resection cavity compatible with hemorrhage. There are additional areas of hemorrhage and fluid within the resection cavity as well as small foci of pneumocephalus. Allowing for the high T1 signal hemorrhage within the resection cavity there is some additional thin marginal enhancement and small vessels adjacent to the resection cavity. Posterior to the resection cavity there is restricted diffusion compatible with an acute infarct posterior to the resection cavity. There is also a small area of restricted diffusion within the anterior vermis posterior inferior to the fourth ventricle. A few small foci of pneumocephalus are seen within the posterior fossa. Cerebellar vasogenic edema is not significantly changed with mass effect and effacement of the fourth ventricle. Ventricle sizes are unchanged. Inferolateral to the resection cavity there is a small punctate focus of enhancement within the inferior left cerebellum (image 152 of series 19 and image 67 of series 18 which is suspicious for an additional tiny cerebellar metastasis. Just lateral to this a linear area of enhancement is thought to most likely be vascular (axial images 150 through 152 of series 19 and image 24 through 26 of series 17). A punctate area of enhancement within the upper right cerebellum is unchanged compared to the study from 3 days ago (image 121 of series 19. Elsewhere, there is a punctate area of enhancement within the anterior right occipital lobe on image 104 of series 19. This is unchanged compared to the prior examination from 3 days ago. There is generalized cerebral volume loss. Marked patchy and confluent FLAIR hyperintensities within the cerebral hemispheres are unchanged. A punctate area of chronic microhemorrhage within the left thalamus is unchanged. There has been decrease in size of a small right frontal scalp contusion. The paranasal sinuses and mastoid air cells are clear. Procedure Note Bret Santillan MD - 04/30/2023 MRI head HISTORY: Status post resection of left cerebellar brain tumor. TECHNIQUE: Multiplanar, multisequence MRI images were obtained through the head with and without contrast. MultiHance was injected. FINDINGS: Comparison is made with a previous MRI of the head from 04/26/2023. There has been an interval midline occipital craniotomy and resection of the mass involving a portion of the cerebellar vermis and left cerebellum. There is precontrast T1 signal within the resection cavity compatible with hemorrhage. There are additional areas of hemorrhage and fluid within the resection cavity as well as small foci of pneumocephalus. Allowing for the high T1 signal hemorrhage within the resection cavity there is some additional thin marginal enhancement and small vessels adjacent to the resection cavity. Posterior to the resection cavity there is restricted diffusion compatible with an acute infarct posterior to the resection cavity. There is also a small area of restricted diffusion within the anterior vermis posterior inferior to the fourth ventricle. A few small foci of pneumocephalus are seen within the posterior fossa. Cerebellar vasogenic edema is not significantly changed with mass effect and effacement of the fourth ventricle. Ventricle sizes are unchanged. Inferolateral to the resection cavity there is a small punctate focus of enhancement within the inferior left cerebellum (image 152 of series 19 and image 67 of series 18 which is suspicious for an additional tiny cerebellar metastasis. Just lateral to this a linear area of enhancement is thought to most likely be vascular (axial images 150 through 152 of series 19 and image 24 through 26 of series 17). A punctate area of enhancement within the upper right cerebellum is unchanged compared to the study from 3 days ago (image 121 of series 19. Elsewhere, there is a punctate area of enhancement within the anterior right occipital lobe on image 104 of series 19. This is unchanged compared to the prior examination from 3 days ago. There is generalized cerebral volume loss. Marked patchy and confluent FLAIR hyperintensities within the cerebral hemispheres are unchanged. A punctate area of chronic microhemorrhage within the left thalamus is unchanged. There has been decrease in size of a small right frontal scalp contusion. The paranasal sinuses and mastoid air cells are clear. IMPRESSION 1. Interval occipital craniotomy and res ection of the left cerebellar/midline vermin mass. There is fluid, hemorrhage, and gas within the resection cavity with thin marginal nonmasslike enhancement. 2. 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 Additional small infarct within the anterior vermis in front of the resection cavity. 3. Punctate 2 mm enhancing lesion within the inferior left cerebellum suspicious for an additional metastasis. Linear enhancement just lateral to this is thought to most likely be vascular. 4. Stable punctate focus of enhancement within the superior right cerebellum an additional stable punctate focus of enhancement in the anterior right occipital lobe. These are indeterminate and could be either tiny metastases or vascular. 5. Stable cerebellar vasogenic edema, ma ss effect, and fourth ventricular effacement without change of ventricular sizes. 6. Marked cerebral FLAIR hyperintensitie s, compatible with chronic microvascular ischemic changes. Finalized by Bret Santillan M.D. on 04/30/2023 12:11 AM. Dictated by Bret Santillan M.D. on 04/29/2023 11:49 PM. Glenn Flores MD MR ORDERABLES * (ABNORMAL) CBC (04/29/2023 3:40 AM CDT) Pathologist Signature Component Value Ref Test Method Analysis Performed A t Range Time White Blood Cells 11.1 (H) 4.5 - 04/29/2023 [facility] DE PT PATH AND 11.0 4:41 AM LAB MEDICINE K/UL CDT RBC 4.58 4.4 - 04/29/2023 [facility] DEPT PAT H AND 5.5 M/UL 4:41 AM LAB MEDICINE CDT Hemoglobin 14.7 13.5 - 04/29/2023 [facility] DEPT PAT H AND 16.5 4:41 AM LAB MEDICINE GM/DL CDT Hematocrit 42.9 40 - 50 04/29/2023 [facility] DEPT PAT H AND % 4:41 AM LAB MEDICINE CDT MCV 93.5 80 - 100 04/29/2023 [facility] DEPT PAT H AND FL 4:41 AM LAB MEDICINE CDT MCH 32.0 26 - 34 04/29/2023 [facility] DEPT PAT H AND PG 4:41 AM LAB MEDICINE CDT MCHC 34.2 32.0 - 04/29/2023 [facility] DEPT PAT H AND 36.0 4:41 AM LAB MEDICINE G/DL CDT RDW 13.5 11 - 15 04/29/2023 [facility] DEPT PAT H AND % 4:41 AM LAB MEDICINE CDT Platelet Count 271 150 - 04/29/2023 [facility] DEPT PATH AND 400 K/UL 4:41 AM LAB MEDICINE CDT MPV 8.5 7 - 11 04/29/2023 [facility] DEPT PAT H AND FL 4:41 AM LAB MEDICINE CDT Anatomical Location / Laterality Collection Method / Volume Gavin ection Time Received Time Specimen (Source) BLOOD / Unknown 04/29/2023 3:40 AM CDT 04/29/20 23 3:41 AM CDT Ron Reyna MD LABORATORY ORDERABLES City/State/ZIP Code Phone Number Performing [place] [address], [facility] DEPT PATH AND [address] [facility] LAB MEDICINE * (ABNORMAL) BASIC METABOLIC PANEL (04/29/2023 3:40 AM CDT) Pathologist Signature Component Value Ref Test Method Analysis Performed A t Range Time Sodium 134 (L) 137 - 04/29/2023 [facility] DEPT PAT H AND 147 5:12 AM LAB MEDICINE MMOL/L CDT Potassium 3.8 3.5 - 04/29/2023 [facility] DEPT PAT H AND 5.1 5:12 AM LAB MEDICINE MMOL/L CDT Chloride 100 98 - 110 04/29/2023 [facility] DEPT PAT H AND MMOL/L 5:12 AM LAB MEDICINE CDT CO2 23 21 - 30 04/29/2023 [facility] DEPT PAT H AND MMOL/L 5:12 AM LAB MEDICINE CDT Anion Gap 11 3 - 12 04/29/2023 [facility] DEPT PAT H AND 5:12 AM LAB MEDICINE CDT Glucose 105 (H) 70 - 100 04/29/2023 [facility] DEPT PAT H AND MG/DL 5:12 AM LAB MEDICINE CDT Blood Urea Nitrogen 14 7 - 25 04/29/2023 [facility] DEPT PATH AND MG/DL 5:12 AM LAB MEDICINE CDT Creatinine 1.00 0.4 - 04/29/2023 [facility] DEPT PAT H AND 1.24 5:12 AM LAB MEDICINE MG/DL CDT Calcium 9.2 8.5 - 04/29/2023 [facility] DEPT PAT H AND 10.6 5:12 AM LAB MEDICINE MG/DL CDT eGFR >60 >60 04/29/2023 [facility] DEPT PAT H AND mL/min 5:12 AM LAB MEDICINE CDT Comment: eGFR calculated using the CKD-EPIcr_R equation Anatomical Location / Laterality Collection Method / Volume Gavin ection Time Received Time Specimen (Source) BLOOD / Unknown 04/29/2023 3:40 AM CDT 04/29/20 3:41 AM CDT Ron Reyna MD LABORATORY ORDERABLES City/State/ZIP Code Phone Number Performing [place] [address], [facility] DEPT PATH AND [address] [facility] LAB MEDICINE * BLOOD TYPE CONFIRMATION - ORDER ONLY IF REQUESTED BY LAB (04/28/2023 10:46 AM CDT) Pathologist Signature Component Value Ref Test Method Analysis Performed A t Range Time ABO/RH(D) A POS 04/28/2023 [facility] DEPT PATH AND 11:58 AM LAB MEDICINE CDT Anatomical Location / Laterality Collection Method / Volume Gavin ection Time Received Time Specimen (Source) 04/28/2023 10:46 AM CDT 04/28/20 11:00 AM CDT Glenn Flores MD BLOOD BANK ORDERABLES City/State/ZIP Code Phone Number Performing Address Organization [place], [place] [id number] [place], [place] [address]S DEPT PATH AND [address] [facility] LAB MEDICINE * TYPE & CROSSMATCH (04/28/2023 10:05 AM CDT) Pathologist Signature Component Value Ref Test Method Analysis Performed A t Range Time Units Ordered 2 04/28/2023 [facility] DEPT PATH AND 7:04 PM LAB MEDICINE CDT Crossmatch Expires 05/01/2023,2 04/28/2023 [facility] DEPT PATH AND 359 11:23 AM LAB MEDICINE CDT Record Check 2ND TYPE 04/28/2023 [facility] DEPT PATH AND REQUIRED 10:24 AM LAB MEDICINE CDT ABO/RH(D) A POS 04/28/2023 [facility] DEPT PATH AND 11:23 AM LAB MEDICINE CDT Antibody Screen NEG 04/28/2023 [facility] DEPT PAT H AND 11:23 AM LAB MEDICINE CDT Anatomical Location / Laterality Collection Method / Volume Gavin ection Time Received Time Specimen (Source) BLOOD / Unknown 04/28/2023 10:05 AM CDT 04/28/20 10:23 AM CDT Glenn Flores MD BLOOD BANK ORDERABLES City/State/ZIP Code Phone Number Performing Address [address] [facility] LAB [facility] * CBC (04/28/2023 3:41 AM CDT) Pathologist Signature Component Value Ref Test Method Analysis Performed A t Range Time White Blood Cells 9.3 4.5 - 04/28/2023 [facility] DE PT PATH AND 11.0 4:27 AM LAB MEDICINE K/UL CDT RBC 4.56 4.4 - 04/28/2023 [facility] DEPT PAT H AND 5.5 M/UL 4:27 AM LAB MEDICINE CDT Hemoglobin 14.6 13.5 - 04/28/2023 [facility] DEPT PAT H AND 16.5 4:27 AM LAB MEDICINE GM/DL CDT Hematocrit 42.8 40 - 50 04/28/2023 [facility] DEPT PAT H AND % 4:27 AM LAB MEDICINE CDT MCV 94.0 80 - 100 04/28/2023 [facility] DEPT PAT H AND FL 4:27 AM LAB MEDICINE CDT MCH 32.1 26 - 34 04/28/2023 [facility] DEPT PAT H AND PG 4:27 AM LAB MEDICINE CDT MCHC 34.2 32.0 - 04/28/2023 [facility] DEPT PAT H AND 36.0 4:27 AM LAB MEDICINE G/DL CDT RDW 13.8 11 - 15 04/28/2023 [facility] DEPT PAT H AND % 4:27 AM LAB MEDICINE CDT Platelet Count 248 150 - 04/28/2023 [facility] DEPT PATH AND 400 K/UL 4:27 AM LAB MEDICINE CDT MPV 8.0 7 - 11 04/28/2023 [facility] DEPT PAT H AND FL 4:27 AM LAB MEDICINE CDT Anatomical Location / Laterality Collection Method / Volume Gavin ection Time Received Time Specimen (Source) BLOOD / Unknown 04/28/2023 3:41 AM CDT 04/28/20 3:42 AM CDT Ron Reyna MD LABORATORY ORDERABLES City/State/ZIP Code Phone Number Performing Address [place] [address], [facility] DEPT PATH AND [address] [facility]. LAB MEDICINE * (ABNORMAL) BASIC METABOLIC PANEL (04/28/2023 3:41 AM CDT) Pathologist Signature Component Value Ref Test Method Analysis Performed A t Range Time Sodium 136 (L) 137 - 04/28/2023 [facility] DEPT PAT H AND 147 4:54 AM LAB MEDICINE MMOL/L CDT Potassium 3.5 3.5 - 04/28/2023 [facility] DEPT PAT H AND 5.1 4:54 AM LAB MEDICINE MMOL/L CDT Chloride 102 98 - 110 04/28/2023 [facility] DEPT PAT H AND MMOL/L 4:54 AM LAB MEDICINE CDT CO2 23 21 - 30 04/28/2023 [facility] DEPT PAT H AND MMOL/L 4:54 AM LAB MEDICINE CDT Anion Gap 11 3 - 12 04/28/2023 [facility] DEPT PAT H AND 4:54 AM LAB MEDICINE CDT Glucose 98 70 - 100 04/28/2023 [facility] DEPT PAT H AND MG/DL 4:54 AM LAB MEDICINE CDT Blood Urea Nitrogen 14 7 - 25 04/28/2023 [facility] DEPT PATH AND MG/DL 4:54 AM LAB MEDICINE CDT Creatinine 0.82 0.4 - 04/28/2023 [facility] DEPT PAT H AND 1.24 4:54 AM LAB MEDICINE MG/DL CDT Calcium 9.3 8.5 - 04/28/2023 [facility] DEPT PAT H AND 10.6 4:54 AM LAB MEDICINE MG/DL CDT eGFR >60 >60 04/28/2023 [facility] DEPT PAT H AND mL/min 4:54 AM LAB MEDICINE CDT Comment: eGFR calculated using the CKD-EPIcr_R equation Anatomical Location / Laterality Collection Method / Volume Gavin ection Time Received Time Specimen (Source) BLOOD / Unknown 04/28/2023 3:41 AM CDT 04/28/20 3:42 AM CDT Ron Reyna MD LABORATORY ORDERABLES City/State/ZIP Code Phone Number Performing [place] [address], [facility] DEPT PATH AND [address] [facility] LAB MEDICINE * CBC (04/27/2023 4:23 AM CDT) Pathologist Signature Component Value Ref Test Method Analysis Performed A t Range Time White Blood Cells 8.2 4.5 - 04/27/2023 [facility] DE PT PATH AND 11.0 5:05 AM LAB MEDICINE K/UL CDT RBC 4.40 4.4 - 04/27/2023 [facility] DEPT PAT H AND 5.5 M/UL 5:05 AM LAB MEDICINE CDT Hemoglobin 14.1 13.5 - 04/27/2023 [facility] DEPT PAT H AND 16.5 5:05 AM LAB MEDICINE GM/DL CDT Hematocrit 41.2 40 - 50 04/27/2023 [facility] DEPT PAT H AND % 5:05 AM LAB MEDICINE CDT MCV 93.7 80 - 100 04/27/2023 [facility] DEPT PAT H AND FL 5:05 AM LAB MEDICINE CDT MCH 32.1 26 - 34 04/27/2023 [facility] DEPT PAT H AND PG 5:05 AM LAB MEDICINE CDT MCHC 34.3 32.0 - 04/27/2023 [facility] DEPT PAT H AND 36.0 5:05 AM LAB MEDICINE G/DL CDT RDW 13.5 11 - 15 04/27/2023 [facility] DEPT PAT H AND % 5:05 AM LAB MEDICINE CDT Platelet Count 264 150 - 04/27/2023 [facility] DEPT PATH AND 400 K/UL 5:05 AM LAB MEDICINE CDT MPV 8.1 7 - 11 04/27/2023 [facility] DEPT PAT H AND FL 5:05 AM LAB MEDICINE CDT Anatomical Location / Laterality Collection Method / Volume Gavin ection Time Received Time Specimen (Source) BLOOD / Unknown 04/27/2023 4:23 AM CDT 04/27/20 4:24 AM CDT Ron Reyna MD LABORATORY ORDERABLES City/State/ZIP Code Phone Number Performing [place] [address], [facility] DEPT PATH AND [address] [facility] LAB MEDICINE * (ABNORMAL) BASIC METABOLIC PANEL (04/27/2023 4:23 AM CDT) Pathologist Signature Component Value Ref Test Method Analysis Performed A t Range Time Sodium 134 (L) 137 - 04/27/2023 [facility] DEPT PAT H AND 147 5:24 AM LAB MEDICINE MMOL/L CDT Potassium 3.5 3.5 - 04/27/2023 [facility] DEPT PAT H AND 5.1 5:24 AM LAB MEDICINE MMOL/L CDT Chloride 100 98 - 110 04/27/2023 [facility] DEPT PAT H AND MMOL/L 5:24 AM LAB MEDICINE CDT CO2 24 21 - 30 04/27/2023 [facility] DEPT PAT H AND MMOL/L 5:24 AM LAB MEDICINE CDT Anion Gap 10 3 - 12 04/27/2023 [facility] DEPT PAT H AND 5:24 AM LAB MEDICINE CDT Glucose 117 (H) 70 - 100 04/27/2023 [facility] DEPT PAT H AND MG/DL 5:24 AM LAB MEDICINE CDT Blood Urea Nitrogen 13 7 - 25 04/27/2023 [facility] DEPT PATH AND MG/DL 5:24 AM LAB MEDICINE CDT Creatinine 0.92 0.4 - 04/27/2023 [facility] DEPT PAT H AND 1.24 5:24 AM LAB MEDICINE MG/DL CDT Calcium 9.2 8.5 - 04/27/2023 [facility] DEPT PAT H AND 10.6 5:24 AM LAB MEDICINE MG/DL CDT eGFR >60 >60 04/27/2023 [facility] DEPT PAT H AND mL/min 5:24 AM LAB MEDICINE CDT Comment: eGFR calculated using the CKD-EPIcr_R equation Anatomical Location / Laterality Collection Method / Volume Gavin ection Time Received Time Specimen (Source) BLOOD / Unknown 04/27/2023 4:23 AM CDT 04/27/20 4:24 AM CDT Ron Reyna MD LABORATORY ORDERABLES City/State/ZIP Code Phone Number Performing Address [place] [address], [facility] AND [facility] LAB MEDICINE * (ABNORMAL) SODIUM (04/26/2023 11:00 AM CDT) Pathologist Signature Component Value Ref Test Method Analysis Performed A t Range Time Sodium 132 (L) 137 - 04/26/2023 [facility] DEPT PAT H AND 147 11:57 AM LAB MEDICINE MMOL/L CDT Anatomical Location / Laterality Collection Method / Volume Gavin ection Time Received Time Specimen (Source) BLOOD / Unknown 04/26/2023 11:00 AM CDT 04/26/20 11:24 AM CDT Yanci Marlow LABORATORY ORDERABLES DIETARY ASSISTANT-DATABASE DESIGN ANALYST City/State/ZIP Code Phone Number Performing Address [place] [address], [facility] PATH AND [facility] LAB [facility] * MRI HEAD WO/W CONTRAST (04/26/2023 4:28 AM CDT) Modality Anatomical Region Laterality Magnetic Resonance Head Anatomical Location / Laterality Collection Method / Volume Gavin ection Time Received Time Specimen (Source) 04/26/2023 8:02 AM CDT Impressions 04/26/2023 8:47 AM CDT 1. Heterogeneously enhancing hemorrhag ic left cerebellar-vermian mass, presumably a hemorrhagic metastasis. Associated cerebellar edema and posterior fossa mass effect without obvious obstructive hydrocephalus. 2. Additional enhancing punctate right cerebellar focus, nonspecific, though, likely benign venous enhancement or an additional tiny metastasis. 3. At least mild generalized cerebral volume loss and marked supratentorial white matter and mild pontine FLAIR hyperintensities, likely sequelae of chronic microvascular ischemia. 4. Small right frontal scalp contusion and presumed left suboccipital paraspinous musculature strain. Approved by Schuyler Brown MD on 04/26/2023 8:25 AM By my electronic signature, I attest that I have personally reviewed the images for this examination and formulated the interpretations and opinions expressed in this report Finalized by John Tanner M.D. on 04/26/2023 8:47 AM. Dictated by Schuyler Brown MD on 04/26/2023 8:02 AM. Narrative 04/26/2023 8:47 AM CDT EXAM: MRI BRAIN HISTORY: 77-year-old, brain mass. TECHNIQUE: Multiplanar and multisequence MR imaging of the head was performed. This was done both before and after the administration of MultiHancecontrast. COMPARISON: CT head 04/25/2023. FINDINGS: Heterogeneously enhancing hemorrhagic mass involving the medial left cerebellar hemisphere and vermis measuring 4.3 x 3.2 x 2.7 cm (series 19 image 137 and series 18 image 83). Enhancing lesion rind is most pronounced at the posterior margin, and hemorrhagic elements are most pronounced anteriorly. Surrounding left cerebellar vasogenic edema and associated posterior fossa mass effect. Additional tiny enhancing focus in the right superior cerebellar hemisphere (series 19 image 121). At least mild generalized cerebral volume loss with prominence of the ventricles and subarachnoid spaces. No obvious superimposed hydrocephalus. Marked patchy and confluent supratentorial white matter, and mild pontine FLAIR hyperintensities. Solitary focus of nonspecific microhemorrhage within the left thalamus. The vascular flow-voids are unremarkable. Diffusion weighted imaging is not indicative of acute or recent infarct. Small right frontal scalp contusion. Known nasal bone fractures are better evaluated on dedicated CT. Mild ill-defined signal abnormality and enhancement within the left suboccipital paraspinous musculature, likely low-grade strain. Procedure Note John Tanner MD - 04/26/2023 EXAM: MRI BRAIN HISTORY: 77-year-old, brain mass. TECHNIQUE: Multiplanar and multisequence MR imaging of the head was performed. This was done both before and after the administration of MultiHancecontrast. COMPARISON: CT head 04/25/2023. FINDINGS: Heterogeneously enhancing hemorrhagic mass involving the medial left cerebellar hemisphere and vermis measuring 4.3 x 3.2 x 2.7 cm (series 19 image 137 and series 18 image 83). Enhancing lesion rind is most pronounced at the posterior margin, and hemorrhagic elements are most pronounced anteriorly. Surrounding left cerebellar vasogenic edema and associated posterior fossa mass effect. Additional tiny enhancing focus in the right superior cerebellar hemisphere (series 19 image 121). At least mild generalized cerebral volume loss with prominence of the ventricles and subarachnoid spaces. No obvious superimposed hydrocephalus. Marked patchy and confluent supratentorial white matter, and mild pontine FLAIR hyperintensities. Solitary focus of nonspecific microhemorrhage within the left thalamus. The vascular flow-voids are unremarkable. Diffusion weighted imaging is not indicative of acute or recent infarct. Small right frontal scalp contusion. Known nasal bone fractures are better evaluated on dedicated CT. Mild ill-defined signal abnormality and enhancement within the left suboccipital paraspinous musculature, likely low-grade strain. IMPRESSION 1. Heterogeneously enhancing hemorrhagi c left cerebellar-vermian mass, presumably a hemorrhagic metastasis. Associated cerebellar edema and posterior fossa mass effect without obvious obstructive hydrocephalus. 2. Additional enhancing punctate right cerebellar focus, nonspecific, though, likely benign venous enhancement or an additional tiny metastasis. 3. At least mild generalized cerebral v olume loss and marked supratentorial white matter and mild pontine FLAIR hyperintensities, likely sequelae of chronic microvascular ischemia. 4. Small right frontal scalp contusion and presumed left suboccipital paraspinous musculature strain. Approved by Schuyler Brown MD on 04/26/2023 8:25 AM By my electronic signature, I attest that I have personally reviewed the images for this examination and formulated the interpretations and opinions expressed in this report Finalized by John Tanner M.D. on 04/26/2023 8:47 AM. Dictated by Schuyler Brown MD on 04/26/2023 8:02 AM. Ron Reyna MD MR ORDERABLES * OSMOLALITY (04/26/2023 3:00 AM CDT) Pathologist Signature Component Value Ref Test Method Analysis Performed A t Range Time Osmolality 286 280 - 04/26/2023 [facility] DEPT PAT H AND 307 5:48 AM LAB MEDICINE MOSMOL/K CDT G Anatomical Location / Laterality Collection Method / Volume Gavin ection Time Received Time Specimen (Source) BLOOD / Unknown 04/26/2023 3:00 AM CDT 04/26/20 3:18 AM CDT Ron Reyna MD LABORATORY ORDERABLES City/State/ZIP Code Phone Number Performing [place] [address], [facility] DEPT PATH AND [address] LAB MEDICINE * UREA NITROGEN-URINE RANDOM (04/26/2023 3:00 AM CDT) Pathologist Signature Component Value Ref Test Method Analysis Performed A t Range Time Urea Nitrogen 203 MG/DL 04/26/2023 [facility] DEPT P ATH AND 4:02 AM LAB MEDICINE CDT Anatomical Location / Laterality Collection Method / Volume Gavin ection Time Received Time Specimen (Source) URINE SPECIMEN / Unknown 04/26/2023 3:00 AM CDT 04/26/2023 3:13 AM CDT Urine Ron Reyna MD URINE ORDERABLES [facility]/ZIP Code Phone Number Performing [place] [address], [facility] DEPT PATH AND [address] [facility] LAB MEDICINE * CREATININE-URINE RANDOM (04/26/2023 3:00 AM CDT) Pathologist Signature Component Value Ref Test Method Analysis Performed A t Range Time Creatinine, Random 25 MG/DL 04/26/2023 [facility] D EPT PATH AND 4:02 AM LAB MEDICINE CDT Anatomical Location / Laterality Collection Method / Volume Gavin ection Time Received Time Specimen (Source) URINE SPECIMEN / Unknown 04/26/2023 3:00 AM CDT 04/26/2023 3:13 AM CDT Urine Ron Reyna MD URINE ORDERABLES [facility]/ZIP Code Phone Number Performing [place] [address], [facility] DEPT PATH AND [address] LAB MEDICINE * OSMOLALITY-URINE RANDOM (04/26/2023 3:00 AM CDT) Pathologist Signature Component Value Ref Test Method Analysis Performed A t Range Time Osmolality-Urine 300 50 - 04/26/2023 [facility] DEP T PATH AND 1,400 5:48 AM LAB MEDICINE MOS/KG CDT Anatomical Location / Laterality Collection Method / Volume Gavin ection Time Received Time Specimen (Source) URINE SPECIMEN / Unknown 04/26/2023 3:00 AM CDT 04/26/2023 3:13 AM CDT Urine Ron Reyna MD URINE ORDERABLES [facility]/ZIP Code Phone Number Performing [place] [address], [facility] DEPT PATH AND [address] LAB MEDICINE * SODIUM-URINE RANDOM (04/26/2023 3:00 AM CDT) Pathologist Signature Component Value Ref Test Method Analysis Performed A t Range Time Sodium, Random 62 MMOL/L 04/26/2023 [facility] DEPT PATH AND 4:02 AM LAB MEDICINE CDT Anatomical Location / Laterality Collection Method / Volume Gavin ection Time Received Time Specimen (Source) URINE SPECIMEN / Unknown 04/26/2023 3:00 AM CDT 04/26/2023 3:13 AM CDT Urine Ron Reyna MD URINE ORDERABLES City/State/ZIP Code Phone Number Performing [place] [address], [facility] DEPT PATH AND [address] [facility] * CT ABD/PELV W CONTRAST (04/26/2023 1:38 AM CDT) Modality Anatomical Region Laterality Computed Tomography CHEST/AB/PEL Anatomical Location / Laterality Collection Method / Volume Gavin ection Time Received Time Specimen (Source) 04/26/2023 7:48 AM CDT Impressions 04/26/2023 8:08 AM CDT In this patient with newly diagnosed brain mass lesion, there is concern for primary malignancy in the left upper lobe perihilar region. At least 2 suspicious pulmonary nodules in left lower lobe. Multiple other subcentimeter pulmonary nodules remain indeterminate and attention on follow-up is recommended. Mediastinal or left hilar metastatic lymphadenopathy. Indeterminate right hilar lymphadenopathy. Left adrenal metastases. By my electronic signature, I attest that I have personally reviewed the images for this examination and formulated the interpretations and opinions expressed in this report Finalized by Cal Mcgee MD on 04/26/2023 8:08 AM. Dictated by Michelle Nam MD on 04/26/2023 7:48 AM. Narrative 04/26/2023 8:[address] CHEST, ABDOMEN, AND PELVIS Clinical Indication: New brain mass. Evaluate for metastatic disease. Technique: Multiple contiguous axial images were obtained through the chest, abdomen, and pelvis following the administration of IV contrast material. Arterial and portal venous phases of post contrast imaging were obtained. Post processing coronal and sagittal reconstruction images were made from the axial images. IV contrast: Yes Bowel contrast: None Comparison: None available. CHEST FINDINGS: Lower Neck: Unremarkable Axilla, Mediastinum, and Nupur: Mediastinal or left hilar lymphadenopathy. Examples include a 1.8 cm subcarinal lymph node on image 58 series 2, and 1.3 cm left hilar lymph node on image 36 series 2. Nonenlarged right hilar lymph nodes, indeterminate. There is no axillary lymphadenopathy. Heart and Great Vessels: The heart is not enlarged. No pericardial effusion. Normal caliber thoracic aorta with moderate atherosclerotic changes. At least moderate atherosclerotic changes of coronary arteries. Airway, Lungs, and Pleura: There is 3.6 x 2.5 cm lobulated mass in left upper lobe perihilar region on image 53 series 302. A few other suspicious pulmonary nodules are noted. These include 9 mm left lower lobe nodule on image 55 series 302, and 8 mm pulmonary nodule along the medial aspect of left lower lobe on image 51 series 302. Scattered other subcentimeter groundglass and pulmonary nodules which remain indeterminate, for example 4 mm nodule in right upper lobe on image 35, and 7 mm groundglass nodule in right apex on image 18 series 302. No pleural effusion. Scattered areas of atelectasis and/of scarring. Chest Wall and Osseous Structures: No suspicious bony lesion. ABDOMEN AND PELVIS FINDINGS: Liver and Biliary system: Tiny hepatic hypodensity in the dome, likely representing a tiny biliary radicle versus cyst. No suspicious liver lesion. No intrahepatic or extrahepatic biliary dilatation. Spleen: Unremarkable. Adrenal Glands and Kidneys: Multiple suspicious lesions in left adrenal gland which overall measures 3.2 x 1.9 cm on image 179 series 2. No discrete lesion noted in the right adrenal gland. Renal cysts. No suspicious renal lesion. No hydronephrosis. Pancreas and Retroperitoneum: Unremarkable. Aorta and Major Vessels: Normal caliber abdominal aorta and iliac arteries with moderate to severe atherosclerotic changes. Bowel, Mesentery, and Peritoneal space: Colonic diverticulosis without diverticulitis. No dilated loops of small bowel or colon. No mesenteric lymphadenopathy. No ascites. Pelvis: Normal urinary bladder. Brachytherapy seeds are in place within prostate gland. The prostate gland is atrophic. No pelvic lymphadenopathy. Abdominal Wall and Osseous Structures: Small fat-containing right inguinal hernia. No suspicious bony lesion. Procedure Note Cal Mcgee MD - 04/26/2023 CT CHEST, ABDOMEN, AND PELVIS Clinical Indication: New brain mass. Evaluate for metastatic disease. Technique: Multiple contiguous axial images were obtained through the chest, abdomen, and pelvis following the administration of IV contrast material. Arterial and portal venous phases of post contrast imaging were obtained. Post processing coronal and sagittal reconstruction images were made from the axial images. IV contrast: Yes Bowel contrast: None Comparison: None available. CHEST FINDINGS: Lower Neck: Unremarkable Axilla, Mediastinum, and Nupur: Mediastinal or left hilar lymphadenopathy. Examples include a 1.8 cm subcarinal lymph node on image 58 series 2, and 1.3 cm left hilar lymph node on image 36 series 2. Nonenlarged right hilar lymph nodes, indeterminate. There is no axillary lymphadenopathy. Heart and Great Vessels: The heart is not enlarged. No pericardial effusion. Normal caliber thoracic aorta with moderate atherosclerotic changes. At least moderate atherosclerotic changes of coronary arteries. Airway, Lungs, and Pleura: There is 3.6 x 2.5 cm lobulated mass in left upper lobe perihilar region on image 53 series 302. A few other suspicious pulmonary nodules are noted. These include 9 mm left lower lobe nodule on image 55 series 302, and 8 mm pulmonary nodule along the medial aspect of left lower lobe on image 51 series 302. Scattered other subcentimeter groundglass and pulmonary nodules which remain indeterminate, for example 4 mm nodule in right upper lobe on image 35, and 7 mm groundglass nodule in right apex on image 18 series 302. No pleural effusion. Scattered areas of atelectasis and/of scarring. Chest Wall and Osseous Structures: No suspicious bony lesion. ABDOMEN AND PELVIS FINDINGS: Liver and Biliary system: Tiny hepatic hypodensity in the dome, likely representing a tiny biliary radicle versus cyst. No suspicious liver lesion. No intrahepatic or extrahepatic biliary dilatation. Spleen: Unremarkable. Adrenal Glands and Kidneys: Multiple suspicious lesions in left adrenal gland which overall measures 3.2 x 1.9 cm on image 179 series 2. No discrete lesion noted in the right adrenal gland. Renal cysts. No suspicious renal lesion. No hydronephrosis. Pancreas and Retroperitoneum: Unremarkable. Aorta and Major Vessels: Normal caliber abdominal aorta and iliac arteries with moderate to severe atherosclerotic changes. Bowel, Mesentery, and Peritoneal space: Colonic diverticulosis without diverticulitis. No dilated loops of small bowel or colon. No mesenteric lymphadenopathy. No ascites. Pelvis: Normal urinary bladder. Brachytherapy seeds are in place within prostate gland. The prostate gland is atrophic. No pelvic lymphadenopathy. Abdominal Wall and Osseous Structures: Small fat-containing right inguinal hernia. No suspicious bony lesion. IMPRESSION In this patient with newly diagnosed brain mass lesion, there is concern for primary malignancy in the left upper lobe perihilar region. At least 2 suspicious pulmonary nodules in left lower lobe. Multiple other subcentimeter pulmonary nodules remain indeterminate and attention on follow-up is recommended. Mediastinal or left hilar metastatic lymphadenopathy. Indeterminate right hilar lymphadenopathy. Left adrenal metastases. By my electronic signature, I attest that I have personally reviewed the images for this examination and formulated the interpretations and opinions expressed in this report Finalized by Cal Mcgee MD on 04/26/2023 8:08 AM. Dictated by Michelle Nam MD on 04/26/2023 7:48 AM. Ron Reyna MD CT ORDERABLES * CT CHEST W CONTRAST (04/26/2023 1:38 AM CDT) Modality Anatomical Region Laterality Computed Tomography CHEST Anatomical Location / Laterality Collection Method / Volume Gavin ection Time Received Time Specimen (Source) 04/26/2023 7:48 AM CDT Impressions 04/26/2023 8:08 AM CDT In this patient with newly diagnosed brain mass lesion, there is concern for primary malignancy in the left upper lobe perihilar region. At least 2 suspicious pulmonary nodules in left lower lobe. Multiple other subcentimeter pulmonary nodules remain indeterminate and attention on follow-up is recommended. Mediastinal or left hilar metastatic lymphadenopathy. Indeterminate right hilar lymphadenopathy. Left adrenal metastases. By my electronic signature, I attest that I have personally reviewed the images for this examination and formulated the interpretations and opinions expressed in this report Finalized by Cal Mcgee MD on 04/26/2023 8:08 AM. Dictated by Michelle Nam MD on 04/26/2023 7:48 AM. Narrative 04/26/2023 8:[address] CHEST, ABDOMEN, AND PELVIS Clinical Indication: New brain mass. Evaluate for metastatic disease. Technique: Multiple contiguous axial images were obtained through the chest, abdomen, and pelvis following the administration of IV contrast material. Arterial and portal venous phases of post contrast imaging were obtained. Post processing coronal and sagittal reconstruction images were made from the axial images. IV contrast: Yes Bowel contrast: None Comparison: None available. CHEST FINDINGS: Lower Neck: Unremarkable Axilla, Mediastinum, and Nupur: Mediastinal or left hilar lymphadenopathy. Examples include a 1.8 cm subcarinal lymph node on image 58 series 2, and 1.3 cm left hilar lymph node on image 36 series 2. Nonenlarged right hilar lymph nodes, indeterminate. There is no axillary lymphadenopathy. Heart and Great Vessels: The heart is not enlarged. No pericardial effusion. Normal caliber thoracic aorta with moderate atherosclerotic changes. At least moderate atherosclerotic changes of coronary arteries. Airway, Lungs, and Pleura: There is 3.6 x 2.5 cm lobulated mass in left upper lobe perihilar region on image 53 series 302. A few other suspicious pulmonary nodules are noted. These include 9 mm left lower lobe nodule on image 55 series 302, and 8 mm pulmonary nodule along the medial aspect of left lower lobe on image 51 series 302. Scattered other subcentimeter groundglass and pulmonary nodules which remain indeterminate, for example 4 mm nodule in right upper lobe on image 35, and 7 mm groundglass nodule in right apex on image 18 series 302. No pleural effusion. Scattered areas of atelectasis and/of scarring. Chest Wall and Osseous Structures: No suspicious bony lesion. ABDOMEN AND PELVIS FINDINGS: Liver and Biliary system: Tiny hepatic hypodensity in the dome, likely representing a tiny biliary radicle versus cyst. No suspicious liver lesion. No intrahepatic or extrahepatic biliary dilatation. Spleen: Unremarkable. Adrenal Glands and Kidneys: Multiple suspicious lesions in left adrenal gland which overall measures 3.2 x 1.9 cm on image 179 series 2. No discrete lesion noted in the right adrenal gland. Renal cysts. No suspicious renal lesion. No hydronephrosis. Pancreas and Retroperitoneum: Unremarkable. Aorta and Major Vessels: Normal caliber abdominal aorta and iliac arteries with moderate to severe atherosclerotic changes. Bowel, Mesentery, and Peritoneal space: Colonic diverticulosis without diverticulitis. No dilated loops of small bowel or colon. No mesenteric lymphadenopathy. No ascites. Pelvis: Normal urinary bladder. Brachytherapy seeds are in place within prostate gland. The prostate gland is atrophic. No pelvic lymphadenopathy. Abdominal Wall and Osseous Structures: Small fat-containing right inguinal hernia. No suspicious bony lesion. Procedure Note Cal Mcgee MD - 04/26/2023 CT CHEST, ABDOMEN, AND PELVIS Clinical Indication: New brain mass. Evaluate for metastatic disease. Technique: Multiple contiguous axial images were obtained through the chest, abdomen, and pelvis following the administration of IV contrast material. Arterial and portal venous phases of post contrast imaging were obtained. Post processing coronal and sagittal reconstruction images were made from the axial images. IV contrast: Yes Bowel contrast: None Comparison: None available. CHEST FINDINGS: Lower Neck: Unremarkable Axilla, Mediastinum, and Nupur: Mediastinal or left hilar lymphadenopathy. Examples include a 1.8 cm subcarinal lymph node on image 58 series 2, and 1.3 cm left hilar lymph node on image 36 series 2. Nonenlarged right hilar lymph nodes, indeterminate. There is no axillary lymphadenopathy. Heart and Great Vessels: The heart is not enlarged. No pericardial effusion. Normal caliber thoracic aorta with moderate atherosclerotic changes. At least moderate atherosclerotic changes of coronary arteries. Airway, Lungs, and Pleura: There is 3.6 x 2.5 cm lobulated mass in left upper lobe perihilar region on image 53 series 302. A few other suspicious pulmonary nodules are noted. These include 9 mm left lower lobe nodule on image 55 series 302, and 8 mm pulmonary nodule along the medial aspect of left lower lobe on image 51 series 302. Scattered other subcentimeter groundglass and pulmonary nodules which remain indeterminate, for example 4 mm nodule in right upper lobe on image 35, and 7 mm groundglass nodule in right apex on image 18 series 302. No pleural effusion. Scattered areas of atelectasis and/of scarring. Chest Wall and Osseous Structures: No suspicious bony lesion. ABDOMEN AND PELVIS FINDINGS: Liver and Biliary system: Tiny hepatic hypodensity in the dome, likely representing a tiny biliary radicle versus cyst. No suspicious liver lesion. No intrahepatic or extrahepatic biliary dilatation. Spleen: Unremarkable. Adrenal Glands and Kidneys: Multiple suspicious lesions in left adrenal gland which overall measures 3.2 x 1.9 cm on image 179 series 2. No discrete lesion noted in the right adrenal gland. Renal cysts. No suspicious renal lesion. No hydronephrosis. Pancreas and Retroperitoneum: Unremarkable. Aorta and Major Vessels: Normal caliber abdominal aorta and iliac arteries with moderate to severe atherosclerotic changes. Bowel, Mesentery, and Peritoneal space: Colonic diverticulosis without diverticulitis. No dilated loops of small bowel or colon. No mesenteric lymphadenopathy. No ascites. Pelvis: Normal urinary bladder. Brachytherapy seeds are in place within prostate gland. The prostate gland is atrophic. No pelvic lymphadenopathy. Abdominal Wall and Osseous Structures: Small fat-containing right inguinal hernia. No suspicious bony lesion. IMPRESSION In this patient with newly diagnosed brain mass lesion, there is concern for primary malignancy in the left upper lobe perihilar region. At least 2 suspicious pulmonary nodules in left lower lobe. Multiple other subcentimeter pulmonary nodules remain indeterminate and attention on follow-up is recommended. Mediastinal or left hilar metastatic lymphadenopathy. Indeterminate right hilar lymphadenopathy. Left adrenal metastases. By my electronic signature, I attest that I have personally reviewed the images for this examination and formulated the interpretations and opinions expressed in this report Finalized by Cal Mcgee MD on 04/26/2023 8:08 AM. Dictated by Michelle Nam MD on 04/26/2023 7:48 AM. Ron Reyna MD CT ORDERABLES * PHOSPHORUS (04/26/2023 12:50 AM CDT) Pathologist Signature Component Value Ref Test Method Analysis Performed A t Range Time Phosphorus 3.2 2.0 - 04/26/2023 [facility] DEPT PAT H AND 4.5 1:24 AM LAB MEDICINE MG/DL CDT Anatomical Location / Laterality Collection Method / Volume Gavin ection Time Received Time Specimen (Source) BLOOD / Unknown 04/26/2023 12:50 AM CDT 04/26/20 23 1:02 AM CDT Ron Reyna MD LABORATORY ORDERABLES City/State/ZIP Code Phone Number Performing Address Organization [address] [facility] DEPT PATH AND [address] [facility]. LAB MEDICINE * MAGNESIUM (04/26/2023 12:50 AM CDT) Pathologist Signature Component Value Ref Test Method Analysis Performed A t Range Time Magnesium 2.1 1.6 - 04/26/2023 [facility] DEPT PAT H AND 2.6 1:24 AM LAB MEDICINE mg/dL CDT Anatomical Location / Laterality Collection Method / Volume Gavin ection Time Received Time Specimen (Source) BLOOD / Unknown 04/26/2023 12:50 AM CDT 04/26/20 23 1:02 AM CDT Ron Reyna MD LABORATORY ORDERABLES City/State/ZIP Code Phone Number Performing Address [place] [address], [facility] DEPT PATH AND [address] [facility] LAB MEDICINE * IONIZED CALCIUM (04/26/2023 12:50 AM CDT) Pathologist Signature Component Value Ref Test Method Analysis Performed A t Range Time Ionized Calcium 1.07 1.0 - 04/26/2023 [facility] DEPT PATH AND 1.3 1:00 AM LAB MEDICINE MMOL/L CDT Anatomical Location / Laterality Collection Method / Volume Gavin ection Time Received Time Specimen (Source) BLOOD / Unknown 04/26/2023 12:50 AM CDT 04/26/20 12:59 AM CDT Ron Reyna MD LABORATORY ORDERABLES City/State/ZIP Code Phone Number Performing Address [place] [address], [facility] DEPT PATH AND [address] [facility] LAB MEDICINE * (ABNORMAL) COMPREHENSIVE METABOLIC PANEL (04/26/2023 12:50 AM CDT) Pathologist Signature Component Value Ref Test Method Analysis Performed A t Range Time Sodium 131 (L) 137 - 04/26/2023 [facility] DEPT PAT H AND 147 1:24 AM LAB MEDICINE MMOL/L CDT Potassium 3.5 3.5 - 04/26/2023 [facility] DEPT PAT H AND 5.1 1:24 AM LAB MEDICINE MMOL/L CDT Chloride 97 (L) 98 - 110 04/26/2023 [facility] DEPT PAT H AND MMOL/L 1:24 AM LAB MEDICINE CDT Glucose 112 (H) 70 - 100 04/26/2023 [facility] DEPT PAT H AND MG/DL 1:24 AM LAB MEDICINE CDT Blood Urea Nitrogen 16 7 - 25 04/26/2023 [facility] DEPT PATH AND MG/DL 1:24 AM LAB MEDICINE CDT Creatinine 0.95 0.4 - 04/26/2023 [facility] DEPT PAT H AND 1.24 1:24 AM LAB MEDICINE MG/DL CDT Calcium 9.5 8.5 - 04/26/2023 [facility] DEPT PAT H AND 10.6 1:24 AM LAB MEDICINE MG/DL CDT Total Protein 7.4 6.0 - 04/26/2023 [facility] DEPT P ATH AND 8.0 G/DL 1:24 AM LAB MEDICINE CDT Total Bilirubin 0.8 0.3 - 04/26/2023 [facility] DEPT PATH AND 1.2 1:24 AM LAB MEDICINE MG/DL CDT Albumin 4.3 3.5 - 04/26/2023 [facility] DEPT PAT H AND 5.0 G/DL 1:24 AM LAB MEDICINE CDT Alk Phosphatase 67 25 - 110 04/26/2023 [facility] DEPT PATH AND U/L 1:24 AM LAB MEDICINE CDT AST (SGOT) 31 7 - 40 04/26/2023 [facility] DEPT PAT H AND U/L 1:24 AM LAB MEDICINE CDT CO2 20 (L) 21 - 30 04/26/2023 [facility] DEPT PAT H AND MMOL/L 1:24 AM LAB MEDICINE CDT ALT (SGPT) 22 7 - 56 04/26/2023 [facility] PAT H AND U/L 1:24 AM LAB MEDICINE CDT Anion Gap 14 (H) 3 - 12 04/26/2023 [facility] DEPT PAT H AND 1:24 AM LAB MEDICINE CDT eGFR >60 >60 04/26/2023 [facility] DEPT PAT H AND mL/min 1:24 AM LAB MEDICINE CDT Comment: eGFR calculated using the CKD-EPIcr_R equation Anatomical Location / Laterality Collection Method / Volume Gavin ection Time Received Time Specimen (Source) BLOOD / Unknown 04/26/2023 12:50 AM CDT 04/26/20 23 1:02 AM CDT Ron Reyna MD LABORATORY ORDERABLES [facility]/ZIP Code Phone Number Performing Address Organization [place], [place] [id number] [place] [address] [facility] DEPT PATH AND [address] [facility] LAB MEDICINE * PTT (APTT) (04/26/2023 12:50 AM CDT) Pathologist Signature Component Value Ref Test Method Analysis Performed A t Range Time APTT 28.5 24.0 - 04/26/2023 [facility] DEPT PAT H AND 36.5 SEC 1:16 AM LAB MEDICINE CDT Anatomical Location / Laterality Collection Method / Volume Gavin ection Time Received Time Specimen (Source) BLOOD / Unknown 04/26/2023 12:50 AM CDT 04/26/20 23 1:02 AM CDT Ron Reyna MD LABORATORY ORDERABLES [facility]/ZIP Code Phone Number Performing [place] [address], [facility] DEPT PATH AND [address] LAB MEDICINE * PROTIME INR (PT) (04/26/2023 12:50 AM CDT) Pathologist Signature Component Value Ref Test Method Analysis Performed A t Range Time Protime 11.9 9.5 - 04/26/2023 [facility] DEPT PAT H AND 14.2 SEC 1:16 AM LAB MEDICINE CDT INR 1.1 0.8 - 04/26/2023 [facility] DEPT PAT H AND 1.2 1:16 AM LAB MEDICINE CDT Anatomical Location / Laterality Collection Method / Volume Gavin ection Time Received Time Specimen (Source) BLOOD / Unknown 04/26/2023 12:50 AM CDT 04/26/20 23 1:02 AM CDT Ron Reyna MD LABORATORY ORDERABLES City/State/ZIP Code Phone Number Performing Address Organization [place], [place] [address] DEPT PATH AND [address] [facility] LAB MEDICINE * (ABNORMAL) CBC AND DIFF (04/26/2023 12:50 AM CDT) Pathologist Signature Component Value Ref Test Method Analysis Performed A t Range Time White Blood Cells 13.8 (H) 4.5 - 04/26/2023 [facility] PT PATH AND 11.0 1:09 AM LAB MEDICINE K/UL CDT RBC 4.69 4.4 - 04/26/2023 [facility] DEPT PAT H AND 5.5 M/UL 1:09 AM LAB MEDICINE CDT Hemoglobin 15.1 13.5 - 04/26/2023 [facility] DEPT PAT H AND 16.5 1:09 AM LAB MEDICINE GM/DL CDT Hematocrit 43.5 40 - 50 04/26/2023 [facility] DEPT PAT H AND % 1:09 AM LAB MEDICINE CDT MCV 92.6 80 - 100 04/26/2023 [facility] DEPT PAT H AND FL 1:09 AM LAB MEDICINE CDT MCH 32.2 26 - 34 04/26/2023 [facility] DEPT PAT H AND PG 1:09 AM LAB MEDICINE CDT MCHC 34.8 32.0 - 04/26/2023 [facility] DEPT PAT H AND 36.0 1:09 AM LAB MEDICINE G/DL CDT RDW 13.7 11 - 15 04/26/2023 [facility] DEPT PAT H AND % 1:09 AM LAB MEDICINE CDT Platelet Count 285 150 - 04/26/2023 [facility] DEPT PATH AND 400 K/UL 1:09 AM LAB MEDICINE CDT MPV 8.3 7 - 11 04/26/2023 [facility] DEPT PAT H AND FL 1:09 AM LAB MEDICINE CDT Neutrophils 71 41 - 77 04/26/2023 [facility] DEPT PAT H AND % 1:09 AM LAB MEDICINE CDT Lymphocytes 23 (L) 24 - 44 04/26/2023 [facility] DEPT PAT H AND % 1:09 AM LAB MEDICINE CDT Monocytes 5 4 - 12 % 04/26/2023 [facility] DEPT PAT H AND 1:09 AM LAB MEDICINE CDT Eosinophils 0 0 - 5 % 04/26/2023 [facility] DEPT PAT H AND 1:09 AM LAB MEDICINE CDT Basophils 1 0 - 2 % 04/26/2023 [facility] DEPT PAT H AND 1:09 AM LAB MEDICINE CDT Absolute Neutrophil 9.82 (H) 1.8 - 04/26/2023 [facility] DEPT PATH AND Count 7.0 K/UL 1:09 AM LAB MEDICINE CDT Absolute Lymph Count 3.14 1.0 - 04/26/2023 [facility] DEPT PATH AND 4.8 K/UL 1:09 AM LAB MEDICINE CDT Absolute Monocyte 0.69 0 - 0.80 04/26/2023 [facility] DE PT PATH AND Count K/UL 1:09 AM LAB MEDICINE CDT Absolute Eosinophil 0.03 0 - 0.45 04/26/2023 [facility] DEPT PATH AND Count K/UL 1:09 AM LAB MEDICINE CDT Absolute Basophil 0.11 0 - 0.20 04/26/2023 [facility] DE PT PATH AND Count K/UL 1:09 AM LAB MEDICINE CDT Anatomical Location / Laterality Collection Method / Volume Gavin ection Time Received Time Specimen (Source) BLOOD / Unknown 04/26/2023 12:50 AM CDT 04/26/20 1:02 AM CDT Ron Reyna MD LABORATORY ORDERABLES City/State/ZIP Code Phone Number Performing [place] [address], [facility] DEPT PATH AND [address] [facility] LAB MEDICINE documented in this encounter Visit Diagnoses Diagnosis Brain mass - Primary Unspecified condition of brain Brain mass Unspecified condition of brain Chronic hyponatremia Hyposmolality and/or hyponatremia Chronic hyponatremia Hyposmolality and/or hyponatremia HTN (hypertension) Unspecified essential hypertension HLD (hyperlipidemia) Other and unspecified hyperlipidemia * Advanced Care Planning/Resuscitation Status - Torrie Mays MBBS - 04/26/2023 1:16 AM CDT Advance Care Planning/Resuscitation Status Conversation Individuals present for advance care planning conversation: patient and resident /fellow physician Pertinent details of conversation (including direct quotes from patient or surro gate): When asked about the choice of CPR in the setting of cardiac arrest and i ntubation/mechanical ventilation in the setting of requiring respiratory support , patient agreed that they would want everything done. They did not note any spe cific medical intervention that they would be strictly opposed to. Patient notes he wants his Francisca to make decisions for him if he is unable to do so. Outcome of conversation: Full Code Does patient want a TPOPP form at discharge? Need to assess Documents completed as a result of this conversation: None Other documents present, which outline patient/surrogate wishes: None Attestation? N/A documented in this encounter Admitting Diagnoses Diagnosis Brain mass Unspecified condition of brain documented in this encounter Administered Medications Action Date Dose Rate Site Medication Order MAR Action 05/03/2023 8:04 AM CDT 5 mg amLODIPine (NORVASC) tablet 5 mg Given 5 mg, Oral, DAILY, First dose on Tue04/26/23 at 0915, Until Discontinued, NURSING: Please educate patient and document: Do not give with grapefruit juice. 5 mg Given 05/02/2023 9:03 AM CDT 5 mg Given 05/01/2023 8:46 AM CDT 5 mg Given 04/30/2023 8:58 AM CDT 5 mg Given 04/29/2023 9:01 AM CDT 5 mg Given 04/28/2023 9:01 AM CDT 5 mg Given 04/27/2023 9:29 AM CDT 5 mg Given 04/26/2023 10:07 AM CDT 04/30/2023 1:05 PM CDT 2 g ceFAZolin (ANCEF) IVP 2 g Given 2 g, Intravenous, EVERY 8 HOURS, 3 doses, First dose on Tue04/29/23 at 2130, Last dose on Tue04/30/23 at 1330, IV PUSH -- RECONSTITUTE each 1 g vial b y adding 10 mLs of STERILE WATER (SW) or SODIUM CHLORIDE (NS) 2 g Given 04/30/2023 6:00 AM CDT 2 g Given 04/29/2023 9:00 PM CDT 04/30/2023 6:00 AM CDT 4 mg dexAMETHasone (DECADRON) tablet 4 mg Given 4 mg, Oral, EVERY 6 HOURS, First dose on Tue04/29/23 at 1800, Until Discontinued 4 mg Given 04/29/2023 11:46 PM CDT 4 mg Given 04/29/2023 6:07 PM CDT 04/30/2023 8:45 PM CDT 4 mg dexAMETHasone (DECADRON) tablet 4 mg Given 4 mg, Oral, TWICE DAILY, First dose (after last modification) on Tue 3 at 2100, Until Discontinued 05/01/2023 8:42 PM CDT 2 mg dexAMETHasone tablet 2 mg Given 2 mg, Oral, TWICE DAILY, First dose (after last modification) on Tue 3 at 0900, Until Discontinued 2 mg Given 05/01/2023 8:46 AM CDT 05/03/2023 8:04 AM CDT 2 mg dexAMETHasone tablet 2 mg Given 2 mg, Oral, TWICE DAILY, 3 doses, First dose (after last modification) on Tue05/02/23 at 0900, Last dose on Tue05/03/23 at 0900 2 mg Given 05/02/2023 9:08 PM CDT 2 mg Given 05/02/2023 9:19 AM CDT 05/02/2023 9:08 PM CDT 100 mg docusate (COLACE) capsule 100 mg Given 100 mg, Oral, TWICE DAILY, First dose o n Tue04/26/23 at 0030, Until Discontinued , Hold for loose stools, Admission/Obs/Extended Recovery 100 mg Given 05/02/2023 9:03 AM CDT 100 mg Given 05/01/2023 8:42 PM CDT FENTANYL CITRATE (PF) 50 MCG/ML IJ SOLN (Cabinet Override) NOW, 1 dose, On Tue04/29/23 at 1800, Created by cabinet override, Created by cabinet override 04/29/2023 6:03 PM CDT 25 mcg fentaNYL citrate PF (SUBLIMAZE) Given injection 25 mcg 25 mcg, Intravenous, ONCE, 1 dose, On Tue04/29/23 at 1815 04/29/2023 10:57 PM CDT 15 mL gadobenate dimeglumine (MULTIHANCE) Given injection 15 mL 15 mL, Intravenous, ONCE, 1 dose, On i 04/29/23 at 2300, NOTE: This is a HIGH ALERT Medication. 04/26/2023 4:28 AM CDT 18 mL gadobenate dimeglumine (MULTIHANCE) Given injection 18 mL 18 mL, Intravenous, ONCE, 1 dose, On 04/26/23 at 0430, NOTE: This is a HIGH ALERT Medication. 05/03/2023 6:34 AM CDT 5,000 Units Arm, Lef t heparin (porcine) PF syringe 5,000 Units Given 5,000 Units, Subcutaneous, EVERY 8 HOURS, First dose on Tue05/01/23 at 2100, Until Discontinued, NOTE: This is a HIGH ALERT Medication. 5,000 Units Arm, Right Given 05/02/2023 9:08 PM CDT 5,000 Units Abdominal Tissue Given 05/02/2023 2:50 PM CDT 5,000 Units Abdominal Tissue Given 05/02/2023 6:18 AM CDT 5,000 Units Abdominal Tissue Given 05/01/2023 8:43 PM CDT 04/26/2023 1:37 AM CDT 100 mL iohexoL (OMNIPAQUE-350) 350 mg/mL Given injection 100 mL 100 mL, Intravenous, ONCE, 1 dose, On Tue04/26/23 at 0145, NOTE: This is a HIGH ALERT Medication. 04/29/2023 7:59 PM CDT 10 mg labetaloL (NORMODYNE) injection 10 mg Given 10 mg, Intravenous, EVERY 1 HOUR PRN, Starting on Tue04/29/23 at 1938, Until Tue04/29/23 at 2044, Systolic Blood Pressure..., >160, Hold for heart rate < 60 bpm 05/03/2023 8:04 AM CDT 10 mg lisinopriL (ZESTRIL) tablet 10 mg Given 10 mg, Oral, DAILY, First dose on Tue04/26/23 at 1015, Until Discontinued 10 mg Given 05/02/2023 9:03 AM CDT 10 mg Given 05/01/2023 8:46 AM CDT 10 mg Given 04/30/2023 8:58 AM CDT 10 mg Given 04/29/2023 9:01 AM CDT 10 mg Given 04/28/2023 9:01 AM CDT 10 mg Given 04/27/2023 9:29 AM CDT 10 mg Given 04/26/2023 10:07 AM CDT 05/02/2023 9:08 PM CDT 10 mg oxyCODONE (ROXICODONE) tablet 5-10 mg Given 5-10 mg, Oral, EVERY 4 HOURS PRN, Starting on Tue04/26/23 at 0024, Until Tue05/03/23 at 1349, Pain PO, Other..., Moderate/Severe Pain, Give if patient tolerating PO if [place] not effective., Admission/Obs/Extended Recovery 10 mg Given 05/01/2023 9:19 PM CDT 10 mg Given 05/01/2023 3:40 PM CDT 10 mg Given 05/01/2023 1:13 AM CDT 10 mg Given 04/30/2023 3:55 PM CDT 10 mg Given 04/30/2023 8:58 AM CDT 10 mg Given 04/30/2023 2:18 AM CDT 10 mg Given 04/29/2023 10:16 PM CDT 10 mg Given 04/29/2023 6:39 PM CDT 04/26/2023 11:41 AM CDT 10 mEq 25 mL/hr potassium chloride in water IVPB 10 mEq Given - New 10 mEq, Intravenous, 50 mL, Administer Bag over 30-120 Minutes, NEEDED, Startin g on Tue04/26/23 at 0749, Until Tue04/26/23 at 1350, Other..., For potassiu m replacement, see admin instructions, If urine output < 30mL/hr, SCr > 2mg/dL, o r CrCl =/< 30 mL/min, check with Physicia n prior to giving K+ replacement. For K 3.6 - 4 mmol/L, give 40 mEq PO/NG x1 dose. No recheck. For K 3.1 - 3.5 mmol/L, give 60 mEq PO/NG x1 dose OR 60 mEq IV over 6 hours. Recheck after 2 hours. For K =< 3 mmol/L, administer LUIS E l 40 mEq IV (10mEq x 4 doses) AND 40 mEq PO/NG x1 dose AND notify physician. INFUSION TIME: - Infuse each potassium chloride 10mEq IV over 2hr (5mEq/hr.), if: The patient has a peripheral line. -OR- The patient has other running sources of IV potassium. - Infuse each potassium chloride 10mEq IV over 1hr (10mEq/hr.), if: The patient is non-telemetry, and The patient has NO other running sources of IV potassium, and The patient has a central line. - Infuse each potassium chloride 10mEq IV over 30min (20mEq/hr.), if: The patien t is on telemetry, and The patient has N O other running sources of IV potassium, and The patient has a central line. Recheck serum potassium two hours after completion of appropriate replacement dose. Repeat this standing order x 2. Notify physician if serum potassium < 3.3 mmol/L after three replacements. NOTE: This is a HIGH ALERT Medication. 10 mEq 25 mL/hr Given - New Bag 04/26/2023 8:49 AM CDT 04/26/2023 2:31 PM CDT 40 mEq potassium chloride SR (K-DUR) tablet Given 40-60 mEq 40-60 mEq, Oral, NEEDED, Starting on Tue04/26/23 at 1522, Until Tue04/27/23 at 1121, Other..., For potassium replacement, See admin instructions, Do not use if Cr>2, ESRD, or Tikosyn/Sotalol initiation *For K level 3.6-3.9 -> give 40 mEq of PO KCL *For K level 3.1-3.5 -> give 40 mEq of PO KCL for q4h for 2 doses *For K level 2.5-3 -> Notify physician (routine), then give 60 mEq of PO KCL AND 40 mEq IV (10mEq x 4 doses) . Repea t K level 1 hour after last IV dose. If Repeat K level is <3.3 -> Notify physician (JANETT) and replace as above. *For K level <2.5 -> Notify physician (JANETT) for replacement orders . Give with meal or full glass of water 05/01/2023 6:05 AM CDT 40 mEq potassium chloride SR (K-DUR) tablet Given 40-60 mEq 40-60 mEq, Oral, NEEDED, Starting on Tue04/29/23 at 1943, Until Tue05/02/23 at 0858, Other..., For potassium replacement, Seeadmin instructions, I f urine output < 30mL/hr, SCr > 2mg/dL, o r CrCl =/< 30 mL/min, check with Physicia n prior to giving K+ replacement. For K 3.6 - 4 mmol/L, give 40 mEq PO/NG x1 dose. No recheck. For K 3.1 - 3.5 mmol/L, give 60 mEq PO/NG x1 dose OR 60 mEq IV (10mEq x6 doses). Recheck after 2 hours. For K =< 3 mmol/L, administer KCl 40 mEq IV (10mEq x4 doses) AND 40 mEq PO/NG x1 dose AND notify physician. Recheck serum potassium two hours after completion of appropriate replacement dose. Repeat this standing order x 2. Notify physician if serum potassium < 3.3 mmol/L after three replacements. Give with meal or full glass of water 05/02/2023 9:03 AM CDT 1 tablet sennosides-docusate sodium (SENOKOT-S) Given tablet 1 tablet 1 tablet, Oral, TWICE DAILY, First dose on Tue04/26/23 at 0030, Until Discontinued, Hold for loose stools. If patient unable to take tablet, give 10 mL of senna/docusate (SENOKOT-S) solution. Send inSocialTagget message to pharmacy., If patient unable to take tablet, give 10 mL of senna/docusate (SENOKOT-S) solution., Admission/Obs/Extended Recovery 1 tablet Given 05/01/2023 8:43 PM CDT 04/29/2023 12:32 PM CDT sodium chloride 0.9 % infusion Infusion 1,000 mL, 1,000 mL, Intravenous, at 20 Restarted mL/hr, CONTINUOUS, Starting on Tue04/29/23 at 1230, Until Tue04/29/23 at 1844, Pre-Op 1,000 mL 20 mL/hr Given - New Bag 04/29/2023 12:30 PM CDT SODIUM CHLORIDE 0.9 % IV SOLP (Cabinet Override) NOW, 1 dose, On Tue04/29/23 at 0930, Created by cabinet override, Created by cabinet override 04/26/2023 1:37 AM CDT 50 mL sodium chloride PF 0.9% injection 50 mL Given 50 mL, Intravenous, ONCE, 1 dose, On 04/26/23 at 0145, Intra-procedure (IR) documented in this encounter Discontinued Medications Start Date End Date Medication Sig Discontinue Reason 05/02/2023 amLODIPine-benazepril Take one Removed from (LOTREL) 5-10 mg capsule capsule by [facility] Med List mouth daily. documented as of this encounter Historical Medications * This list may reflect changes made after this encounter. Start Date End Date Medication Sig Dispensed Refills 02/23/2023 rosuvastatin (CRESTOR) 10 Take one 0 mg tablet tablet by mouth daily. 02/23/2023 celecoxib (CELEBREX) 400 Take one 0 mg capsule capsule by mouth daily. benazepriL (LOTENSIN) 10 Take one 0 mg tablet tablet by mouth daily. amLODIPine (NORVASC) 5 mg Take one 0 tablet tablet by mouth daily. hydroCHLOROthiazide 12.5 Take one 0 mg capsule capsule by mouth every morning. aspirin EC (ASPIR-LOW) 81 Take one 0 mg tablet tablet by mouth daily. 05/02/2023 amLODIPine-benazepril Take one 0 (LOTREL) 5-10 mg capsule capsule by mouth daily. added in this encounter Active and Recently Administered Medications Times are shown in CDT. 05/02/2023 05/03/2023 Medication Order 05/01/2023 0903 (Given - Provider: Kerrie Elmore RN) 0804 (Given - Provider: Elizabeth Alexis RN ) amLODIPine (NORVASC) tablet 5 mg(Linked 0846 (Given - Group 1) Provider: [place] 5 mg, Oral, DAILY, First dose on jhon Cadet RN) 04/26/23 at 0915, Until Discontinued, NURSING: Please educate patient and document: Do not give with grapefruit juice. dexAMETHasone tablet 2 mg (CANCELED) 0846 (Given - 2 mg, Oral, TWICE DAILY, First dose Provider: Dakotah (after last modification) on Tue05/01/23 ABDIEL Cadet)20 42 (Given at 0900, Until Discontinued - Provider: Tiago Madrigal RN) 0919 (Given - Provider: Estefany Vasquez RN)210 (Given - Provider: Terri Cisneros RN) 0804 (Given - Provider: Elizabeth Alexis, ABDIEL ) dexAMETHasone tablet 2 mg (COMPLETED) 2 mg, Oral, TWICE DAILY, 3 doses, First dose (after last modification) on Tue05/02/23 at 0900, Last dose on Tue05/03/23 at 0900 0903 (Given - Provider: Kerrie Elmore RN)210 (Given - Provider: Terri Cisneros RN) 0804 (Med Not Given - Provider: Elizabeth salinas RN - Reason: Patient Refused) docusate (COLACE) capsule 100 mg 0846 (Planned Hold - 100 mg, Oral, TWICE DAILY, First dose on Provider: Garry landis Tue04/26/23 at 0030, Until Discontinued, ABDIEL Cadet)20 42 (Given Hold for loose stools, - Provider: Tiago Admission/Obs/Extended Recovery ABDIEL Madrigal) 0618 (Given - Provider: Nelia Rosario)145 0 (Given - Provider: Estefany Vasquez RN)2108 (Given - Provider: Terri Cisneros RN) 0634 (Given - Provider: Terri Cisneros RN ) heparin (porcine) PF syringe 5,000 Units 2042 (Given - 5,000 Units, Subcutaneous, EVERY 8 Provider: Tiago FLANAGAN, First dose on Tue05/01/23 at ABDIEL Madrigal) 2100, Until Discontinued, NOTE: This is a HIGH ALERT Medication. 0903 (Given - Provider: Kerrie Elmore RN) 0804 (Given - Provider: Elizabeth Alexis, ABDIEL ) lisinopriL (ZESTRIL) tablet 10 mg(Linked 0846 (Given - Group 1) Provider: Dakotah 10 mg, Oral, DAILY, First dose on Tue ABDIEL Cadet) 04/26/23 at 1015, Until Discontinued 0904 (Med Not Given - Provider: Kerrie osei RN - Reason: Patient Refused) 0805 (Med Not Given - Provider: Elizabeth salinas, ABDIEL - Reason: Patient Refused) milk of magnesium oral suspension 30 mL 0847 (Planne d Hold - 30 mL, Oral, DAILY, First dose on Tue Provider: Les palm 04/26/23 at 0900, Until Discontinued, Vonda Cadet RN) hold if BM within 24 hours of dose., Admission/Obs/Extended Recovery 0903 (Given - Provider: Kerrie Elmore RN)2144 (Med Not Given - Provider: Terri Cisneros RN - Reason: Patient Refused) 0805 (Med Not Given - Provider: Elizabeth salinas RN - Reason: Patient Refused) sennosides-docusate sodium (SENOKOT-S) 0847 (Planned Hold - tablet 1 tablet Provider: Dakotah 1 tablet, Oral, TWICE DAILY, First dose ABDIEL Cadet)204 3 (Given on Tue04/26/23 at 0030, Until - Provider: Tiago Pearson, Hold for loose stools. If ABDIEL Madrigal ) patient unable to take tablet, give 10 mL of senna/docusate (SENOKOT-S) solution. Send inSocialTagget message to pharmacy., If patient unable to take tablet, give 10 mL of senna/docusate (SENOKOT-S) solution., Admission/Obs/Extended Recovery 05/02/2023 05/03/2023 Medication Order [id number]/[id number] (Med Not Given - Provider: Terri sullivan RN - Reason: Patient Refused - Comment: other pain medication requested) acetaminophen (TYLENOL) tablet 650 mg 650 mg, Oral, EVERY 4 HOURS PRN, Starting on Tue04/26/23 at 0024, Until Tue05/03/23 at 1349, Temp > ..., 38.3 C , TOTAL ACETAMINOPHEN DOSE NOT TO EXCEED 4GM DAILY, Admission/Obs/Extended Recovery 2107 (Given - Provider: Terri Cisneros, ABDIEL ) oxyCODONE (ROXICODONE) tablet 5-10 mg 0113 (Given - 5-10 mg, Oral, EVERY 4 HOURS PRN, Provider: Kana Starting on Tue04/26/23 at 0024, Until ABDIEL Garcia)02 18 (Med e 05/03/23 at 1349, Pain PO, Other..., Not Given - Moderate/Severe Pain, Give if patient Provider: Nae amaro tolerating PO if [place] not effective., ABDIEL Garcia - Reason: Admission/Obs/Extended Recovery Other (Comment) - Comment: duplicate)1540 (Given - Provider: Tiago Madrigal, ABDIEL)2119 (Given - Provider: Tiago Madrigal RN) 0618 (Med Not Given - Provider: Nelia costa - Reason: Patient Refused) potassium chloride SR (K-DUR) tablet 0605 (Given - 40-60 mEq (CANCELED)(Linked Group 2) Provider: Kana 40-60 mEq, Oral, NEEDED, Starting on ABDIEL Garcia) Tue04/29/23 at 1943, Until 05/02/23 at 0858, Other..., For potassium replacement, Seeadmin instructions, I f urine output < 30mL/hr, SCr > 2mg/dL, o r CrCl =/< 30 mL/min, check with Physicia n prior to giving K+ replacement. For K 3.6 - 4 mmol/L, give 40 mEq PO/NG x1 dose. No recheck. For K 3.1 - 3.5 mmol/L, give 60 mEq PO/NG x1 dose OR 60 mEq IV (10mEq x6 doses). Recheck after 2 hours. For K =< 3 mmol/L, administer KCl 40 mEq IV (10mEq x4 doses) AND 40 mEq PO/NG x1 dose AND notify physician. Recheck serum potassium two hours after completion of appropriate replacement dose. Repeat this standing order x 2. Notify physician if serum potassium < 3.3 mmol/L after three replacements. Give with meal or full glass of water Order Group 1: amLODIPine (NORVASC) tablet 5 mgJump to med 5 mg, Oral, DAILY, First dose on Tue at 0915, Until Discontinued
NURSING: Please educate patient and document: Do not give with grapefruit juice.
And lisinopriL (ZESTRIL) tablet 10 mgJump t o med 10 mg, Oral, DAILY, First dose on Tue at 1015, Until Discontinued Group 2: potassium chloride SR (K-DUR) tablet 40 -60 mEq (CANCELED)Jump to med 40-60 mEq, Oral, NEEDED, Starting on Tue04/29/23 at 1943, Until Tue05/02/23 at 0858, Other..., For potassium replacement, Seeadmin i nstructions
If urine output < 30mL/hr, SCr > 2mg/dL, or CrCl =/< 30 mL/min, check with Physicia n prior to giving K+ replacement. For K 3.6 - 4 mmol/L, give 40 mEq PO/NG x1 dose.&nbsp ; No recheck. For K 3.1 - 3.5 mmol/L, give 60 mEq PO/NG x1 dose OR 60 mEq IV (10mEq x6 do ses). Recheck after 2 hours. For K =< 3 mmol/L, administer KCl 40 mEq IV (10mEq x4 doses) AND 40 mEq PO/NG x1 dose AND notify physician. Recheck serum potassium tw o hours after completion of appropriate replacement dose. Repeat this standing order x 2. Notify physician if serum potassium < 3.3 mmol/L after three replacements. Give with meal or fu ll glass of water
Or potassium chloride oral solution 40-60 mEq (CANCELED) 40-60 mEq, Per NG tube, NEEDED, Star ting on Tue04/29/23 at 1943, Until Tue05/02/23 at 0858, Other..., For potassium replacement, Se e admin instructions
If urine output < 30mL/hr, SCr > 2mg/dL, or CrCl =/< 30 mL/min, check [facility] Physician prior to giving K+ replacement. For K 3.6 - 4 mmol/L, give 40 mEq PO/NG x1 do se. No recheck. For K 3.1 - 3.5 mmol/L, give 60 mEq PO/NG x1 dose OR 60 mEq IV (10mEq x6 doses). Recheck after 2 hours. For K =< 3 mmol/L, administer KCl 40 mEq IV (10mEq x4 doses) AND 40 mEq PO/NG x1 dose AND notify physician. Recheck serum po tassium two hours after completion of appropriate replacement dose. Repeat this standing order x 2. N otify physician if serum potassium < 3.3 mmol/L after three replacements.
Or potassium chloride in water IVPB 10 mEq (CANCELED) 10 mEq, Intravenous, 50 mL, Administer over 30-120 Minutes, NEEDED, Starting on Tue04/29/23 at 1943, Until Tue05/02/23 at 0858, Other. .., For potassium replacement, see admin instructions
If urine output < 30mL/hr, SCr > 2mg/dL, o r CrCl =/< 30 mL/min, check with Physician prior to giving K+ replacement. For K 3.6 - 4 m mol/L, give 40 mEq PO/NG x1 dose. No recheck. For K 3.1 - 3.5 mmol/L, g norman 60 mEq PO/NG x1 dose OR 60 mEq IV over 6 hours. Recheck after 2 hours . For K =< 3 mmol/L, administer KCl 40 mEq IV (10mEq x 4 doses) AND 40 mEq PO/NG x1 dose AND not [place] physician. INFUSION TIME: - Infuse each potassium chloride 10mEq IV over 2hr (5 mEq/hr.), if: The patient has a peripheral line. -OR- The patient has other runnin g sources of IV potassium. - Infuse each potassium chloride 10mEq IV over 1hr (10mEq/hr.), if: The patient is non-telemetry, and The patient has NO other running sources of IV potassium, and The patient has a central line. - Infuse each potassium chlo ride 10mEq IV over 30min (20mEq/hr.), if: The patient is on telemetry, and The patient has NO other running sources of IV potassium, and The patient has a central line. Rechec k serum potassium two hours after completion of appropriate replacement dose. Repeat this standing order x 2. Notify physician if serum potassium < 3.3 mmol/L after three replacements. NOTE: Th is is a HIGH ALERT Medication.
documented in this encounter Orders First Ordered Date Medications Ordered That Might Not Have Count Last Ordered Date Been Administered bacitracin zinc topical ointment 1 04/2904/26/2023 calcium gluconate 1 g/NS 100 mL infusion 2 04/29/2023 ceFAZolin (ANCEF) 1 g in sodium chloride 1 04/29/2023 irrigation 0.9% 1,000 mL bottle 04/26/2023 hydrALAZINE (APRESOLINE) injection 10 mg 3 04/29/2023 labetaloL (NORMODYNE) injection 20 mg 1 04/29/2023 lidocaine 1%/EPINEPHrine 1:100,000 1 injection lidocaine PF 1% (10 mg/mL) injection 0.2 1 04/29/2023 mL 04/26/2023 magnesium sulfate 1 g/D5W 100 mL IVPB 3 04/29/2023 04/26/2023 potassium chloride in water IVPB 10 mEq 2 04/29/2023 04/26/2023 potassium chloride oral solution 40-60 3 04/29/2023 mEq thrombin 5,000 unit topical solution 1 0 04/29/2023 acetaminophen (TYLENOL) tablet 650 mg 1 04/26/2023 fentaNYL citrate PF (SUBLIMAZE) 1 2022 injection 25-50 mcg magnesium oxide (MAGOX) tablet 400 mg 1 04/26/2023 milk of magnesium oral suspension 30 mL 1 04/26/2023 ondansetron HCL (PF) (ZOFRAN (PF)) 1 injection 4 mg potassium chloride SR (K-DUR) tablet 1 0 04/26/2023 40-60 mEq SODIUM CHLORIDE 0.9 % IV SOLP (Cabinet 1 04/26/2023 Override) First Ordered Date Lab Orders Without Results Count Last Ordere d Date PREPARE RBC'S 1 04/28/2023 First Ordered Date Diet Count Last Ordered Date DISCHARGE DIET REGULAR 1 05/03/2023 First Ordered Date Nursing Count Last Ordered Date DISCHARGE ACTIVITY NORMAL 1 05/03/2023 DISCHARGE CONTACT 1 05/03/2023 DISCHARGE EDUCATION 1 05/03/2023 DISCHARGE SIGNS/SYMPTOMS 1 05/03/2023 DISCHARGE WOUND CARE 1 05/03/2023 First Ordered Date Consult Count Last Ordered Date CONSULT REHABILITATION MEDICINE 1 2022 PHYSICIAN 04/26/2023 CONSULT NEURO CRITICAL CARE PHYSICIAN 2 04/29/2023 CONSULT ONCOLOGY PHYSICIAN 2 04/26/2023 CONSULT RADIATION ONCOLOGY PHYSICIAN 1 0 04/26/2023 First Ordered Date OT Count Last Ordered Date OT CONSULT OCCUPATIONAL THERAPY 1 2022 First Ordered Date PT Count Last Ordered Date PT CONSULT PHYSICAL THERAPY 1 04/26/2023 First Ordered Date Admission Count Last Ordered Date ADMIT TO INPATIENT (NO BED REQUEST) 1 First Ordered Date Transfer Count Last Ordered Date TRANSFER PATIENT (BED REQUEST) 1 023 First Ordered Date Discharge Count Last Ordered Date DISCHARGE PATIENT NOW 1 05/03/2023 First Ordered Date Equipment Count Last Ordered Date 04/25/2023 COMPRESSION DEVICE, LEG 3 04/27/2023 PUMP IV CONTROL UNIT W/MODULES 1 023 First Ordered Date Vital Signs Count Last Ordered Date VITAL SIGNS 1 04/30/2023 First Ordered Date Activity Count Last Ordered Date MOBILITY 1 04/26/2023 First Ordered Date Appointment Request Count Last Ordered Date [facility]POINTMENT REQUEST[facility] 1 04/28/2023 ([place]) APPOINTMENT REQUEST: NEUROSURGERY 1 04/06 First Ordered Date Case Request Count Last Ordered Date CASE REQUEST 1 04/26/2023 First Ordered Date ADT Patient Update Count Last Ordered Date 04/26/2023 CHANGE SERVICE / LEVEL OF CARE (NO BED 5 04/30/2023 REQUEST) documented in this encounter Additional Health Concerns Noted Time Assessment 05/03/2023 8:00 AM CDT A fall risk assessment has been complet ed for the patient documented as of this encounter Care Teams Start Date End Date Pharmaceutical Salesperson Relationship Specialty 04/26/23 Alexia Benavides APRN PCP - General Family Medicine [address] [phone] documented as of this encounter
--- OUTSIDE RECORDS SUMMARY | 2023-05-03 14:36 | XMS REPORT | Clinical Summary ---
Author Author [facility] Organization [facility] Address Unknown Phone Unavailable Care Team Providers Care Hop Worker Name Role Phone Makayla Alexia ALCALA PCP Source Comments Some departments are not documenting in the electronic medical record. If you d o not see the information that you expected, contact Release of Information in [facility] Information Management department at [phone] for further assistan ce in locating additional records.[facility] Allergies No known active allergies Medications End Date Status Medication Sig Dispensed Refills Start Date Active aspirin EC (ASPIR-LOW) 81 Take one 0 mg tablet tablet by mouth daily. Active hydroCHLOROthiazide 12.5 Take one 0 mg capsule capsule by mouth every morning. Active amLODIPine (NORVASC) 5 mg Take one 0 tablet tablet by mouth daily. Active benazepriL (LOTENSIN) 10 Take one 0 mg tablet tablet by mouth daily. Active celecoxib (CELEBREX) 400 Take one 0 / /202 mg capsule capsule by 3 mouth daily. Active rosuvastatin (CRESTOR) 10 Take one 0 06/2 1/202 mg tablet tablet by 3 mouth daily. Active acetaminophen (TYLENOL) Take two 0 325 mg tablet tablets by 3 mouth every 4 hours as needed. Active heparin (porcine) PF Inject 0.5 mL 0 5,000units/0.5mL under the 3 injection syringe skin every 8 hours. DVT ppx Active oxyCODONE (ROXICODONE) 5 Take one 0 05/03 mg tablet tablet to two 3 tablets by mouth every 4 hours as needed. Active sennosides-docusate Take one 90 tablet 0 sodium (SENOKOT-S) 8.6/50 tablet by 3 mg tablet mouth twice daily. 05/02/2023 Discontinued (Removed from P TA Med List) amLODIPine-benazepril Take one 0 (LOTREL) 5-10 mg capsule capsule by mouth daily. Active Problems Problem Noted Date Diagnosed Date Chronic hyponatremia 04/29/2023 HTN (hypertension) 04/29/2023 HLD (hyperlipidemia) 04/29/2023 Brain mass 04/26/2023 Encounters Care Team Description Date Type Department Chris Forbes MD Higginbotham, Heidi E, CRNA 04/29/2023 Anesthesia Operating Room: Cam [place] 12:31 PM Event [place] [facility] [address] [place] [id number] Glenn Flores MD Suboccipital crainiotomy for resection o f mass 04/29/2023 Surgery Operating Room: Cam bridge 11:20 AM [place] A T - [address] [facility] 04/29/2023 Level 3 3:10 PM [place], [place] CDT [id number] 04/29/2023 Travel Ron Reyna MD Chamoun, Roukoz B, MD Brain mass Discharge Disposition: Rehab Facility (Not [facility]) 04/26/2023 Hospital Intensive Care Unit CA5: 12:23 AM Encounter [facility] A [facility] - [address] [facility]. 05/03/2023 Level 5 11:49 AM [place], [place] CDT [id number] Jorge Hester MD Brain mass (Primary Dx) 04/26/2023 Orders Only Radiation Oncology: [facility] [address] [place] [address] from Last 3 Months Surgical History Surgery Date Site/Laterality Comments CRANIOTOMY 04/29/2023 Head/Left Suboccipital cr ainiotomy for resection of mass performed by Glenn Flores MD at [facility] OR Medical devices from this surgery are i n the Medical Devices section. Medical History Medical History Date Comments Prostate cancer (HCC) 2009 Social History Date Tobacco Use Types Packs/Day [...] 04/26/2023 5:30 AM CDT Sexual Orientation Straight Obstetrics History Last Filed Vital Signs Reading Time Taken [...] 04/26/2023 12:00 AM CDT Body Mass Index Plan of Treatment Health Maintenance Due Date Last Done Comments MEDICARE ANNUAL WELLNESS 1945 VISIT HEPATITIS C SCREENING 1962 PHYSICAL (COMPREHENSIVE) 1962 EXAM DEPRESSION SCREENING 09/05/2022 COVID-19 VACCINE (6 - 10/12/2022 06/11/2022, Moderna series) 12/09/2021, 07/24/2021, Additional history exists INFLUENZA VACCINE (#1) 2023 06/11/2022, 06/11/2021, 06/02/2020, Additional history exists DTAP/TDAP VACCINES (2 - 04/25/2033 04/25/2023 Td or Tdap) PNEUMOCOCCAL VACCINE 65+ Completed 08/04/2015, YRS 07/06/2010 SHINGLES RECOMBINANT Completed 08/17/2021, VACCINE 05/21/2021, 07/03/2014 ADVANCED CARE PLANNING Completed 04/26/2023 DISCUSSION AND DOCUMENTATION Goals Goal Patient Associated Recent Progress Patient-Stat Aut hor Goal Type Problems ed? Resume normal activities Hospital On track (04/26/2023 Yes [place], 5:35 PM CDT) ABDIEL Freeman Note: Walk without falling down Medical Devices Device Identifier Shelf Expiration Date Model / Serial / L ot Implanted Type Area Manufactur er [id number] / N/A / N/A Plate Bone Cranial 2 Hole 12mm Bar Left: Skull ST [employer] Dog Bone Rigid 0.6mm Low Profile COURT [place] [employer] For 1.5mm Screw - Sn/A Implanted: Qty: 4 on 04/29/2023 by Glenn Flores MD at [facility] Procedures Comments Procedure Name Priority Date/Time Associated Diag nosis FINGER MIN 2V RIGHT THUMB Routine 05/02/2023 12:03 PM CDT HC CBC W/ AUTOMATED DIFF Routine 05/02/2023 3:45 AM CDT HC BASIC METABOLIC PANEL Routine 05/02/2023 3:45 AM CDT HC CALCIUM IONIZED Routine 05/02/2023 3:45 AM CDT HC PHOSPHOROUS, SERUM Routine 05/02/2023 3:45 AM CDT HC MAGNESIUM Add on 05/01/2023 4:29 AM CDT HC CALCIUM IONIZED Routine 05/01/2023 4:29 AM CDT HC PHOSPHOROUS, SERUM Routine 05/01/2023 4:29 AM CDT HC CBC,AUTOMATED Routine 05/01/2023 4:29 AM CDT HC BASIC METABOLIC PANEL Routine 05/01/2023 4:29 AM CDT HC MAGNESIUM Add on 04/30/2023 2:25 AM CDT HC CALCIUM IONIZED Routine 04/30/2023 2:25 AM CDT HC PHOSPHOROUS, SERUM Routine 04/30/2023 2:25 AM CDT HC CBC,AUTOMATED Routine 04/30/2023 2:25 AM CDT HC BASIC METABOLIC PANEL Routine 04/30/2023 2:25 AM CDT MRI HEAD WO/W CONTRAST Routine 04/29/2023 11:15 PM CDT ANESTHESIA ARTERIAL LINE Routine 04/29/2023 INSERTION 1:04 PM CDT MICROSURGICAL TECHNIQUES 04/29/2023 Brain mass [...] CONTRAST JANETT 04/26/2023 4:28 AM CDT HC OSMOLALITY;BLOOD Routine 04/26/2023 3:00 AM CDT HC UREA NITROGEN-URINE Routine 04/26/2023 3:00 AM CDT HC CREATININE-URINE Routine 04/26/2023 3:00 AM CDT HC OSMOLALITY-URINE Routine 04/26/2023 3:00 AM CDT HC SODIUM-URINE Routine 04/26/2023 3:[address] ABD/PELV W CONTRAST Routine 04/26/2023 1:[address] CHEST W CONTRAST JANETT 04/26/2023 1:38 AM CDT HC PHOSPHOROUS, SERUM STAT 04/26/2023 12:50 AM CDT HC MAGNESIUM STAT 04/26/2023 12:50 AM CDT HC CALCIUM IONIZED STAT 04/26/2023 12:50 AM CDT HC COMPREHENSIVE STAT 04/26/2023 METABOLIC PANEL 12:50 AM CDT HC PTT(APTT) STAT 04/26/2023 12:50 AM CDT HC PT(INR) STAT 04/26/2023 12:50 AM CDT HC CBC W/ AUTOMATED DIFF STAT 04/26/2023 12:50 AM CDT from Last 3 Months Results * FINGER MIN 2V RIGHT THUMB [...] Naresh Willis M.D. on 05/02/2023 12:48 PM. Kendra Lang DIAGNOSTIC IMAGING ORDERABL ES GRAIN SHIPPER-BRIM CURLER * (ABNORMAL) CBC AND DIFF (05/02/2023 3:45 AM CDT) Only the most recent of 2 results within the time period is included. Pathologist Signature Component Value Ref Test Method Analysis Performed A t Range Time White Blood Cells 10.6 4.5 - 05/02/2023 [facility] PT PATH AND 11.0 4:16 AM LAB MEDICINE K/UL CDT RBC 4.04 (L) 4.4 - 05/02/2023 [facility] DEPT PAT H AND 5.5 M/UL 4:16 AM LAB MEDICINE CDT Hemoglobin 12.9 (L) 13.5 - 05/02/2023 [facility] DEPT PAT H AND 16.5 4:16 AM LAB MEDICINE GM/DL CDT Hematocrit 37.4 (L) 40 - 50 05/02/2023 [facility] DEPT PAT H AND % 4:16 AM [...] CDT MPV 8.7 7 - 11 05/02/2023 [facility] DEPT PAT H AND FL 4:16 AM [...] Unknown 05/02/2023 3:45 AM CDT 05/02/20 23 4:05 AM CDT Glenn Flores MD LABORATORY ORDERABLES City/State/ZIP Code Phone Number Performing [place] [address], Email Data Source DEPT PATH AND [address] LAB MEDICINE * PHOSPHORUS (05/02/2023 3:45 AM CDT) Only the most recent of 4 results within the time period is included. Pathologist Signature Component Value Ref Test Method Analysis Performed A t Range Time Phosphorus 2.5 2.0 - 05/02/2023 [facility] DEPT PAT H AND 4.5 4:40 AM LAB MEDICINE MG/DL CDT Anatomical Location / Laterality Collection Method / Volume Gavin ection Time Received Time Specimen (Source) BLOOD / Unknown 05/02/2023 3:45 AM CDT 05/02/20 23 4:05 AM CDT Ish Trivedi-Jackie LABORATORY ORDERABLES GRAIN SHIPPER-BRIM CURLER [facility]/ZIP Code Phone Number Performing Address [place] [address], [employer] DEPT PATH AND [address] LAB MEDICINE * IONIZED CALCIUM (05/02/2023 3:45 AM CDT) Only the most recent of 4 results within the time period is included. Pathologist Signature Component Value Ref Test Method Analysis Performed A t Range Time Ionized Calcium 1.12 1.0 - 05/02/2023 [employer] DEPT PATH AND 1.3 4:13 AM LAB MEDICINE MMOL/L CDT Anatomical Location / Laterality Collection Method / Volume Gavin ection Time Received Time Specimen (Source) BLOOD / Unknown 05/02/2023 3:45 AM CDT 05/02/20 4:06 AM CDT Ish Splunk Sharp-Jackie LABORATORY ORDERABLES GRAIN SHIPPER-[facility]/ZIP Code Phone Number Performing Address [place] [address], Email Data Source DEPT PATH AND [address] LAB MEDICINE * (ABNORMAL) BASIC METABOLIC PANEL (05/02/2023 3:45 AM CDT) Only the most recent of 6 results within the time period is included. Pathologist Signature Component Value Ref Test Method [...] CDT CO2 25 21 - 30 05/02/2023 [facility] DEPT PAT H AND MMOL/L 4:40 AM LAB MEDICINE CDT Anion Gap 9 3 - 12 05/02/2023 [facility] DEPT PAT H AND 4:40 AM LAB MEDICINE CDT Glucose 126 (H) 70 - 100 05/02/2023 [facility] DEPT PAT H AND MG/DL 4:40 AM LAB MEDICINE CDT Blood Urea Nitrogen 16 7 - 25 05/02/2023 [facility] DEPT PATH AND MG/DL 4:40 AM LAB MEDICINE CDT Creatinine 0.82 0.4 - 05/02/2023 [facility] DEPT PAT H AND 1.24 4:40 AM LAB MEDICINE MG/DL CDT Calcium 8.9 8.5 - 05/02/2023 [facility] DEPT PAT H AND 10.6 4:40 AM LAB MEDICINE MG/DL CDT eGFR >60 >60 05/02/2023 [facility] DEPT PAT H AND mL/min 4:40 AM LAB MEDICINE CDT Comment: eGFR calculated using the CKD-EPIcr_R equation Anatomical Location / Laterality Collection Method / Volume Gavin ection Time Received Time Specimen (Source) BLOOD / Unknown 05/02/2023 3:45 AM CDT 05/02/20 4:05 AM CDT Glenn Flores MD LABORATORY ORDERABLES City/State/ZIP Code Phone Number Performing [place] [address], [facility] DEPT PATH AND [address] LAB MEDICINE * (ABNORMAL) CBC (05/01/2023 4:29 AM CDT) Only the most recent of 5 results within the time period is included. Pathologist Signature Component Value Ref Test Method Analysis Performed A t Range Time White Blood Cells 13.4 (H) 4.5 - 05/01/2023 [facility] DE PT PATH AND 11.0 4:50 AM LAB MEDICINE K/UL CDT RBC 4.00 (L) 4.4 - 05/01/2023 [facility] DEPT PAT H AND 5.5 M/UL 4:50 AM LAB MEDICINE CDT Hemoglobin 13.1 (L) 13.5 - 05/01/2023 [facility] DEPT PAT H AND 16.5 4:50 AM LAB MEDICINE GM/DL CDT Hematocrit 37.2 (L) 40 - 50 05/01/2023 [facility] DEPT PAT H AND % 4:50 AM LAB MEDICINE CDT MCV 93.1 80 - 100 05/01/2023 [facility] DEPT PAT H AND FL 4:50 AM LAB MEDICINE CDT MCH 32.8 26 - 34 05/01/2023 [facility] DEPT PAT H AND PG 4:50 AM LAB MEDICINE CDT MCHC 35.3 32.0 - 05/01/2023 [facility] DEPT PAT H AND 36.0 4:50 AM LAB MEDICINE G/DL CDT RDW 13.9 11 - 15 05/01/2023 [facility] DEPT PAT H AND % 4:50 AM LAB MEDICINE CDT Platelet Count 232 150 - 05/01/2023 [facility] DEPT PATH AND 400 K/UL 4:50 AM LAB MEDICINE CDT MPV 8.1 7 - 11 05/01/2023 [facility] DEPT PAT H AND FL 4:50 AM LAB MEDICINE CDT Anatomical Location / Laterality Collection Method / Volume Gavin ection Time Received Time Specimen (Source) BLOOD / Unknown 05/01/2023 4:29 AM CDT 05/01/20 23 4:37 AM CDT Ron Reyna MD LABORATORY ORDERABLES City/State/ZIP Code Phone Number Performing [place] [address], [facility] DEPT PATH AND [address] [facility]. LAB MEDICINE * MAGNESIUM (05/01/2023 4:29 AM CDT) Only the most recent of 3 results within the time period is included. Pathologist Signature Component Value Ref Test Method Analysis Performed A t Range Time Magnesium 2.0 1.6 - 05/01/2023 [facility] DEPT PAT H AND 2.6 6:10 AM LAB MEDICINE mg/dL CDT Anatomical Location / Laterality Collection Method / Volume Gavin ection Time Received Time Specimen (Source) 05/01/2023 4:29 AM CDT 05/01/20 4:37 AM CDT Marichuy Saez MD LABORATORY ORDERABLES City/State/ZIP Code Phone Number Performing [place] [address], [facility] DEPT PATH AND [address] [facility]. LAB MEDICINE * MRI HEAD WO/W CONTRAST (04/29/2023 11:15 PM CDT) Only the most recent of 2 results within the time period is included. Modality Anatomical Region Laterality Magnetic Resonance Head [...] PM. Glenn Flores MD MR ORDERABLES * ANESTHESIA ARTERIAL LINE INSERTION (04/29/2023 1:04 PM CDT) Narrative Chris Forbes MD - 04/29/2023 1:04 PM CDT Chris Forbes MD 04/29/2023 4:08 PM Anesthesia Procedure: Arterial Line Placement A-LINE INSERTION Date/Time: 04/29/2023 1:04 PM Patient location: OR Indications: hemodynamic monitoring Preprocedure checklist performed: 2 patient identifiers, risks & benefits discussed, patient evaluated, timeout performed, consent obtained, patient being monitored and sterile drape Sterile technique: - Proper hand washing - Cap, mask - Sterile gloves - Skin prep for antisepsis Arterial Line Procedure Patient sedated: yes (see MAR) Sedation type: general; Artery prepped with alcohol swabs; skin prep agent completely dried prior to procedure. Location: radial artery Laterality: left Technique: ultrasound Needle gauge: 20 G Number of attempts: 1 Procedure Outcome Catheter secured with adhesive dressing applied Events: no complications noted during insertion and skin intact, warm, and dry Observation: pt tolerated well Performed by: Chris Forbes MD Authorized by: Chris Forbes MD Chris Forbes MD ANESTHESIA ORDERABLES * BLOOD TYPE CONFIRMATION - ORDER ONLY IF REQUESTED BY LAB (04/28/2023 10:46 AM CDT) Pathologist Signature Component Value Ref Test Method Analysis Performed A t Range Time ABO/RH(D) A POS 04/28/2023 [employer] DEPT PATH AND 11:58 AM LAB MEDICINE CDT Anatomical Location / Laterality Collection Method / Volume Gavin ection Time Received Time Specimen (Source) 04/28/2023 10:46 AM CDT 04/28/20 11:00 AM CDT Glenn Flores MD BLOOD BANK ORDERABLES City/State/ZIP Code Phone Number Performing [place] [address], [employer] DEPT PATH AND [address] [facility] LAB MEDICINE * TYPE & CROSSMATCH (04/28/2023 10:05 AM CDT) Pathologist Signature Component Value Ref Test Method Analysis Performed A t Range Time Units Ordered 2 04/28/2023 [facility] DEPT PATH AND 7:04 PM LAB MEDICINE CDT Crossmatch Expires 05/01/2023,2 04/28/2023 [facility] DEPT PATH AND 359 11:23 AM LAB MEDICINE CDT Record Check 2ND TYPE 04/28/2023 [facility] DEPT PATH AND REQUIRED 10:24 AM LAB MEDICINE CDT ABO/RH(D) A POS 04/28/2023 [facility] DEPT PATH AND 11:23 AM LAB MEDICINE CDT Antibody Screen NEG 04/28/2023 [facility] DEPT PAT H AND 11:23 AM LAB MEDICINE CDT Anatomical Location / Laterality Collection Method / Volume Gavin ection Time Received Time Specimen (Source) BLOOD / Unknown 04/28/2023 10:05 AM CDT 04/28/20 23 10:23 AM CDT Glenn Flores MD BLOOD BANK ORDERABLES City/State/ZIP Code Phone Number Performing Address [place] [address], [facility] DEPT PATH AND [address] LAB MEDICINE * (ABNORMAL) SODIUM (04/26/2023 11:00 AM CDT) Pathologist Signature Component Value Ref Test Method Analysis Performed A t Range Time Sodium 132 (L) 137 - 04/26/2023 [facility] DEPT PAT H AND 147 11:57 AM LAB MEDICINE MMOL/L CDT Anatomical Location / Laterality Collection Method / Volume Gavin ection Time Received Time Specimen (Source) BLOOD / Unknown 04/26/2023 11:00 AM CDT 04/26/20 11:24 AM CDT Yanci Marlow LABORATORY ORDERABLES GRAIN SHIPPER-BRIM CURLER City/State/ZIP Code Phone Number Performing [place] [address], [facility] DEPT PATH AND [address] LAB MEDICINE * UREA NITROGEN-URINE RANDOM (04/26/2023 3:00 AM CDT) Pathologist Signature Component Value Ref Test Method Analysis Performed A t Range Time Urea Nitrogen 203 MG/DL 04/26/2023 [facility] DEPT P ATH AND 4:02 AM LAB MEDICINE CDT Anatomical Location / Laterality Collection Method / Volume Gavin ection Time Received Time Specimen (Source) URINE SPECIMEN / Unknown 04/26/2023 3:00 AM CDT 04/26/2023 3:13 AM CDT Urine Ron Reyna MD URINE ORDERABLES [facility]/ZIP Code Phone Number Performing Address [place] [address], [facility] DEPT PATH AND [address] [facility] LAB MEDICINE * SODIUM-URINE RANDOM (04/26/2023 3:00 AM CDT) Pathologist Signature Component Value Ref Test Method Analysis Performed A t Range Time Sodium, Random 62 MMOL/L 04/26/2023 [facility] DEPT PATH AND 4:02 AM LAB MEDICINE CDT Anatomical Location / Laterality Collection Method / Volume Gavin ection Time Received Time Specimen (Source) URINE SPECIMEN / Unknown 04/26/2023 3:00 AM CDT 04/26/2023 3:13 AM CDT Urine Ron Reyna MD URINE ORDERABLES [facility]/ZIP Code Phone Number Performing [place] [address], [facility] DEPT PATH AND [address] LAB MEDICINE * OSMOLALITY-URINE RANDOM (04/26/2023 3:00 AM CDT) Pathologist Signature Component Value Ref Test Method Analysis Performed A t Range Time Osmolality-Urine 300 50 - 04/26/2023 [facility] DEP T PATH AND 1,400 5:48 AM LAB MEDICINE MOS/KG CDT Anatomical Location / Laterality Collection Method / Volume Gavin ection Time Received Time Specimen (Source) URINE SPECIMEN / Unknown 04/26/2023 3:00 AM CDT 04/26/2023 3:13 AM CDT Urine Ron Reyna MD URINE ORDERABLES [facility]/ZIP Code Phone Number Performing [place] [address], [facility] DEPT PATH AND [address] LAB MEDICINE * CREATININE-URINE RANDOM (04/26/2023 3:00 [...] CDT Urine Ron Reyna MD URINE ORDERABLES [facility]/State/ZIP Code Phone Number Performing [place] [address], Email Data Source DEPT PATH AND [address] [facility]. LAB MEDICINE * OSMOLALITY (04/26/2023 3:00 AM CDT) Pathologist Signature Component Value Ref Test Method Analysis Performed A t Range Time Osmolality 286 280 - 04/26/2023 [facility] DEPT PAT H AND 307 5:48 AM LAB MEDICINE MOSMOL/K CDT G Anatomical Location / Laterality Collection Method / Volume Gavin ection Time Received Time Specimen (Source) BLOOD / Unknown 04/26/2023 3:00 AM CDT 04/26/20 3:18 AM CDT Ron Reyna MD LABORATORY ORDERABLES [facility]/State/ZIP Code Phone Number Performing [place] [address], Email Data Source DEPT PATH AND [address] LAB MEDICINE * CT ABD/PELV W CONTRAST (04/26/2023 1:38 [...] MD on 04/26/2023 8:08 AM. Dictated by Mihcelle Nam MD on 04/26/2023 7:48 AM. Ron [...] AM. Ron Reyna MD CT ORDERABLES * PTT (APTT) (04/26/2023 12:50 AM CDT) Pathologist Signature Component Value Ref Test Method Analysis Performed A t Range Time APTT 28.5 24.0 - 04/26/2023 [employer] DEPT PAT H AND 36.5 SEC 1:16 AM LAB MEDICINE CDT Anatomical Location / Laterality Collection Method / Volume Gavin ection Time Received Time Specimen (Source) BLOOD / Unknown 04/26/2023 12:50 AM CDT 04/26/20 23 1:02 AM CDT Ron Reyna MD LABORATORY ORDERABLES City/State/ZIP Code Phone Number Performing [place] [address], [employer] DEPT PATH AND [address] LAB MEDICINE * PROTIME INR (PT) (04/26/2023 12:50 AM CDT) Pathologist Signature Component Value Ref Test Method Analysis Performed A t Range Time Protime 11.9 9.5 - 04/26/2023 [employer] [facility] DEPT PAT H AND 14.2 SEC 1:16 AM LAB MEDICINE CDT INR 1.1 0.8 - 04/26/2023 [employer] DEPT PAT H AND 1.2 1:16 AM LAB MEDICINE CDT Anatomical Location / Laterality Collection Method / Volume Gavin ection Time Received Time Specimen (Source) BLOOD / Unknown 04/26/2023 12:50 AM CDT 04/26/20 1:02 AM CDT Ron Reyna MD LABORATORY ORDERABLES City/State/ZIP Code Phone Number Performing [place] [address], [facility] DEPT PATH AND [address] LAB MEDICINE * (ABNORMAL) COMPREHENSIVE METABOLIC PANEL [...] ALT (SGPT) 22 7 - 56 04/26/2023 [facility] DEPT PAT H AND U/L 1:24 AM LAB MEDICINE CDT Anion Gap 14 (H) 3 - 12 04/26/2023 [facility] DEPT PAT H AND 1:24 AM LAB MEDICINE CDT eGFR >60 >60 04/26/2023 [facility] DEPT PAT H AND mL/min 1:24 AM LAB MEDICINE CDT Comment: eGFR calculated using the CKD-EPIcr_R equation Anatomical Location / Laterality Collection Method / Volume Gavin ection Time Received Time Specimen (Source) BLOOD / Unknown 04/26/2023 12:50 AM CDT 04/26/20 1:02 AM CDT Ron Reyna MD LABORATORY ORDERABLES City/State/ZIP Code Phone Number Performing [place] [address], [facility] DEPT PATH AND [address] [facility]. LAB MEDICINE from Last 3 Months Insurance Type Payer Benefit Subscriber ID Effective Phone Address Plan / Dates Group Medicare UHC MEDICARE UHC [id number] 2022-P [phone] MEDICARE resent [id number] [facility] [id number] [place] [phone] Advance Directives Date Inactivated Comments Code Status Date Activated 05/03/2023 1:49 PM Full Code 04/26/2023 12:24 AM Comments Question Answer Provider has No, more discussion needed discussed Code Status w/Patient or Family? Care Teams Start Date End Date Hop Worker Relationship Specialty 04/26/23 Alexia Benavides APRN PCP - General Family Medicine [address] [place] [address]
--- OUTSIDE RECORDS SUMMARY | 2023-05-03 14:37 | XMS REPORT | Encounter Summary ---
Author Author [facility] Organization [facility] Address Unknown Phone Unavailable Care Team Providers Care Duty Manager Name Role Phone JenniferAlexia tamayo WHEAT COMBINE DRIVER PCP Reason for Visit * Auth/Cert (Routine) Diagnoses / Procedures Referred By Contact Referred To Conta ct Specialty Diagnoses Brain mass fall - new brain mass Referral ID Status Reason Start Date Expiration Visits Vi sits Date Requested Authorized [id number] 1 1 Encounter Details Care Team Description Date Type Department Chris Forbes MD [address] [place] [address] Evelyn Patel CRNA [address] [place] [address] 04/29/2023 Anesthesia Operating Room: [facility] 12:31 PM Event [place] A T [address] [facility] [address] [place] [address] Anesthesia Record Responsible Anesthesiologist Anesthesia Start Time Anesthesi a Stop Time Procedure Name Chris Forbes MD 04/29/23 1231 04/29/23 1722 Suboccipital crainiotomy for resection of mass (Left: Head) Date Time Event Comment 1222 AN Equip Check 2022 1229 1231 Anes Start 1232 Out of Pre Procedure 1234 An Start Data 1234 In Room 1251 An Induction The patient was ree valuated immediately before moderate or deep sedation use and before anesthesia induction. 1253 An Intubation 1304 Art Line 1305 Anesthesia Ready 1342 Proc Start 1400 Quick Note Anesthetic involvin g 0.5 MAC volatile anesthetic, propofol infusion, and remifentanil infusion was initially pre scribed for case. Due to patient's severe hypotension following induction of anesthesia, decision was made by MD Forbes and this STORE OPERATIONS MANAGER to abort TIVA an d utilize inhalation anesthetic for remainder of case. 1710 An Extubation 1720 an stop data 1722 An Stop I completed my SBAR handoff to the receiving nurse. Meds Name Total fentaNYL PF (SUBLIMAZE) injection 50 mcg lidocaine (2%) 200 mg/10mL Injection 80 mg syringe propofol (DIPRIVAN) 200 mg/ 20 mL 200 mg injection (VIAL) rocuronium (ZEMURON) injection 100 mg ondansetron (ZOFRAN) injection 4 mg remifentanyl 1000mcg in NS 20mL 116.21 mcg (50mcg/mL)(OR) phenylephrine (LUIS MIGUEL-SYNEPHRINE) 0.1 mg/mL 900 mcg injection syr sugammadex (BRIDION) 100 mg/mL iv soln 200 mg artificial tears (dextran 2 drop 70/hypromellose) ophthalmic drops ceFAZolin (ANCEF) 2 g vasopressin (VASOSTRICT) 20 unit/mL 20 2.5 Units Units in sodium chloride 0.9% (NS) 20 m L IV Syringe ePHEDrine inj 20 mg propofoL (DIPRIVAN) infusion 145.26 mg phenylephrine (LUIS MIGUEL-SYNEPHRINE) 10 mg in 4.87 mg sodium chloride 0.9% (NS) 250 mL IV dri p (std conc) EPINEPHrine 0.1 mg/10 mL (10 mcg/mL) D5 10 mcg syr (premade) dexamethasone (DECADRON) 10mg/mL inj 10 mg HYDROmorphone (DILAUDID) 0.4 mg acetaminophen (OFIRMEV) 1000mg injection 1,000 mg sodium chloride 0.9 % infusion 1,650 mL sodium chloride 0.9% (1000mL) 350 mL albumin 5% (250mL) - Blood Product 500 mL * Name O2 N2O Inspired Sevoflurane Inspired Sevoflurane * No blood administrations on file. Removal Type Details Placement 05/03/23 1149 by Grant Finance Teacher Wounds 04/26/23; 0030; Laceration; Nose; Dried 04/26/23 0030 by Tiffani, Drainage; 05/03/23; 1149 ABDIEL [place] 05/03/23 1149 by Grant Finance Teacher Wounds 04/26/23; 0031; Skin tear; Posterior, 04/26/23 0031 by Tiffani, Left; Hand; 05/03/23; 1149 ABDIEL [place] 05/03/23 1030 by Elizabeth Alexis RN Peripheral 04/29/23; 1002; R; Anterior, Medial; 0 04/29/23 1002 by IV Forearm; 20 G; One; 05/03/23; 1030 McM Chris brown RN 04/30/23 0600 by Marichuy Espinal RN Indwelling 04/29/23; 1249; 16 FR; Regular 3 1249 by Kayleigh Urinary (Two-way); 04/30/23; 0600 ABDIEL Sherman Catheter 05/02/231999 by Terri Cisneros RN Peripheral 04/29/23; 1252; R; Posterior; Hand; 18 04/29/23 1252 by IV G; Inserted by provider; One; Evelyn Luther, Dislodgement; 05/02/23; 1999 STORE OPERATIONS MANAGER 04/29/23 1710 by Evelyn Patle, STORE OPERATIONS MANAGER ETT 04/29/23; 1253; Video laryngoscopy; 1253 by Single-Lumen; ETT Size: 7.5mm; Evelyn Patel , GlideScope; Blade Size: 4; Cricoid STORE OPERATIONS MANAGER Pressure: No; Oral; 1-Full view of the glottis; 1 insertion attempt; Auscultation, ETCO2 Detector; 04/29/23; 1710 04/30/23 0550 by Marichuy Espinal RN Arterial 04/29/23; 1304 (created via procedure 04/29/23 1304 by Andrei, Line documentation); 20 G; 04/30/23; 0550 T alondra Bae MD 05/03/23 1149 by Grant, Finance Teacher Wounds 04/29/23; 1351; Surgical incision; 1351 by Debbie Victor, Mid; Head; 05/03/23; 1149 ABDIEL Sherman documented in this encounter Social History Date Tobacco Use Types Packs/Day Years Used Quit: 09/05/2021 Smoking Tobacco: Former Cigarettes 1 50 Smokeless Tobacco: Never Comments Alcohol Use Standard Drinks/Week 2 beers [...] Orientation Straight documented as of this encounter Functional Status Date of Assessment Functional Status Response 04/26/2023 Does the patient have a hearing impairment: No documented as of this encounter OR Notes * Anesthesia Postprocedure Evaluation - Evelyn Patel CRNA - 04/29/2023 5:32 PM CDT Post-Anesthesia Evaluation Name: Johnny Bautista : 1945 Age: 77 y.o. Se x: male Procedure Information Anesthesia Start Date/Time: 04/29/23 1231 Procedures: Suboccipital crainiotomy for resection of mass (Left: Head) - Prone; brain l ab, neuro saray, 3 hrs MICROSURGICAL TECHNIQUES - REQUIRING OPERATING MICROSCOPE USE (Left: Head) Location: [facility] OR01 / [facility] OR/Periop Surgeons: Glenn Flores MD Post-Anesthesia Vitals ABP: 135/52 (04/29 1720) Vitals Value Taken Time BP 123/66 04/29/23 1720 Temp 98.2 04/29/23 1734 Pulse 90 04/29/23 1732 Respirations 12 PER MINUTE 04/29/23 1732 SpO2 97 % 04/29/23 1732 O2 Device Room air ABP 135/52 04/29/23 1720 ART BP Vitals shown include unvalidated device data. Post Anesthesia Evaluation Note Evaluation location: ICU Patient participation: recovered; patient participated in evaluation Level of consciousness: sleepy but conscious Pain management: adequate Hydration: normovolemia Temperature: 36.0C - 38.4C Airway patency: adequate Perioperative Events Post-op nausea and vomiting: no PONV Postoperative Status Cardiovascular status: hemodynamically stable Respiratory status: spontaneous ventilation ICU Information Blood Products Given-no NSICU information no ICP monitor used no anticonvulsants were given Staff involved in transport include: anesthesiologist, STORE OPERATIONS MANAGER and surg resident Perioperative Events There were no known notable events for this encounter. * Anesthesia Procedure Notes - Chris Forbes MD - 04/29/2023 3:20 PM CDT Associated Order(s): A-LINE INSERTION Anesthesia Procedure: Arterial Line Placement A-LINE INSERTION [...] skin prep agent completely dried prior to pro cedure. Location: radial artery Laterality: left Technique: ultrasound Needle gauge: 20 G Number of attempts: 1 Procedure Outcome Catheter secured with adhesive dressing applied Events: no complications noted during insertion and skin intact, warm, and dry Observation: pt tolerated well Performed by: Chris Forbes MD Authorized by: Chris Forbes MD ATTESTATION I was present for and supervised entirety of procedure. Patient tolerated well, without complication. Staff name: Chris Forbes MD * Anesthesia Preprocedure Evaluation - Chris Forbes MD - 04/29/2023 12:05 PM CDT Anesthesia Pre-Procedure Evaluation Name: Johnny Bautista : 1945 Age: 77 y.o. Se x: male Procedure Info: Procedure Information Date/Time: 04/29/23 1120 Procedure: Suboccipital crainiotomy for resection of mass (Left) - Prone; brain lab, neuro saray, 3 hrs Location: [facility] OR01 / [facility] OR/Periop Surgeons: Glenn Flores MD Physical Assessment Vital Signs (last filed in past 24 hours): BP: 152/91 (04/29 939) Temp: 36.7 C (98 F) (04/29 939) Pulse: 62 (04/29 939) Respirations: 13 PER MINUTE (04/29 939) SpO2: 98 % (04/29 939) O2 Device: None (Room air) (04/29 939) SpO2 Pulse: 63 (04/29 939) Patient History No Known Allergies Current Medications Medication Directions amLODIPine-benazepril (LOTREL) 5-10 mg capsule Take one capsule by mouth daily. aspirin EC (ASPIR-LOW) 81 mg tablet Take one tablet by mouth daily. hydroCHLOROthiazide 12.5 mg capsule Take one capsule by mouth every morning. 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 Abdominal Findings: Abdomen soft Neurological Findings: Alert and oriented x 3 Constitutional findings: No acute distress Well-developed Well-nourished Diagnostic Tests Hematology: Lab Results Component Value Date HGB 14.7 04/29/2023 HCT 42.9 04/29/2023 PLTCT 271 04/29/2023 WBC 11.1 04/29/2023 NEUT 71 04/26/2023 ANC 9.82 04/26/2023 ALC 3.14 04/26/2023 SOWMYA 5 04/26/2023 AMC 0.69 04/26/2023 EOSA 0 04/26/2023 ABC 0.11 04/26/2023 MCV 93.5 04/29/2023 MCH 32.0 04/29/2023 MCHC 34.2 04/29/2023 MPV 8.5 04/29/2023 RDW 13.5 04/29/2023 General Chemistry: Lab Results Component Value Date NA 134 04/29/2023 K 3.8 04/29/2023 CL 100 04/29/2023 CO2 23 04/29/2023 GAP 11 04/29/2023 BUN 14 04/29/2023 CR 1.00 04/29/2023 GLU 105 04/29/2023 CA 9.2 04/29/2023 ALBUMIN 4.3 04/26/2023 OBSCA 1.07 04/26/2023 MG 2.1 04/26/2023 TOTBILI 0.8 04/26/2023 PO4 3.2 04/26/2023 Coagulation: Lab Results Component Value Date PT 11.9 04/26/2023 PTT 28.5 04/26/2023 INR 1.1 04/26/2023 PAC Plan Anesthesia Plan ASA score: 2 Plan: general and invasive monitoring Induction method: intravenous NPO status: acceptable Informed Consent Anesthetic plan and risks discussed with patient. Use of blood products discussed with patient Blood Consent: consented Plan discussed with: anesthesiologist and STORE OPERATIONS MANAGER. Alerts documented in this encounter Plan of Treatment Not on filedocumented as of this encounter Goals Goal Patient Associated Recent Progress Patient-Stat Aut hor Goal Type Problems ed? Resume normal activities Hospital On track (04/26/2023 Yes Eloy, 5:35 PM CDT) ABDIEL Freeman Note: Walk without falling down documented as of this encounter Procedures Comments Procedure Name Priority Date/Time Associated Diag nosis ANESTHESIA ARTERIAL LINE Routine 04/29/2023 INSERTION 1:04 PM CDT documented in this encounter Results * ANESTHESIA ARTERIAL LINE INSERTION (04/29/2023 1:04 [...] Forbes MD Chris Forbes MD ANESTHESIA ORDERABLES documented in this encounter Visit Diagnoses Not on filedocumented in this encounter Administered Medications Action Date Dose Rate Site Medication Order MAR Action 04/29/2023 4:43 PM CDT 1,000 mg acetaminophen (OFIRMEV) injection Given Intravenous, Administer over 15 Minutes , INTRA-PROCEDURE MED, Starting on Tue04/29/23 at 1643, Until Tue04/29/23 at 1730, Anesthesia Intra-op 04/29/2023 2:15 PM CDT albumin 5% infusion (250 mL) Given - New Intravenous, INTRA-PROCEDURE MED(CONT), Bag Starting on Tue04/29/23 at 1415, Until Tue04/29/23 at 1730, Anesthesia Intra-o p Given - New Bag 04/29/2023 1:53 PM CDT 04/29/2023 12:54 PM CDT 2 drops artificial tears (PF) single dose Given ophthalmic solution Both Eyes, INTRA-PROCEDURE MED, Startin g on Tue04/29/23 at 1254, Until Tue04/29/23 at 1741, Anesthesia Intra-op 04/29/2023 1:40 PM CDT 2 g ceFAZolin (ANCEF) injection Given Intravenous, INTRA-PROCEDURE MED, Starting on Tue04/29/23 at 1340, Until Tue04/29/23 at 1730, Anesthesia Intra-o p 04/29/2023 1:57 PM CDT 10 mg dexAMETHasone sodium phosphate Given (DECADRON) injection Intravenous, INTRA-PROCEDURE MED, Starting on Tue04/29/23 at 1357, Until Tue04/29/23 at 1730, Anesthesia Intra-o p 04/29/2023 3:13 PM CDT 5 mg ePHEDrine injection Given Intravenous, INTRA-PROCEDURE MED, Starting on Tue04/29/23 at 1418, Until Tue04/29/23 at 1730, Anesthesia Intra-o p 5 mg Given 04/29/2023 2:59 PM CDT 10 mg Given 04/29/2023 2:18 PM CDT 04/29/2023 1:54 PM CDT 10 mcg EPINEPHrine HCL in 5% dextrose syringe Given (premade) Intravenous, INTRA-PROCEDURE MED, Starting on Tue04/29/23 at 1354, Until Tue04/29/23 at 1730, Anesthesia Intra-o p 04/29/2023 12:51 PM CDT 50 mcg fentaNYL citrate PF (SUBLIMAZE) Given injection Intravenous, INTRA-PROCEDURE MED, Starting on Tue04/29/23 at 1251, Until Tue04/29/23 at 1730, Anesthesia Intra-o p 04/29/2023 5:00 PM CDT 0.2 mg HYDROmorphone injection (DILAUDID) Given Intravenous, INTRA-PROCEDURE MED, Starting on Tue04/29/23 at 1638, Until Tue04/29/23 at 1730, Anesthesia Intra-o p 0.2 mg Given 04/29/2023 4:38 PM CDT 04/29/2023 12:51 PM CDT 80 mg lidocaine (PF) injection Given Intravenous, INTRA-PROCEDURE MED, Starting on Tue04/29/23 at 1251, Until Tue04/29/23 at 1730, Anesthesia Intra-o p 04/29/2023 3:42 PM CDT 4 mg ondansetron HCL (PF) (ZOFRAN (PF)) Given injection Intravenous, INTRA-PROCEDURE MED, Starting on Tue04/29/23 at 1542, Until Tue04/29/23 at 1730, Anesthesia Intra-o p 04/29/2023 4:22 PM CDT 0.3 mcg/kg/min 39.375 mL/hr phenylephrine (LUIS MIGUEL-SYNEPHRINE) 10 mg in Dose/Rate sodium chloride 0.9% (NS) 250 mL IV drip Change (std conc) 250 mL, Intravenous, INTRA-PROCEDURE MED(CONT), Starting on Tue04/29/23 at 1437, Until Tue04/29/23 at 1730, Anesthesia Intra-op 0.5 mcg/kg/min 65.625 mL/hr Dose/Rate Change 04/29/2023 4:10 PM CDT 0.3 mcg/kg/min 39.375 mL/hr Infusion Restarted 04/29/2023 3:58 PM CDT 0.3 mcg/kg/min 39.375 mL/hr Dose/Rate Change 04/29/2023 3:51 PM CDT 0.5 mcg/kg/min 65.625 mL/hr Dose/Rate Change 04/29/2023 3:39 PM CDT 0.3 mcg/kg/min 39.375 mL/hr Dose/Rate Change 04/29/2023 3:22 PM CDT 0.2 mcg/kg/min 26.25 mL/hr Dose/Rate Change 04/29/2023 3:15 PM CDT 0.3 mcg/kg/min 39.375 mL/hr Infusion Restarted 04/29/2023 3:09 PM CDT 0.3 mcg/kg/min 39.375 mL/hr Dose/Rate Change 04/29/2023 3:00 PM CDT 0.2 mcg/kg/min 26.25 mL/hr Infusion Restarted 04/29/2023 2:52 PM CDT 0.2 mcg/kg/min 26.25 mL/hr Dose/Rate Change 04/29/2023 2:43 PM CDT 0.3 mcg/kg/min 39.375 mL/hr Dose/Rate Change 04/29/2023 2:39 PM CDT 50 mcg Bolus 04/29/2023 2:38 PM CDT 0.2 mcg/kg/min 26.25 mL/hr Given - New Bag 04/29/2023 2:37 PM CDT 0.5 mcg/kg/min 65.625 mL/hr Given - New Bag 04/29/2023 1:33 PM CDT 04/29/2023 2:55 PM CDT 200 mcg phenylephrine (LUIS MIGUEL-SYNEPHRINE) injection Given syringe Intravenous, INTRA-PROCEDURE MED, Starting on Tue04/29/23 at 1326, Until Tue04/29/23 at 1730, Anesthesia Intra-o p 200 mcg Given 04/29/2023 1:40 PM CDT 100 mcg Given 04/29/2023 1:38 PM CDT 200 mcg Given 04/29/2023 1:37 PM CDT 100 mcg Given 04/29/2023 1:33 PM CDT 100 mcg Given 04/29/2023 1:26 PM CDT 04/29/2023 1:45 PM CDT 100 mcg/kg/min 48.42 mL/hr propofoL (DIPRIVAN) infusion Infusion 100 mL, Intravenous, INTRA-PROCEDURE Restarted MED(CONT), Starting on Tue04/29/23 at 1325, Until Tue04/29/23 at 1730, Anesthesia Intra-op 100 mcg/kg/min 48.42 mL/hr Given - New Bag 04/29/2023 1:32 PM CDT 04/29/2023 12:51 PM CDT 200 mg propofol (DIPRIVAN) injection Given - New Intravenous, INTRA-PROCEDURE MED, Bag Starting on Tue04/29/23 at 1251, Until Tue04/29/23 at 1730, Anesthesia Intra-o p 04/29/2023 1:45 PM CDT 0.08 mcg/kg/min 7.747 mL/hr remifentanyl 1000mcg in NS 20mL Infusion (50mcg/mL)(OR) Restarted Intravenous, INTRA-PROCEDURE MED(CONT), Starting on Tue04/29/23 at 1325, Until Tue04/29/23 at 1730, Anesthesia Intra-o p 0.08 mcg/kg/min 7.747 mL/hr Given - New Bag 04/29/2023 1:32 PM CDT 04/29/2023 3:28 PM CDT 20 mg rocuronium injection Given Intravenous, INTRA-PROCEDURE MED, Starting on Tue04/29/23 at 1251, Until Tue04/29/23 at 1730, Anesthesia Intra-o p 30 mg Given 04/29/2023 2:10 PM CDT 50 mg Given 04/29/2023 12:51 PM CDT 04/29/2023 12:32 PM CDT sodium chloride 0.9 % infusion Infusion 1,000 mL, 1,000 mL, Intravenous, at 20 Restarted mL/hr, CONTINUOUS, Starting on Tue04/29/23 at 1230, Until Tue04/29/23 at 1844, Pre-Op 1,000 mL 20 mL/hr Given - New Bag 04/29/2023 12:30 PM CDT 04/29/2023 1:05 PM CDT sodium chloride 0.9 % infusion Given - New Intravenous, INTRA-PROCEDURE MED(CONT), Bag Starting on Tue04/29/23 at 1305, Until Tue04/29/23 at 1730, Anesthesia Intra-o p 04/29/2023 4:55 PM CDT 200 mg sugammadex (BRIDION) injection Given Intravenous, INTRA-PROCEDURE MED, Starting on Tue04/29/23 at 1655, Until Tue04/29/23 at 1730, Anesthesia Intra-o p 04/29/2023 2:12 PM CDT 0.5 Units vasopressin (VASOSTRICT) 20 unit/mL 20 Given - New Units in sodium chloride 0.9% (NS) 20 mL Bag IV Syringe 20 mL, Intravenous, INTRA-PROCEDURE MED(CONT), Starting on Tue04/29/23 at 1412, Until Tue04/29/23 at 1730, Anesthesia Intra-op 2 Units Given - New Bag 04/29/2023 1:53 PM CDT documented in this encounter Additional Health Concerns Noted Time Assessment 04/29/2023 5:30 PM CDT A fall risk assessment has been complet ed for the patient documented as of this encounter Care Teams Start Date End Date Duty Manager Relationship Specialty 04/26/23 Alexia Benavides APRN PCP - General Family Medicine [address] [facility] [place] [place] [address] documented as of this encounter
--- OUTSIDE RECORDS SUMMARY | 2023-05-03 14:37 | XMS REPORT | Encounter Summary ---
Author Author [facility] Organization [facility] Address Unknown Phone Unavailable Care Team Providers Care Complementary Health Therapists Name Role Phone MakaylaAlexia PERSONAL DEVELOPMENT EDUCATOR PCP Reason for Referral * Radiology Services (Routine) - Authorized Diagnoses / Procedures [facility]erred By [facility] Procedures MRI HEAD WO/W CONTRAST Jorge Hester MD [address] [facility] [place] [address] [place] [address] Radiology Referral ID Status Reason Start Date Expiration Visits Vi sits Date Requested Authorized [id number] Authorized 04/26/2023 04/26/2024 1 1 * Consult, Test & Treat (Routine) - [facility] Rad Onc Dept Reviewed Diagnoses / Procedures Referred By Contact Referred To Conta ct Specialty Diagnoses Brain mass Jorge Hester MD [address] [facility] [place] [address] Cc Radiation Therapy [address] [place] [address]. [place] [address] Radiation Therapy Referral ID Status Reason Start Date Expiration Visits Vi sits Date Requested Authorized [id number] [facility] Rad Onc Specialty Services 04/26/2023 04/26/2024 1 1 Dept Required Reviewed Answer Question No Laterality Laterality Brain Specific Area Treatment Site 5 Number of Treatments 30 Gy Total Dose 05/13/23 Requested Simulation Date Photon Treatment Modality SRT TX Technique No Special Treatment Required Supine, SRS Mask Immobilization Yes - MRI Post Op Fusion No Concurrent Chemo N/A Special Instructions? Comments RADIATION SIMULATION ORDER DATE: 04/26/2023 Identification: Johnny Bautista is a 77 y.o. year old male with No diagnosis found.. Lab Results Component Value Date/Time BUN 16 04/26/2023 12:50 AM CR 0.95 04/26/2023 12:50 AM ALBUMIN 4.3 04/26/2023 12:50 AM CA 9.5 04/26/2023 12:50 AM CO2 20 (L) 04/26/2023 12:50 AM CL 97 (L) 04/26/2023 12:50 AM GLU 112 (H) 04/26/2023 12:50 AM K 3.5 04/26/2023 12:50 AM NA 132 (L) 04/26/2023 11:00 AM TOTBILI 0.8 04/26/2023 12:50 AM TOTPROT 7.4 04/26/2023 12:50 AM ALT 22 04/26/2023 12:50 AM ALKPHOS 67 04/26/2023 12:50 AM AST 31 04/26/2023 12:50 AM No current facility-administered medications for this visit. No current outpatient medications on file. Facility-Administered Medications Ordered in Other Visits: acetaminophen (TYLENOL) tablet 650 mg, 650 mg, Oral, Q4H PRN, Marichuy Saez MD amLODIPine (NORVASC) tablet 5 mg, 5 mg, Oral, QDAY, Fabi Parmar PERSONAL DEVELOPMENT EDUCATOR-DIE CUTTER OPERATOR, 5 mg at 04/26/23 1007 And lisinopriL (ZESTRIL) tablet 10 mg, 10 mg, Oral, QDAY, Fabi Parmar PERSONAL DEVELOPMENT EDUCATOR- DIE CUTTER OPERATOR, 10 mg at 04/26/23 1007 docusate (COLACE) capsule 100 mg, 100 mg, Oral, BID, Marichuy Saez MD fentaNYL citrate PF (SUBLIMAZE) injection 25-50 mcg, 25-50 mcg, Intravenous, Q1H PRN, Marichuy Saez MD magnesium oxide (MAGOX) tablet 400 mg, 400 mg, Oral, PRN, Yanci Marlow APRN-NP Or magnesium sulfate 1 g/D5W 100 mL IVPB, 1 g, Intravenous, PRN (Bag Mender from Rx), Yanci Marlow APRN-NP milk of magnesium oral suspension 30 mL, 30 mL, Oral, QDAY, Marichuy Saez MD ondansetron HCL (PF) (ZOFRAN (PF)) injection 4 mg, 4 mg, Intravenous, Q6H PRN, Marichuy Saez MD oxyCODONE (ROXICODONE) tablet 5-10 mg, 5-10 mg, Oral, Q4H PRN, Marichuy Saez MD potassium chloride SR (K-DUR) tablet 40-60 mEq, 40-60 mEq, Oral, PRN, Yanci Marlow APRN-NP, 40 mEq at 04/26/23 1431 Or potassium chloride oral solution 40-60 mEq, 40-60 mEq, Per NG tube, PRN, Yanci Marlow APRN-NP Or potassium chloride in water IVPB 10 mEq, 10 mEq, Intravenous, PRN (Bag Mender from Rx), Yanci Marlow APRN-NP sennosides-docusate sodium (SENOKOT-S) tablet 1 tablet, 1 tablet, Oral, BID, Marichuy aSez MD No Known Allergies Special Instructions: Encounter Details Care Team Description Date Type Department Jorge Hester MD [address] [facility] [place] [address] Brain mass (Primary Dx) 04/26/2023 Orders Only Radiation Oncology: Serena Rolle Rad Oncology [place] [address] [facility] [place] [id number] Social History Date Tobacco Use Types Packs/Day [...] impairment: No documented as of this encounter Plan of Treatment Order Schedule Name Type Priority Associated Diag noses Expected: 05/13/2023 (Approximate), Expi res: 04/26/2024 MRI HEAD WO/W CONTRAST Imaging Routine Brain m ass Order Schedule Name Type Priority Associated Diag noses Ordered: 04/26/2023 RADIATION THERAPY Outpatient Routine Brain mass SIMULATION Referral documented as of this encounter Goals Goal Patient Associated Recent Progress Patient-Stat Aut hor Goal Type Problems ed? Resume normal activities Hospital On track (04/26/2023 Yes Eloy, 5:35 PM CDT) ABDIEL Freeman Note: Walk without falling down documented as of this encounter Visit Diagnoses Diagnosis Brain mass - Primary Unspecified condition of brain documented in this encounter Additional Health Concerns Noted Time Assessment 04/26/2023 7:23 PM CDT A fall risk assessment has been complet ed for the patient documented as of this encounter Care Teams Start Date End Date Complementary Health Therapists Relationship Specialty 04/26/23 Alexia Benavides APRN PCP - General Family [facility] [address] [place] [address] documented as of this encounter
--- OUTSIDE RECORDS SUMMARY | 2023-05-03 14:37 | XMS REPORT | Encounter Summary ---
Author Author [facility] Organization [facility] Address Unknown Phone Unavailable Care Team Providers Care Federal Appellate Law Clerk Name Role Phone Alexia Benavides CABLE MACHINE OPERATOR PCP Reason for Visit * Auth/Cert (Routine) Diagnoses / Procedures Referred By Contact Referred To Conta ct Specialty Diagnoses Brain mass fall - new brain mass Referral ID Status Reason Start Date Expiration Visits Vi sits Date Requested Authorized [id number] 1 1 Encounter Details Care Team Description Date Type Department Glenn Flores MD [address] Ortho/Med Pavilion Lvl 2B [place] [address] Suboccipital crainiotomy for resection o f mass 04/29/2023 Surgery Operating Room: [facility] 11:[address] 04/29/2023 Level 3 3:[address] [facility] [id number] Surgery Details Patient Class Case Class Case Type Trauma Case? Date/Time Status Location OR Service Inpatient Elective - Treating conditio ns that are not life or limb threatening 04/29/23 Posted CA3 OR CA3 OR01 Neurosurge 11:20 AM ry Comments Panel 1 Procedure LRB Anes Op Region Wound Cl ass Prone; brain lab, neuro saray, 3 hrs Suboccipital crainiotomy Left General Head C lean for resection of mass MICROSURGICAL TECHNIQUES Left Defer to Head C lean - REQUIRING OPERATING Anesthesia MICROSCOPE USE Surgeon Role Service Panel Surgeon Primary Neurosurgery 1 Glenn Flores MD Resident - Assisting Neurosurgery 1 Gaurav Gimenez MD documented in this encounter Social History Date [...] Signs Reading Time Taken Comments Vital Sign 152/91 04/29/2023 9:39 AM CDT Blood Pressure 62 04/29/2023 9:39 AM CDT Pulse 36.7 C (98 F) 04/29/2023 9:39 AM CDT Temperature - - Respiratory Rate 98% 04/29/2023 9:39 AM CDT Oxygen Saturation - - Inhaled [...] 05/03/2023 PLAN: Pt will dc to [facility] today around 1130 via family trans port. Expected Discharge Date: 05/03/2023 12:00 PM Is Patient Medically Stable: Yes Are there Barriers to Discharge? no INTERVENTION/DISPOSITION: Discharge Planning Discharge Planning: No Needs Identified SW was notified insurance was approved. Family will be at the hospital by noon today to transport pt to [facility]. Has to be there by 3pm to be admitted. SW notified provider Precious of dc today at 1130 SW notified bedside nurse of dc today at 1130 and provided number for report. Said family is parking at the [facility] parking and nurse can bring him down. SW printed and delivered transfer packet to pt bedside. SW notified pt's family of dc today . REPORT [phone] SW faxed dc orders to [phone] Transportation Does the Patient Need Case Management to Arrange Discharge Transport ? (ex: facility, ambulance, wheelchair/stretcher, Medicaid, cab, other): No Will the Patient Use Family Transport?: Yes Transportation Name, Phone and Availability #1: Norbert Pacheco [phone] Support Support: Pt/Family Updates re:POC or DC [...] LMSW Social Work Case Management Available on Akampus * Geovanna Arteaga - 05/02/2023 5:56 PM CDT Per vm from [facility], this member has been approved for care at [facility] in [place] starting 04/30/23-05/13/23. Auth number is [id number]. Geovanna Arteaga Finish Painter * Geovanna Arteaga - 05/02/2023 4:55 PM CDT Request to check [facility] status per OCTAVIO Dunbar. Auth is still pend ing at this time, Geovanna Arteaga Finish Painter * Aletha Toribio - 05/02/2023 1:15 PM CDT [facility] Note: Request from OCTAVIO Dunbar to check [employer] status, auth is still pend ing. [facility] updated [employer] with chosen facility and sent updated clinical throu gh the portal. Aletha Toribio Finish Painter For additional assistance please contact [facility] * * Mary Green LMSW - 05/02/2023 [...] if therapy says this would be safe. [place] IPR can clinically accept. Waiting on insurance auth. Will have a b ed tomorrow. Have to be there by 3pm that day. Checked with therapy to see if family could safely transport pt to rehab. Therap y said family could transport. SW tasked BACCARAT DEALER to check status of auth through [facility] and add [facility] as identified facility. Auth is still pending. Transportation Does the Patient Need Case Management to Arrange Discharge Transport ? (ex: facility, ambulance, wheelchair/stretcher, Medicaid, cab, other): No Will the Patient Use Family Transport?: Yes Transportation Name, Phone and Availability #1: Tara [phone] Support Support: Pt/Family Updates re:POC or DC [...] have been selected for the patient. SHAWNA uDnbar LMSW Social Work Case Management Available on Akampus * Maida Kellogg - 04/30/2023 3:08 PM CDT Lefty Note PENDING Plan Auth ID : Lefty Auth ID : [id number] Service : IRF non-contracted Dates : NRD [...] Planning: No Needs Identified SW was notified pt will nee d IPR placement. SW called pt's to discuss possible placement but it kept going straight to [facility]. Reached pt's Tara and she put her kids on the call as well, so SW could disc uss possible facility options. Would prefer to get closer to home and go to [facility]. SW tasked BACCARAT DEALER to start auth through [facility] for IPR. UVALDO sent a referral to [facility]. Transportation Does the Patient Need Case Management to Arrange Discharge Transport ? (ex: facility, ambulance, wheelchair/stretcher, Medicaid, cab, other): No Will the Patient Use Family Transport?: Yes Transportation Name, Phone and Availability #1: Tara [phone] Support Support: Pt/Family Updates re:POC or DC [...] LMSW Social Work Case Management Available on Akampus * Glory Cowan, RN - 04/29/2023 3:09 PM CDT Case [...] Name, Phone and Availability #1: Norbert Pacheco [phone] Support Support: Pt/Family Updates re:POC or DC [...] services have been selected for the patient. ABDIEL Pablo RN, BSN Nurse [facility]arer Available on Voalte * Glory Cowan RN - 04/26/2023 11:21 AM CDT Case Management Admission Assessment NAME:Johnny Bautista :[birth year] AGE: 77 y.o. ADMISSION DATE: 04/26/2023 DAYS ADMITTED: LOS: 0 days Todays Date: 04/26/2023 Source of Information: Patient and EMR. Problem: 8/21 AM lost balance and fell on his face on to concrete. Was taken by EMS to [facility]. Initial imaging with CT showed a left [...] with SW/NCM Services Patient Address/Phone [address] [facility] [address] There are no phone numbers on file. [...] Transportation Name, Phone and Availability #1: Tara [phone] Expected Discharge Date 04/29/2023 Living Situation Prior [...] Additional Coverage: RX (Medicare Part D and [facility] AARP) Source of Income Source Of Income: [...] Home and community based services: No [place] White: N/A Hospice Hospice: No Outpatient Therapy PT: No OT: No WARP TENSION TESTER: No Usp Facility/Long-Term SNF: No NH: No Inpatient Rehab IPR: No Long-Term Acute Care Hospital LTACH: No Acute Hospital Stay Acute Hospital Stay: In the past Was patient's stay within the last 30 days?: No Glory Cowan RN, BSN Nurse [facility] Available on Voalte documented in this encounter Discharge Instructions * Instructions* Carolyn Dobbins RN - 04/29/2023 3:51 PM CDT Johnny Bautista Suboccipital Craniotomy for Resection of Mass on 04/29/2023 with Glenn Flores MD Neurosurgery Discharge Instructions Contact information: Call the Neurosurgery clinic if you have questions or are experiencing problems at [phone]. After 5 PM, weekends, holidays please call [phone] to reach Neurosurgery reclamation worker. Post-operative wound care: Your incision has sutures [...] Advil, Aleve, Motrin, Naproxen) until Doctor appr ish. Pain medications can make you constipated. Please take stool softeners to aid t his process. Tylenol is approved for pain control. This is available over the counter. Follow up appointment: Scheduled appointments: May 11, 2023 1:30 PM Telehealth visit with BERNARDA Canas Neurosurgery: Medical Pavilion (NeuroSurgery) [address] [facility] [address] [facility]. [address] 3, [address] [facility] [id number] May 13, 2023 11:30 AM Simulation with Jorge Hester MD Radiation Oncology: [facility] Rolle Rad Oncology Pavilion ([facility] Radiat ion Oncology) [address] [facility]. [facility] [address] May 17, 2023 11:45 AM (Arrive by 11:15 AM) MRI HEAD WO/W CONTRAST with MRI - [place] (1.5T) Imaging, MRI: [place] ([facility] Radiology) [address] [facility] [id number] May 26, 2023 4:00 PM Postoperative visit with Glenn Flores MD Neurosurgery: [facility] (NeuroSurgery) [address] [facility]. [address] 3, [address] [facility] [phone] Reasons to call the Neurosurgery Clinic ([phone]): Concerning lethargy (sleepiness), decreased level of consciousness, [...] Means Destination Disposition Wheelchair Rehab Facility (Not TUS) documented in this encounter Progress Notes * Elizabeth Alexis RN - 05/03/2023 10:39 AM CDT 1030: discharge paperwork gone over with Pt. Pt's peripheral IV removed. 1130: Pt transported to front of [facility]. All Pt belongings with Pt. P t's family to transport Pt to [facility]. All paperwork given to Pt. 1145: Report given Yany MEADOWS. * Jc Lang APRN-SOY - 05/03/2023 6:43 AM CDT Neurosurgery Progress [...] assessed for need for restraints. Please page [phone] with any questions. BERNARDA Lopez Voalte me * Dot Moon OT - 05/02/2023 2:24 PM CDT OCCUPATIONAL THERAPY NOTE Name: Johnny Bautista : 1945 Age: 77 y.o. Admission Date: 04/26/2023 LOS: 6 days Date of Service: 05/02/2023 Patient unavailable as provider at bedside for extended period of time. OT will continue to follow and provide intervention as indicated. Therapist: Dot Moon, OTR/L [id number] Date: 05/02/2023 * Marilee Decker, PT - [...] Decker, PT Date: 05/02/2023 * Jc Lang APRN-CHIEF DEVELOPMENT OFFICER - 05/02/2023 8:47 AM CDT Neurosurgery Progress [...] assessed for need for restraints. Please page [phone] with any questions. BERNARDA Lopez Voalte me * Gaurav Gimenez MD - 05/01/2023 7:13 AM CDT Neurosurgery Progress Note Admission Date: 04/26/2023 LOS: 5 days S: No acute overnight events. Patient seen this morning without family at the [facility]. He reports no new concerns this AM. [...] section cavity Na 136-chronic hyponatremia, [facility] following, will need [...] assessed for need for restraints. Please page [phone] with any questions. Gaurav Gimenez MD Voalte [...] functional mobility. Therapist Priya [place]ill[place] DPT [id number] Date 04/30/2023 * Brenna Dean, OT - 04/30/2023 1:10 PM CDT OCCUPATIONAL [...] Tub: Walk-in Shower Prior Function Level Of [place]: Independent with ADLs and functional transfers Lives [...] Patient Will Perform All ADL's: w/ Modified [place] Functional Transfer Goals Pt Will Perform All Functional Transfers: w/ Stand By Assist OT Discharge Recommendations Recommendation: Inpatient setting;Recommend rehab medicine consult Patient Currently Requires Physical Assist With: All mobility;All personal care ADLs Therapist: ELLIOT Oneill/Angel [id number] Date: 04/30/2023 * Gaurav Gimenez MD - 04/30/2023 7:21 AM CDT Neurosurgery Progress Note Admission Date: 04/26/2023 LOS: 4 days S: No acute overnight events. Patient seen this morning without family at the [facility]. He reports no new concerns this AM. [...] assessed for need for restraints. Please page [phone] with any questions. Gaurav Gimenez MD Voalte me * Sea Mejia RN - 04/29/2023 7:18 PM CDT I have reviewed the notes, assessments, and/or procedures performed by ABDIEL Gonzalez, and concur with her/his documentation unless otherwise noted. * Jc Lang, CABLE MACHINE OPERATOR-CHIEF DEVELOPMENT OFFICER - 04/29/2023 10:55 AM CDT Neurosurgery Progress [...] assessed for need for restraints. Please page [phone] with any questions. BERNARDA Lopez Voalte me [...] assessed for need for restraints. Please page [phone] with any questions. BERNARDA Lopez Voalte me * Lubna Molina APRN-NP - 04/28/2023 10:23 AM CDT Oncology Consult Progress Note Name: Johnny Bautista Today's Date: 04/28/2023 Admission Date: 04/26/2023 LOS: 2 days Assessment/Plan: Principal Problem: Brain mass Brain mass Left lung mass - +hx tobacco use, quit in Sep/ Oct 2019 - 04/26 MRI head: L [...] diagnosis - Med Onc follow up at [facility] after discharge, patient may wish to receive ongoing treatments closer to home in [facility] Patient discussed with Dr. Adkins Subjective Johnny [...] Pertinent radiology reviewed. Lubna Molina APRN Pager [phone] Voalte * Brenda Alonzo, PT - 04/27/2023 [...] Bed (OT in room at end of se ssion) Balance Sitting Balance: Standby Assist Standing Balance: [...] walker and minimal assistance. Patient's score indicates jasmine baird is a household walker and requires intervention [...] (3 step entry) Prior Function Level Of [place]: Independent with ADLs and functional transfers Lives [...] care ADLs;All home functioning ADLs Comments: Recommend WARP TENSION TESTER cognitive evaluation postop either here or at next level of care. Therapist: Swetha Weldon OT Date: 04/27/2023 * Jc Lang APRN-SOY - 04/27/2023 10:45 AM CDT Neurosurgery Progress [...] assessed for need for restraints. Please page [phone] with any questions. BERNARDA Lopez Voalte me * Swetha Weldon OT - 04/26/2023 3:49 PM CDT OCCUPATIONAL [...] DME. Will continue to follow. Therapist: Swetha Weldon, OT Date: 04/26/2023 * Evelin Holt, PT [...] that balance deficits may be visuospatial in juna ure but could be difficult to determine [...] Holt, PT Date 04/26/2023 * Yanci Marlow APRN-CHIEF DEVELOPMENT OFFICER - 04/26/2023 9:21 AM CDT Neurosurgery Progress [...] assessed for need for restraints. Please page [phone] with any questions. 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 s Neuro: Cerebellar mass, facial fractures -Likely OR Tuesday per Neurosurgery - Trauma to see for facial injury - Will discuss with nsgy about dexamethasone - close neuro checks Sedation/Pain Management: Tylenol and oxycodone and Zofran Cardiac: History of hypertension hyperlipidemia blood pressure goal <160 Can restart home BP meds hold SLASHER RUNNER aspirin Respiratory: Stable on room air GI: [...] supervising any procedures) providing and personally directi ng critical care services including laboratory data review, [...] (04/26 900) Height: 177.8 cm (5' 10") (04/26) Weight: 87.5 kg (192 lb 14.4 oz) (04/26 0400) Admission / Dosing Weight: 87.5 kg (192 lb 14.4 oz) (04/26) BP: (124-165)/ (68-101) Temp: [36.5 C (97.7 F)-36.7 C (98.1 F)] Pulse: [58-82] Respirations: [13 PER MINUTE-17 PER MINUTE] SpO2: [94 %-97 %] O2 Device: None (Room air) Intake/Output Summary: (Last 24 hours) Intake/Output Summary (Last 24 hours) at 04/26/2023 09 Last data filed at 04/26/2023 09 Gross per 24 hour Intake 25 ml [...] procedures reviewed. Nba Sepulveda DO Date: 04/26/[phone] * Leslie Lange RN - 04/26/2023 7:01 [...] concrete. Was taken by EMS to [facility]. Initial imaging with CT showed a left cerebellar mass with mild hydrocephalus and displaced nasal fractures. Requested for transfer out to [facility] e to lack of NSGY services at sending hospital. Patient admitted to [facility] for monitoring and further management by NSGY[facility] to assist with ongoi ng management. Hospital and ICU course: 04/25: Admit to NEICU 04/26: Consulted Oncology, restarted SLASHER RUNNER lotrel. Neuro/ENT: Left Cerebellar Mass, presumably hemorrhagic met w assoc. edema and mass effect Displaced Nasal Fractures - 1 week Hx of Disequilibrium - Lost balance and fell on his face onto concrete 04/25 AM - Taken by EMS to [facility] - CTH, Face, Neck @ OSH: 3.7 [...] delirium daily Cardiac: HTN HLD - Restarted SLASHER RUNNER Lotrel 5/10 mg Daily, - Continue to gold HCTZ 12.5 mg Daily, ASA81 mg - SBP goal: <160 - MAP goal > 65 Plan: - Restarted SLASHER RUNNER Lotrel - Hold HCTZ if surgery necessitated [...] 24 Hour Ra nge BP: 138/78 (04/26 600) Temp: 36.7 C (98.1 F) (04/26 400) [...] (192 lb 14.4 oz), SpO2 94 %. [place] coma score: E: 4 - Opens eyes [...] with consulted teams BERNARDA Dalal Date: 04/26/[phone] * Eneida Willis RN - 04/26/2023 6:27 [...] exam pt is AOx3, no focal deficits. SLASHER RUNNER ASA 81 - No acute neurosurgical intervention - NEICU admission, EVD watch - MRI w/wo contrast, tumor protocol - CT CAP to evaluate for metastatic disease - NPO for possible surgical intervention - Hold steroids until after MRI head - Hold AC/AP Marichuy Saez MD Neurological Surgery, PGY-2 Please page [phone] with questions. History of Present Illness: Johnny [...] he was taken by EMS to [facility]. Denied any headaches. Initial imaging with CT showed a left cerebellar mass with mild hydrocephalus and displaced nasal fractures. Transfered to for higher level o f care. Pt has history of prostate cancer in 2009, was treated with brachytherapy. Follo ws PSA yearly, states levels have been low. Does not follow with oncologist Past Medical History: History of prostate cancer Past Surgical History: No past surgical history on file. Social History: Family History: Non contributory Allergies: Patient has no allergy information on record. Medications: SLASHER RUNNER: No current outpatient medications Inpatient: Scheduled Meds:Continuous [...] MD - 04/29/2023 4:02 PM CDT THE [address] [id number] PATIENT NAME: JOHNNY BAUTISTA MR#/PT#: [id number] Page 1 OPERATIVE REPORT DATE OF OPERATION: 04/29/2023 SURGEON: Glenn Flores MD INBOUND SALES MANAGER(S): Dr. Gaurav Gimenez. PREOPERATIVE DIAGNOSIS: Posterior fossa brain tumor. POSTOPERATIVE DIAGNOSIS: The same. OPERATIVE PROCEDURE: Suboccipital craniotomy, resection of posterior fossa brain tumor. ANESTHESIA: General. FINDINGS: The frozen section was consistent with a brain metastasis. DESCRIPTION AND FINDINGS OF OPERATIVE PROCEDURE: Under general anesthesia, the patient's head was fixed in [place] overhead door technician. The patient was put in the prone [...] nylon for closure of the skin. The pat ient tolerated the procedure well, then was transferred to the intensive care un it for further monitoring and care. ESTIMATED BLOOD LOSS: 150 mL. SPECIMENS REMOVED: Posterior fossa brain tumor. MD LIA Ghotra / MEDQ /[id number] cc: - Glenn Flores MD documented in this encounter Consult Notes * Dev Alberto, DO - 05/01/2023 2:51 PM CDTAssociated Order(s): CONSULT REHABILITATION MEDICINE PHYSICIAN Physical Medicine & Rehabilitation Consult Service Name: Johnny Bautista : 1945 Age: 77 y.o. Admission Date: 04/26/2023 LOS: 5 days Date of Service: 05/01/2023 Date of Service: 05/01/2023 Financial Class: Payor: [facility] MEDICARE / Plan: [facility] MEDICARE REPLACEMENT - [id number] / Product Type: Medicare / Referring Physician: Glenn Flores MD Reason for Consult: evaluate for Post-Acute Rehab/Placement Precautions: Fall, Weight Bearing Precautions: none Assessment & Plan: Principal Problem: Brain mass Active Problems: Chronic hyponatremia HTN (hypertension) HLD (hyperlipidemia) Gait abnormality Impaired mobility/ADLs Impaired transfers Johnny Bautista is a 77 y.o. year old male [facility] 04[facility]23 with the following issues: non-traumatic [...] [facility] However we understand patient's current [...] 3 therapeutic disciplines, including PT, OT, and WARP TENSION TESTER. This will need to be determined prior [...] concerns. Dev Alberto, DO Rehab Consult Pager: Voalt History of Present Illness: CC: Brain mass [...] reluctant and is currently pursuing discharge ho me. The primary team has consulted PT and OT, and will continue working with therapi es to address functional and mobility deficits, rehab is now consulted for post- acute rehab/placement recommendations. WARP TENSION TESTER has not yet been consulted. The patient's family/social support consists of: Multiple family members. Medical History: Diagnosis Date Prostate cancer (HCC) 2009 Surgical History: Procedure Laterality Date Suboccipital crainiotomy for resection of mass Left 04/29/2023 Performed by Glenn Flores MD at [facility] OR MICROSURGICAL TECHNIQUES - REQUIRING OPERATING MICROSCOPE USE Left 04/29/2023 Performed by Glenn Flores MD at [facility] OR Social History Socioeconomic History Marital status: [...] at the sink and at the toilet. WARP TENSION TESTER COGNITIVE EVALUATION SUMMARY PRAGMATICS: BEHAVIOR: AUDITORY COMPREHENSION: [...] with PT, OT and may benefit from WARP TENSION TESTER cognitive evalua tion. he would be able [...] Brenner MD Date: 05/01/2023 * Leia Yang, FREDRICK-CHIEF DEVELOPMENT OFFICER - 04/29/2023 5:03 PM CDTAssociated Order(s): CONSULT [...] for th e past week. Initially admitted 04/25 AM after he lost balance and fell on his fa ce on to concrete. Was taken by EMS to [facility]. Initial imaging with CT showed a left cerebellar mass with mild hydrocephalus and displaced desmond al fractures. Requested for transfer to due to lack of NSGY services at [facility]. He now presents back to [facility] s/p crani for resection of the left c erebellar mass. Hospital and ICU course: 04/25: Admit to NEICU 04/29: Return to NEICU post op Neuro/ENT: Left Cerebellar Mass Displaced Nasal Fractures - 1 week Hx of Disequilibrium - Lost balance and fell on his face onto concrete 04/25 AM - Taken by EMS to [facility] - CTH, Face, Neck: 3.7 cm x [...] for delirium daily Cardiac: HTN HLD - SLASHER RUNNER Meds: Lotrel 10 mg Daily, HCTZ 12.5 mg Daily, ASA 81 mg Plan: - SBP goal < 160 mmHg - MAP goal > 65 - PRN Labetalol and Hydralazine to maintain BP goals - Continue amlodipine 5mg daily, lisinopril 10mg daily - Hold ASA post op Respiratory: h/o Tobacco abuse (quit Sep/Oct 2019) Left upper lobe perihilar mass (3.6x [...] goal >4.0 mEq/L Primary service: NSGY Consults: RICHARD SUBJECTIVE Chief Complaint: Fall, Left Cerebellar Mass History of Present Illness: Johnny Bautista is a 77 y.o. male with a Medical Hx. Significant for HTN, HLD, Pr ostate Cancer, Knee Surgery. Patient had been experiencing gait imbalance for th e past week. 8/21 AM lost balance and fell on his face on to concrete. Was taken by EMS to [facility]. Initial imaging with CT showed a left cereb ellar mass with mild hydrocephalus and displaced nasal fractures. Requested for transfer out to due to lack of NSGY services at sending hospital. Patient adm itted to [facility] for monitoring and further management by NSGY. He now presents back to [facility] s/p crani for resection of the [...] vacc, 100 mcg/0.5 mL (PF) 10/02/2020, 10/30/2020, 09/23/2020, 12/09/2021 Allergies: Patient has no known [...] Signs: Last Filed Vital Signs: 24 Hour [facility] BP: 152/91 (04/29 939) Temp: 36.7 C [...] or performed during the hospital encounter of 08/22/23 (from the past 24 hour(s)) BASIC METABOLIC [...] of care with consulted teams Leia Yang, CABLE MACHINE OPERATOR-CHIEF DEVELOPMENT OFFICER Date: 04/29/[phone] * Jorge Hester MD - 04/26/2023 5:47 [...] and previous smoking history now admitted to [facility] following a fall with imaging work-up showing a cerebellar mass. Patient notes an approximate 2-week history of difficulty with balance. He suff ered a fall on April 25 and was admitted locally where head CT showed a cerebel lar mass and nasal fractures. He was transferred to [facility] for further care. Brain MRI today [...] r mass and he was transferred to [facility] for further care. He has had [...] He has been evaluated by neurosurgery w ith recommendations for surgical resection, tentatively scheduled for 3 days fro m now. We agree with recommendations for surgical resection of his dominant bra in mass and would plan for postoperative radiation to the operative bed. We rosi solorzano make arrangements for CT simulation and treatment [...] the referring provider, Riaz Lozoya MD. * Lubna Molina APRN-NP - 04/26/2023 1:17 PM CDTAssociated Order(s): CONSULT ONCOLOGY PHYSICIAN Duplicate order. See Onc consult note signed by Dr. Adkins on 04/26/23. * Lubna Molina APRN-NP - 04/26/2023 9:28 AM CDTAssociated Order(s): CONSULT [...] diagnosis - Med Onc follow up in [facility] [place] after discharge Thank you for this consult. Please page with questions. Patient seen and discuss ed with Dr. Adkins. History of Present Illness: Johnny Bautista is a 77 y.o. male who presented to [facility] on 04/26/23 with c/o gait imbalance for the past week. Yesterday morning he fell and was taken to a local hospital. 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 He was transferred to [facility] for care. Other than gait disturbances, he [...] Pertinent radiology reviewed. Lubna Molina APRN Pager [phone] Voalte Associated attestation - Deshawn Adkins MD [...] for NGS. We will make more spec [facility] recommendation of systemic therapy after pathology and [...] to concrete. Was taken by EMS to [facility]. Initial imaging with CT showed a left cereb ellar mass with mild hydrocephalus and displaced nasal fractures. Requested for transfer out to due to lack of NSGY services at sending hospital. [facility] NEICU consulted to assist with ongoing management. 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 04/25 AM lost balance and fell on his face on to concrete. Was taken by EMS to [facility]. Initial imaging with CT showed a left cereb ellar mass with mild hydrocephalus and displaced nasal fractures. Requested for transfer out to due to lack of NSGY services at sending hospital. Patient adm itted to [facility] for monitoring and further management by NSGY. [...] were no vitals taken for this visit. [place] coma score: E: 4 - Opens eyes [...] nostic procedures reviewed. WALTER Marinelli Date: 04/25/[phone] documented in this encounter Nursing Notes * Carolyn Dobbins RN - 05/03/2023 10:39 AM CDT Johnny Bautista Suboccipital Craniotomy for Resection of Mass on 04/29/2023 with Glenn Flores MD Neurosurgery Discharge Instructions Contact information: Call the Neurosurgery clinic if you have questions or are experiencing probl ems at [phone]. After 5 PM, weekends, holidays please call [phone] to reach Neurosurger y reclamation worker. Post-operative wound care: Your incision has dissolving [...] BERNARDA Canas Neurosurgery: [facility] ([facility]uro[facility]gery) [address] [facility] [address] May 13, 2023 11:30 AM Simulation with Jorge Hester MD Radiation Oncology: [facility] ([facility] Radiat ion Oncology) [address] [facility] [id number] May 17, 2023 11:45 AM (Arrive by 11:15 AM) MRI HEAD WO/W CONTRAST with MRI - [place] (1.5T) Imaging, MRI: [place] ([facility] Radiology) [address] [employer] [facility] [id number] May 26, 2023 4:00 PM Postoperative visit with Glenn Flores MD Neurosurgery: [facility] (NeuroSurgery) [address] [facility] [id number] Reasons to call the Neurosurgery Clinic ([phone]): Concerning lethargy (sleepiness), decreased level of consciousness, [...] on speaker phone. Incision with d issolving sutures/clean/dry/JOVANNA. Advised of wound care, activity restrictions, goals [...] integrity intact Outcome: Goal Ongoing Flowsheets (Taken 05/01/2023527) Skin integrity intact: Promote nutrition Assure position [...] for Documentation Clarification Johnny Bautista ; VISIT [id number] Query Response Sent: 04/28/23 17:26 CDT From: JC LANG APRN-NP Query question: Based on the clinical information below, please specify the appr opriate diagnosis below Provider response: Other explanation of clinical findings: Chronic hyponatremia Original Query Sent: 04/28/23 15:29 CDT From: Francisco Leahy, ALLYSSA To: JC LANG APRN-NP This query and [...] (Pressure Injury) Outcome: Goal Ongoing * Care Umair - Eneida Willis RN - 04/26/2023 5:32 [...] PM. Jc Lang DIAGNOSTIC IMAGING ORDERABL ES CABLE MACHINE OPERATOR-CHIEF DEVELOPMENT OFFICER * (ABNORMAL) CBC AND DIFF (05/02/2023 3:45 AM CDT) Pathologist Signature Component Value Ref Test Method Analysis Performed A t Range Time White Blood Cells 10.6 4.5 - 05/02/2023 [facility] DE PT PATH AND 11.0 4:16 AM [...] CDT MCV 92.4 80 - 100 05/02/2023 [facility] DEPT PAT H AND FL 4:16 AM [...] City/State/ZIP Code Phone Number Performing [place] [address], [facility] DEPT PATH AND [address] LAB MEDICINE * (ABNORMAL) BASIC METABOLIC [...] Urea Nitrogen 16 7 - 25 05/02/2023 [facility] DEPT PATH AND MG/DL 4:40 AM LAB MEDICINE CDT Creatinine 0.82 0.4 - 05/02/2023 [facility] DEPT PAT H AND 1.24 4:40 AM LAB MEDICINE MG/DL CDT Calcium 8.9 8.5 - 05/02/2023 [facility] DEPT PAT H AND 10.6 4:40 AM LAB MEDICINE MG/DL CDT eGFR >60 >60 05/02/2023 [facility] DEPT PAT H AND mL/min 4:40 AM LAB MEDICINE CDT Comment: eGFR calculated using the CKD-EPIcr_R equation Anatomical Location / Laterality Collection Method / Volume Gavin ection Time Received Time Specimen (Source) BLOOD / Unknown 05/02/2023 3:45 AM CDT 05/02/20 23 4:05 AM CDT Glenn Flores MD LABORATORY ORDERABLES [facility]/ZIP Code Phone Number Performing [place] [address], [facility] DEPT PATH AND [address] [facility] LAB MEDICINE * IONIZED CALCIUM (05/02/2023 3:45 AM CDT) Pathologist Signature Component Value Ref Test Method Analysis Performed A t Range Time Ionized Calcium 1.12 1.0 - 05/02/2023 [facility] DEPT PATH AND 1.3 4:13 AM LAB MEDICINE MMOL/L CDT Anatomical Location / Laterality Collection Method / Volume Gavin ection Time Received Time Specimen (Source) BLOOD / Unknown 05/02/2023 3:45 AM CDT 05/02/20 4:06 AM CDT Ish Garry [employer] LABORATORY ORDERABLES [facility]/ZIP Code Phone Number Performing [place] [address], [place] DEPT PATH AND [address] [facility] LAB [facility] * PHOSPHORUS (05/02/2023 3:45 AM CDT) Pathologist [...] CDT 05/02/20 23 4:05 AM CDT Ish Castañeda Sharp-Jackie LABORATORY ORDERABLES CABLE MACHINE OPERATOR-CHIEF DEVELOPMENT OFFICER [facility]/ZIP Code Phone Number [place]forming [place] [address], [facility] DEPT PATH AND [address] [facility] LAB MEDICINE * MAGNESIUM (05/01/2023 4:29 AM CDT) Pathologist Signature Component Value Ref Test Method Analysis Performed A t Range Time Magnesium 2.0 1.6 - 05/01/2023 [facility] DEPT PAT H AND 2.6 6:10 AM LAB MEDICINE mg/dL CDT Anatomical Location / Laterality Collection Method / Volume Gavin ection Time Received Time Specimen (Source) 05/01/2023 4:29 AM CDT 05/01/20 23 4:37 AM CDT Marichuy Saez MD LABORATORY ORDERABLES City/State/ZIP Code Phone Number Performing [place] [address], [facility] DEPT PATH AND [address] [facility] LAB MEDICINE * IONIZED CALCIUM (05/01/2023 4:29 AM CDT) Pathologist Signature Component Value Ref Test Method Analysis Performed A t Range Time Ionized Calcium 1.16 1.0 - 05/01/2023 [facility] DEPT PATH AND 1.3 5:02 AM LAB MEDICINE MMOL/L CDT Anatomical Location / Laterality Collection Method / Volume Gavin ection Time Received Time Specimen (Source) BLOOD / Unknown 05/01/2023 4:29 AM CDT 05/01/20 23 4:47 AM CDT Ish J Sharp-Jackie LABORATORY ORDERABLES [facility]/ZIP Code Phone Number Performing [place] [address], [facility] DEPT PATH AND [address] [facility] LAB MEDICINE * PHOSPHORUS (05/01/2023 4:29 AM [...] AM CDT 05/01/20 23 4:37 AM CDT Ish J Sharp-Jackie LABORATORY ORDERABLES [facility]ABLE MACHINE [facility]/ZIP Code Phone Number Performing [place] [address], [facility] DEPT PATH AND [address] [facility] LAB MEDICINE * (ABNORMAL) CBC (05/01/2023 [...] MEDICINE CDT MCHC 35.3 32.0 - 05/01/2023 [facility] DEPT PAT H AND 36.0 4:50 AM LAB MEDICINE G/DL CDT RDW 13.9 11 - 15 05/01/2023 [facility] DEPT PAT H AND % 4:50 AM LAB MEDICINE CDT Platelet Count 232 150 - 05/01/2023 [facility] DEPT PATH AND 400 K/UL 4:50 AM LAB MEDICINE CDT MPV 8.1 7 - 11 05/01/2023 [facility] DEPT PAT H AND FL 4:50 AM LAB MEDICINE CDT Anatomical Location / Laterality Collection Method / Volume Gavin ection Time Received Time Specimen (Source) BLOOD / Unknown 05/01/2023 4:29 AM CDT 05/01/20 4:37 AM CDT Ron Reyna MD LABORATORY ORDERABLES City/State/ZIP Code Phone Number Performing [place] [address], [facility] [[email or web address] DEPT PATH AND [address] [facility] LAB MEDICINE * (ABNORMAL) BASIC METABOLIC PANEL (05/01/2023 4:29 AM CDT) Pathologist Signature Component Value Ref Test Method Analysis Performed A t Range Time Sodium 136 (L) 137 - 05/01/2023 [facility] DEPT PAT H AND 147 5:14 AM LAB MEDICINE MMOL/L CDT Potassium 3.9 3.5 - 05/01/2023 [facility] DEPT PAT H AND 5.1 5:14 AM LAB MEDICINE MMOL/L CDT Chloride 102 98 - 110 05/01/2023 [facility] DEPT PAT H AND MMOL/L 5:14 AM LAB MEDICINE CDT CO2 24 21 - 30 05/01/2023 [facility] DEPT PAT H AND MMOL/L 5:14 AM [...] City/State/ZIP Code Phone Number Performing Address Organization [address] [facility] AND [address] [facility] LAB MEDICINE * MAGNESIUM (04/30/2023 2:25 AM CDT) Pathologist Signature Component Value Ref Test Method Analysis Performed A t Range Time Magnesium 1.8 1.6 - 04/30/2023 [facility] DEPT PAT H AND 2.6 3:52 AM LAB MEDICINE mg/dL CDT Anatomical Location / Laterality Collection Method / Volume Gavin ection Time Received Time Specimen (Source) 04/30/2023 2:25 AM CDT 04/30/20 23 2:40 AM CDT Marichuy Saez MD LABORATORY ORDERABLES [facility]/ZIP Code Phone Number Performing Address [place] [address], [place] DEPT PATH AND [address] [facility] LAB MEDICINE * IONIZED CALCIUM (04/30/2023 2:25 AM CDT) Pathologist Signature Component Value Ref Test Method Analysis Performed A t Range Time Ionized Calcium 1.07 1.0 - 04/30/2023 [facility] DEPT PATH AND 1.3 2:33 AM LAB MEDICINE MMOL/L CDT Anatomical Location / Laterality Collection Method / Volume Gavin ection Time Received Time Specimen (Source) BLOOD / Unknown 04/30/2023 2:25 AM CDT 04/30/20 23 2:30 AM CDT Ish J [employer] LABORATORY ORDERABLES [facility]/ZIP Code Phone Number Performing Address Organization [address] [facility]. LAB MEDICINE * PHOSPHORUS (04/30/2023 2:25 [...] AM CDT 04/30/20 23 2:40 AM CDT Ish J Sharp-Jackie LABORATORY ORDERABLES [facility]/ZIP Code Phone Number Performing Address Organization [address] [employer] DEPT PATH AND [address] [facility] LAB MEDICINE * (ABNORMAL) CBC (04/30/2023 2:25 AM CDT) Pathologist Signature Component Value Ref Test Method Analysis Performed A t Range Time White Blood Cells 10.9 4.5 - 04/30/2023 [facility] DE PT PATH AND 11.0 2:56 AM LAB MEDICINE K/UL CDT RBC 4.04 (L) 4.4 - 04/30/2023 [facility] DEPT PAT H AND 5.5 M/UL 2:56 AM LAB MEDICINE CDT Hemoglobin 13.0 (L) 13.5 - 04/30/2023 [facility] DEPT PAT H AND 16.5 2:56 AM LAB MEDICINE GM/DL CDT Hematocrit 37.8 (L) 40 - 50 04/30/2023 [facility] DEPT PAT H AND % 2:56 AM LAB MEDICINE CDT MCV 93.5 80 - 100 04/30/2023 [facility] DEPT PAT H AND FL 2:56 AM LAB MEDICINE CDT MCH 32.3 26 - 34 04/30/2023 [facility] DEPT PAT H AND PG 2:56 AM LAB MEDICINE CDT MCHC 34.5 32.0 - 04/30/2023 [facility] DEPT PAT H AND 36.0 2:56 AM LAB MEDICINE G/DL CDT RDW 13.6 11 - 15 04/30/2023 [facility] DEPT PAT H AND % 2:56 AM LAB MEDICINE CDT Platelet Count 261 150 - 04/30/2023 [facility] DEPT PATH AND 400 K/UL 2:56 AM LAB MEDICINE CDT MPV 8.3 7 - 11 04/30/2023 [facility] DEPT PAT H AND FL 2:56 AM LAB MEDICINE CDT Anatomical Location / Laterality Collection Method / Volume Gavin ection Time Received Time Specimen (Source) BLOOD / Unknown 04/30/2023 2:25 AM CDT 04/30/20 2:40 AM CDT Ron Reyna MD LABORATORY ORDERABLES City/State/ZIP Code Phone Number Performing [place] [address], [facility] [[email or web address] DEPT PATH AND [address] [facility] LAB MEDICINE * (ABNORMAL) BASIC METABOLIC PANEL (04/30/2023 2:25 AM CDT) Pathologist Signature Component Value Ref Test Method Analysis Performed A t Range Time Sodium 133 (L) 137 - 04/30/2023 [facility] DEPT PAT H AND 147 3:22 AM LAB MEDICINE MMOL/L CDT Potassium 3.7 3.5 - 04/30/2023 [facility] DEPT PAT H AND 5.1 3:22 AM LAB MEDICINE MMOL/L CDT Chloride 101 98 - 110 04/30/2023 [facility] DEPT PAT H AND MMOL/L 3:22 AM LAB MEDICINE CDT CO2 22 21 - 30 04/30/2023 [facility] DEPT PAT H AND MMOL/L 3:22 AM LAB MEDICINE CDT Anion Gap 10 3 - 12 04/30/2023 [facility] DEPT PAT H AND 3:22 AM LAB MEDICINE CDT Glucose 145 (H) 70 - 100 04/30/2023 [facility] DEPT PAT H AND MG/DL 3:22 AM LAB MEDICINE CDT Blood Urea Nitrogen 13 7 - 25 04/30/2023 [facility] DEPT PATH AND MG/DL 3:22 AM LAB [...] 2:25 AM CDT 04/30/20 2:40 AM CDT Ron Reyna MD LABORATORY ORDERABLES City/State/ZIP Code Phone Number Performing [place] [address], [facility] DEPT PATH AND [address] LAB MEDICINE * MRI HEAD WO/W CONTRAST [...] Blood Cells 11.1 (H) 4.5 - 04/29/2023 [facility] DE PT PATH AND 11.0 4:41 AM LAB MEDICINE K/UL CDT RBC 4.58 4.4 - 04/29/2023 [facility] DEPT PAT H AND 5.5 M/UL 4:41 AM LAB MEDICINE CDT Hemoglobin 14.7 13.5 - 04/29/2023 [facility] DEPT PAT H AND 16.5 4:41 AM LAB MEDICINE GM/DL CDT Hematocrit 42.9 40 - 50 04/29/2023 [facility] DEPT PAT H AND % 4:41 AM LAB MEDICINE CDT MCV 93.5 80 - 100 04/29/2023 [facility] DEPT PAT H AND FL 4:41 AM LAB MEDICINE CDT MCH 32.0 26 - 34 04/29/2023 [facility] DEPT PAT H AND PG 4:41 AM LAB MEDICINE CDT MCHC 34.2 32.0 - 04/29/2023 [facility] DEPT PAT H AND 36.0 4:41 AM LAB MEDICINE G/DL CDT RDW 13.5 11 - 15 04/29/2023 [facility] DEPT PAT H AND % 4:41 AM LAB MEDICINE CDT Platelet Count 271 150 - 04/29/2023 [facility] DEPT PATH AND 400 K/UL 4:41 AM LAB MEDICINE CDT MPV 8.5 7 - 11 04/29/2023 [facility] DEPT PAT H AND FL 4:41 AM LAB MEDICINE CDT Anatomical Location / Laterality Collection Method / Volume Gavin ection Time Received Time Specimen (Source) BLOOD / Unknown 04/29/2023 3:40 AM CDT 04/29/20 3:41 AM CDT Ron Reyna MD LABORATORY ORDERABLES City/State/ZIP Code Phone Number Performing [place] [address], [facility] DEPT PATH AND [address] LAB MEDICINE * (ABNORMAL) BASIC METABOLIC PANEL (04/29/2023 3:40 AM CDT) Pathologist Signature Component Value Ref Test Method Analysis Performed A t Range Time Sodium 134 (L) 137 - 04/29/2023 [facility] DEPT PAT H AND 147 5:12 AM LAB MEDICINE MMOL/L CDT Potassium 3.8 3.5 - 04/29/2023 [facility] DEPT PAT H AND 5.1 5:12 AM [...] Glucose 105 (H) 70 - 100 04/29/2023 [facility] DEPT PAT H AND MG/DL 5:12 AM LAB MEDICINE CDT Blood Urea Nitrogen 14 7 - 25 04/29/2023 [facility] DEPT PATH AND MG/DL 5:12 AM LAB MEDICINE CDT Creatinine 1.00 0.4 - 04/29/2023 [facility] DEPT PAT H AND 1.24 5:12 AM LAB MEDICINE MG/DL CDT Calcium 9.2 8.5 - 04/29/2023 [facility] DEPT PAT H AND 10.6 5:12 AM LAB MEDICINE MG/DL CDT eGFR >60 >60 04/29/2023 [facility] DEPT PAT H AND mL/min 5:12 AM LAB MEDICINE CDT Comment: eGFR calculated using the CKD-EPIcr_R equation Anatomical Location / Laterality Collection Method / Volume Gavin ection Time Received Time Specimen (Source) BLOOD / Unknown 04/29/2023 3:40 AM CDT 04/29/20 3:41 AM CDT Ron Reyna MD LABORATORY ORDERABLES [facility]/State/ZIP Code Phone Number Performing [place] [address], [facility] DEPT PATH AND [address] [facility] LAB MEDICINE * BLOOD TYPE CONFIRMATION - ORDER ONLY IF REQUESTED BY LAB (04/28/2023 10:46 AM CDT) Pathologist Signature Component Value Ref Test Method Analysis Performed A t Range Time ABO/RH(D) A POS 04/28/2023 [facility] DEPT PATH AND 11:58 AM LAB MEDICINE CDT Anatomical Location / Laterality Collection Method / Volume Gavin ection Time Received Time Specimen (Source) 04/28/2023 10:46 AM CDT 04/28/20 11:00 AM CDT Glenn Flores MD BLOOD BANK ORDERABLES [facility]/ZIP Code Phone Number Performing [place] [address], [facility] DEPT PATH AND [address] [facility] LAB MEDICINE * TYPE & CROSSMATCH [...] LAB MEDICINE CDT Antibody Screen NEG 04/28/2023 [facility] DEPT PAT H AND 11:23 AM LAB MEDICINE CDT Anatomical Location / Laterality Collection Method / Volume Gavin ection Time Received Time Specimen (Source) BLOOD / Unknown 04/28/2023 10:05 AM CDT 04/28/20 10:23 AM CDT Glenn Flores MD BLOOD BANK ORDERABLES [facility]/ZIP Code Phone Number Performing Address Organization [address] [facility] DEPT PATH AND [address] [facility] LAB MEDICINE * CBC (04/28/2023 3:41 AM CDT) Pathologist Signature Component Value Ref Test Method Analysis Performed A t Range Time White Blood Cells 9.3 4.5 - 04/28/2023 [facility] DE PT PATH AND 11.0 4:27 AM LAB MEDICINE K/UL CDT RBC 4.56 4.4 - 04/28/2023 [facility] DEPT PAT H AND 5.5 M/UL 4:27 AM LAB MEDICINE CDT Hemoglobin 14.6 13.5 - 04/28/2023 [facility] DEPT PAT H AND 16.5 4:27 AM LAB MEDICINE GM/DL CDT Hematocrit 42.8 40 - 50 04/28/2023 [facility] DEPT PAT H AND % 4:27 AM LAB MEDICINE CDT MCV 94.0 80 - 100 04/28/2023 [facility] DEPT PAT H AND FL 4:27 AM LAB MEDICINE CDT MCH 32.1 26 - 34 04/28/2023 [facility] DEPT PAT H AND PG 4:27 AM LAB MEDICINE CDT MCHC 34.2 32.0 - 04/28/2023 [facility] DEPT PAT H AND 36.0 4:27 AM LAB MEDICINE G/DL CDT RDW 13.8 11 - 15 04/28/2023 [facility] DEPT PAT H AND % 4:27 AM LAB MEDICINE CDT Platelet Count 248 150 - 04/28/2023 [facility] DEPT PATH AND 400 K/UL 4:27 AM LAB MEDICINE CDT MPV 8.0 7 - 11 [facility] 4:27 AM LAB MEDICINE CDT Anatomical Location / Laterality Collection Method / Volume Gavin ection Time Received Time Specimen (Source) BLOOD / Unknown 04/28/2023 3:41 AM CDT 04/28/20 3:42 AM CDT Ron Reyna MD LABORATORY ORDERABLES City/State/ZIP Code Phone Number Performing [place] [address], [facility] [address] [facility] LAB MEDICINE * (ABNORMAL) BASIC METABOLIC [...] City/State/ZIP Code Phone Number Performing [place] [address], [facility] [[email or web address] DEPT PATH AND [address] [facility]. LAB MEDICINE * CBC (04/27/2023 4:23 AM CDT) Pathologist Signature Component Value Ref Test Method Analysis Performed A t Range Time White Blood Cells 8.2 4.5 - 04/27/2023 [facility] DE PT PATH AND 11.0 5:05 AM [...] City/State/ZIP Code Phone Number Performing [place] [address], [facility] DEPT PATH AND [address] [facility] LAB MEDICINE * (ABNORMAL) BASIC METABOLIC [...] CDT CO2 24 21 - 30 04/27/2023 [facility] DEPT PAT H AND MMOL/L 5:24 AM LAB MEDICINE CDT Anion Gap 10 3 - 12 04/27/2023 [facility] DEPT PAT H AND 5:24 AM LAB MEDICINE CDT Glucose 117 (H) 70 - 100 04/27/2023 [facility] DEPT PAT H AND MG/DL 5:24 AM LAB MEDICINE CDT Blood Urea Nitrogen 13 7 - 25 04/27/2023 [facility] DEPT PATH AND MG/DL 5:24 AM LAB MEDICINE CDT Creatinine 0.92 0.4 - 04/27/2023 [facility] DEPT PAT H AND 1.24 5:24 AM LAB MEDICINE MG/DL CDT Calcium 9.2 8.5 - 04/27/2023 [facility] DEPT PAT H AND 10.6 5:24 AM LAB MEDICINE MG/DL CDT eGFR >60 >60 04/27/2023 [facility] DEPT PAT H AND mL/min 5:24 AM LAB MEDICINE CDT Comment: eGFR calculated using the CKD-EPIcr_R equation Anatomical Location / Laterality Collection Method / Volume Gavin ection Time Received Time Specimen (Source) BLOOD / Unknown 04/27/2023 4:23 AM CDT 04/27/20 4:24 AM CDT Ron Reyna MD LABORATORY ORDERABLES City/State/ZIP Code Phone Number Performing Address Organization [address] [facility] [place] LAB MEDICINE * (ABNORMAL) SODIUM (04/26/2023 11:00 AM CDT) Pathologist Signature Component Value Ref Test Method Analysis Performed A t Range Time Sodium 132 (L) 137 - 04/26/2023 [facility] DEPT PAT H AND 147 11:57 AM LAB MEDICINE MMOL/L CDT Anatomical Location / Laterality Collection Method / Volume Gavin ection Time Received Time Specimen (Source) BLOOD / Unknown 04/26/2023 11:00 AM CDT 04/26/20 11:24 AM CDT Yanci Marlow LABORATORY ORDERABLES CABLE MACHINE OPERATOR-CHIEF DEVELOPMENT OFFICER City/State/ZIP Code Phone Number Performing Address [place] [address], [facility] AND [address] [facility] * MRI HEAD WO/W CONTRAST (04/26/2023 4:28 [...] AM CDT Ron Reyna MD LABORATORY ORDERABLES [facility]/State/ZIP Code Phone Number Performing Address Organization [address] DEPT PATH AND [address] [facility] LAB MEDICINE * UREA NITROGEN-URINE RANDOM (04/26/2023 3:00 AM CDT) Pathologist Signature Component Value Ref Test Method Analysis Performed A t Range Time Urea Nitrogen 203 MG/DL 04/26/2023 [facility] DEPT P ATH AND 4:02 AM LAB MEDICINE CDT Anatomical Location / Laterality Collection Method / Volume Gavin ection Time Received Time Specimen (Source) URINE SPECIMEN / Unknown 04/26/2023 3:00 AM CDT 04/26/2023 3:13 AM CDT Urine Ron Reyna MD URINE ORDERABLES [facility]/State/ZIP Code Phone Number Performing Address [address] [facility] LAB MEDICINE * CREATININE-URINE RANDOM (04/26/2023 3:00 AM CDT) Pathologist Signature Component Value Ref Test Method Analysis Performed A t Range Time Creatinine, Random 25 MG/DL 04/26/2023 [facility] EPT PATH AND 4:02 AM LAB MEDICINE CDT Anatomical Location / Laterality Collection Method / Volume Gavin ection Time Received Time Specimen (Source) URINE SPECIMEN / Unknown 04/26/2023 3:00 AM CDT 04/26/2023 3:13 AM CDT Urine Ron eRyna MD URINE ORDERABLES [facility]/ZIP Code Phone Number [place]forming [place] [address], [place] DEPT PATH AND [address] [facility] LAB MEDICINE * OSMOLALITY-URINE RANDOM (04/26/2023 3:00 [...] CDT Urine Ron Reyna MD URINE ORDERABLES [facility]/ZIP Code Phone Number Performing [place] [address], [place] DEPT PATH AND [address] [facility] LAB MEDICINE * SODIUM-URINE RANDOM (04/26/2023 3:00 AM CDT) Pathologist Signature Component Value Ref Test Method Analysis Performed A t Range Time Sodium, Random 62 MMOL/L 04/26/2023 [facility] AND 4:02 AM LAB MEDICINE CDT Anatomical Location / Laterality Collection Method / Volume Gavin ection Time Received Time Specimen (Source) URINE SPECIMEN / Unknown 04/26/2023 3:00 AM CDT 04/26/2023 3:13 AM CDT Urine Ron Reyna MD URINE ORDERABLES [facility]/ZIP Code Phone Number Performing [place] [address], [place] DEPT PATH AND [address] [place] [address] LAB MEDICINE * CT ABD/PELV W CONTRAST [...] Range Time Phosphorus 3.2 2.0 - 04/26/2023 [facility] DEPT PAT H AND 4.5 1:24 AM LAB MEDICINE MG/DL CDT Anatomical Location / Laterality Collection Method / Volume Gavin ection Time Received Time Specimen (Source) BLOOD / Unknown 04/26/2023 12:50 AM CDT 04/26/20 1:02 AM CDT Ron Reyna MD LABORATORY ORDERABLES [facility]/ZIP Code Phone Number Performing Address Organization [address] [place] DEPT PATH AND [address] [facility] LAB [facility] * MAGNESIUM (04/26/2023 12:50 AM CDT) Pathologist [...] AM CDT Ron Reyna MD LABORATORY ORDERABLES [facility]/ZIP Code Phone Number Performing Address Organization [address] [place] [facility] AND [facility] * IONIZED CALCIUM (04/26/2023 12:50 AM CDT) [...] AM CDT Ron Reyna MD LABORATORY ORDERABLES [facility]/ZIP Code Phone Number Performing Address Organization [address] [place] DEPT PATH AND [facility] LAB MEDICINE * (ABNORMAL) COMPREHENSIVE METABOLIC [...] Glucose 112 (H) 70 - 100 04/26/2023 [facility] DEPT PAT H AND MG/DL 1:24 AM LAB MEDICINE CDT Blood Urea Nitrogen 16 7 - 25 04/26/2023 [facility] DEPT PATH AND MG/DL 1:24 AM LAB MEDICINE CDT Creatinine 0.95 0.4 - 04/26/2023 [facility] DEPT PAT H AND 1.24 1:24 AM LAB MEDICINE MG/DL CDT Calcium 9.5 8.5 - 04/26/2023 [facility] DEPT PAT H AND 10.6 1:24 AM LAB MEDICINE MG/DL CDT Total Protein 7.4 6.0 - 04/26/2023 [facility] DEPT P ATH AND 8.0 G/DL 1:24 AM LAB MEDICINE CDT Total Bilirubin 0.8 0.3 - 04/26/2023 [facility] DEPT PATH AND 1.2 1:24 AM LAB MEDICINE MG/DL CDT Albumin 4.3 3.5 - 04/26/2023 [facility] DEPT PAT H AND 5.0 G/DL 1:24 AM LAB MEDICINE CDT Alk Phosphatase 67 25 - 110 04/26/2023 [facility] DEPT PATH AND U/L 1:24 AM LAB MEDICINE CDT AST (SGOT) 31 7 - 40 04/26/2023 [facility] DEPT PAT H AND U/L 1:24 AM LAB MEDICINE CDT CO2 20 (L) 21 - 30 04/26/2023 [facility] DEPT PAT H AND MMOL/L 1:24 AM LAB MEDICINE CDT ALT (SGPT) 22 7 - 56 04/26/2023 [facility] DEPT PAT H AND U/L 1:24 AM LAB MEDICINE CDT Anion Gap 14 (H) 3 - 12 04/26/2023 [facility] DEPT PAT H AND 1:24 AM LAB MEDICINE CDT eGFR >60 >60 04/26/2023 [facility] DEPT PAT H AND mL/min 1:24 AM LAB MEDICINE CDT Comment: eGFR calculated using the CKD-EPIcr_R equation Anatomical Location / Laterality Collection Method / Volume Gavin ection Time Received Time Specimen (Source) BLOOD / Unknown 04/26/2023 12:50 AM CDT 04/26/20 23 1:02 AM CDT Ron Reyna MD LABORATORY ORDERABLES [facility]/ZIP Code Phone Number Performing Address Organization [address] [facility] DEPT PATH AND [address] [facility] LAB MEDICINE * PTT (APTT) (04/26/2023 12:50 AM CDT) Pathologist Signature Component Value Ref Test Method Analysis Performed A t Range Time APTT 28.5 24.0 - 04/26/2023 [facility] DEPT PAT H AND 36.5 SEC 1:16 AM LAB MEDICINE CDT Anatomical Location / Laterality Collection Method / Volume Gavin ection Time Received Time Specimen (Source) BLOOD / Unknown 04/26/2023 12:50 AM CDT 04/26/20 23 1:02 AM CDT Ron Reyna MD LABORATORY ORDERABLES [facility]/ZIP Code Phone Number Performing Address Organization [address] [facility] DEPT PATH AND [address] [facility] LAB MEDICINE * PROTIME INR (PT) (04/26/2023 [...] AM CDT Ron Reyna MD LABORATORY ORDERABLES [facility]/ZIP Code Phone Number Performing Address Organization [address] [facility] DEPT PATH AND [address] [facility] LAB MEDICINE * (ABNORMAL) CBC AND DIFF (04/26/2023 12:50 AM CDT) Pathologist Signature Component Value Ref Test Method Analysis Performed A t Range Time White Blood Cells 13.8 (H) 4.5 - 04/26/2023 [facility] DE PT PATH AND 11.0 1:09 AM [...] CDT MCV 92.6 80 - 100 04/26/2023 [facility] DEPT PAT H AND [place] 1:09 AM [...] CDT Platelet Count 285 150 - 04/26/2023 [facility] DEPT PATH AND 400 K/UL 1:09 AM LAB MEDICINE CDT MPV 8.3 7 - 11 04/26/2023 [facility] DEPT PAT H AND [place] 1:09 AM LAB MEDICINE CDT Neutrophils 71 41 - 77 04/26/2023 [facility] DEPT PAT H AND % 1:09 AM LAB MEDICINE CDT Lymphocytes 23 (L) 24 - 44 04/26/2023 [facility] DEPT PAT H AND % 1:09 AM LAB MEDICINE CDT Monocytes 5 4 - 12 % 04/26/2023 [facility] DEPT PAT H AND 1:09 AM LAB [...] City/State/ZIP Code Phone Number Performing [place] [address], [facility] DEPT PATH AND [address] [facility] LAB MEDICINE documented in this encounter Visit Diagnoses Diagnosis Brain mass - Primary Unspecified condition of brain Brain mass Unspecified condition of brain Chronic hyponatremia Hyposmolality and/or hyponatremia Chronic hyponatremia Hyposmolality and/or hyponatremia Brain mass Unspecified condition of brain * Advanced Care Planning/Resuscitation Status - Torrie [...] done. They did not note any spe [facility] intervention that they would be strictly [...] 5 mg Given 04/26/2023 10:07 AM CDT 04/29/2023 1:00 PM CDT 1 Dose bacitracin zinc topical ointment Given INTRA-PROCEDURE MED, Starting on Tue04/29/23 at 1300, Until Tue04/29/23 at 1718, Intra-op 04/29/2023 1:42 PM CDT 500 mL ceFAZolin (ANCEF) 1 g in sodium chloride Given irrigation 0.9% 1,000 mL bottle 1,000 mL, INTRA-PROCEDURE MED, Starting on Tue04/29/23 at 1342, Until Tue04/29/23 at 1718, Intra-op 05/02/2023 9:08 PM CDT 100 mg docusate (COLACE) capsule 100 mg Given 100 mg, Oral, TWICE DAILY, First dose o n Tue04/26/23 at 0030, Until Discontinued , Hold for loose stools, Admission/Obs/Extended Recovery 100 mg Given 05/02/2023 9:03 AM CDT 100 mg Given 05/01/2023 8:42 PM CDT 05/03/2023 6:34 AM CDT 5,000 Units Arm, [...] Abdominal Tissue Given 05/01/2023 8:43 PM CDT 04/29/2023 1:42 PM CDT 10 mL lidocaine 1%/EPINEPHrine 1:100,000 Given injection INTRA-PROCEDURE MED, Starting on Tue04/29/23 at 1342, Until Tue04/29/23 at 1718, Intra-op 05/03/2023 8:04 AM CDT 10 mg lisinopriL [...] Pain, Give if patient tolerating PO if Burgess not effective., Admission/Obs/Extended Recovery 10 mg Given 05/01/2023 9:19 PM CDT 10 mg Given 05/01/2023 3:40 PM CDT 10 mg Given 05/01/2023 1:13 AM CDT 10 mg Given 04/30/2023 3:55 PM CDT 10 mg Given 04/30/2023 8:58 AM CDT 10 mg Given 04/30/2023 2:18 AM CDT 10 mg Given 04/29/2023 10:16 PM CDT 10 mg Given 04/29/2023 6:39 PM CDT 05/02/2023 9:03 AM CDT 1 tablet sennosides-docusate sodium (SENOKOT-S) Given tablet 1 tablet 1 tablet, Oral, TWICE DAILY, First dose on Tue04/26/23 at 0030, Until Discontinued, Hold for loose stools. If patient unable to take tablet, give 10 mL of senna/docusate (SENOKOT-S) solution. Send inDevveret message to pharmacy., If patient unable to take tablet, give 10 mL of senna/docusate (SENOKOT-S) solution., Admission/Obs/Extended Recovery 1 tablet Given 05/01/2023 8:43 PM CDT 04/29/2023 1:42 PM CDT 5,000 Units thrombin 5,000 unit topical solution Given INTRA-PROCEDURE MED, Starting on Tue04/29/23 at 1342, Until Tue04/29/23 at 1718, Intra-op documented in this encounter Discontinued Medications Start Date End Date Medication Sig Discontinue Reason 05/02/2023 amLODIPine-benazepril Take one Removed from (LOTREL) 5-10 mg capsule capsule by [facility] Med List mouth daily. documented as of [...] RN)210 (Given - Provider: Terri Cisneros RN) 08 (Given - Provider: Elizabeth Alexis, ABDIEL ) [...] Rosario)145 0 (Given - Provider: Estefany Vasquez RN)2107 (Given - Provider: Terri Cisneros RN) 0634 [...] Elizabeth salinas RN - Reason: Patient Refused) milk of magnesium [...] Terri Cisneros RN - Reason: Patient Refused) 08 (Med Not Given - Provider: Elizabeth salinas [...] 10 mL of senna/docusate (SENOKOT-S) solution. Send inDevveret message to pharmacy., If patient unable to take tablet, give 10 mL of senna/docusate (SENOKOT-S) solution., Admission/Obs/Extended Recovery 05/02/2023 05/03/2023 Medication Order [id number]/[id number] (Med Not Given - Provider: Terri sullivna RN - Reason: Patient Refused - Comment: other pain medication requested) acetaminophen (TYLENOL) tablet 650 mg 650 mg, Oral, EVERY 4 HOURS PRN, Starting on Tue04/26/23 at 0024, Until Tue05/03/23 at 1349, Temp > ..., 38.3 C , TOTAL ACETAMINOPHEN DOSE NOT TO EXCEED 4GM DAILY, Admission/Obs/Extended Recovery 210 (Given - Provider: Terri Cisneros RN ) oxyCODONE (ROXICODONE) tablet 5-10 mg 0113 (Given - 5-10 mg, Oral, EVERY 4 HOURS PRN, Provider: Kana Starting on Tue04/26/23 at 0024, Until ABDIEL Garcia)10 23 (Med Tue05/03/23 at 1349, Pain PO, Other..., Not Given - Moderate/Severe Pain, Give if patient Provider: Nae amaro tolerating PO if Burgess not effective., ABDIEL Garcia - Reason: Admission/Obs/Extended Recovery Other (Comment) - Comment: duplicate)1540 (Given - Provider: Tiago Madrigal RN)9 (Given - Provider: Tiago Mdarigal, ABDIEL) 0618 (Med Not Given - Provider: Nelia costa - Reason: Patient Refused) potassium chloride SR (K-DUR) tablet 0605 (Given - 40-60 mEq (CANCELED)(Linked Group 2) Provider: Kana 40-60 mEq, Oral, NEEDED, Starting on ABDIEL Garcia) Tue04/29/23 at 1943, Until Tue05/02/23 at 0858, [...] 2mg/dL, or CrCl =/< 30 mL/min, check [facility] Physician prior to giving K+ replacement. For [...] Have Count Last Ordered Date Been Administered 05/01/2023 dexAMETHasone tablet 2 mg 2 05/02/2023 heparin (porcine) PF syringe 5,000 Units 1 05/01/2023 04/29/2023 dexAMETHasone (DECADRON) tablet 4 mg 2 0 04/30/2023 04/26/2023 calcium gluconate 1 g/NS 100 mL infusion 2 04/29/2023 ceFAZolin (ANCEF) IVP 2 g 1 04/29/2023 fentaNYL citrate PF (SUBLIMAZE) 1 2022 injection 25 mcg gadobenate dimeglumine (MULTIHANCE) 1 injection 15 mL 04/26/2023 hydrALAZINE (APRESOLINE) injection 10 mg 3 04/29/2023 labetaloL (NORMODYNE) injection 10 mg 1 04/29/2023 labetaloL (NORMODYNE) injection 20 mg 1 04/29/2023 lidocaine PF 1% (10 mg/mL) injection 0.2 1 04/29/2023 mL 04/26/2023 magnesium sulfate 1 g/D5W 100 mL IVPB 3 04/29/2023 04/26/2023 potassium chloride in water IVPB 10 mEq 3 04/29/2023 04/26/2023 potassium chloride oral solution 40-60 3 04/29/2023 mEq 04/26/2023 potassium chloride SR (K-DUR) tablet 3 0 04/29/2023 40-60 mEq sodium chloride 0.9 % infusion 1 04/29 acetaminophen (TYLENOL) tablet 650 mg 1 04/26/2023 amLODIPine (NORVASC) tablet 5 mg 1 04/26 docusate (COLACE) capsule 100 mg 1 04/26 fentaNYL citrate PF (SUBLIMAZE) 1 2022 injection 25-50 mcg gadobenate dimeglumine (MULTIHANCE) 1 injection 18 mL iohexoL (OMNIPAQUE-350) 350 mg/mL 1 04/06 injection 100 mL lisinopriL (ZESTRIL) tablet 10 mg 1 04/06 magnesium oxide (MAGOX) tablet 400 mg 1 04/26/2023 milk of magnesium oral suspension 30 mL 1 04/26/2023 ondansetron HCL (PF) (ZOFRAN (PF)) 1 injection 4 mg oxyCODONE (ROXICODONE) tablet 5-10 mg 1 04/26/2023 sennosides-docusate sodium (SENOKOT-S) 1 04/26/2023 tablet 1 tablet SODIUM CHLORIDE 0.9 % IV SOLP (Cabinet 1 04/26/2023 Override) sodium chloride PF 0.9% injection 50 mL 1 04/26/2023 First Ordered Date Lab Orders Without Results [...] Date APPOINTMENT REQUEST: [facility] 1 04/28/2023 ([facility]) APPOINTMENT REQUEST: NEUROSURGERY 1 04/06 First Ordered [...] encounter Care Teams Start Date End Date Federal Appellate Law Clerk Relationship Specialty 04/26/23 Alexia Benavides APRN PCP - General Family Medicine [address] [place] [address] documented as of this encounter
--- OUTSIDE RECORDS SUMMARY | 2023-05-03 14:37 | XMS REPORT | Encounter Summary ---
Author Author [facility] Organization [facility] Address Unknown Phone Unavailable Care Team Providers Care Stove Installer Name Role Phone YasmeenAlexia gerber MAINTENANCE ENGINEER OIL FIELD PCP Encounter Details Care Team Description Date Type Department 04/29/2023 Travel Social History Date Tobacco Use Types Packs/Day [...] as of this encounter Plan of Treatment Not on filedocumented as of this encounter Goals Goal Patient Associated Recent Progress Patient-Stat Aut hor Goal Type Problems ed? Resume normal activities Hospital On track (04/26/2023 Yes Eloy, 5:35 PM CDT) ABDIEL Freeman Note: Walk without falling down documented as of this encounter Visit Diagnoses Not on filedocumented in this encounter Additional Health Concerns Noted Time Assessment 04/29/2023 5:30 PM CDT A fall risk assessment has been complet ed for the patient documented as of this encounter Care Teams Start Date End Date Stove Installer Relationship Specialty 04/26/23 Alexia Benavides APRN PCP - General Family Medicine [address] [place] [place] [address] documented as of this encounter
--- NOTE | 2023-05-03 15:09 | Progress Note ---
DUANE OLVERA 05/03/23 1509: Progress Note Chief complaint: Johnny Bautista is a 77 year old male who came into the [facility] ED on 04/25/23 after losing his balance and falling and hitting his face on concrete. HPI: He was taken to the ED via EMS. He and his family report shuffling gait for several months and that he had been having gait imbalance for the week prior to coming to the ED. He had a CT that showed a left cerebellar mass with mild hydrocephalus and a displaced nasal fracture. He was subsequently transferred to [facility]. At [facility] he was seen by neurosurgery who performed a full neuro exam on him, that was unremarkable. He had an MRI done that showed a large posterior fossa mass consistent with metastasis and a chest/abdomen CT that showed a lung mass and adrenal metastasis. Neurosurgery recommended a craniotomy and the patient consented. On 04/29/23, neurosurgery performed a suboccipital craniotomy with resection of the posterior fossa brain tumor. Surgery was uneventful. Post- surgical MRI on 04/29/23 showed good resection of the mass. Since the surgery, the patient has been seen by PT and OT and he has had some imbalance on mobility but overall shows improvement. He was subsequently transferred back to [facility] for inpatient rehabilitation on 05/03/23. PMH: Hypertension, hyperlipidemia, prostate cancer Past surgical history: knee surgery, recent craniotomy Allergies: No known allergies Medications: Amlodipine 5mg q.d., lisinopril 10mg q.d., docusate 100 mg BID, milk of magnesium 30ml q.d., senokot 1 tablet BID Social History: , 3 kids, former smoker (quit in 2021, 1ppd/50 years), alcohol 14 beers/week, no drugs Family history: no family history on file ROS: Denies nausea, vomiting, diarrhea, weakness, fatigue, fever/chills, change in appetite, chest pain, shortness of breath, orthopnea, headache, Admits: constipation, vision difficulty since his fall because he broke his glasses Exam: General: no acute distress, comfortable in bed, AOx3 HEENT: bruising under right eye, otherwise atraumatic, no JVD Heart: normal sinus rhythm, no murmurs appreciated Lungs: CTA bilaterally, no wheezing/rhonchi/rales appreciated on auscultation Neuro: no deficits in sensation, no deficits in muscle strength testing Extremities: pulses +2/4, no lower extremity edema Imaging and Labs: [facility] CT 04/25/23: left cerebellar mass with mild hydrocephalus and a displaced nasal fracture [facility] head MRI: large posterior fossa mass consistent with metastasis [facility] chest/abdomen CT: lung mass and adrenal metastasis No current labs since admission to [facility] Assessment: - s/p craniotomy - 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 - HTN - prostate cancer - hyperlipidemia Plan: - PT/OT - supportive treatment, pain control - regular neurological assessments - get oncology on board - restart home medications TIFFANY CHRISTIAN DO 05/03/23 2012: Supervisory-Addendum Brief Verification & Attestation Participated in pt care: history, MDM, physical Personally performed: exam, history, MDM, supervision of care Care discussed with: Medical Student Procedures: n/a Results interpretation: Verified all documentation Verification and Attestation of Medical Student E/M Service A medical student performed and documented this service in my presence. I reviewed and verified all information documented by the medical student and made modifications to such information, when appropriate. I personally performed the physical exam and medical decision making. Tiffany Christian, May 03, 2023,20:12 DUANE OLVERA May 03, 2023 15:09 TIFFANY CHRISTIAN DO May 03, 2023 20:12
--- NOTE | 2023-05-03 16:34 | Occupational Therapy Eval ---
OT Evaluation-General/PLF Medical Diagnosis Admission Date May 03, 2023 at 14:26 Medical Diagnosis: NTBI Onset Date: Apr 25, 2023 Therapy Diagnosis Therapy Diagnosis: NTBI Height/Weight Height (Feet): 5 Height (Inches): 10.00 Weight (Pounds): 190 Precautions Precautions/Isolations: Fall Prevention, Standard Precautions Referral Physician: Jemma Referral Reason: Activity Tolerance, Self Care, Evaluation/Treatment, Strengthening/ROM Medical History Pertinent Medical History: HTN Reviewed History: Yes Social History Home: Single Level (Pt reports he has a basement, but able to live on main level) Current Living Status: Spouse Entry Into Home: Stairs Without Railing Steps Into Home: 3 ADL-Prior Level of Function SCALE: Activities may be completed with or without assistive devices. 5-Yapvmznshp-vgjzjaq completes the activity by him/herself with no assistance from a helper. 5-Set-up or Clean-up Assistance-helper sets up or cleans up; patient completes activity. [place] assists only prior to or following the activity. 4-Supervision or Touching Assistance-helper provides verbal cues and/or touching/steadying and/or contact guard assistance as patient completes activi ty. Assistance may be provided throughout the activity or intermittently. 3-Partial/Moderate Assistance-helper does LESS THAN HALF the effort. [place] lifts, holds or supports trunk or limbs, but provides less than half the effort. 2-Substantial/Maximal Assistance-helper does MORE THAN HALF the effort. [place] lifts or holds trunk or limbs and provides more than half the effort. 1-Mtyibzzvm-okpjrz does ALL the effort. Patient does none of the effort to complete the activity. Or, the assistance of 2 or more helpers is required for the patient to complete the activity. If activity was not attempted, code reason: 7-Patient Refused. 9-Not Applicable-not attempted and the patient did not perform the activity before the current illness, exacerbation or injury. 10-Not Attempted due to Environmental Limitations-(lack of equipment, weather restraints, etc.). 88-Not Attempted due to Medical Conditions or Safety Concerns. Self Care: Independent Functional Cognition: Independent (Per family reporting) DME/Equipment Comments Pt reports no DME at this time Occupation: Retired Drive Self: Yes Leisure Interests: Pt states he likes to "watch TV and lay on the couch" OT Current Status Subjective Pt consented to OT evaluation Pain Numeric Pain Scale: 4 Comment: Pt did not give a pain location, but stated he was "just in pain" Mental Status/Objective Patient Orientation: Person, Place, Time Pt not oriented to current situation Current Glasses/Contacts: Yes Hearing Aids: No Hand Dominance: Left Upper Extremity ROM AROM WFL Upper Extremity Strength BUE strength WFL ADL-Treatment Eating (QC): 5 (Set-up A for feeding) Oral Hygiene (QC): 4 (SBA for oral care) Shower/Bathe Self (QC): 3 (Partial/mod A for bathing based on clinical judgement) Upper Body Dressing (QC): 4 (SBA for UBD) Lower Body Dressing (QC): 3 (Partial/mod A for LBD) On/Off Footwear (QC): 4 (SBA for donning/doffing shoes seated a EOB) Toileting Hygiene (QC): 3 (Partial/mod A for toileting) Education OT Patient Education: Energy conservation, Exercise program, Home exercise program, Instructions to caregiver, Modified ADL techniques, Progress toward Goal/Update tx plan, Purpose of tx/functional activities, Rehab process, Safety issues, Transfer techniques, Use of adapted equipment Teaching Recipient: Patient, Family BIMS CAM BIMS Expression of Ideas and Wants: Without Difficulty Understanding Verbal Content: Understands Brief Interview/Mental Status: Yes IRF SHAHAB BIMS: IRF SHAHAB BIMS Response (Comments) Value Repitition of Three Words Three 3 Recalls Socks Yes, No Cue Required 2 Recalls Blue Yes, No Cue Required 2 Recalls Bed Yes, No Cue Required 2 Year Correct 3 Month Accurate Within 5 Days 2 Day Correct 1 Total [address] No CAM Mental Status Change/Baseline: 0 Inattention: 0 Disorganized thinkin Altered level of consciousness: 0 OT Skilled Nursing Goals Skilled Nursing Goals Eating (QC): 6 Oral Hygiene (QC): 6 Toileting Hygiene (QC): 4 Shower/Bathe Self (QC): 4 Upper Body Dressing (QC): 6 Lower Body Dressing (QC): 4 On/Off Footwear (QC): 5 1=Demonstrate adherence to instructed precautions during ADL tasks. 2=Patient will verbalize/demonstrate understanding of assistive devices/modifications for ADL. 3=Patient will improve strength/tolerance for activity to enable patient to perform ADL's. OT Education/Plan Problem List/Assessment Assessment: Decreased Activ Tolerance, Decreased Safety Aware, Dependent Transfers, Impaired Cognition, Impaired Funct Balance, Impaired I ADL's, Impaired Self-Care Skills Discharge Recommendations Plan/Recommendations: Continue POC Treatment Plan/Plan of Care Treatment,Training & Education: Yes Patient would benefit from OT for education, treatment and training to promote independence in ADL's, mobility, safety and/or upper extremity function for ADL's. Plan of Care: ADL Retraining, Caregiver Training, Cognitive Retraining, Functional Mobility, UE Funct Exercise/Act Treatment Duration: Apr 17, 2024 Frequency: At least 5 of 7 days/Wk (IRF) Estimated Hrs Per Day: 1.5 hours per day Agreement: Yes Rehab Potential: Good Time Start Time: 15:55 Stop Time: 16:10 DATE: May 03, 2023 Total Time Billed (hr/min): 15 Billed Treatment Time 15 minutes GINA Nazia BRICENOHAYLEE May 03, 2023 16:34
[2023-05-03 20:00] VITALS: BP 130/78
[2023-05-03] MEDS: DOCUSATE SODIUM 100 MG CAPSULE PO SCH (20:46)
[2023-05-03] MEDS: SENNA W/DOCUSATE TABLET PO SCH (20:46)
[2023-05-03] MEDS: oxyCODONE IMMEDIATE RELEASE 5 MG TABLET PO PRN (20:53)
[2023-05-03] MEDS ORDERED: SENNA W/DOCUSATE TABLET PO SCH (21:00)
[2023-05-04 05:56] LABS: BASOPHILS % (AUTO) 0 % (0-10); EOSINOPHILS # (AUTO) 0.3 10^3/uL (0.0-0.3); EOSINOPHILS % (AUTO) 3 % (0-10); HEMATOCRIT 37 % (40-54); HEMOGLOBIN 12.7 g/dL (13.3-17.7); LYMPHOCYTES # (AUTO) 3.4 10^3/uL (1.0-4.0); LYMPHOCYTES % (AUTO) 44 % (12-44); MEAN CORPUSCULAR HEMOGLOBIN 32 pg (25-34); MEAN CORPUSCULAR HGB CONC 34 g/dL (32-36); MEAN CORPUSCULAR VOLUME 92 fL (80-99); MEAN PLATELET VOLUME 9.9 fL (9.0-12.2); MONOCYTES # (AUTO) 0.4 10^3/uL (0.0-1.0); MONOCYTES % (AUTO) 6 % (0-12); NEUTROPHILS # (AUTO) 3.6 10^3/uL (1.8-7.8); NEUTROPHILS % (AUTO) 46 % (42-75); PLATELET COUNT 279 10^3/uL (130-400); WHITE BLOOD COUNT 7.8 10^3/uL (4.3-11.0)
[2023-05-04 06:24] LABS: ALBUMIN 3.7 GM/DL (3.2-4.5); BILIRUBIN,TOTAL 0.6 MG/DL (0.1-1.0); CALCIUM 9.1 MG/DL (8.5-10.1); CREATININE SERUM 0.85 MG/DL (0.60-1.30); POTASSIUM 3.3 MMOL/L (3.6-5.0)
[2023-05-04 08:00] VITALS: BP 182/101
--- NOTE | 2023-05-04 08:11 | Physical Therapy Evaluation ---
PT Evaluation-General Medical Diagnosis Admission Date May 03, 2023 at 14:26 Medical Diagnosis: NTBI Onset Date: Apr 25, 2023 Therapy Diagnosis Therapy Diagnosis: s/p tumor resection 04/29/23 Height/Weight Height (Feet): 5 Height (Inches): 10.00 Weight (Pounds): 190 Precautions Precautions/Isolations: Fall Prevention, Standard Precautions Weight Bear Status Right Lower Extremity: Right Weight Bearing/Tolerated Left Lower Extremity: Left Weight Bearing/Tolerated Referral Physician: Jemma Reason for Referral: Evaluation/Treatment Medical History Pertinent Medical History: HTN Current History fell 04/25 (had been off balance ~ 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 04/29 - resection of mass via suboccipital craniotomy. Also has suspicious pulmonary nodules in (L) LL. Plan for radiation to start 2 weeks /p resection. Reviewed History: Yes Social History Home: Single Level (Pt reports he has a basement, but able to live on main level) Current Living Status: Spouse Entry Into Home: Stairs Without Railing PT Steps Into Home: 3 PT Steps Inside Home: 12 (to basement - goes down every 3 days) Prior Prior Level of Function SCALE: Activities may be completed with or without assistive devices. 7-Ojtwvrvkyl-ktqarxu completes the activity by him/herself with no assistance from a helper. 5-Set-up or Clean-up Assistance-helper sets up or cleans up; patient completes activity. [place] assists only prior to or following the activity. 4-Supervision or Touching Assistance-helper provides verbal cues and/or touching/steadying and/or contact guard assistance as patient completes activity. Assistance may be provided throughout the activity or intermittently. 3-Partial/Moderate Assistance-helper does LESS THAN HALF the effort. [place] lifts, holds or supports trunk or limbs, but provides less than half the effort. 2-Substantial/Maximal Assistance-helper does MORE THAN HALF the effort. [place] lifts or holds trunk or limbs and provides more than half the effort. 7-Wgwjdlkff-liebyo does ALL the effort. Patient does none of the effort to c omplete the activity. Or, the assistance of 2 or more helpers is required for the patient to complete the activity. If activity was not attempted, code reason: 7-Patient Refused. 9-Not Applicable-not attempted and the patient did not perform the activity before the current illness, exacerbation or injury. 10-Not Attempted due to Environmental Limitations-(lack of equipment, weather restraints, etc.). 88-Not Attempted due to Medical Conditions or Safety Concerns. Bed Mobility: 6 Transfers (B,C,W/C): 6 Gait: 6 Stairs: 6 Wheelchair Mobility: 9 Indoor Mobility (Ambulation): Independent Stairs: Independent Drove, enjoys watching [employer] car races, likes [place]. PT Evaluation-Current Subjective Has pain in back of head/neck of 4/10 this am. No vision changes since surgery. No hearing since surgery. Patient wants to leave [facility] - wants to leave today if able. He is frustrated that he had to come to rehab and does not understand why. Pain Section J - Health Conditions 1. Rarely or not at all 2. Occasionally 3. Frequently 4. Almost constantly 8. Unable to answer Pain Effect on Sleep: 1 Pain Interference with Therapy: 1 Pain Interference w/Day-to-Day: 1 Pt/Family Goals Patient wants to leave the unit [facility] Objective Patient Orientation: Person, Place, Time, Situation ROM/Strength ROM Upper Extremities Deferred to OT. ROM Lower Extremities (B) LE WFL. Strength Upper Extremities Deferred to OT. Strength Lower Extremities Ankles/knees 5/5, hip flexion 4/5 (B), hip abd/add 4+/5 (B). Core weakness noted trying to sit EOB and perform LE MMT. Integumentary/Posture Integumentary Incision back of neck/head. States he can shower at 5 days post op (04/29). Sensory Vision: Wears Glasses Hearing: Functional Hand Dominance: Left Sensation Right Lower Extremit: Intact Sensation Left Lower Extremity: Intact Transfers Roll Left & Right (QC): 6 Sit to Lying (QC): 6 Lying to Sitting/Side of Bed(Q: 6 Sit to Stand (QC): 4 (uses back of legs to brace against chair at times - pushing chair back and need steadying assist to recover.) Chair/Sjq-hc-Kqzam Xfer(QC): 4 (cues for hand placement) Toilet Transfer (QC): 4 Car Transfer (QC): 4 (safety cues) Gait Mode of Locomotion: Walk Anticipated Mode of Locomotion: Walk Walk 10 feet (QC): 5 Walk 50 ft with 2 Turns(QC): 4 (CGA /s walker for longer distances - step length decreases as patient fatigues. ) Walk 150 ft (QC): 4 (CGA /s walker for longer distances - step length decreases as patient fatigues. ) Walking 10ft/uneven surface-QC: 4 (/s device) Distance: 300' x 2 /s device. HR irregular /p 300' -- 71-107 bpm, O2 sats 94- 95%. Gait Assistive Device: None Comments/Gait Description Without device, patient demonstrates mild gait deviations requiring CGA. Stride shortens as patient fatigues. Turning head during gait (especially to (L)) throws balance off - CGA for patient to recover. (See Dynamic Gait Index score below). Wheelchair Training Does the Pt Use a Wheelchair?: No Wheel 50 ft with 2 turns (QC): 9 Wheel 150 ft (QC): 9 Type of Wheelchair: N/A Stairs 1 Step (curb) (QC): 4 (CGA for 2" step, CGA for 4" step with CONVEX GRINDER OPERATOR on (R).) 4 Steps (QC): 4 (SBA with (B) railings) 12 Steps (QC): 4 (SBA /c (B) railings.) Balance Sitting Static: Normal Sitting Dynamic: Fair Standing Static: Fair Standing Dynamic: Fair Picking up an Object (QC): 3 (Min (A) ) Special Test Comments Dynamic Gait Index: 13/24 -- at risk for falls. Castaneda Balance score: 37/56 -- at risk for falls, patient needs to use AD to prevent falls. Treatment Static and dynamic standing balance activities. Gait training with FWW 500'+ = patient much more steady, SBA-(I) with FWW. Recommend that patient use walker for stability, to reduce fall risk, and provide for safe ambulation at home. A FWW is recommended at D/C -- a cane is unable to provide the support that patient needs at this time for safe ambulation. Patient agreeable to use walker if it allows him to discharge the ARU sooner. Assessment/Needs Patient with high level balance,mobility,endurance deficits s/p craniotomy for mass resection. Recommend FWW to improve gait safety. Both Castaneda and DGI indicate fall risk and need for FWW for gait. Patient reluctant to remain on ARU - educated about ARU program and need to improve safety and independence to prevent recurrence of falls at home. Rehab Potential: Good Post Rehab Potential-Barriers: patient reluctant to remain on ARU Equipment Needs FWW PT Jail Goals Jail Goals PT Burlapper Goals Time Frame: May 10, 2023 Roll Left to Right (QC): 6 Sit to Lying (QC): 6 Lying-Sitting on Side/Bed(QC): 6 Sit to Stand (QC): 6 Chair/Hvv-gh-Qmchy Xfer(QC): 6 Toilet/Commode Transfer (QC): 6 Car Transfer (QC): 6 Does the Patient Walk: Yes Walk 10 feet (QC): 6 (/c FWW) Walk 10ft-Uneven Surface(QC): 6 (/c FWW) Walk 50ft with 2 Turns (QC): 6 (/c FWW) Walk 150 ft (QC): 6 (/c FWW) Wheel 50 feet with 2 turns (QC: 9 Wheel 150 feet: 9 1 Step (curb) (QC): 6 (/c FWW) 4 Steps (QC): 6 (/c railing) 12 Steps (QC): 6 (/c railing) Picking up an Object (QC): 6 (/c actuarial technician or no device) Improve DGI to19/24. Improve Castaneda to 45/56 PT Plan Problem List Problem List: Activity Tolerance, Functional Strength, Safety, Balance, Gait, Transfer Treatment/Plan Treatment Plan: Continue Plan of Care Treatment Plan: Education, Functional Activity Gem, Functional Strength, Group Therapy, Gait, Safety, Therapeutic Exercise, Transfers Treatment Duration: May 10, 2023 Frequency: At least 5 of 7 days/Wk (IRF) Estimated Hrs Per Day: 1.5 hours per day patient reluctant to remain on ARU. Safety Risks/Education Patient Education: Gait Training, Safety Issues Teaching Recipient: Patient Teaching Methods: Demonstration, Discussion, Audiovisual Response to Teaching: Reinforcement Needed Patient agreeable to FWW if "it will get me out of here quicker". Discharge Recommendations Therapy Discharge Recommendati: Home & Family Equpiment Recommendations-D/C: Front Wheeled Walker Discharge Status/Home Program Home /c family support. Time Time In: 800 Time Out: 1030 DATE: May 04, 2023 Total Billed Treatment Time: 90 Total Billed Treatment EVM 45, GT 25, FA 20 Beatrice Cisneros PT May 04, 2023 08:11
[2023-05-04] MEDS ORDERED: NON-FORMULARY MEDICATION 1 EA EA (Benazepril HCl 10 MG) PO SCH (09:00)
[2023-05-04] MEDS ORDERED: NON-FORMULARY MEDICATION 1 EA EA (Hydrochlorothiazide 12.5 MG) PO SCH (09:00)
[2023-05-04] MEDS: CELECOXIB 400 MG CAPSULE PO SCH (09:29)
[2023-05-04] MEDS: ROSUVASTATIN 10 MG TABLET PO SCH (09:30)
[2023-05-04] MEDS: DOCUSATE SODIUM 100 MG CAPSULE PO SCH ×2 (09:31→21:25)
[2023-05-04] MEDS: oxyCODONE IMMEDIATE RELEASE 5 MG TABLET PO PRN ×3 (09:33→21:41)
[2023-05-04] MEDS: ASPIRIN enteric coated 81MG TABLET PO SCH (09:33)
[2023-05-04] MEDS: ENOXAPARIN 40 MG/0.4 ML SYRINGE SC SCH (09:38)
[2023-05-04 09:40] VITALS: BP 133/86
--- NOTE | 2023-05-04 10:08 | PM&R Progress Note ---
Subjective HPI/CC On Admission Date Seen by Provider: May 04, 2023 Time Seen by Provider: 13:00 Subjective/Events-last exam 05/04/2023: Challenge to motivate to participate in therapy but as the day progresses he is doing much better No falls Labs reviewed No pain reported Replacing potassium since it is 3.3 Review of Systems General: Fatigue, Malaise Musculoskeletal: back pain Objective Exam Vital Signs Vital Signs Date Time Temp Pulse Resp B/P (MAP) Pulse Ox O2 Delivery O2 Flow Rate FiO2 05/04/23 20:22 36.7 67 20 136/82 (100) 97 Room Air Capillary Refill : General Appearance: No Apparent Distress, WD/WN, Chronically ill, Obese HEENT: PERRL/EOMI, Normal ENT Inspection, Pharynx Normal Neck: Full Range of Motion, Normal Inspection, Non Tender, Supple, Carotid Bruit Respiratory: Chest Non Tender, Lungs Clear, Normal Breath Sounds, No Accessory Muscle Use, No Respiratory Distress Cardiovascular: Regular Rate, Rhythm, No Edema, No Gallop, No JVD, No Murmur, Normal Peripheral Pulses Gastrointestinal: Normal Bowel Sounds, No Organomegaly, No Pulsatile Mass, Non Tender, Soft Back: Normal Inspection, No CVA Tenderness, No Vertebral Tenderness Extremity: Normal Capillary Refill, Normal Inspection, Normal Range of Motion, Non Tender, No Calf Tenderness, No Pedal Edema Neurologic/Psychiatric: Alert, Oriented x3, grain farmer II-XII Norm as Tested, Abnormal Gait, Depressed Affect, Motor Weakness (generalized ) Skin: Normal Color, Warm/Dry Lymphatic: No Adenopathy Results/Procedures Lab Laboratory Tests 05/04/23 05:33 Patient resulted labs reviewed. FIM Transfers Therapy Code Descriptions/Definitions Functional [place] Measure: 0=Not Assessed/NA 4=Minimal Assistance 1=Total Assistance 5=Supervision or Setup 2=Maximal Assistance 6=Modified [place] 3=Moderate Assistance 7=Complete IndependenceSCALE: Activities may be completed with or without assistive devices. 8-Kcqofgtuzf-ltnyjgb completes the activity by him/herself with no assistance from a helper. 5-Set-up or Clean-up Assistance-helper sets up or cleans up; patient completes activity. [place] assists only prior to or following the activity. 4-Supervision or Touching Assistance-helper provides verbal cues and/or touching/steadying and/or contact guard assistance as patient completes activity. Assistance may be provided throughout the activity or intermittently. 3-Partial/Moderate Assistance-helper does LESS THAN HALF the effort. [place] lifts, holds or supports trunk or limbs, but provides less than half the effort. 2-Substantial/Maximal Assistance-helper does MORE THAN HALF the effort. [place] lifts or holds trunk or limbs and provides more than half the effort. 9-Myhanefnq-jujian does ALL the effort. Patient does none of the effort to complete the activity. Or, the assistance of 2 or more helpers is required for the patient to complete the activity. If activity was not attempted, code reason: 7-Patient Refused. 9-Not Applicable-not attempted and the patient did not perform the activity before the current illness, exacerbation or injury. 10-Not Attempted due to Environmental Limitations-(lack of equipment, weather restraints, etc.). 88-Not Attempted due to Medical Conditions or Safety Concerns. ADL-Treatment Eating (QC): 5 (Set-up A for feeding) Oral Hygiene (QC): 4 (SBA for oral care) Shower/Bathe Self (QC): 3 (Partial/mod A for bathing based on clinical judgement) Upper Body Dressing (QC): 4 (SBA for UBD) Lower Body Dressing (QC): 3 (Partial/mod A for LBD) On/Off Footwear (QC): 4 (SBA for donning/doffing shoes seated a EOB) Toileting Hygiene (QC): 3 (Partial/mod A for toileting) Assessment/Plan Assessment and Plan Assess & Plan/Chief Complaint Assessment: Cerebellar mass causing imbalance and falls Lung mass h/o prostate cancer 2009 without follow up HTN HLP Hypokalemia Elevated LFT's Plan: Home meds Monitor for falls PT OT 05/04/2023: Replace K+ (1) Brain dysfunction (2) Brain injury (3) Cerebellar mass Status: Acute (4) Disequilibrium Status: Acute LOIDA CHRISTIAN DO May 04, 2023 10:08
--- NOTE | 2023-05-04 10:09 | Individualized Plan of Care ---
Individualized Plan of Care Rehab Nursing IPOC Order Admission Date May 03, 2023 at 14:26 Current Orders Orders Admission Order(Inpt,Obs,Sdc) (05/03/23 13:30) Vital Signs: Per Unit Policy ( 08,16,00 (05/03/23 13:30) Elbert Hayden 09,21 (05/03/23 13:30) Sequential Compression Device [id number] (05/03/23 13:30) Public Health Aide-Inpt Rehab Con (05/03/23 13:30) Rehab Nursing Orders-Ipoc (05/03/23 13:30) Physical Therapy Rehab Orders (05/03/23 13:30) Occupational Therapy Rehab Ord (05/03/23 13:30) Speech Therapy Rehab Orders (05/03/23 13:30) Cbc With Automated Diff (05/04/23 06:00) Comprehensive Metabolic Panel (05/04/23 06:00) Precautions (Aru) (05/03/23 13:30) Weekly Weight WEEK (05/03/23 13:30) Rehab-Intensity Of Therapy (05/03/23 13:30) Initiate Admission Nursing Pro .admission (05/03/23 13:30) Alprazolam Tablet (Alprazolam Tablet) (05/03/23 13:30) Calcium Carbonate Chew Tablet (Calcium C (05/03/23 13:30) Diphenhydramine Tablet (Diphenhydramine (05/03/23 13:30) Docusate Sodium Capsule (Docusate Sodium (05/03/23 21:00) Docusate Sodium Capsule (Docusate Sodium (05/03/23 13:30) Bisacodyl Suppository (Bisacodyl Supposi (05/03/23 13:30) Lactulose Oral Solution (Enulose Oral So (05/03/23 13:30) Na Phos/Na Biphos Adult Enema (Na Phos/N (05/03/23 13:30) Guaifenesin/Codeine Syrup (Guaifenesin/C (05/03/23 13:30) Loperamide Capsule (Loperamide Capsule) (05/03/23 13:30) Melatonin Tablet (Melatonin Tablet) (05/03/23 13:30) Polyethylene Glycol Powder (Polyethylen (05/03/23 21:00) Ondansetron Oral Dissolve Tab (Ondanset (05/03/23 13:30) Senna W/Docusate Tablet (Senna W/Docusat (05/03/23 21:00) Acetaminophen Tablet (Acetaminophen Ta (05/03/23 13:30) Initiate Admission Nursing Pro .admission (05/03/23 13:30) General/Regular (05/03/23 Lunch) Admission Arrival Bed Request (05/03/23 14:26) Nursing Communication (Order) (05/03/23 14:59) Acetaminophen Tablet (Acetaminophen Ta (05/03/23 15:30) Amlodipine Tablet (Amlodipine Tablet) (05/04/23 09:00) Aspirin Enteric Coated Tablet (Ecotrin T (05/04/23 09:00) Celecoxib Capsule (Celecoxib Capsule) (05/04/23 09:00) Oxycodone Immediate Rel Tablet (Oxycodon (05/03/23 15:30) Rosuvastatin Tablet (Rosuvastatin Tablet (05/04/23 09:00) Senna W/Docusate Tablet (Senna W/Docusat (05/03/23 21:00) (Nf) Benazepril Hcl (05/04/23 09:00) (Nf) Hydrochlorothiazide (05/04/23 09:00) Enoxaparin Injection (Enoxaparin Injecti (05/04/23 09:00) Lisinopril Tablet (Lisinopril Tablet) (05/04/23 09:00) Hydrochlorothiazide Tablet (Hydrochlorot (05/04/23 09:00) Incentive Spirometry (Nursing) Q2H (05/03/23 17:00) Potassium Chloride (Tablet) (Potassium C (05/04/23 11:30) Potassium Chloride (Tablet) (Potassium C (05/05/23 07:00) Patient Visit (05/04/23 ) Pt Eval Moderate Complexity (05/04/23 ) Gait Training, Ea 15 Min (05/04/23 ) Functional Activities, Ea 15 (05/04/23 ) Code/Resuscitation (05/04/23 21:09) Rehab Nursing Orders: Ongoing Assess. of Cognitive Status, Ongoing Assess. of Function Status, Bladder Management, Bladder Scan, Bladder Training, Bowel Management, Bowel Training, Disease Management & Educaiton, DVT Prophylaxis, Fall Prevention, Fluid/Electrolyte/Nutrition Mgmt, Infection Prevention, Medication Management & Education, Management of Risks & Complications, Management of Skin Intergrity, Nutrition Management, Pain Management, Patien t/Family Support, Safety Management, Wound Management Intensity of Therapy to be met Patient to be seen: Min.3h per day/5 of 7d PT IPOC Problem List: Activity Tolerance, Functional Strength, Safety, Balance, Gait, Transfer Treatment Plan: Continue Plan of Care Education, Functional Activity Gem, Functional Strength, Group Therapy, Gait, Safety, Therapeutic Exercise, Transfers Treatment Duration: May 10, 2023 Frequency: At least 5 of 7 days/Wk (IRF) Estimated Hrs Per Day: 1.5 hours per day OT IPOC Problems: Decreased Activ Tolerance, Decreased Safety Aware, Dependent [place] sfers, Impaired Cognition, Impaired Funct Balance, Impaired I ADL's, Impaired Self-Care Skills OT Treatment, Training and Edu: Yes Plan of Care: ADL Retraining, Caregiver Training, Cognitive Retraining, Functional Mobility, UE Funct Exercise/Act Treatment Duration: Apr 17, 2024 Frequency: At least 5 of 7 days/Wk (IRF) Estimated Hrs Per Day: 1.[address] IPOC Speech Therapy Treatment Plan: Continue Plan of Care Treatment Duration: May 04, 2023 Frequency: Modified Program (IRF) Estimated Hrs Per Day: Other Public Health Aide/Case Mgmt Public Health Aide/Case Managemen: Discharge Planning Dietitian/Triage Technician Dietitian/Triage Technician to monitor nutritional status and make changes and/or recommendations as needed and work with speech pathology on dietary upgrades as the occur. Physician IPOC Medical Issues being managed closely and that require the 24 hour availability of a physician: Recent craniotomy will require close monitoring for any neurological complication along with cognition management while monitoring BP and preventing falls Medical Issues: Bowel/Bladder Function, DVT Prophylaxis, Falls Precautions, Fluid/Electrolyte/Nutrition Balance, Wound Care Brief Synthesis of Preadmission Screen, Post-Admission Evaluation, and Therapy Evaluations: PT OT and ST will all focus on regaining function since craniotomy while increasing stamina and increase use of AD in order to return home with spouse Medical Prognosis: Fair Anticipated Length of Stay: 10 days LOIDA CHRISTIAN DO May 04, 2023 10:09
[2023-05-04] MEDS: SENNA W/DOCUSATE TABLET PO SCH ×2 (11:21→21:25)
[2023-05-04] MEDS: amLODIPine 5 MG TABLET PO SCH (11:21)
[2023-05-04] MEDS ORDERED: POTASSIUM CHLORIDE 10 MEQ TABLET PO NR (11:30)
--- NOTE | 2023-05-04 14:41 | Occupational Ther Daily Note ---
OT Current Status-Daily Note Subjective Pt sitting in bedside recliner upon arrival with no c/o pain at this time. Pt required max encouragement to participate in OT session this morning with pt agreeing to therapeutic exercises. Pain Numeric Pain Scale: 4 Location Body Site: Neck Pain Description: Ache Comment: RN at bedside and adminstered pain medication prior to therapy Mental Status/Objective Patient Orientation: Person, Place, Time, Situation ADL-Treatment Therapy Code Descriptions/Definitions Functional [place] Measure: 0=Not Assessed/NA 4=Minimal Assistance 1=Total Assistance 5=Supervision or Setup 2=Maximal Assistance 6=Modified [place] 3=Moderate Assistance 7=Complete IndependenceSCALE: Activities may be completed with or without assistive devices. 9-Omphkbiskm-cqgpphz completes the activity by him/herself with no assistance from a helper. 5-Set-up or Clean-up Assistance-helper sets up or cleans up; patient completes activity. [place] assists only prior to or following the activity. 4-Supervision or Touching Assistance-helper provides verbal cues and/or touching/steadying and/or contact guard assistance as patient completes activity. Assistance may be provided throughout the activity or intermittently. 3-Partial/Moderate Assistance-helper does LESS THAN HALF the effort. [place] lifts, holds or supports trunk or limbs, but provides less than half the effort. 2-Substantial/Maximal Assistance-helper does MORE THAN HALF the effort. [place] lifts or holds trunk or limbs and provides more than half the effort. 9-Fapqkcrnz-rdwque does ALL the effort. Patient does none of the effort to complete the activity. Or, the assistance of 2 or more helpers is required for the patient to complete the activity. If activity was not attempted, code reason: 7-Patient Refused. 9-Not Applicable-not attempted and the patient did not perform the activity before the current illness, exacerbation or injury. 10-Not Attempted due to Environmental Limitations-(lack of equipment, weather restraints, etc.). 88-Not Attempted due to Medical Conditions or Safety Concerns. Other Treatment Pt BUE exercises with 3# dumbbell performing exercises in all available planes to increase (B) UE strength, endurance, and activity tolerance to increase (I) with ADLS and IADLs. Pt required intermittent rest breaks as needed. Pt performed 1 set x 15 reps. Pt performed BUE strengthening exercises with red flex bar performing wrist pronation/supination and wrist flex/ext performing 2 sets x 15 reps to increase (B) UE strength and endurance to increase (I) with ADLs and IADLs. Education OT Patient Education: Energy conservation, Exercise program, Purpose of tx/functional activities, Safety issues Teaching Recipient: Patient Teaching Methods: Demonstration, Discussion Response to Teaching: Verbalize Understanding, Return Demonstration, Reinforcement Needed Ending session, pt remained seated in bedside chair with needs/call light in reach and pt educated to call nurses station and to not get up without assistance. OT Bundle Person Goals Alf Goals Acute change in mental status: 0 Inattention: 0 Disorganized thinkin Altered level of consciousness: 0 Eating (QC): 6 Oral Hygiene (QC): 6 Toileting Hygiene (QC): 4 Shower/Bathe Self (QC): 4 Upper Body Dressing (QC): 6 Lower Body Dressing (QC): 4 On/Off Footwear (QC): 5 1=Demonstrate adherence to instructed precautions during ADL tasks. 2=Patient will verbalize/demonstrate understanding of assistive devices/modifications for ADL. 3=Patient will improve strength/tolerance for activity to enable patient to perform ADL's. OT Education/Plan Discharge Recommendations Plan/Recommendations: Continue POC Treatment Plan/Plan of Care Treatment,Training & Education: Yes Patient would benefit from OT for education, treatment and training to promote i ndependence in ADL's, mobility, safety and/or upper extremity function for ADL's. Plan of Care: ADL Retraining, Caregiver Training, Cognitive Retraining, Functional Mobility, UE Funct Exercise/Act Treatment Duration: Apr 17, 2024 Frequency: At least 5 of 7 days/Wk (IRF) Estimated Hrs Per Day: 1.5 hours per day Agreement: Yes Rehab Potential: Good Time Start Time: 10:00 Stop Time: 10:30 DATE: May 04, 2023 Total Time Billed (hr/min): 30 Billed Treatment Time 30 minutes EX 2 (30 minutes) HAYLEE BRICENO May 04, 2023 14:41
--- NOTE | 2023-05-04 14:51 | Occupational Ther Daily Note ---
OT Current Status-Daily Note Subjective Pt sitting in bedside recliner upon arrival. Pt consented to OT session this PM. Pain Numeric Pain Scale: 0-No Pain Location: No Pain Reported Mental Status/Objective Patient Orientation: Person, Place, Time, Situation ADL-Treatment Therapy Code Descriptions/Definitions Functional Boundary Measure: 0=Not Assessed/NA 4=Minimal Assistance 1=Total Assistance 5=Supervision or Setup 2=Maximal Assistance 6=Modified Boundary 3=Moderate Assistance 7=Complete IndependenceSCALE: Activities may be completed with or without assistive devices. 5-Ybqljwxchk-ekreydt completes the activity by him/herself with no assistance from a helper. 5-Set-up or Clean-up Assistance-helper sets up or cleans up; patient completes activity. [place] assists only prior to or following the activity. 4-Supervision or Touching Assistance-helper provides verbal cues and/or touching/steadying and/or contact guard assistance as patient completes activity. Assistance may be provided throughout the activity or intermittently. 3-Partial/Moderate Assistance-helper does LESS THAN HALF the effort. [place] lifts, holds or supports trunk or limbs, but provides less than half the effort. 2-Substantial/Maximal Assistance-helper does MORE THAN HALF the effort. [place] lifts or holds trunk or limbs and provides more than half the effort. 0-Qicwapxcf-lrloqm does ALL the effort. Patient does none of the effort to complete the activity. Or, the assistance of 2 or more helpers is required for the patient to complete the activity. If activity was not attempted, code reason: 7-Patient Refused. 9-Not Applicable-not attempted and the patient did not perform the activity before the current illness, exacerbation or injury. 10-Not Attempted due to Environmental Limitations-(lack of equipment, weather restraints, etc.). 88-Not Attempted due to Medical Conditions or Safety Concerns. Bathing Location: L Arm, R Arm, L Upper Leg, R Upper Leg, L Lower Leg (including foot), R Lower Leg (including foot), Chest, Abdomen, Buttocks, Perineal Area Shower/Bathe Self (QC): 4 (SBA for safety for bathing as pt utilized built in shower bench, GB's, and hand held shower head. Pt performed sit<>stand to clean devi area and buttocks with SBA. Pt able to wash remainder of body seated on built in bench. ) Upper Body Dressing (QC): 5 (Set-up A to don shirt seated on EOB.) Lower Body Dressing (QC): 4 (SBA for safety/balance to don/doff underwear and shorts.) On/Off Footwear: 4 (SBA to don/doff socks seated in bedside recliner) Pt performed shower transfer with SBA for safety with pt utilizing GB's for balance. Pt performed shaving task seated at sink with SBA for safety. Education OT Patient Education: Energy conservation, Modified ADL techniques, Progress toward Goal/Update tx plan, Purpose of tx/functional activities, Rehab process, Safety issues, Transfer techniques, Use of adapted equipment Teaching Recipient: Patient Teaching Methods: Demonstration, Discussion Response to Teaching: Verbalize Understanding, Return Demonstration, Reinforcement Needed Ending session, pt remained seated in bedside chair with needs/call light in reach. Pt educated on calling nurses station if he needed to get up to reduce fall risk. OT [facility] Goals Control Director Goals Acute change in mental status: 0 Inattention: 0 Disorganized thinkin Altered level of consciousness: 0 Eating (QC): 6 Oral Hygiene (QC): 6 Toileting Hygiene (QC): 4 Shower/Bathe Self (QC): 4 Upper Body Dressing (QC): 6 Lower Body Dressing (QC): 4 On/Off Footwear (QC): 5 1=Demonstrate adherence to instructed precautions during ADL tasks. 2=Patient will verbalize/demonstrate understanding of assistive devices/modifications for ADL. 3=Patient will improve strength/tolerance for activity to enable patient to perform ADL's. OT Education/Plan Discharge Recommendations Plan/Recommendations: Continue POC Treatment Plan/Plan of Care Treatment,Training & Education: Yes Patient would benefit from OT for education, treatment and training to promote independence in ADL's, mobility, safety and/or upper extremity function for ADL's. Plan of Care: ADL Retraining, Caregiver Training, Cognitive Retraining, Functional Mobility, UE Funct Exercise/Act Treatment Duration: Apr 17, 2024 Frequency: At least 5 of 7 days/Wk (IRF) Estimated Hrs Per Day: 1.5 hours per day Agreement: Yes Rehab Potential: Good Time Start Time: 13:30 Stop Time: 14:30 DATE: May 04, 2023 Total Time Billed (hr/min): 60 Billed Treatment Time 60 minutes ADL 4 (60 minutes) HAYLEE BRICENO May 04, 2023 14:51
[2023-05-04 20:22] VITALS: BP 136/82
[2023-05-05] MEDS: POTASSIUM CHLORIDE 10 MEQ TABLET PO SCH (06:31)
--- NOTE | 2023-05-05 07:43 | PM&R Progress Note ---
Subjective HPI/CC On Admission Date Seen by Provider: May 05, 2023 Time Seen by Provider: 12:00 Subjective/Events-last exam 05/05/2023: No major issues No pain Will update [facility] on the redness to the scalp incision line No falls 05/04/2023: Challenge to motivate to participate in therapy but as the day progresses he is doing much better No falls Labs reviewed No pain reported Replacing potassium since it is 3.3 Review of Systems General: Fatigue, Malaise Neurological: Confusion Objective Exam Vital Signs Vital Signs Date Time Temp Pulse Resp B/P (MAP) Pulse Ox O2 Delivery O2 Flow Rate FiO2 05/05/23 20:20 Room Air 05/05/23 20:09 36.5 72 16 115/71 (86) 98 Capillary Refill : General Appearance: No Apparent Distress, WD/WN, Chronically ill, Obese HEENT: PERRL/EOMI, Normal ENT Inspection, Pharynx Normal Neck: Full Range of Motion, Normal Inspection, Non Tender, Supple, Carotid Bruit Respiratory: Chest Non Tender, Lungs Clear, Normal Breath Sounds, No Accessory Muscle Use, No Respiratory Distress Cardiovascular: Regular Rate, Rhythm, No Edema, No Gallop, No JVD, No Murmur, Normal Peripheral Pulses Gastrointestinal: Normal Bowel Sounds, No Organomegaly, No Pulsatile Mass, Non Tender, Soft Back: Normal Inspection, No CVA Tenderness, No Vertebral Tenderness Extremity: Normal Capillary Refill, Normal Inspection, Normal Range of Motion, Non Tender, No Calf Tenderness, No Pedal Edema Neurologic/Psychiatric: Alert, Oriented x3, skinning machine feeder II-XII Norm as Tested, Abnormal Gait, Depressed Affect, Motor Weakness (generalized ) Skin: Normal Color, Warm/Dry Lymphatic: No Adenopathy Results/Procedures Lab Patient resulted labs reviewed. FIM Transfers Therapy Code Descriptions/Definitions Functional [place] Measure: 0=Not Assessed/NA 4=Minimal Assistance 1=Total Assistance 5=Supervision or Setup 2=Maximal Assistance 6=Modified [place] 3=Moderate Assistance 7=Complete IndependenceSCALE: Activities may be completed with or without assistive devices. 1-Koegqrzrtb-bovaegy completes the activity by him/herself with no assistance from a helper. 5-Set-up or Clean-up Assistance-helper sets up or cleans up; patient completes activity. [place] assists only prior to or following the activity. 4-Supervision or Touching Assistance-helper provides verbal cues and/or touching/steadying and/or contact guard assistance as patient completes activity. Assistance may be provided throughout the activity or intermittently. 3-Partial/Moderate Assistance-helper does LESS THAN HALF the effort. [place] lifts, holds or supports trunk or limbs, but provides less than half the effort. 2-Substantial/Maximal Assistance-helper does MORE THAN HALF the effort. [place] lifts or holds trunk or limbs and provides more than half the effort. 4-Humvbrcqe-wxzdzs does ALL the effort. Patient does none of the effort to complete the activity. Or, the assistance of 2 or more helpers is required for the patient to complete the activity. If activity was not attempted, code reason: 7-Patient Refused. 9-Not Applicable-not attempted and the patient did not perform the activity before the current illness, exacerbation or injury. 10-Not Attempted due to Environmental Limitations-(lack of equipment, weather restraints, etc.). 88-Not Attempted due to Medical Conditions or Safety Concerns. Roll Left to Right (QC): 6 Sit to Lying (QC): 6 Sit to Stand (QC): 4 (uses back of legs to brace against chair at times - pushing chair back and need steadying assist to recover.) Chair/Lcx-ox-Ffxvg Xfer(QC): 4 (cues for hand placement) Car Transfer (QC): 4 (safety cues) Gait Training Does the Patient Walk?: Yes Walk 10 feet (QC): 5 Walk 50 ft with 2 Turns(QC): 4 (CGA /s walker for longer distances - step length decreases as patient fatigues. ) Walk 150 ft (QC): 4 (CGA /s walker for longer distances - step length decreases as patient fatigues. ) Walking 10ft/uneven surface-QC: 4 (/s device) Gait Assistive Device: None Wheelchair Training Does the Pt Use a Wheelchair?: No Wheel 50 ft with 2 turns (QC): 9 Wheel 150 ft (QC): 9 Type of Wheelchair: N/A Stair Training 1 Step (curb) (QC): 4 (CGA for 2" step, CGA for 4" step with STAFF ASSISTANT on (R).) 4 Steps (QC): 4 (SBA with (B) railings) 12 Steps (QC): 4 (SBA /c (B) railings.) Balance Picking up an Object (QC): 3 (Min (A) ) ADL-Treatment Eating (QC): 5 (Set-up A for feeding) Oral Hygiene (QC): 4 (SBA for oral care) Bathing Location: L Arm, R Arm, L Upper Leg, R Upper Leg, L Lower Leg (including foot), R Lower Leg (including foot), Chest, Abdomen, Buttocks, Perineal Area Shower/Bathe Self (QC): 4 (SBA for safety for bathing as pt utilized built in shower bench, GB's, and hand held shower head. Pt performed sit<>stand to clean devi area and buttocks with SBA. Pt able to wash remainder of body seated on built in bench. ) Upper Body Dressing (QC): 5 (Set-up A to don shirt seated on EOB.) Lower Body Dressing (QC): 4 (SBA for safety/balance to don/doff underwear and shorts.) On/Off Footwear (QC): 4 (SBA to don/doff socks seated in bedside recliner) Toileting Hygiene (QC): 3 (Partial/mod A for toileting) Assessment/Plan Assessment and Plan Assess & Plan/Chief Complaint Assessment: Cerebellar mass causing imbalance and falls Lung mass h/o prostate cancer 2009 without follow up HTN HLP Hypokalemia Elevated LFT's Plan: Home meds Monitor for falls PT OT 05/04/2023: Replace K+ 05/05/2023: Monitor closely (1) Brain dysfunction (2) Brain injury (3) Cerebellar mass Status: Acute (4) Disequilibrium Status: Acute LOIDA CHRISTIAN DO May 05, 2023 07:43
[2023-05-05 08:00] VITALS: BP 145/80
--- NOTE | 2023-05-05 09:08 | Physical Therapy Daily Note ---
PT Daily Note-Current Subjective No new complaints this a.m. Has some tightness in his neck, but it is "tolerable". Pain Section J - Health Conditions 1. Rarely or not at all 2. Occasionally 3. Frequently 4. Almost constantly 8. Unable to answer Pain Effect on Sleep: 1 Pain Interference with Therapy: 1 Pain Interference w/Day-to-Day: 1 Transfers SCALE: Activities may be completed with or without assistive devices. 6-Aydpkgvowm-nfajcmi completes the activity by him/herself with no assistance from a helper. 5-Set-up or Clean-up Assistance-helper sets up or cleans up; patient completes activity. [place] assists only prior to or following the activity. 4-Supervision or Touching Assistance-helper provides verbal cues and/or touchi ng/steadying and/or contact guard assistance as patient completes activity. Assistance may be provided throughout the activity or intermittently. 3-Partial/Moderate Assistance-helper does LESS THAN HALF the effort. [place] lifts, holds or supports trunk or limbs, but provides less than half the effort. 2-Substantial/Maximal Assistance-helper does MORE THAN HALF the effort. [place] lifts or holds trunk or limbs and provides more than half the effort. 6-Eqpvgsrbl-zfybgj does ALL the effort. Patient does none of the effort to complete the activity. Or, the assistance of 2 or more helpers is required for the patient to complete the activity. If activity was not attempted, code reason: 7-Patient Refused. 9-Not Applicable-not attempted and the patient did not perform the activity before the current illness, exacerbation or injury. 10-Not Attempted due to Environmental Limitations-(lack of equipment, weather restraints, etc.). 88-Not Attempted due to Medical Conditions or Safety Concerns. Sit to Stand (QC): 4 (SBA-(I) to FWW. Hand placement cues only, then (I).) Chair/Npo-jf-Lmscv Xfer(QC): 4 (SBA-(I) with FWW cues to use walker to turn completely. ) Weight Bearing Right Lower Extremity: Right Weight Bearing/Tolerated Left Lower Extremity: Left Weight Bearing/Tolerated Gait Training Does the Patient Walk?: Yes Distance: 300', 175', 50' Walk 150 ft (QC): 5 (SBA-(I) with FWW. Improved gait stride following Nustep exercise. No LOB's. ) Gait Assistive Device: FWW Recommend continued use of FWW for gait stability/safety. Demonstrates no LOB with FWW use. Stair Training 4 Steps (QC): 5 (Set up to remove walker so patient could hold onto railings. Reciprocal steps up/down steps /s assist nor cues. ) Exercises Standing balance exercise at sink: Heel/toe raises x 15 Hi-knee marches x 10 Hip abd/add x 10 Mini squats x 5 NuStep Minutes: 15 NuStep Workload: 4 ((B) UE's and LE's. No SOB. Improved stride following Nustep exercise.) Treatments Practice walking while holding coffee cup and no device -- SBA-(I) with countertop use x 10'. SBA-CGA without device x 10' Assessment Current Status: Good Progress (Improved gait balance this a.m. Nustep exercise resulted in improved step length following. ) PT Halfway Goals Halfway Goals PT Halfway Goals Time Frame: May 10, 2023 Roll Left & Right (QC): 6 Sit to Lying (QC): 6 Lying-Sitting on Side/Bed(QC): 6 Sit to Stand (QC): 6 Chair/Xxe-rs-Xmzco Xfer(QC): 6 Toilet Transfer (QC): 6 Car Transfer (QC): 6 Does the Patient Walk: Yes Walk 10 feet (QC): 6 (/c FWW) Walk 50ft with 2 Turns (QC): 6 (/c FWW) Walk 150 ft (QC): 6 (/c FWW) Walking 10ft on Uneven Surface: 6 (/c FWW) 1 Step (curb) (QC): 6 (/c FWW) 4 Steps (QC): 6 (/c railing) 12 Steps (QC): 6 (/c railing) Picking up an Object (QC): 6 (/c human resources benefits coordinator or no device) Wheel 50 feet with 2 turns (QC: 9 Wheel 150 feet: 9 PT Plan Problem List Problem List: Activity Tolerance, Functional Strength, Safety, Balance, Gait, Transfer Treatment/Plan Treatment Plan: Continue Plan of Care Treatment Plan: Education, Functional Activity Gem, Functional Strength, Group Therapy, Gait, Safety, Therapeutic Exercise, Transfers Treatment Duration: May 10, 2023 Frequency: At least 5 of 7 days/Wk (IRF) Estimated Hrs Per Day: 1.5 hours per day Safety Risks/Education Patient Education: Gait Training, Steps Discharge Recommendations Equpiment Recommendations-D/C: Front Wheeled Walker Time Time In: 800 Time Out: 900 DATE: May 05, 2023 Total Billed Treatment Time: 60 Total Billed Treatment Ex: 30, GT 25, FA 5 Beatrice Cisneros PT May 05, 2023 09:08
[2023-05-05] MEDS: amLODIPine 5 MG TABLET PO SCH (09:09)
[2023-05-05] MEDS: DOCUSATE SODIUM 100 MG CAPSULE PO SCH ×3 (09:10→22:04)
[2023-05-05] MEDS: SENNA W/DOCUSATE TABLET PO SCH ×3 (09:10→22:04)
[2023-05-05] MEDS: ENOXAPARIN 40 MG/0.4 ML SYRINGE SC SCH (09:12)
[2023-05-05] MEDS: CELECOXIB 400 MG CAPSULE PO SCH (09:12)
[2023-05-05] MEDS: ASPIRIN enteric coated 81MG TABLET PO SCH (09:55)
[2023-05-05] MEDS: ROSUVASTATIN 10 MG TABLET PO SCH ×2 (09:55→21:03)
--- NOTE | 2023-05-05 11:52 | Occupational Ther Daily Note ---
OT Current Status-Daily Note Subjective Entered patients room at 10:00 and pt was on the phone. Acknowledged therapist but would not get off the phone after therapist explained that it was time for therapy. Therapist sat in pt's room trying to get hiim to get off the phone with pt still not cooperating. Therapist told pt she would return at 10:30. At 10:30, therapist returned and pt was off the phone and agreed to OT session. Pain Numeric Pain Scale: 4 Location Body Site: Neck Mental Status/Objective Patient Orientation: Person, Place, Time, Situation ADL-Treatment Therapy Code Descriptions/Definitions Functional [place] Measure: 0=Not Assessed/NA 4=Minimal Assistance 1=Total Assistance 5=Supervision or Setup 2=Maximal Assistance 6=Modified [place] 3=Moderate Assistance 7=Complete IndependenceSCALE: Activities may be completed with or without assistive devices. 6-Uthtuqlddz-qwesnra completes the activity by him/herself with no assistance from a helper. 5-Set-up or Clean-up Assistance-helper sets up or cleans up; patient completes activity. [place] assists only prior to or following the activity. 4-Supervision or Touching Assistance-helper provides verbal cues and/or touching/steadying and/or contact guard assistance as patient completes activity. Assistance may be provided throughout the activity or intermittently. 3-Partial/Moderate Assistance-helper does LESS THAN HALF the effort. [place] lifts, holds or supports trunk or limbs, but provides less than half the effort. 2-Substantial/Maximal Assistance-helper does MORE THAN HALF the effort. [place] lifts or holds trunk or limbs and provides more than half the effort. 5-Mmefhuolk-wabrea does ALL the effort. Patient does none of the effort to complete the activity. Or, the assistance of 2 or more helpers is required for the patient to complete the activity. If activity was not attempted, code reason: 7-Patient Refused. 9-Not Applicable-not attempted and the patient did not perform the activity before the current illness, exacerbation or injury. 10-Not Attempted due to Environmental Limitations-(lack of equipment, weather restraints, etc.). 88-Not Attempted due to Medical Conditions or Safety Concerns. Pt declined to perform any ADLs during this treatment. Other Treatment Pt ambulated from room<>therapy gym with [facility] x 1 with RW. Pt performed seated activity at table top with pt performing 5 minutes on arm bike to increase endurance and BUE strength to increase (I) with ADLs and IADLs. Pt required no rest breaks. No distress noted after performing activity. Pt performed BUE strengthening exercises with 3# dumbbell performing 20 reps x 2 sets in all available planes of motion while seated in chair to increase BUE strength to increase (I) with ADLs. Pt required intermittent rest breaks when performing exercises. No c/o pain at this time. Education OT Patient Education: Energy conservation, Exercise program, Home exercise program, Progress toward Goal/Update tx plan, Purpose of tx/functional activities, Rehab process, Safety issues, Transfer techniques Teaching Recipient: Patient Teaching Methods: Demonstration, Discussion Response to Teaching: Verbalize Understanding, Return Demonstration, Reinforcement Needed Pt remained seated in recliner at the end of session with needs/call light in reach. OT Halfway Goals Design Editor Goals Acute change in mental status: 0 Inattention: 0 Disorganized thinkin Altered level of consciousness: 0 Eating (QC): 6 Oral Hygiene (QC): 6 Toileting Hygiene (QC): 4 Shower/Bathe Self (QC): 4 Upper Body Dressing (QC): 6 Lower Body Dressing (QC): 4 On/Off Footwear (QC): 5 1=Demonstrate adherence to instructed precautions during ADL tasks. 2=Patient will verbalize/demonstrate understanding of assistive devices/modifications for ADL. 3=Patient will improve strength/tolerance for activity to enable patient to perform ADL's. OT Education/Plan Discharge Recommendations Plan/Recommendations: Continue POC Treatment Plan/Plan of Care Patient would benefit from OT for education, treatment and training to promote independence in ADL's, mobility, safety and/or upper extremity function for ADL's. Plan of Care: ADL Retraining, Caregiver Training, Cognitive Retraining, Functional Mobility, UE Funct Exercise/Act Treatment Duration: Apr 17, 2024 Frequency: At least 5 of 7 days/Wk (IRF) Estimated Hrs Per Day: 1.5 hours per day Agreement: Yes Rehab Potential: Good Time Start Time: 10:30 Stop Time: 11:00 DATE: May 05, 2023 Total Time Billed (hr/min): 30 Billed Treatment Time 30 minutes FA 1 (15 minutes) EX 1 (15 minutes) HAYLEE BRICENO May 05, 2023 11:52
--- NOTE | 2023-05-05 13:36 | ST Cognitive Linguistic Eval ---
Speech Evaluation-General Medical Diagnosis NTBI- Malignant Cerebellar Mass Onset Date: Apr 25, 2023 Therapy Diagnosis Therapy Diagnosis: Baseline Cognitive Function (Minimal Impairment) Precautions Precautions: Fall Precautions/Isolations: Fall Prevention, Standard Precautions Referral Referring Physician: Dr. Easton Reason for Referral: Evaluation/Treatment Medical History Pertinent Medical History: HTN Reviewed History: Yes Social History Current Living Status: Spouse Speech PLF-Current Status Prior Level of Function The patient denied cognitive, speech, or language deficits at this time, self-reporting baseline function in comparison to pre-admission. Subjective The patient was seated upright in the recliner, awake and alert, upon entrance to his room by the clinician. The patient greeted the clinician appropriately and reluctantly agreed to participation in the cognitive linguistic assessment. Language Eval: Auditory Comprehends Simple Yes/No Ques: Functional Indent/Objects Multiple [place]: Functional Follows 1-Step Commands: Functional Follows General Conversations: Functional Language Eval: Verbal Language Completes Spontaneous Greeting: Functional Produces Auto, Serial Info: Functional Word Finding: Mild Requests Basic Needs: Functional States Basic Personal Info: Functional Language Evaluation: Writing Writes to Simple Dictation: Functional Cognitive Patient Orientation The patient was independently oriented to self, location, month, day of the week, and year. Objective Cognitive Domain Attention: Mild (Verbal redirection to topic was required.) Memory: Mild Problem Solving: Mild Visuospatial Skills: WNL Composite Severity Rating: WNL (Per screening tool.) Clock Drawing Severity Rating: WNL Objective Formal/Standardized Tests [facility] Mental Status Exam (UMS) Results The patient demonstrated a result of +27/30 on the SLUMS correlating to normal neurocognitive function. The patient received one point deduction for providing 11 animals within one minute (WNL=15) (anomia), a one point deduction for recalling 4/5 single items following a five minute delay (delayed recall), and a one point deduction for stating four digits in incorrect order backwards (working memory). Oral Motor/Speech Production The patient does not display dysarthria or apraxia of speech. The patient is 100% intelligible in known and unknown contexts. Impression While the patient does display minimal difficulties with memory areas of the standardized screening, the patient does report baseline function and reduced interest in pursuing skilled speech pathology resources to improve baseline abilities. Additionally, the patient will discharge on 05/08/23, not allowing an appropriate time frame to make progress towards skilled speech pathology goals. At this time, skilled speech pathology services are not recommended. Additionally, the patient does not wish to pursue speech pathology on an outpatient basis post acute stay. Speech-Plan Treatment Plan Speech Therapy Treatment Plan: Discontinue ST Treatment Duration: May 05, 2023 Frequency: 1 time per week Estimated Hrs Per Day: .5 hour per day Rehab Potential: Fair Pt/Family Agrees to Plan: Yes Safety Risks/Education Teaching Recipient: Patient Teaching Methods: Discussion Response to Teaching: Verbalize Understanding Education Topics Provided: Results, Recommendations, Plan of Care Time Speech Therapy Time In: 09:30 Speech Therapy Time Out: 10:00 DATE: May 05, 2023 Total Billed Time: 30 Billed Treatment Time 1, KASSI BOWERS [facility] May 05, 2023 13:36
--- NOTE | 2023-05-05 15:50 | Occupational Ther Daily Note ---
OT Current Status-Daily Note Subjective Pt consented to OT session this PM. Mental Status/Objective Patient Orientation: Person, Place, Time, Situation ADL-Treatment Therapy Code Descriptions/Definitions Functional [place] Measure: 0=Not Assessed/NA 4=Minimal Assistance 1=Total Assistance 5=Supervision or Setup 2=Maximal Assistance 6=Modified [place] 3=Moderate Assistance 7=Complete IndependenceSCALE: Activities may be completed with or without assistive devices. 7-Nkwsdykbfs-axnsxgh completes the activity by him/herself with no assistance from a helper. 5-Set-up or Clean-up Assistance-helper sets up or cleans up; patient completes activity. [place] assists only prior to or following the activity. 4-Supervision or Touching Assistance-helper provides verbal cues and/or touching/steadying and/or contact guard assistance as patient completes activity. Assistance may be provided throughout the activity or intermittently. 3-Partial/Moderate Assistance-helper does LESS THAN HALF the effort. [place] lifts, holds or supports trunk or limbs, but provides less than half the effort. 2-Substantial/Maximal Assistance-helper does MORE THAN HALF the effort. [place] lifts or holds trunk or limbs and provides more than half the effort. 0-Wvmgrsorz-qpmhyf does ALL the effort. Patient does none of the effort to complete the activity. Or, the assistance of 2 or more helpers is required for the patient to complete the activity. If activity was not attempted, code reason: 7-Patient Refused. 9-Not Applicable-not attempted and the patient did not perform the activity before the current illness, exacerbation or injury. 10-Not Attempted due to Environmental Limitations-(lack of equipment, weather restraints, etc.). 88-Not Attempted due to Medical Conditions or Safety Concerns. Lower Body Dressing (QC): 4 (Pt donned pants with SBA) Other Treatment Pt ambulated from room<>hospital courtyard with CGA x 1 with RW ambulating more than 300 feet while utilizing [facility] signs [facility] Pt did not have a WC follow and did not need to rest. No LOB noted when ambulating. Activity performed to increase (I) with community reintegration. Pt performed BUE exercises while seated with green flex bar performing 15 reps x 2 sets. Activity performed to improve BUE strength, endurance, and activity tolerance. Intermittent rest breaks needed secondary to fatigue. No pain reported at this time. Pt performed BUE exercises while seated with red theraband performing 2 sets x 15 reps in all available planes of motion to increase (I) with ADLs and IADLs. Pt required min verbal cues for correct exercises technique. Pt reported no pain at this time. Pt performed toilet t/f with SBA utilizing GB's. Education OT Patient Education: Energy conservation, Progress toward Goal/Update tx plan, Purpose of tx/functional activities, Rehab process, Safety issues, Transfer techniques Teaching Recipient: Patient Teaching Methods: Demonstration, Discussion Response to Teaching: Verbalize Understanding, Return Demonstration, Reinforcement Needed OT Instructional Services Specialist Goals Instructional Services Specialist Goals Acute change in mental status: 0 Inattention: 0 Disorganized thinkin Altered level of consciousness: 0 Eating (QC): 6 Oral Hygiene (QC): 6 Toileting Hygiene (QC): 4 Shower/Bathe Self (QC): 4 Upper Body Dressing (QC): 6 Lower Body Dressing (QC): 4 On/Off Footwear (QC): 5 1=Demonstrate adherence to instructed precautions during ADL tasks. 2=Patient will verbalize/demonstrate understanding of assistive devices/modifications for ADL. 3=Patient will improve strength/tolerance for activity to enable patient to perform ADL's. OT Education/Plan Discharge Recommendations Plan/Recommendations: Continue POC Treatment Plan/Plan of Care Treatment,Training & Education: Yes Patient would benefit from OT for education, treatment and training to promote independence in ADL's, mobility, safety and/or upper extremity function for ADL's. Plan of Care: ADL Retraining, Caregiver Training, Cognitive Retraining, Functional Mobility, UE Funct Exercise/Act Treatment Duration: Apr 17, 2024 Frequency: At least 5 of 7 days/Wk (IRF) Estimated Hrs Per Day: 1.5 hours per day Agreement: Yes Rehab Potential: Fair Ending session, pt remained seated on toilet having a BM. Notified RN of pt being on toilet. Pt educated on using call light system to notify nursing when he was done using the restroom. Pt verbalized understanding. Time Start Time: 13:00 Stop Time: 14:00 DATE: May 05, 2023 Total Time Billed (hr/min): 60 Billed Treatment Time 60 minutes EX 2 (30 minutes) FA 2 (30 minutes) HAYLEE BRICENO May 05, 2023 15:50
[2023-05-05 20:09] VITALS: BP 115/71
[2023-05-05] MEDS: oxyCODONE IMMEDIATE RELEASE 5 MG TABLET PO PRN (21:02)
[2023-05-06] MEDS: oxyCODONE IMMEDIATE RELEASE 5 MG TABLET PO PRN ×2 (01:48→20:23)
[2023-05-06] MEDS: POTASSIUM CHLORIDE 10 MEQ TABLET PO SCH (06:29)
[2023-05-06 08:00] VITALS: BP 121/81
[2023-05-06] MEDS: amLODIPine 5 MG TABLET PO SCH (09:10)
[2023-05-06] MEDS: DOCUSATE SODIUM 100 MG CAPSULE PO SCH ×3 (09:10→19:25)
[2023-05-06] MEDS: SENNA W/DOCUSATE TABLET PO SCH ×3 (09:10→19:25)
[2023-05-06] MEDS: CELECOXIB 400 MG CAPSULE PO SCH (09:10)
[2023-05-06] MEDS: ENOXAPARIN 40 MG/0.4 ML SYRINGE SC SCH ×2 (09:10→09:19)
[2023-05-06] MEDS: ASPIRIN enteric coated 81MG TABLET PO SCH ×2 (09:10→09:19)
--- NOTE | 2023-05-06 10:41 | PM&R Progress Note ---
Subjective HPI/CC On Admission Date Seen by Provider: May 06, 2023 Time Seen by Provider: 10:45 Subjective/Events-last exam 05/06/2023: Patient doing a lot better No pain is reported Starting Keflex for incisional cellulitis No other concerns 05/05/2023: No major issues No pain Will update [facility] on the redness to the scalp incision line No falls 05/04/2023: Challenge to motivate to participate in therapy but as the day progresses he is doing much better No falls Labs reviewed No pain reported Replacing potassium since it is 3.3 Review of Systems General: Fatigue, Malaise Objective Exam Vital Signs Vital Signs Date Time Temp Pulse Resp B/P (MAP) Pulse Ox O2 Delivery O2 Flow Rate FiO2 05/06/23 20:19 Room Air 05/06/23 19:53 36.5 57 18 139/79 (99) 96 Capillary Refill : General Appearance: No Apparent Distress, WD/WN, Chronically ill, Obese HEENT: PERRL/EOMI, Normal ENT Inspection, Pharynx Normal Neck: Full Range of Motion, Normal Inspection, Non Tender, Supple, Carotid Bruit Respiratory: Chest Non Tender, Lungs Clear, Normal Breath Sounds, No Accessory Muscle Use, No Respiratory Distress Cardiovascular: Regular Rate, Rhythm, No Edema, No Gallop, No JVD, No Murmur, Normal Peripheral Pulses Gastrointestinal: Normal Bowel Sounds, No Organomegaly, No Pulsatile Mass, Non Tender, Soft Back: Normal Inspection, No CVA Tenderness, No Vertebral Tenderness Extremity: Normal Capillary Refill, Normal Inspection, Normal Range of Motion, Non Tender, No Calf Tenderness, No Pedal Edema Neurologic/Psychiatric: Alert, Oriented x3, associate loan officer II-XII Norm as Tested, Abnormal Gait, Depressed Affect, Motor Weakness (generalized ) Skin: Normal Color, Warm/Dry Lymphatic: No Adenopathy Results/Procedures Lab Patient resulted labs reviewed. FIM Transfers Therapy Code Descriptions/Definitions Functional [place] Measure: 0=Not Assessed/NA 4=Minimal Assistance 1=Total Assistance 5=Supervision or Setup 2=Maximal Assistance 6=Modified [place] 3=Moderate Assistance 7=Complete IndependenceSCALE: Activities may be completed with or without assistive devices. 5-Flesrszjkh-dklekkg completes the activity by him/herself with no assistance from a helper. 5-Set-up or Clean-up Assistance-helper sets up or cleans up; patient completes activity. [place] assists only prior to or following the activity. 4-Supervision or Touching Assistance-helper provides verbal cues and/or touching/steadying and/or contact guard assistance as patient completes activity. Assistance may be provided throughout the activity or intermittently. 3-Partial/Moderate Assistance-helper does LESS THAN HALF the effort. [place] lifts, holds or supports trunk or limbs, but provides less than half the effort. 2-Substantial/Maximal Assistance-helper does MORE THAN HALF the effort. [place] lifts or holds trunk or limbs and provides more than half the effort. 0-Sptaqsdoi-pkjmxk does ALL the effort. Patient does none of the effort to complete the activity. Or, the assistance of 2 or more helpers is required for the patient to complete the activity. If activity was not attempted, code reason: 7-Patient Refused. 9-Not Applicable-not attempted and the patient did not perform the activity before the current illness, exacerbation or injury. 10-Not Attempted due to Environmental Limitations-(lack of equipment, weather restraints, etc.). 88-Not Attempted due to Medical Conditions or Safety Concerns. Roll Left to Right (QC): 6 Sit to Lying (QC): 6 Sit to Stand (QC): 4 (SBA-(I) to FWW. Hand placement cues only, then (I).) Chair/Qvm-rx-Xoyhp Xfer(QC): 4 (SBA-(I) with FWW cues to use walker to turn completely. ) Car Transfer (QC): 4 (safety cues) Gait Training Does the Patient Walk?: Yes Distance: 300', 175', 50' Walk 10 feet (QC): 5 Walk 50 ft with 2 Turns(QC): 4 (CGA /s walker for longer distances - step lengt h decreases as patient fatigues. ) Walk 150 ft (QC): 5 (SBA-(I) with FWW. Improved gait stride following Nustep exercise. No LOB's. ) Walking 10ft/uneven surface-QC: 4 (/s device) Gait Assistive Device: FWW Wheelchair Training Does the Pt Use a Wheelchair?: No Wheel 50 ft with 2 turns (QC): 9 Wheel 150 ft (QC): 9 Type of Wheelchair: N/A Stair Training 1 Step (curb) (QC): 4 (CGA for 2" step, CGA for 4" step with RADIATION ENGINEER on (R).) 4 Steps (QC): 5 (Set up to remove walker so patient could hold onto railings. Reciprocal steps up/down steps /s assist nor cues. ) 12 Steps (QC): 4 (SBA /c (B) railings.) Balance Picking up an Object (QC): 3 (Min (A) ) ADL-Treatment Eating (QC): 5 (Set-up A for feeding) Oral Hygiene (QC): 4 (SBA for oral care) Bathing Location: L Arm, R Arm, L Upper Leg, R Upper Leg, L Lower Leg (including foot), R Lower Leg (including foot), Chest, Abdomen, Buttocks, Perineal Area Shower/Bathe Self (QC): 4 (SBA for safety for bathing as pt utilized built in shower bench, GB's, and hand held shower head. Pt performed sit<>stand to clean devi area and buttocks with SBA. Pt able to wash remainder of body seated on built in bench. ) Upper Body Dressing (QC): 5 (Set-up A to don shirt seated on EOB.) Lower Body Dressing (QC): 4 (Pt donned pants with SBA) On/Off Footwear (QC): 4 (SBA to don/doff socks seated in bedside recliner) Toileting Hygiene (QC): 3 (Partial/mod A for toileting) Assessment/Plan Assessment and Plan Assess & Plan/Chief Complaint Assessment: Cerebellar mass causing imbalance and falls Lung mass h/o prostate cancer 2009 without follow up HTN HLP Hypokalemia Elevated LFT's Incisional cellulitis placed on Keflex on 05/06/2023 Plan: Home meds Monitor for falls PT OT 05/04/2023: Replace K+ 05/05/2023: Monitor closely 05/06/2023: Supportive care Start on Keflex (1) Brain dysfunction (2) Brain injury (3) Cerebellar mass Status: Acute (4) Disequilibrium Status: Acute LOIDA CHRISTIAN DO May 06, 2023 10:41
[2023-05-06] MEDS: CEPHALEXIN 250 MG CAPSULE PO SCH ×4 (12:06→20:22)
--- NOTE | 2023-05-06 13:58 | Occupational Ther Daily Note ---
OT Current Status-Daily Note Subjective Pt seated in chair in therapy common area upon arrival with PT. Pt consented to OT session this AM. Pain Numeric Pain Scale: 0-No Pain Location: No Pain Reported Mental Status/Objective Patient Orientation: Person, Place, Time, Situation ADL-Treatment Therapy Code Descriptions/Definitions Functional [place] Measure: 0=Not Assessed/NA 4=Minimal Assistance 1=Total Assistance 5=Supervision or Setup 2=Maximal Assistance 6=Modified [place] 3=Moderate Assistance 7=Complete IndependenceSCALE: Activities may be completed with or without assistive devices. 6-Ilgkwaxrzc-ysaxymg completes the activity by him/herself with no assistance from a helper. 5-Set-up or Clean-up Assistance-helper sets up or cleans up; patient completes activity. [place] assists only prior to or following the activity. 4-Supervision or Touching Assistance-helper provides verbal cues and/or touching/steadying and/or contact guard assistance as patient completes activity. Assistance may be provided throughout the activity or intermittently. 3-Partial/Moderate Assistance-helper does LESS THAN HALF the effort. [place] l ifts, holds or supports trunk or limbs, but provides less than half the effort. 2-Substantial/Maximal Assistance-helper does MORE THAN HALF the effort. [place] lifts or holds trunk or limbs and provides more than half the effort. 5-Eipgjoufq-ebzytz does ALL the effort. Patient does none of the effort to complete the activity. Or, the assistance of 2 or more helpers is required for t he patient to complete the activity. If activity was not attempted, code reason: 7-Patient Refused. 9-Not Applicable-not attempted and the patient did not perform the activity before the current illness, exacerbation or injury. 10-Not Attempted due to Environmental Limitations-(lack of equipment, weather restraints, etc.). 88-Not Attempted due to Medical Conditions or Safety Concerns. Pt performed simulated shower transfer (I)'ly utilizing built in shower bench and GB's for safety. Therapist educated pt and family on utilizing a shower chair to ensure safety when performing ADLs in the home environment. Pt and family verbalized understanding. Other Treatment Pt performed BUE strengthening ex's with red theraband performing exercises in all available planes of motion to increase BUE strength, endurance, and activity tolerance. Intermittent rest breaks needs secondary to fatigue. Pt given a HEP and therapist explained the different exercises listed on the HEP with pt and nayla larkin verbalizing understanding. Exercises performed to increase (I) with ADLs and IADLs. Education OT Patient Education: Energy conservation, Exercise program, Home exercise program, Instructions to caregiver, Modified ADL techniques, Progress toward Goal/Update tx plan, Purpose of tx/functional activities, Rehab process, Safety issues, Transfer techniques, Use of adapted equipment Teaching Recipient: Patient, Family Teaching Methods: Demonstration, Handout, Discussion Response to Teaching: Verbalize Understanding, Return Demonstration OT Correction Goals Fisheries Manager Goals Acute change in mental status: 0 Inattention: 0 Disorganized thinkin Altered level of consciousness: 0 Eating (QC): 6 Oral Hygiene (QC): 6 Toileting Hygiene (QC): 4 Shower/Bathe Self (QC): 4 Upper Body Dressing (QC): 6 Lower Body Dressing (QC): 4 On/Off Footwear (QC): 5 1=Demonstrate adherence to instructed precautions during ADL tasks. 2=Patient will verbalize/demonstrate understanding of assistive devices/modifications for ADL. 3=Patient will improve strength/tolerance for activity to enable patient to perform ADL's. OT Education/Plan Discharge Recommendations Plan/Recommendations: Continue POC Comment Family education held with and son today from 10:00 - 10:30 with PT present. Pt performed simulated shower transfer with OT and this therapist went of the benefits of a shower chair when performing ADLs to ensure safety. This therapist also educated on the use of GB's in the shower with pt and family verbalizing understanding. Family educated on pt's CLOF and how much progression he has made since admission. Pt and family educated on HEP with theraband with family and pt verbalizing understanding. Pt is anticipated to DC home on 05/08/23, with . Treatment Plan/Plan of Care Treatment,Training & Education: Yes Patient would benefit from OT for education, treatment and training to promote independence in ADL's, mobility, safety and/or upper extremity function for ADL's. Plan of Care: ADL Retraining, Caregiver Training, Cognitive Retraining, Functional Mobility, UE Funct Exercise/Act Treatment Duration: Apr 17, 2024 Frequency: At least 5 of 7 days/Wk (IRF) Estimated Hrs Per Day: 1.5 hours per day Agreement: Yes Rehab Potential: Good Ending session, pt remained seated in recliner with needs/call light in reach and family at bedside. Time Start Time: 10:00 Stop Time: 11:00 DATE: May 06, 2023 Total Time Billed (hr/min): 60 Billed Treatment Time 60 minutes EX 2 (30 minutes) ADL 2 (30 minutes) HAYLEE BRICENO May 06, 2023 13:58
--- NOTE | 2023-05-06 14:47 | Occupational Ther Daily Note ---
OT Current Status-Daily Note Subjective Pt consented to OT session this PM Pain Numeric Pain Scale: 0-No Pain Location: No Pain Reported Mental Status/Objective Patient Orientation: Person, Place, Time, Situation ADL-Treatment Therapy Code Descriptions/Definitions Functional [place] Measure: 0=Not Assessed/NA 4=Minimal Assistance 1=Total Assistance 5=Supervision or Setup 2=Maximal Assistance 6=Modified [place] 3=Moderate Assistance 7=Complete IndependenceSCALE: Activities may be completed with or without assistive devices. 5-Odpzvtbnea-qkrxlks completes the activity by him/herself with no assistance from a helper. 5-Set-up or Clean-up Assistance-helper sets up or cleans up; patient completes activity. [place] assists only prior to or following the activity. 4-Supervision or Touching Assistance-helper provides verbal cues and/or touching/steadying and/or contact guard assistance as patient completes activity. Assistance may be provided throughout the activity or intermittently. 3-Partial/Moderate Assistance-helper does LESS THAN HALF the effort. [place] lifts, holds or supports trunk or limbs, but provides less than half the effort. 2-Substantial/Maximal Assistance-helper does MORE THAN HALF the effort. [place] lifts or holds trunk or limbs and provides more than half the effort. 3-Hnlzvndtb-gcplfn does ALL the effort. Patient does none of the effort to complete the activity. Or, the assistance of 2 or more helpers is required for the patient to complete the activity. If activity was not attempted, code reason: 7-Patient Refused. 9-Not Applicable-not attempted and the patient did not perform the activity before the current illness, exacerbation or injury. 10-Not Attempted due to Environmental Limitations-(lack of equipment, weather restraints, etc.). 88-Not Attempted due to Medical Conditions or Safety Concerns. Oral Hygiene (QC): 6 (Pt performed oral care standing at sink (I)'ly) Other Treatment Pt ambulated from bedside recliner>bathroom (I)'ly with RW Pt ambulated from bathroom<>therapy gym (I)'ly with RW Seated at EOM, pt performed BUE strengthening exercise with arm bike at mod resistance with 2# wrist weights donned to BUE's to increase endurance, activity tolerance, and BUE strength to increase (I) with ADLs and IADLs. Pt performed 7 minutes with no rest break needed. No pain or distress noted while performing exercise. Education OT Patient Education: Energy conservation, Exercise program, Home exercise program, Progress toward Goal/Update tx plan, Purpose of tx/functional activities, Reviewed precautions, Rehab process, Safety issues Teaching Recipient: Patient Teaching Methods: Demonstration, Discussion Response to Teaching: Verbalize Understanding, Return Demonstration OT Skilled Nursing Goals Crewman Armoured Personnel Carrier [id number] Goals Acute change in mental status: 0 Inattention: 0 Disorganized thinkin Altered level of consciousness: 0 Eating (QC): 6 Oral Hygiene (QC): 6 Toileting Hygiene (QC): 4 Shower/Bathe Self (QC): 4 Upper Body Dressing (QC): 6 Lower Body Dressing (QC): 4 On/Off Footwear (QC): 5 1=Demonstrate adherence to instructed precautions during ADL tasks. 2=Patient will verbalize/demonstrate understanding of assistive devices/modifications for ADL. 3=Patient will improve strength/tolerance for activity to enable patient to pe rform ADL's. OT Education/Plan Discharge Recommendations Plan/Recommendations: Continue POC Treatment Plan/Plan of Care Treatment,Training & Education: Yes Patient would benefit from OT for education, treatment and training to promote independence in ADL's, mobility, safety and/or upper extremity function for ADL's. Plan of Care: ADL Retraining, Caregiver Training, Cognitive Retraining, Functional Mobility, UE Funct Exercise/Act Treatment Duration: Apr 17, 2024 Frequency: At least 5 of 7 days/Wk (IRF) Estimated Hrs Per Day: 1.5 hours per day Agreement: Yes Rehab Potential: Good Ending session, pt remained seated in bedside recliner with needs/call light in reach. Time Start Time: 13:00 Stop Time: 13:30 DATE: May 06, 2023 Total Time Billed (hr/min): 30 Billed Treatment Time 30 minutes ADL 1 (15 minutes) EX 1 (15 minutes) HAYLEE BRICENO May 06, 2023 14:47
--- NOTE | 2023-05-06 15:17 | Physical Therapy Daily Note ---
PT Daily Note-Current Subjective Patient agreeable to work with therapy. States his neck feels better, but it is " a little itchy". Pain Section J - Health Conditions 1. Rarely or not at all 2. Occasionally 3. Frequently 4. Almost constantly 8. Unable to answer Pain Effect on Sleep: 1 Pain Interference with Therapy: 1 Pain Interference w/Day-to-Day: 1 Appearance Resting in bed this a.m. Transfers SCALE: Activities may be completed with or without assistive devices. 6-Ghagecckhs-qscnebv completes the activity by him/herself with no assistance from a helper. 5-Set-up or Clean-up Assistance-helper sets up or cleans up; patient completes activity. [place] assists only prior to or following the activity. 4-Supervision or Touching Assistance-helper provides verbal cues and/or touching/steadying and/or contact guard assistance as patient completes activity. Assistance may be provided throughout the activity or intermittently. 3-Partial/Moderate Assistance-helper does LESS THAN HALF the effort. [place] lifts, holds or supports trunk or limbs, but provides less than half the effort. 2-Substantial/Maximal Assistance-helper does MORE THAN HALF the effort. [place] lifts or holds trunk or limbs and provides more than half the effort. 4-Ufjmcpmee-ywpguf does ALL the effort. Patient does none of the effort to complete the activity. Or, the assistance of 2 or more helpers is required for the patient to complete the activity. If activity was not attempted, code reason: 7-Patient Refused. 9-Not Applicable-not attempted and the patient did not perform the activity before the current illness, exacerbation or injury. 10-Not Attempted due to Environmental Limitations-(lack of equipment, weather restraints, etc.). 88-Not Attempted due to Medical Conditions or Safety Concerns. Roll Left & Right (QC): 6 Lying to Sitting/Side of Bed(Q: 6 Sit to Stand (QC): 6 Chair/Cvk-yx-Jffqe Xfer(QC): 6 (/c FWW) Weight Bearing Right Lower Extremity: Right Weight Bearing/Tolerated Left Lower Extremity: Left Weight Bearing/Tolerated Gait Training Distance: 750'+ Walk 10 feet (QC): 6 (FWW) Walk 50 ft with 2 Turns(QC): 6 (/c FWW) Walk 150 ft (QC): 6 (/c FWW) Slow nelida, small step length, but no LOB's, no s/s of fatigue. Able to carry on conversation while walking without being distracted, no LOB, no SOB. Stair Training 1 Step (curb) (QC): 6 (/c hand rails.) 4 Steps (QC): 6 (/c (B) hand rails) Balance Special Test Comments 05/06/23 re-test: Castaneda/56. DGI: -- recommend patient continue to use FWW for gait stability and safety. Exercises NuStep Minutes: 16 NuStep Workload: 6 Treatments Co-treat with OT for family training from 1000-10:30: discussed FWW use, height adjustment, demonstrated stair technique, discussed clearing throw rugs/cords/area rugs with FWW use, discussed Home Health PT/OT for home evaluations. All questions of family answered. Patient safe to return home /c FWW use and family. PT Nurse Assessor Goals Nurse Assessor Goals PT Alf Goals Time Frame: May 10, 2023 Roll Left & Right (QC): 6 Sit to Lying (QC): 6 Lying-Sitting on Side/Bed(QC): 6 Sit to Stand (QC): 6 Chair/Ohy-wc-Fhhxt Xfer(QC): 6 Toilet Transfer (QC): 6 Car Transfer (QC): 6 Does the Patient Walk: Yes Walk 10 feet (QC): 6 (/c FWW) Walk 50ft with 2 Turns (QC): 6 (/c FWW) Walk 150 ft (QC): 6 (/c FWW) Walking 10ft on Uneven Surface: 6 (/c FWW) 1 Step (curb) (QC): 6 (/c FWW) 4 Steps (QC): 6 (/c railing) 12 Steps (QC): 6 (/c railing) Picking up an Object (QC): 6 (/c technical project manager or no device) Wheel 50 feet with 2 turns (QC: 9 Wheel 150 feet: 9 PT Plan Problem List Problem List: Activity Tolerance, Functional Strength, Safety, Balance, Gait, Transfer Treatment/Plan Treatment Plan: Continue Plan of Care Treatment Plan: Education, Functional Activity Gem, Functional Strength, Group Therapy, Gait, Safety, Therapeutic Exercise, Transfers Treatment Duration: May 10, 2023 Frequency: At least 5 of 7 days/Wk (IRF) Estimated Hrs Per Day: 1.5 hours per day Patient and/or Family Agrees t: Yes Time Time In: 900 Time Out: 1030 DATE: May 06, 2023 Total Billed Treatment Time: 90 Total Billed Treatment 30' cotreat with OT - 2FA, 3 GT(44'), 1 EX (16') Beatrice Cisneros PT May 06, 2023 15:17
[2023-05-06 19:53] VITALS: BP 139/79
[2023-05-06] MEDS: ROSUVASTATIN 10 MG TABLET PO SCH (20:22)
--- NOTE | 2023-05-07 06:14 | PM&R Progress Note ---
Subjective HPI/CC On Admission Date Seen by Provider: May 07, 2023 Time Seen by Provider: 09:00 Subjective/Events-last exam 05/07/2023: Patient ready for discharge No pain is reported No falls Discharge plan for tomorrow 05/06/2023: Patient doing a lot better No pain is reported Starting Keflex for incisional cellulitis No other concerns 05/05/2023: No major issues No pain Will update [facility] on the redness to the scalp incision line No falls 05/04/2023: Challenge to motivate to participate in therapy but as the day progresses he is doing much better No falls Labs reviewed No pain reported Replacing potassium since it is 3.3 Review of Systems General: Fatigue, Malaise Objective Exam Vital Signs Vital Signs Date Time Temp Pulse Resp B/P (MAP) Pulse Ox O2 Delivery O2 Flow Rate FiO2 05/07/23 19:49 36.7 70 20 133/77 (95) 96 Room Air Capillary Refill : General Appearance: No Apparent Distress, WD/WN, Chronically ill, Obese HEENT: PERRL/EOMI, Normal ENT Inspection, Pharynx Normal Neck: Full Range of Motion, Normal Inspection, Non Tender, Supple, Carotid Bruit Respiratory: Chest Non Tender, Lungs Clear, Normal Breath Sounds, No Accessory Muscle Use, No Respiratory Distress Cardiovascular: Regular Rate, Rhythm, No Edema, No Gallop, No JVD, No Murmur, Normal Peripheral Pulses Gastrointestinal: Normal Bowel Sounds, No Organomegaly, No Pulsatile Mass, Non Tender, Soft Back: Normal Inspection, No CVA Tenderness, No Vertebral Tenderness Extremity: Normal Capillary Refill, Normal Inspection, Normal Range of Motion, Non Tender, No Calf Tenderness, No Pedal Edema Neurologic/Psychiatric: Alert, Oriented x3, nursing unit coordinator II-XII Norm as Tested, Abnormal Gait, Depressed Affect, Motor Weakness (generalized ) Skin: Normal Color, Warm/Dry Lymphatic: No Adenopathy Results/Procedures Lab Patient resulted labs reviewed. FIM Transfers Therapy Code Descriptions/Definitions Functional [place] Measure: 0=Not Assessed/NA 4=Minimal Assistance 1=Total Assistance 5=Supervision or Setup 2=Maximal Assistance 6=Modified [place] 3=Moderate Assistance 7=Complete IndependenceSCALE: Activities may be completed with or without assistive devices. 9-Wtxqvvwals-pvkdlvi completes the activity by him/herself with no assistance from a helper. 5-Set-up or Clean-up Assistance-helper sets up or cleans up; patient completes activity. [place] assists only prior to or following the activity. 4-Supervision or Touching Assistance-helper provides verbal cues and/or touching/steadying and/or contact guard assistance as patient completes activity. Assistance may be provided throughout the activity or intermittently. 3-Partial/Moderate Assistance-helper does LESS THAN HALF the effort. [place] lifts, holds or supports trunk or limbs, but provides less than half the effort. 2-Substantial/Maximal Assistance-helper does MORE THAN HALF the effort. [place] lifts or holds trunk or limbs and provides more than half the effort. 8-Fpurmyqnu-sopcdz does ALL the effort. Patient does none of the effort to co mplete the activity. Or, the assistance of 2 or more helpers is required for the patient to complete the activity. If activity was not attempted, code reason: 7-Patient Refused. 9-Not Applicable-not attempted and the patient did not perform the activity before the current illness, exacerbation or injury. 10-Not Attempted due to Environmental Limitations-(lack of equipment, weather restraints, etc.). 88-Not Attempted due to Medical Conditions or Safety Concerns. Roll Left to Right (QC): 6 Sit to Lying (QC): 6 Sit to Stand (QC): 6 Chair/Yni-lj-Zewjw Xfer(QC): 6 (/c FWW) Car Transfer (QC): 4 (safety cues) Gait Training Does the Patient Walk?: Yes Distance: 750'+ Walk 10 feet (QC): 6 (FWW) Walk 50 ft with 2 Turns(QC): 6 (/c FWW) Walk 150 ft (QC): 6 (/c FWW) Walking 10ft/uneven surface-QC: 4 (/s device) Gait Assistive Device: FWW Wheelchair Training Does the Pt Use a Wheelchair?: No Wheel 50 ft with 2 turns (QC): 9 Wheel 150 ft (QC): 9 Type of Wheelchair: N/A Stair Training 1 Step (curb) (QC): 6 (/c hand rails.) 4 Steps (QC): 6 (/c (B) hand rails) 12 Steps (QC): 4 (SBA /c (B) railings.) Balance Picking up an Object (QC): 3 (Min (A) ) ADL-Treatment Eating (QC): 5 (Set-up A for feeding) Oral Hygiene (QC): 6 (Pt performed oral care standing at sink (I)'ly) Bathing Location: L Arm, R Arm, L Upper Leg, R Upper Leg, L Lower Leg (includin g foot), R Lower Leg (including foot), Chest, Abdomen, Buttocks, Perineal Area Shower/Bathe Self (QC): 4 (SBA for safety for bathing as pt utilized built in shower bench, GB's, and hand held shower head. Pt performed sit<>stand to clean devi area and buttocks with SBA. Pt able to wash remainder of body seated on built in bench. ) Upper Body Dressing (QC): 5 (Set-up A to don shirt seated on EOB.) Lower Body Dressing (QC): 4 (Pt donned pants with SBA) On/Off Footwear (QC): 4 (SBA to don/doff socks seated in bedside recliner) Toileting Hygiene (QC): 3 (Partial/mod A for toileting) Assessment/Plan Assessment and Plan Assess & Plan/Chief Complaint Assessment: Cerebellar mass causing imbalance and falls Lung mass h/o prostate cancer 2009 without follow up HTN HLP Hypokalemia Elevated LFT's Incisional cellulitis placed on Keflex on 05/06/2023 Plan: Home meds Monitor for falls PT OT 05/04/2023: Replace K+ 05/05/2023: Monitor closely 05/06/2023: Supportive care Start on Keflex 05/07/2023: Supportive care Monitor closely (1) Brain dysfunction (2) Brain injury (3) Cerebellar mass Status: Acute (4) Disequilibrium Status: Acute LOIDA CHRISTIAN DO May 07, 2023 06:14
[2023-05-07] MEDS: POTASSIUM CHLORIDE 10 MEQ TABLET PO SCH (06:43)
[2023-05-07 07:48] VITALS: BP 133/77
[2023-05-07] MEDS: ASPIRIN enteric coated 81MG TABLET PO SCH (08:18)
[2023-05-07] MEDS: ENOXAPARIN 40 MG/0.4 ML SYRINGE SC SCH (08:18)
[2023-05-07] MEDS: SENNA W/DOCUSATE TABLET PO SCH ×3 (08:18→21:18)
[2023-05-07] MEDS: DOCUSATE SODIUM 100 MG CAPSULE PO SCH ×3 (08:18→21:18)
[2023-05-07] MEDS: CELECOXIB 400 MG CAPSULE PO SCH (08:18)
[2023-05-07] MEDS: CEPHALEXIN 250 MG CAPSULE PO SCH ×4 (08:18→21:18)
[2023-05-07] MEDS: amLODIPine 5 MG TABLET PO SCH (08:18)
--- NOTE | 2023-05-07 09:40 | Occupational Ther Daily Note ---
OT Current Status-Daily Note Subjective Pt consented to OT session this AM. PT present during session. Pain Numeric Pain Scale: 0-No Pain Location: No Pain Reported Mental Status/Objective Patient Orientation: Person, Place, Time, Situation ADL-Treatment Therapy Code Descriptions/Definitions Functional [place] Measure: 0=Not Assessed/NA 4=Minimal Assistance 1=Total Assistance 5=Supervision or Setup 2=Maximal Assistance 6=Modified [place] 3=Moderate Assistance 7=Complete IndependenceSCALE: Activities may be completed with or without assistive devices. 9-Txescqaipz-wbkiedi completes the activity by him/herself with no assistance from a helper. 5-Set-up or Clean-up Assistance-helper sets up or cleans up; patient completes activity. [place] assists only prior to or following the activity. 4-Supervision or Touching Assistance-helper provides verbal cues and/or touching/steadying and/or contact guard assistance as patient completes activity. Assistance may be provided throughout the activity or intermittently. 3-Partial/Moderate Assistance-helper does LESS THAN HALF the effort. [place] lifts, holds or supports trunk or limbs, but provides less than half the effort. 2-Substantial/Maximal Assistance-helper does MORE THAN HALF the effort. [place] lifts or holds trunk or limbs and provides more than half the effort. 1-Wjkeqespf-rpdjbe does ALL the effort. Patient does none of the effort to complete the activity. Or, the assistance of 2 or more helpers is required for the patient to complete the activity. If activity was not attempted, code reason: 7-Patient Refused. 9-Not Applicable-not attempted and the patient did not perform the activity before the current illness, exacerbation or injury. 10-Not Attempted due to Environmental Limitations-(lack of equipment, weather restraints, etc.). 88-Not Attempted due to Medical Conditions or Safety Concerns. Eating (QC): 6 (Pt is (I) with feeding. Pt is able to open all packages and feed self.) Oral Hygiene (QC): 6 (Pt able to perform oral care (I)'ly standing at sink. ) Bathing Location: L Arm, R Arm, L Upper Leg, R Upper Leg, L Lower Leg (including foot), R Lower Leg (including foot), Chest, Abdomen, Buttocks, Perineal Area Shower/Bathe Self (QC): 6 (Pt is (I) with bathing utilizing GB's, built in shower bench, and hand held shower head. Pt performed sit<>stand from bench utilizing GB's for safety to clean buttocks and devi area. ) Upper Body Dressing (QC): 6 (Pt is (I) with UBD.) Lower Body Dressing (QC): 6 (Pt is (I) with LBD donning underwear and shorts.) On/Off Footwear: 6 (Pt is (I) with donning/doffing socks and tennis shoes. ) Toileting Hygiene (QC): 6 (Pt is (I) with toileting with pt standing to void at toilet and with pt able to manage clothing.) Toilet Transfer (QC): 6 (Pt is (I) with toilet t/f without the use of AD) Other Treatment Patient worked with PT on mobility (see PT note for specifics) Education OT Patient Education: Energy conservation, Exercise program, Home exercise program, Modified ADL techniques, Progress toward Goal/Update tx plan, Purpose of tx/functional activities, Rehab process, Safety issues, Transfer techniques Teaching Recipient: Patient Teaching Methods: Demonstration, Discussion Response to Teaching: Verbalize Understanding, Return Demonstration BIMS CAM BIMS Expression of Ideas and Wants: Without Difficulty Understanding Verbal Content: Understands Brief Interview/Mental Status: Yes IRF SHAHAB BIMS: IRF SHAHAB BIMS Response (Comments) Value Repitition of Three Words Three 3 Recalls Socks Yes, No Cue Required 2 Recalls Blue Yes, No Cue Required 2 Recalls Bed Yes, No Cue Required 2 Year Correct 3 Month Accurate Within 5 Days 2 Day Correct 1 Total 15 Should Staff Asses. Mental [address] No CAM Mental Status Change/Baseline: 0 Inattention: 0 Disorganized thinkin Altered level of consciousness: 0 OT Gas Brazer Goals Gas Brazer Goals Acute change in mental status: 0 Inattention: 0 Disorganized thinkin Altered level of consciousness: 0 Eating (QC): 6 (MET) Oral Hygiene (QC): 6 (MET) Toileting Hygiene (QC): 4 (MET) Shower/Bathe Self (QC): 4 (MET) Upper Body Dressing (QC): 6 (MET) Lower Body Dressing (QC): 4 (MET) On/Off Footwear (QC): 5 (MET) 1=Demonstrate adherence to instructed precautions during ADL tasks. 2=Patient will verbalize/demonstrate understanding of assistive devices/modifications for ADL. 3=Patient will improve strength/tolerance for activity to enable patient to perform ADL's. OT Education/Plan Discharge Recommendations Plan/Recommendations: Continue POC Treatment Plan/Plan of Care Treatment,Training & Education: Yes Patient would benefit from OT for education, treatment and training to promote independence in ADL's, mobility, safety and/or upper extremity function for ADL's. Plan of Care: ADL Retraining, Caregiver Training, Cognitive Retraining, Functional Mobility, UE Funct Exercise/Act Treatment Duration: Apr 17, 2024 Frequency: At least 5 of 7 days/Wk (IRF) Estimated Hrs Per Day: 1.5 hours per day Agreement: Yes Rehab Potential: Good Ending session, pt remained seated in bedside chair with needs/call light in reach and drinking coffee. Time Start Time: 08:00 Stop Time: 09:30 DATE: May 07, 2023 Total Time Billed (hr/min): 90 Billed Treatment Time 90 minutes co-treat with PT ADL 6 BRICENOHAYLEE May 07, 2023 09:40
--- NOTE | 2023-05-07 09:43 | Physical Therapy Daily Note ---
PT Daily Note-Current Subjective Pt sitting in recliner upon arrival. Pt agrees to PT/OT co-treat for QC scoring for anticipated d/c tomorrow (05/08/23). Pain Location: No Pain Reported Section J - Health Conditions 1. Rarely or not at all 2. Occasionally 3. Frequently 4. Almost constantly 8. Unable to answer Pain Effect on Sleep: 1 Pain Interference with Therapy: 1 Pain Interference w/Day-to-Day: 1 Mental Status Patient Orientation: Person, Place, Time, Situation Transfers SCALE: Activities may be completed with or without assistive devices. 1-Hctzjuehbi-aalhdah completes the activity by him/herself with no assistance from a helper. 5-Set-up or Clean-up Assistance-helper sets up or cleans up; patient completes activity. [place] assists only prior to or following the activity. 4-Supervision or Touching Assistance-helper provides verbal cues and/or touching/steadying and/or contact guard assistance as patient completes a ctivity. Assistance may be provided throughout the activity or intermittently. 3-Partial/Moderate Assistance-helper does LESS THAN HALF the effort. [place] lifts, holds or supports trunk or limbs, but provides less than half the effort. 2-Substantial/Maximal Assistance-helper does MORE THAN HALF the effort. [place] lifts or holds trunk or limbs and provides more than half the effort. 6-Jjwvihyvu-opovst does ALL the effort. Patient does none of the effort to complete the activity. Or, the assistance of 2 or more helpers is required for the patient to complete the activity. If activity was not attempted, code reason: 7-Patient Refused. 9-Not Applicable-not attempted and the patient did not perform the activity before the current illness, exacerbation or injury. 10-Not Attempted due to Environmental Limitations-(lack of equipment, weather restraints, etc.). 88-Not Attempted due to Medical Conditions or Safety Concerns. Roll Left & Right (QC): 6 Sit to Lying (QC): 6 Lying to Sitting/Side of Bed(Q: 6 Sit to Stand (QC): 6 Chair/Ziu-bp-Cmhdp Xfer(QC): 6 Toilet Transfer (QC): 6 Car Transfer (QC): 6 Weight Bearing Right Lower Extremity: Right Weight Bearing/Tolerated Left Lower Extremity: Left Weight Bearing/Tolerated Gait Training Does the Patient Walk?: Yes Distance: 500' Walk 10 feet (QC): 6 Walk 50 ft with 2 Turns(QC): 6 Walk 150 ft (QC): 6 Walking 10ft/uneven surface-QC: 6 Gait Assistive Device: FWW Wheelchair Training Does the Pt Use a Wheelchair?: No Wheel 50 ft with 2 turns (QC): 9 Wheel 150 ft (QC): 9 Stair Training Stair Training: Handrails/: 2 handrails #of Steps: 12 1 Step (curb) (QC): 6 4 Steps (QC): 6 12 Steps (QC): 6 Stairs: Pattern: Reciprocal Balance Picking up an Object (QC): 6 Treatments PT/OT co-treats due to skills of two clinicians needed that could not otherwise be completed by a rehabilitation physician due to coordination of UE & LE during TF, ADLs & mobility as well higher level balance tasks. Pt performs ADLs w/OT (AIR CONDITIONING MECHANIC present for TF as needed). Pt also completes QC scoring items listed above with AIR CONDITIONING MECHANIC including walking, stairs, transfers & bed mobility (OT present). Pt returns to room at end of tx with all needs met, call light in hand. Assessment Current Status: Good Progress Pt michael. tx well. Pt demonstrates good balance although demonstrates tendency to stand and don/doff clothing but this is how pt has always dressed. No LOB displayed. PT Group Home Goals Group Home Goals PT Group Home Goals Time Frame: May 10, 2023 Roll Left & Right (QC): 6 Sit to Lying (QC): 6 Lying-Sitting on Side/Bed(QC): 6 Sit to Stand (QC): 6 Chair/Qlk-tl-Rsgjo Xfer(QC): 6 Toilet Transfer (QC): 6 Car Transfer (QC): 6 Does the Patient Walk: Yes Walk 10 feet (QC): 6 (/c FWW) Walk 50ft with 2 Turns (QC): 6 (/c FWW) Walk 150 ft (QC): 6 (/c FWW) Walking 10ft on Uneven Surface: 6 (/c FWW) 1 Step (curb) (QC): 6 (/c FWW) 4 Steps (QC): 6 (/c railing) 12 Steps (QC): 6 (/c railing) Picking up an Object (QC): 6 (/c consulting database administrator or no device) Wheel 50 feet with 2 turns (QC: 9 Wheel 150 feet: 9 PT Plan Treatment/Plan Treatment Plan: Continue Plan of Care Treatment Plan: Education, Functional Activity Gem, Functional Strength, Group Therapy, Gait, Safety, Therapeutic Exercise, Transfers Treatment Duration: May 10, 2023 Frequency: At least 5 of 7 days/Wk (IRF) Estimated Hrs Per Day: 1.5 hours per day Patient and/or Family Agrees t: Yes Safety Risks/Education Patient Education: Steps, Correct Positioning, Safety Issues Teaching Recipient: Patient Teaching Methods: Discussion Response to Teaching: Verbalize Understanding Time Time In: 0800 Time Out: 929 DATE: May 07, 2023 Total Billed Treatment Time: 90 Total Billed Treatment 1, FA x4 (60m) & GT x2 (30m) HEBER VELÁZQUEZ AIR CONDITIONING MECHANIC May 07, 2023 09:43
[2023-05-07 19:49] VITALS: BP 133/77
[2023-05-07] MEDS: ROSUVASTATIN 10 MG TABLET PO SCH (21:18)
[2023-05-07] MEDS: oxyCODONE IMMEDIATE RELEASE 5 MG TABLET PO PRN (21:22)
[2023-05-08] MEDS: POTASSIUM CHLORIDE 10 MEQ TABLET PO SCH (06:10)
[2023-05-08] MEDS ORDERED: ONDA4TAB11 PO (07:04)
[2023-05-08] MEDS ORDERED: ASPI-1238 PO ×2 (07:04→09:21)
[2023-05-08] MEDS ORDERED: CELE400C10 PO ×2 (07:04→09:21)
[2023-05-08] MEDS ORDERED: BENA10TA66 PO ×2 (07:04→09:21)
[2023-05-08] MEDS ORDERED: CEPH250C PO (07:04)
[2023-05-08] MEDS ORDERED: SENN1TAB93 PO ×2 (07:04→09:22)
[2023-05-08] MEDS ORDERED: HYDR12.56 PO ×2 (07:04→09:21)
[2023-05-08] MEDS ORDERED: AMLO-250 PO ×2 (07:04→09:21)
[2023-05-08] MEDS ORDERED: POTA-160 PO (07:04)
[2023-05-08] MEDS ORDERED: OXC5T PO ×2 (07:04→09:21)
[2023-05-08] MEDS ORDERED: ROSU10TA28 PO ×2 (07:04→09:21)
--- NOTE | 2023-05-08 07:16 | Discharge Summary ---
Diagnosis/Chief Complaint Date of Admission May 03, 2023 at 14:26 Date of Discharge Discharge Date: May 08, 2023 Discharge Diagnosis Assessment: Cerebellar mass causing imbalance and falls Lung mass h/o prostate cancer 2009 without follow up HTN HLP Hypokalemia Elevated LFT's Incisional cellulitis placed on Keflex on 05/06/2023 Plan: Home meds Monitor for falls PT OT 05/04/2023: Replace K+ 05/05/2023: Monitor closely 05/06/2023: Supportive care Start on Keflex 05/07/2023: Supportive care Monitor closely (1) Brain dysfunction (2) Brain injury (3) Cerebellar mass Status: Acute (4) Disequilibrium Status: Acute Discharge Summary Discharge Physical Examination Allergies: Coded Allergies: No Known Drug Allergies (Unverified , 05/12/10) Vitals & I&Os Vital Signs Date Time Temp Pulse Resp B/P (MAP) Pulse Ox O2 Delivery O2 Flow Rate FiO2 05/08/23 10:00 36.7 76 20 121/72 96 Room Air General Appearance: Alert, Oriented X3, Cooperative Respiratory: Clear to Auscultation Cardiovascular: Regular Rate Psych/Mental Status: Mental Status NL Hospital Course Was the Problem List Reviewed?: Yes Hospital course was uneventful after transfer from after cerebellar mass and craniotomy. Overall he did very well he had no complaints during hospital stay he was maintained on pain medication his bowel regimen was back to baseline and overall he participated in therapy was able to regain function with use of walker and he will have close follow-up with PCP. He did have incision cellulitis placed on Keflex with good results. Labs (last 24 hrs) Laboratory Tests 05/04/23 05:33: White Blood Count 7.8, Red Blood Count 4.03L, Hemoglobin 12.7L, Hematocrit 37L, Mean Corpuscular Volume 92, Mean Corpuscular Hemoglobin 32, Mean Corpuscular Hemoglobin Concent 34, Red Cell Distribution Width 13.0, Platelet Count 279, Mean Platelet Volume 9.9, Immature Granulocyte % (Auto) 1, Neutrophils (%) (Auto) 46, Lymphocytes (%) (Auto) 44, Monocytes (%) (Auto) 6, Eosinophils (%) (Auto) 3, Basophils (%) (Auto) 0, Neutrophils # (Auto) 3.6, Lymphocytes # (Auto) 3.4, Monocytes # (Auto) 0.4, Eosinophils # (Auto) 0.3, Basophils # (Auto) 0.0, Immature Granulocyte # (Auto) 0.1, Sodium Level 138, Potassium Level 3.3L, Chloride Level 104, Carbon Dioxide Level 21, Anion Gap 13, Blood Urea Nitrogen 17, Creatinine 0.85, Estimat Glomerular Filtration Rate 89, BUN/Creatinine Ratio 20, Glucose Level 115H, Calcium Level 9.1, Corrected Calcium 9.3, Total B ilirubin 0.6, Aspartate Amino Transf (AST/SGOT) 40H, Alanine Aminotransferase (ALT/SGPT) 91H, Alkaline Phosphatase 55, Total Protein 6.0L, Albumin 3.7 Pending Labs Laboratory Tests 05/04/23 05:33: White Blood Count 7.8, Red Blood Count 4.03, Hemoglobin 12.7, Hematocrit 37, Mean Corpuscular Volume 92, Mean Corpuscular Hemoglobin 32, Mean Corpuscular Hemoglobin Concent 34, Red Cell Distribution Width 13.0, Platelet Count 279, Mean Platelet Volume 9.9, Immature Granulocyte % (Auto) 1, Neutrophils (%) (Auto) 46, Lymphocytes (%) (Auto) 44, Monocytes (%) (Auto) 6, Eosinophils (%) (Auto) 3, Basophils (%) (Auto) 0, Neutrophils # (Auto) 3.6, Lymphocytes # (Auto) 3.4, Monocytes # (Auto) 0.4, Eosinophils # (Auto) 0.3, Basophils # (Auto) 0.0, Immature Granulocyte # (Auto) 0.1, Sodium Level 138, Potassium Level 3.3, Chloride Level 104, Carbon Dioxide Level 21, Anion Gap 13, Blood Urea Nitrogen 17, Creatinine 0.85, Estimat Glomerular Filtration Rate 89, BUN/Creatinine Ratio 20, Glucose Level 115, Calcium Level 9.1, Corrected Calcium 9.3, Total Bilirubin 0.6, Aspartate Amino Transf (AST/SGOT) 40, Alanine Aminotransferase (ALT/SGPT) 91, Alkaline Phosphatase 55, Total Protein 6.0, Albumin 3.7 Discharge Home Medications: Active Scripts Active Senna-Docusate Sodium Tablet (Sennosides/Docusate Sodium) 8.6 Mg-50 Mg Tablet 1 Each PO BID Rosuvastatin Calcium 10 Mg Tablet 10 Mg PO DAILY Oxyir Tablet (Oxycodone HCl) 5 Mg Tab 5-10 Mg PO Q4H PRN 1-2 pills every 4 hours prn Hydrochlorothiazide 12.5 Mg Tablet 12.5 Mg PO DAILY Celecoxib 400 Mg Capsule 400 Mg PO DAILY Benazepril HCl 10 Mg Tablet 10 Mg PO DAILY Aspirin EC (Aspirin) 81 Mg Tablet.dr 81 Mg PO DAILY Amlodipine Besylate 5 Mg Tablet 5 Mg PO DAILY Ondansetron Odt (Ondansetron) 4 Mg Tab.rapdis 4 Mg PO Q6H PRN Klor-Con 10 (Potassium Chloride) 10 Meq Tablet.er 10 Meq PO DAILY@0700 Cephalexin 250 Mg Capsule 500 Mg PO QID Reported Tylenol (Acetaminophen) 325 Mg Tablet 650 Mg PO Q4H PRN TAKES 2 (325MG) TABS Instructions to patient/family Please see electronic discharge instructions given to patient. Diagnosis/Problems Diagnosis/Problems (1) Brain dysfunction (2) Brain injury (3) Cerebellar mass Status: Acute (4) Disequilibrium Status: Acute LOIDA CHRISTIAN DO May 08, 2023 07:16
[2023-05-08] MEDS: DOCUSATE SODIUM 100 MG CAPSULE PO SCH (07:43)
[2023-05-08] MEDS: SENNA W/DOCUSATE TABLET PO SCH (07:43)
[2023-05-08 08:22] VITALS: BP 121/72
[2023-05-08] MEDS: ENOXAPARIN 40 MG/0.4 ML SYRINGE SC SCH (08:27)
[2023-05-08] MEDS: ASPIRIN enteric coated 81MG TABLET PO SCH (08:42)
[2023-05-08] MEDS: CELECOXIB 400 MG CAPSULE PO SCH (08:42)
[2023-05-08] MEDS: CEPHALEXIN 250 MG CAPSULE PO SCH (08:42)
[2023-05-08] MEDS: amLODIPine 5 MG TABLET PO SCH (08:42)
[2023-05-08 10:00] VITALS: BP 121/72
--- NOTE | 2023-05-10 12:09 | Therapy Team Discharge Summary ---
Therapy Discharge Summary Discharge Recommendations Date of Discharge May 08, 2023 at 12:51 Physical Therapy Patient admitted to [facility] 05/03/23 /p resection of brain mass. He was discharged at an (I) for bed mobility and transfers, as well as (I) with gait using a FWW. He was able to ascend/descend 12 steps with (B) rails (I). 05/06/23 re-test: Castaneda/56. DGI: -- recommend patient continue to use FWW for gait stability and safety. Roll Left to Right (QC): 6 Sit to Lying (QC): 6 Lying to Sitting/Side of Bed(Q: 6 Sit to Stand (QC): 6 Chair/Bxt-ac-Fuwnm Xfer(QC): 6 Toilet Transfer (QC): 6 Car Transfer (QC): 6 Does the Patient Walk: Yes Mode of Locomotion: Walk Anticipated Mode of Locomotion: Walk Walk 10 feet (QC): 6 Walk 50 ft with 2 Turns(QC): 6 Walk 150 ft (QC): 6 Walking 10ft on uneven surface: 6 Distance: 300' x 2 /s device. HR irregular /p 300' -- 71-107 bpm, O2 sats 94- 95%. Gait Assistive Device: FWW Does the Pt Use a Wheelchair: No Wheel 50 ft with 2 turns (QC): 9 Wheel 150 ft (QC): 9 Type of Wheelchair: N/A #of Steps: 12 1 Step (curb) (QC): 6 4 Steps (QC): 6 12 Steps (QC): 6 Balance Sitting Static: Normal Balance Sitting Dynamic: Fair Balance-Standing Static: Fair Picking up an Object (QC): 6 Occupational Therapy Decreased Activ Tolerance, Decreased Safety Aware, Decreased UE Strength, Dependent Transfers, Impaired Cognition, Impaired Coordination, Impaired Funct Balance, Impaired I ADL's, Impaired Self-Care Skills Eating (QC): 6 (Pt is (I) with feeding. Pt is able to open all packages and feed self.) Oral Hygiene (QC): 6 (Pt able to perform oral care (I)'ly standing at sink. ) Shower/Bathe Self (QC): 6 (Pt is (I) with bathing utilizing GB's, built in shower bench, and hand held shower head. Pt performed sit<>stand from bench utilizing GB's for safety to clean buttocks and devi area. ) Upper Body Dressing (QC): 6 (Pt is (I) with UBD.) Lower Body Dressing (QC): 6 (Pt is (I) with LBD donning underwear and shorts.) On/Off Footwear (QC): 6 (Pt is (I) with donning/doffing socks and tennis shoes. ) Toileting Hygiene (QC): 6 (Pt is (I) with toileting with pt standing to void at toilet and with pt able to manage clothing.) PT Chcf Goals Cvor Nurse Goals PT Chcf Goals Time Frame: May 10, 2023 Roll Left to Right (QC): 6 Sit to Lying (QC): 6 Lying-Sitting on Side/Bed(QC): 6 Sit to Stand (QC): 6 Chair/Oix-iq-Domtu Xfer(QC): 6 Toilet/Commode Transfer (QC): 6 Car Transfer (QC): 6 Does the Patient Walk: Yes Walk 10 feet (QC): 6 (/c FWW) Walk 10ft-Uneven Surface(QC): 6 (/c FWW) Walk 50ft with 2 Turns (QC): 6 (/c FWW) Walk 150 ft (QC): 6 (/c FWW) Wheel 50 feet with 2 turns (QC: 9 Wheel 150 feet: 9 1 Step (curb) (QC): 6 (/c FWW) 4 Steps (QC): 6 (/c railing) 12 Steps (QC): 6 (/c railing) Picking up an Object (QC): 6 (/c cosmetology teacher or no device) OT Cvor Nurse Goals Cvor Nurse Goals Acute change in mental status: 0 Inattention: 0 Disorganized thinkin Altered level of consciousness: 0 Eating (QC): 6 (MET) Oral Hygiene (QC): 6 (MET) Toileting Hygiene (QC): 4 (MET) Shower/Bathe Self (QC): 4 (MET) Upper Body Dressing (QC): 6 (MET) Lower Body Dressing (QC): 4 (MET) On/Off Footwear (QC): 5 (MET) 1=Demonstrate adherence to instructed precautions during ADL tasks. 2=Patient will verbalize/demonstrate understanding of assistive devices/modifica tions for ADL. 3=Patient will improve strength/tolerance for activity to enable patient to perform ADL's. Beatrice Cisneros PT May 10, 2023 12:08
--- NOTE | 2023-05-11 10:03 | Therapy Team Discharge Summary ---
Therapy Discharge Summary Discharge Recommendations Date of Discharge May 08, 2023 at 12:51 Physical Therapy Roll Left to Right (QC): 6 Sit to Lying (QC): 6 Lying to Sitting/Side of Bed(Q: 6 Sit to Stand (QC): 6 Chair/Ryr-wj-Smqjc Xfer(QC): 6 Toilet Transfer (QC): 6 Car Transfer (QC): 6 Does the Patient Walk: Yes Mode of Locomotion: Walk Anticipated Mode of Locomotion: Walk Walk 10 feet (QC): 6 Walk 50 ft with 2 Turns(QC): 6 Walk 150 ft (QC): 6 Walking 10ft on uneven surface: 6 Distance: 300' x 2 /s device. HR irregular /p 300' -- 71-107 bpm, O2 sats 94- 95%. 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 Pt's initial on-set was 04/25/23 and pt was admitted to [facility]U on 05/03/2023. Pt and family reported that pt was (I) in PLOF. At evaluation, pt was set-up A for feeding, SBA for oral care, partial/mod A for showering, SBA for UBD, partial/mod A for LBD, SBA for footwear, and partial/mod A for toileting. During his time at ARU, pt's treatment session focused on therapeutic exercise, therapeutic activities, ADLs. At the time of DC, pt was (I) with all ADLs. Family education was held with pt's and son to discuss pt's CLOF and any DME needs. Therapist suggested for pt to use a shower chair when returning home to ensure safety when performing ADLs. Family and pt verbalized understanding. Therapist showed pt and family where to purchase DME. Pt d/c from ARU on 05/08/23. Decreased Activ Tolerance, Decreased Safety Aware, Decreased UE Strength, Dependent Transfers, Impaired Cognition, Impaired Coordination, Impaired Funct Balance, Impaired I ADL's, Impaired Self-Care Skills Eating (QC): 6 (MET -- Pt is (I) with feeding. Pt is able to open all packages and feed self.) Oral Hygiene (QC): 6 (MET -- Pt able to perform oral care (I)'ly standing at sink. ) Shower/Bathe Self (QC): 6 (MET -- Pt is (I) with bathing utilizing GB's, built in shower bench, and hand held shower head. Pt performed sit<>stand from bench utilizing GB's for safety to clean buttocks and devi area. ) Upper Body Dressing (QC): 6 (MET -- Pt is (I) with UBD.) Lower Body Dressing (QC): 6 (MET -- Pt is (I) with LBD donning underwear and shorts.) On/Off Footwear (QC): 6 (MET -- Pt is (I) with donning/doffing socks and tennis shoes. ) Toileting Hygiene (QC): 6 (MET -- Pt is (I) with toileting with pt standing to void at toilet and with pt able to manage clothing.) PT Custodial Goals Family Resource Specialist Goals PT Family Resource Specialist Goals Time Frame: May 10, 2023 Roll Left to Right (QC): 6 Sit to Lying (QC): 6 Lying-Sitting on Side/Bed(QC): 6 Sit to Stand (QC): 6 Chair/Eui-fv-Zvecv Xfer(QC): 6 Toilet/Commode Transfer (QC): 6 Car Transfer (QC): 6 Does the Patient Walk: Yes Walk 10 feet (QC): 6 (/c FWW) Walk 10ft-Uneven Surface(QC): 6 (/c FWW) Walk 50ft with 2 Turns (QC): 6 (/c FWW) Walk 150 ft (QC): 6 (/c FWW) Wheel 50 feet with 2 turns (QC: 9 Wheel 150 feet: 9 1 Step (curb) (QC): 6 (/c FWW) 4 Steps (QC): 6 (/c railing) 12 Steps (QC): 6 (/c railing) Picking up an Object (QC): 6 (/c phosphoric acid operator or no device) OT Family Resource Specialist Goals Family Resource Specialist Goals Acute change in mental status: 0 Inattention: 0 Disorganized thinkin Altered level of consciousness: 0 Eating (QC): 6 (MET) Oral Hygiene (QC): 6 (MET) Toileting Hygiene (QC): 4 (MET) Shower/Bathe Self (QC): 4 (MET) Upper Body Dressing (QC): 6 (MET) Lower Body Dressing (QC): 4 (MET) On/Off Footwear (QC): 5 (MET) 1=Demonstrate adherence to instructed precautions during ADL tasks. 2=Patient will verbalize/demonstrate understanding of assistive devices/modifications for ADL. 3=Patient will improve strength/tolerance for activity to enable patient to perform ADL's. HAYLEE BRICENO May 11, 2023 10:03
== END 2023-05-08 12:51 | disposition home or self-care (01) | DRG 55 ==
PROVIDERS: ADMIT Internal Medicine; ATTEND Internal Medicine
DX: C79.31 Secondary malignant neoplasm of brain (principal); C79.72 Secondary malignant neoplasm of left adrenal gland; G91.9 Hydrocephalus, unspecified; T81.41XA Infection following a procedure, superficial incisional surgical site, initial encounter; L03.811 Cellulitis of head [any part, except face]; S02.2XXD Fracture of nasal bones, subsequent encounter for fracture with routine healing; Z91.81 History of falling; E87.6 Hypokalemia; R79.89 Other specified abnormal findings of blood chemistry; R91.8 Other nonspecific abnormal finding of lung field; I10 Essential (primary) hypertension; R26.89 Other abnormalities of gait and mobility; E78.5 Hyperlipidemia, unspecified; K59.00 Constipation, unspecified; H54.7 Unspecified visual loss; Z85.46 Personal history of malignant neoplasm of prostate; Z87.891 Personal history of nicotine dependence; Z79.82 Long term (current) use of aspirin; Z79.899 Other long term (current) drug therapy; W18.30XD Fall on same level, unspecified, subsequent encounter
CPT/HCPCS: 36415; 80053; 85025

== ENCOUNTER 2023-06-23 16:43 | Observation (INO) | payer MEDICARE ==
[~2023-06-23] VITALS: Ht 177.8 cm; Wt 85.9 kg
[~2023-06-23 16:43] MED LIST changes: +ACET325T38 PO; +AMLO-250 PO; +ASPI-1238 PO; +BENA10TA66 PO; +CELE400C16 PO; +CEPH250C PO; +HEPA50002 IJ; +ONDA4TAB11 PO; +OXC5T PO; +POTA-160 PO; +ROSU10TA28 PO; +SENN1TAB93 PO
--- NOTE | 2023-06-23 17:00 | ED General ---
General Chief Complaint: General Problems/Pain Stated Complaint: WEAKNESS Nursing Triage Note: PT ARRIVED PER EMS, PT STATES PT HAS BECOME INCREASINGLY WEAKER FOR THE PAST FEW DAYS, PT HAS BRAIN CA AND IS CURRENTLY TAKING TREATMENTS RAD AND CHEMO. PT DENIES PAIN. PT HAS NO CO BEDSIDE WEAKNESS AT THIS X. Source of Information: Patient Exam Limitations: No Limitations History of Present Illness Date Seen by Provider: Jun 23, 2023 Time Seen by Provider: 16:58 Initial Comments Patient is a 77-year-old male with a recent diagnosis of brain and lung cancer. Has received 5 radiation treatments at since his recent diagnosis. Patient Was admitted in May for PT and OT and has been doing quite well until the past few days. According to patient has been really weak and fatigued. Patient has been urinating himself. Does not want to get up and move around as much as he typically has prior. After PT he was able to ambulate without any assistance. Now patient is struggling to get up. Patient lives at home with . Denies of any vomiting, diarrhea cough, fever. Increased confusion over the past month or so. Patient is not currently on anticoagulants or history of diabetes. No known cardiac history. Patient is alert but mildly agitated when asked questions. Patient scheduled to follow-up with Dr. Christian next Tuesday. Patient's only complaint is generalized weakness Allergies and Home Medications Allergies Coded Allergies: No Known Drug Allergies (Unverified , 05/12/10) Patient Home Medication List Home Medication List Reviewed: Yes Acetaminophen (Tylenol) 325 Mg Tablet, 650 MG PO Q4H PRN for PAIN-MILD (1-4), (Reported) Entered as Reported by: SOCORRO STEVENS on 05/03/23 1256 Amlodipine Besylate (Amlodipine Besylate) 5 Mg Tablet, 5 MG PO DAILY Prescribed by: LOIDA CHRISTIAN on 05/08/23920 Aspirin (Aspirin EC) 81 Mg Tablet.dr 81 MG PO DAILY Prescribed by: LOIDA CHRISTIAN on 05/08/23920 Benazepril HCl (Benazepril HCl) 10 Mg Tablet, 10 MG PO DAILY Prescribed by: LOIDA CHRISTIAN on 05/08/23920 Celecoxib (Celecoxib) 400 Mg Capsule, 400 MG PO DAILY Prescribed by: LOIDA CHRISTIAN on 05/08/23920 Cephalexin (Cephalexin) 250 Mg Capsule, 500 MG PO QID Prescribed by: LOIDA CHRISTIAN on 05/08/23703 Hydrochlorothiazide (Hydrochlorothiazide) 12.5 Mg Tablet, 12.5 MG PO DAILY Prescribed by: LOIDA CHRISTIAN on 05/08/23920 Ondansetron (Ondansetron Odt) 4 Mg Tab.rapdis, 4 MG PO Q6H PRN for NAUSEA/VOMITING-1ST LINE Prescribed by: LOIDA CHRISTIAN on 05/08/23703 Oxycodone Hcl (Oxyir Tablet) 5 Mg Tab, 5-10 MG PO Q4H PRN for PAIN-SEVERE (8-10) Prescribed by: LOIDA CHRISTIAN on 05/08/23921 Potassium Chloride (Klor-Con 10) 10 Meq Tablet.er, 10 MEQ PO DAILY@0700 Prescribed by: LIODA CHRISTIAN on 05/08/23703 Rosuvastatin Calcium (Rosuvastatin Calcium) 10 Mg Tablet, 10 MG PO DAILY Prescribed by: LOIDA CHRISTIAN on 05/08/23920 Sennosides/Docusate Sodium (Senna-Docusate Sodium Tablet) 8.6 Mg-50 Mg Tablet, 1 EACH PO BID Prescribed by: LOIDA CHRISTIAN on 05/08/23921 Review of Systems Review of Systems Constitutional: No chills, No diaphoresis, No malaise, No weakness EENTM: No hearing loss, No blurred vision, No double vision Respiratory: No cough, No dyspnea on exertion Cardiovascular: No chest pain Gastrointestinal: No abdominal pain, No diarrhea, No nausea, No vomiting Genitourinary: No decreased output, No discharge Musculoskeletal: No back pain, No joint pain, No joint swelling, No muscle pain Skin: No change in color, No change in hair/nails All Other Systems Reviewed Negative Unless Noted: Yes Past O[place]uw[place]-Wtfwoq-Xzjfvk Hx Patient Social History Tobacco Use?: No Substance use?: No Alcohol Use?: No Pt feels they are or have been: No Immunizations Up To Date First/Initial COVID19 Vaccinat: YES Second COVID19 Vaccination Tom: YES Third COVID19 Vaccination Date: YES Past Medical History Surgery/Hospitalization HX: HTN, HLD, PROSTATE CANCER, SMOKER, BROKEN LEG SURGERY X2, CHRONIC HYPONATERMIA, BRAIN CA Surgeries: Yes Abdominal, Orthopedic Cardiac: Yes High Cholesterol, Hypertension Neurological: No Reproductive Disorders: No Genitourinary: Yes (hx of prostate cancer) Gastrointestinal: Yes Diverticulosis, Hemorrhoids, Polyps Endocrine: No HEENT: No Cancer: Yes Prostate Psychosocial: No Integumentary: Yes (Ingrown toenails) Physical Exam Vital Signs Vital Signs - First Documented 06/23/23 16:45 Temp 36.4 Pulse 57 Resp 14 B/P (MAP) 147/81 (103) Pulse Ox 95 Capillary Refill : Less Than 3 Seconds Height, Weight, BMI Height: 5'10.00" Weight: 190lbs. oz. 86.201827se; BMI Method: General Appearance: No Apparent Distress, WD/WN Eyes: Bilateral Eye Normal Inspection, Bilateral Eye PERRL, Bilateral Eye EOMI HEENT: PERRL/EOMI, TMs Normal, Normal ENT Inspection, Pharynx Normal Neck: Full Range of Motion, Normal Inspection, Non Tender, Supple Respiratory: Chest Non Tender, Lungs Clear, Normal Breath Sounds, No Accessory Muscle Use, No Respiratory Distress Cardiovascular: Regular Rate, Rhythm, No Edema, No Gallop, No JVD Gastrointestinal: Normal Bowel Sounds, No Organomegaly, No Pulsatile Mass, Non Tender Back: Normal Inspection, No CVA Tenderness, No Vertebral Tenderness Extremity: Normal Capillary Refill, Normal Inspection Neurologic/Psychiatric: Alert, Oriented x3, No Motor/Sensory Deficits, Normal Mood/Affect, fuel manager II-XII Norm as Tested Skin: Normal Color, Warm/Dry Progress/Results/Core Measures Suspected Sepsis SIRS Temperature: Pulse: 57 Respiratory Rate: 14 Laboratory Tests 06/23/23 16:55: White Blood Count 7.0 Blood Pressure 147 /81 Mean: 103 Laboratory Tests 06/23/23 16:55: Creatinine 0.89, Platelet Count 209, Total Bilirubin 1.3H Results/Orders Lab Results Laboratory Tests Test 06/23/23 16:55 Range/Units White Blood Count 7.0 4.3-11.0 10^3/uL Red Blood Count 5.03 4.30-5.52 10^6/uL Hemoglobin 16.1 13.3-17.7 g/dL Hematocrit 47 40-54 % Mean Corpuscular Volume 93 80-99 fL Mean Corpuscular Hemoglobin 32 25-34 pg Mean Corpuscular Hemoglobin Concent 34 32-36 g/dL Red Cell Distribution Width 14.5 10.0-14.5 % Platelet Count 209 130-400 10^3/uL Mean Platelet Volume 9.3 9.0-12.2 fL Immature Granulocyte % (Auto) 3 % Neutrophils (%) (Auto) 74 42-75 % Lymphocytes (%) (Auto) 19 12-44 % Monocytes (%) (Auto) 4 0-12 % Eosinophils (%) (Auto) 0 0-10 % Basophils (%) (Auto) 0 0-10 % Neutrophils # (Auto) 5.2 1.8-7.8 10^3/uL Lymphocytes # (Auto) 1.3 1.0-4.0 10^3/uL Monocytes # (Auto) 0.3 0.0-1.0 10^3/uL Eosinophils # (Auto) 0.0 0.0-0.3 10^3/uL Basophils # (Auto) 0.0 0.0-0.1 10^3/uL Immature Granulocyte # (Auto) 0.2 H 0.0-0.1 10^3/uL Sodium Level 134 L 135-145 MMOL/L Potassium Level 4.0 3.6-5.0 MMOL/L Chloride Level 98 98-107 MMOL/L Carbon Dioxide Level 23 21-32 MMOL/L Anion Gap 13 5-14 MMOL/L Blood Urea Nitrogen 18 7-18 MG/DL Creatinine 0.89 0.60-1.30 MG/DL Estimat Glomerular Filtration Rate 88 BUN/Creatinine Ratio 20 Glucose Level 181 H 70-105 MG/DL Calcium Level 9.6 8.5-10.1 MG/DL Corrected Calcium 9.7 8.5-10.1 MG/DL Magnesium Level 2.1 1.6-2.4 MG/DL Total Bilirubin 1.3 H 0.1-1.0 MG/DL Aspartate Amino Transf (AST/SGOT) 23 5-34 U/L Alanine Aminotransferase (ALT/SGPT) 43 0-55 U/L Alkaline Phosphatase 69 40-136 U/L Troponin I < 0.028 <0.028 NG/ML C-Reactive Protein High Sensitivity 1.62 H 0.00-0.50 MG/DL Total Protein 7.2 6.4-8.2 GM/DL Albumin 3.9 3.2-4.5 GM/DL Lipase 27 8-78 U/L Influenza Type A (RT-PCR) Not Detected Not Detecte Influenza Type B (RT-PCR) Not Detected Not Detecte SARS-CoV-2 RNA (RT-PCR) Not Detected Not Detecte My Orders Orders - EVER MAZARIEGOS Cbc And Automated Diff (06/23/23 16:56) Comprehensive Metabolic Panel (06/23/23 16:56) Lipase (06/23/23 16:56) Hs C Reactive Protein (06/23/23 16:56) Urinalysis (06/23/23 16:56) Chest 1 View, Ap/Pa Only (06/23/23 16:56) Ekg Tracing (06/23/23 16:56) Troponin I [place] (06/23/23 16:56) Covid 19 Inhouse Test (06/23/23 16:56) Influenza A And B By Pcr (06/23/23 16:56) Magnesium (06/23/23 16:56) Ed Admission (Communication) (06/23/23 17:52) Catheter(Urinary) Insert & Ass 03,15 (06/23/23 17:52) Lidocaine 2% (Urojet) (Lidocaine 2% (Uro (06/23/23 18:00) Vital Signs/I&O 06/23/23 06/23/23 16:45 18:50 Temp 36.4 Pulse 57 66 Resp 14 14 B/P (MAP) 147/81 (103) 140/78 Pulse Ox 95 96 Capillary Refill : Less Than 3 Seconds Blood Pressure Mean: 103 ECG Comment Sinus rhythm, right bundle branch block, 60 bpm, QRS duration 125 MS, QTc 417 MS Departure Communication (PCP) Patient is a 77-year-old male with a new diagnosis lung mass, brain cancer presents to ED for increased weakness for the past few days. Lives at home with . Typically ambulates without any assistance but over the past few days needed family assistance to get him up and ambulate. Has been urinating himself. Increased confusion over the past week. He is alert but slightly agitated when asked questions. Appears to be moving all extremities. He has not no complaints besides he feels weak. Patient vital signs stable. No focal neural deficits. Generalized lab work was ordered. CBC, CMP was grossly unremarkable. Chest x-ray shows left basilar atelectasis versus infiltrate. Patient's COVID influenza was negative. EKG shows no ST elevation or depression but does show a right bundle branch block and similar to his previous EKG. Normal troponin. Patient not able to provide a urinalysis. Concern for patient's safety at home with his generalized weakness. Patient was discussed with Dr. Christian hospitalist who agreed to accept patient for further evaluation. Family agreed. Concerned that patient's mentation is gradually declining which may be secondary to his progressive cancer. He is scheduled to follow-up with Dr. Britt tomorrow. Will attempt a Phillips catheter Impression Primary Impression: Weakness Disposition: HOME, SELF-CARE Condition: Stable Admissions Decision to Admit Reason: Admit from ER (General) Decision to Admit/Date: Jun 23, 2023 Time/Decision to Admit Time: 17:56 Departure-Patient Inst. Referrals: CAMILO PAYNE APRN (PCP/Family) Primary Care Physician EVER MAZARIEGOS Jun 23, 2023 17:00
[2023-06-23 17:11] LABS: BASOPHILS % (AUTO) 0 % (0-10); EOSINOPHILS % (AUTO) 0 % (0-10); HEMATOCRIT 47 % (40-54); HEMOGLOBIN 16.1 g/dL (13.3-17.7); LYMPHOCYTES # (AUTO) 1.3 10^3/uL (1.0-4.0); LYMPHOCYTES % (AUTO) 19 % (12-44); MEAN CORPUSCULAR HEMOGLOBIN 32 pg (25-34); MEAN CORPUSCULAR HGB CONC 34 g/dL (32-36); MEAN CORPUSCULAR VOLUME 93 fL (80-99); MEAN PLATELET VOLUME 9.3 fL (9.0-12.2); MONOCYTES # (AUTO) 0.3 10^3/uL (0.0-1.0); MONOCYTES % (AUTO) 4 % (0-12); NEUTROPHILS # (AUTO) 5.2 10^3/uL (1.8-7.8); NEUTROPHILS % (AUTO) 74 % (42-75); PLATELET COUNT 209 10^3/uL (130-400)
[2023-06-23 17:22] LABS: ALBUMIN 3.9 GM/DL (3.2-4.5)
[2023-06-23 17:23] LABS: CHLORIDE 98 MMOL/L (98-107); SODIUM 134 MMOL/L (135-145)
[2023-06-23 17:24] LABS: CALCIUM 9.6 MG/DL (8.5-10.1)
[2023-06-23 17:25] LABS: GLUCOSE 181 MG/DL (70-105); TOTAL PROTEIN 7.2 GM/DL (6.4-8.2)
[2023-06-23 17:26] LABS: CARBON DIOXIDE 23 MMOL/L (21-32)
[2023-06-23 17:27] LABS: BILIRUBIN,TOTAL 1.3 MG/DL (0.1-1.0)
[2023-06-23 17:28] LABS: ALKALINE PHOSPHATASE 69 U/L (40-136)
[2023-06-23 17:29] LABS: CREATININE SERUM 0.89 MG/DL (0.60-1.30); GFR ESTIMATED 88
[2023-06-23 17:30] LABS: BUN/CREATININE RATIO 20
[2023-06-23 17:31] LABS: MAGNESIUM 2.1 MG/DL (1.6-2.4)
[2023-06-23 17:32] LABS: ALANINE AMINOTRANSFERASE 43 U/L (0-55); LIPASE 27 U/L (8-78)
--- NOTE | 2023-06-23 17:43 | Diagnostic Imaging Report ---
CLINICAL INDICATION: Patient with weakness. Patient has history of brain cancer and currently on treatment for radiation and chemotherapy. EXAM: Portable chest x-ray upright view. COMPARISON: None. FINDINGS: Lungs/pleura: There is mild left basilar atelectasis versus infiltrate. Otherwise, lungs are clear. There is no pneumothorax. There is no pleural effusion. Mediastinum: Unremarkable. Pulmonary vasculature: Unremarkable. Heart: Unremarkable. Bones/extrathoracic soft tissue: Unremarkable. IMPRESSION: There is minimal left basilar atelectasis versus infiltrate. Dictated by: Dictated on workstation # [id number]
[2023-06-23] MEDS ORDERED: LIDOCAINE UROJET 2% GEL 10 ML PKG TOP ONE (18:00)
[2023-06-23 19:35] VITALS: BP 138/82
[2023-06-23] MEDS ORDERED: ONDANSETRON INJECTION 4 MG/2 ML (SDV) IV PRN (19:45)
[2023-06-23] MEDS ORDERED: CALCIUM CARBONATE 500 MG CHEW TABLET PO PRN (19:45)
[2023-06-23] MEDS ORDERED: MILK OF MAGNESIA 400 MG/5 ML 30 ML UDC PO PRN (19:45)
[2023-06-23] MEDS ORDERED: PATIENT MAY USE OWN MEDS, ALL PO SCH (19:45)
[2023-06-23] MEDS ORDERED: HYDROmorphone INJECTION 2 MG/ML VIAL IV PRN (19:45)
[2023-06-23] MEDS ORDERED: MELATONIN 3 MG TABLET PO PRN (19:45)
[2023-06-23] MEDS ORDERED: oxyCODONE IMMEDIATE RELEASE 5 MG TABLET PO PRN (19:45)
[2023-06-23] MEDS ORDERED: LACTULOSE SYRUP 10GM/15ML 30ML UDC PO PRN (19:45)
[2023-06-23] MEDS ORDERED: BISACODYL 10 MG SUPPOSITORY PR PRN (19:45)
[2023-06-23] MEDS ORDERED: diphenhydrAMINE INJ 50 MG/ML VIAL IVP PRN (19:45)
[2023-06-23] MEDS ORDERED: diphenhydrAMINE 25 MG TABLET PO PRN (19:45)
[2023-06-23] MEDS ORDERED: ACETAMINOPHEN 325 MG TABLET PO PRN (19:45)
[2023-06-23] MEDS ORDERED: ONDANSETRON 4 MG ORAL DISSOLVE TABLET PO PRN (19:45)
[2023-06-23] MEDS ORDERED: ANTACID SUSPENSION 30 ML UDC PO PRN (19:45)
[2023-06-23 20:43] VITALS: BP 147/81
[2023-06-23] MEDS: NS IV 1000 ML 1,000 ML IV SCH (20:51)
[2023-06-23] MEDS: ENOXAPARIN 40 MG/0.4 ML SYRINGE SC SCH (20:51)
[2023-06-23] MEDS: DOCUSATE SODIUM 100 MG CAPSULE PO SCH (20:51)
[2023-06-23] MEDS: SENNOSIDES 8.6 MG TABLET PO SCH (20:51)
[2023-06-23] MEDS ORDERED: RT-ALBUTEROL SULF 2.5 MG/3 ML PRE-MIX VIAL INH PRN (21:15)
[2023-06-24] VITALS (8 sets, daily range): BP systolic 116–198; BP diastolic 70–100
[2023-06-24] MEDS: cloNIDine 0.1 MG TABLET PO PRN (01:06)
[2023-06-24 05:23] LABS: BASOPHILS % (AUTO) 1 % (0-10); EOSINOPHILS % (AUTO) 1 % (0-10); HEMATOCRIT 39 % (40-54); HEMOGLOBIN 13.7 g/dL (13.3-17.7); LYMPHOCYTES # (AUTO) 1.7 10^3/uL (1.0-4.0); LYMPHOCYTES % (AUTO) 28 % (12-44); MEAN CORPUSCULAR HEMOGLOBIN 32 pg (25-34); MEAN CORPUSCULAR HGB CONC 35 g/dL (32-36); MEAN CORPUSCULAR VOLUME 91 fL (80-99); MEAN PLATELET VOLUME 8.8 fL (9.0-12.2); MONOCYTES # (AUTO) 0.3 10^3/uL (0.0-1.0); MONOCYTES % (AUTO) 5 % (0-12); NEUTROPHILS # (AUTO) 3.9 10^3/uL (1.8-7.8); NEUTROPHILS % (AUTO) 65 % (42-75); PLATELET COUNT 172 10^3/uL (130-400)
[2023-06-24 05:33] LABS: ALBUMIN 3.2 GM/DL (3.2-4.5); POTASSIUM 3.5 MMOL/L (3.6-5.0)
[2023-06-24 05:34] LABS: CALCIUM 8.8 MG/DL (8.5-10.1)
[2023-06-24 05:36] LABS: TOTAL PROTEIN 5.6 GM/DL (6.4-8.2)
[2023-06-24 05:37] LABS: BILIRUBIN,TOTAL 1.1 MG/DL (0.1-1.0)
[2023-06-24 05:39] LABS: CREATININE SERUM 0.68 MG/DL (0.60-1.30)
[2023-06-24] MEDS ORDERED: FLU HIGH DOSE (65+ YOA) 240 MCG/0.7 ML 2023-24 (FLUZONE) IM ONE (06:45)
[2023-06-24] MEDS: SENNOSIDES 8.6 MG TABLET PO SCH ×2 (09:33→19:50)
[2023-06-24] MEDS: DOCUSATE SODIUM 100 MG CAPSULE PO SCH ×2 (09:33→19:50)
--- NOTE | 2023-06-24 09:34 | History & Physical ---
ERROL 06/24/2334: History of Present Illness History of Present Illness Reason for visit/HPI Patient is a 77 year old male with a recent diagnosis of brain and lung cancer. Patient is alert but not oriented- believes we are in [place] right now. Patient seems to be slightly confused. Per history, patient has recently felt weak and fatigued- he has recieved 5 radiation treatments at . Patient was agitated that I was asking questions. Reports back pain from sitting down for too long. Patient reports being told that he cant move around. Date of Admission Jun 23, 2023 at 19:36 I consulted on this patient on 06/24/23 09:31 Attending Physician Tiffany Easton DO Admitting Physician Admitting Physician: Tiffany Easton DO Attending Physician: Tiffany Easton DO Consult Allergies and Home Medications Allergies Coded Allergies: No Known Drug Allergies (Unverified , 05/12/10) Patient Home Medication List Acetaminophen (Tylenol) 325 Mg Tablet, 650 MG PO Q4H PRN for PAIN-MILD (1-4), (Reported) Entered as Reported by: SOCORRO STEVENS on 05/03/23 1256 Amlodipine Besylate (Amlodipine Besylate) 5 Mg Tablet, 5 MG PO DAILY Prescribed by: TIFFANY EASTON on 05/08/23920 Aspirin (Aspirin EC) 81 Mg Tablet.dr, 81 MG PO DAILY Prescribed by: TIFFANY EASTON on 05/08/23920 Benazepril HCl (Benazepril HCl) 10 Mg Tablet, 10 MG PO DAILY Prescribed by: TIFFANY EASTON on 05/08/23920 Celecoxib (Celecoxib) 400 Mg Capsule, 400 MG PO DAILY Prescribed by: TIFFANY EASTON on 05/08/23920 Cephalexin (Cephalexin) 250 Mg Capsule, 500 MG PO QID Prescribed by: TIFFANY EASTON on 05/08/23703 Hydrochlorothiazide (Hydrochlorothiazide) 12.5 Mg Tablet, 12.5 MG PO DAILY Prescribed by: TIFFANY EASTON on 05/08/23920 Ondansetron (Ondansetron Odt) 4 Mg Tab.rapdis, 4 MG PO Q6H PRN for NAUSEA/VOMITING-1ST LINE Prescribed by: TIFFANY EASTON on 05/08/23703 Oxycodone Hcl (Oxyir Tablet) 5 Mg Tab, 5-10 MG PO Q4H PRN for PAIN-SEVERE (8-10) Prescribed by: TIFFANY EASTON on 05/08/23 09 Potassium Chloride (Klor-Con 10) 10 Meq Tablet.er, 10 MEQ PO DAILY@0700 Prescribed by: TIFFANY EASTON on 05/08/23 0704 Rosuvastatin Calcium (Rosuvastatin Calcium) 10 Mg Tablet, 10 MG PO DAILY Prescribed by: TIFFANY EASTON on 05/08/23 09 Sennosides/Docusate Sodium (Senna-Docusate Sodium Tablet) 8.6 Mg-50 Mg Tablet, 1 EACH PO BID Prescribed by: TIFFANY EASTON on 05/08/23921 Past Qymxpqb-Elghjl-Ywsldh Hx Patient Social History Tobacco Use?: No Smoking Status: Former Smoker Substance use?: No Alcohol Use?: Yes Alcohol Frequency: Once in a while Pt feels they are or have been: No Immunizations Up To Date Date of Influenza Vaccine: Jul 06, 2014 First/Initial COVID19 Vaccinat: YES Second COVID19 Vaccination Tom: YES Tetanus Booster (TDap): Unknown Date of Pneumonia Vaccine: Jun 05, 2010 Current Status Advance Directives: No Communicates: Verbally Primary Language: Latvian Preferred Spoken Language: Latvian Is interpretation needed?: No Sensory deficits: Vision impairment Implanted or Applied Medical D: None Past Medical History Surgeries: Abdominal, Orthopedic High Cholesterol, Hypertension Diverticulosis, Hemorrhoids, Polyps Prostate Review of Systems Constitutional: weakness EENTM: no symptoms reported Respiratory: no symptoms reported Cardiovascular: no symptoms reported Physical Exam Vital Signs Vital Signs - First Documented 06/23/23 06/23/23 06/23/23 06/23/23 16:45 19:35 20:43 20:48 Temp 36.4 Pulse 57 Resp 14 B/P (MAP) 147/81 (103) Pulse Ox 95 O2 Delivery Room Air O2 Flow Rate 0.00 FiO2 21 Capillary Refill : Less Than 3 Seconds Height, Weight, BMI Height: 5'10.00" Weight: 190lbs. oz. 86.010067ck; 27.17 BMI Method: General Appearance: No Apparent Distress Neck: Full Range of Motion Neurologic/Psychiatric: Other (confusion) Skin: Normal Color, Warm/Dry Assessment/Plan Assessment and Plan Assessment: Cerebral edema Generalized confusion and weakness History of hypertension History of hyperlipdemia History of prostate cancer Lung cancer Brain cancer Chronic hyponatremia Plan: Correct electrolytes Begin OT/PT Supportive care Blood pressure control TIFFANY EASTON DO 06/24/23 9775: History of Present Illness History of Present Illness Reason for visit/HPI CC: Weakness and AMS HPI: This is a 77yoWM who was to establish in my clinic on Tuesday who was DC from ARU after cerebellar mass surgery recovery at . He has become very weak and unable to manage at home. He was to finish steroids today so steroid induced myopathy with confusion could very well be the source but also cancer could very well be the factor too. Needs NHP. Date Seen by a Provider: Jun 24, 2023 Time Seen by a Provider: 11:00 Allergies and Home Medications Allergies Coded Allergies: No Known Drug Allergies (Unverified , 05/12/10) Patient Home Medication List Home Medication List Reviewed: Yes Acetaminophen (Tylenol) 325 Mg Tablet, 650 MG PO Q4H PRN for PAIN-MILD (1-4), (Reported) Entered as Reported by: SOCORRO STEVENS on 05/03/23 1256 Amlodipine Besylate (Amlodipine Besylate) 5 Mg Tablet, 5 MG PO DAILY Prescribed by: TIFFANY EASTON on 05/08/23920 Aspirin (Aspirin EC) 81 Mg Tablet.dr, 81 MG PO DAILY Prescribed by: TIFFANY EASTON on 05/08/23920 Benazepril HCl (Benazepril HCl) 10 Mg Tablet, 10 MG PO DAILY Prescribed by: TIFFANY EASTON on 05/08/23920 Celecoxib (Celecoxib) 400 Mg Capsule, 400 MG PO DAILY Prescribed by: TIFFANY EASTON on 05/08/23920 Cephalexin (Cephalexin) 250 Mg Capsule, 500 MG PO QID Prescribed by: TIFFANY EASTON on 05/08/23703 Hydrochlorothiazide (Hydrochlorothiazide) 12.5 Mg Tablet, 12.5 MG PO DAILY Prescribed by: TIFFANY EASTON on 05/08/23920 Ondansetron (Ondansetron Odt) 4 Mg Tab.rapdis, 4 MG PO Q6H PRN for NAUSEA/V OMITING-1ST LINE Prescribed by: TIFFANY EASTON on 9/3/23 0704 Oxycodone Hcl (Oxyir Tablet) 5 Mg Tab, 5-10 MG PO Q4H PRN for PAIN-SEVERE (8-10) Prescribed by: TIFFANY EASTON on 05/08/23 09 Potassium Chloride (Klor-Con 10) 10 Meq Tablet.er, 10 MEQ PO DAILY@0700 Prescribed by: TIFFANY EASTON on 05/08/23 0704 Rosuvastatin Calcium (Rosuvastatin Calcium) 10 Mg Tablet, 10 MG PO DAILY Prescribed by: TIFFANY EASTON on 05/08/23 09 Sennosides/Docusate Sodium (Senna-Docusate Sodium Tablet) 8.6 Mg-50 Mg Tablet, 1 EACH PO BID Prescribed by: TIFFANY EASTON on 05/08/23921 Past Fsbkfnq-Tgaqdq-Pjakuu Hx Patient Social History Marrital Status: Employed/Student: retired Smoking Status: Former Smoker Review of Systems Constitutional: see HPI, weakness Psychiatric/Neurological: Other (confusion) Physical Exam General Appearance: No Apparent Distress, Chronically ill, Other (sitting in chair, lethargic) Respiratory: Lungs Clear Cardiovascular: Regular Rate, Rhythm Assessment/Plan Assessment and Plan AMS Weakness Assessment: Cerebellar mass causing imbalance and falls Lung mass managed at h/o prostate cancer 2009 without follow up HTN HLP Hypokalemia Elevated LFT's Plan: Home meds PT OT Supportive care Admission Diagnosis Admission Status: Observation Reason for Inpatient Admission: AMS Supervisory-Addendum Brief Verification & Attestation Participated in pt care: history, MDM, physical Personally performed: exam, history, MDM, supervision of care Care discussed with: Medical Student Procedures: n/a Results interpretation: Verified all documentation Verification and Attestation of Medical Student E/M Service A medical student performed and documented this service in my presence. I reviewed and verified all information documented by the medical student and made modifications to such information, when appropriate. I personally performed the physical exam and medical decision making. Tiffany Easton, Jun 24, 2023,18:45 ERROL KHAN Jun 24, 2023 09:34 TIFFANY EASTON DO Jun 24, 2023 18:45
[2023-06-24] MEDS: NS IV 1000 ML 1,000 ML IV SCH ×2 (09:35→23:53)
--- NOTE | 2023-06-24 10:27 | Occupational Therapy Eval ---
OT Evaluation-General/PLF Medical Diagnosis Admission Date Jun 23, 2023 at 19:36 Medical Diagnosis: weakness Onset Date: Jun 23, 2023 Therapy Diagnosis Therapy Diagnosis: AMS, WEAKNESS Height/Weight Height (Feet): 5 Height (Inches): 10.00 Weight (Pounds): 190 Precautions Precautions/Isolations: Fall Prevention, Standard Precautions Weight Bear Status Weight Bearing Restriction: Full Weight Bearing Referral Referral Reason: Evaluation/Treatment Medical History Pertinent Medical History: HTN Additional Medical History Patient is a 77-year-old male with a recent diagnosis of brain and lung cancer. Has received 5 radiation treatments at since his recent diagnosis. Patient Was admitted in May for PT and OT ARU and has been doing quite well until the past few days. Teresita was discharged home following ARU stay w/ moderate encouragement to participate in therapy and simulated shower d/t refusal According to patient has been really weak and fatigued. Patient has been urinating himself. Does not want to get up and move around as much as he typically has prior. After PT he was able to ambulate without any assistance. Now patient is struggling to get up. Patient lives at home with . Denies of any vomiting, diarrhea cough, fever. Increased confusion over the past month or so. Patient is not currently on anticoagulants or history of diabetes. No known cardiac history. Patient is alert but mildly agitated when asked questions. Patient scheduled to follow-up with Dr. Easton next Tuesday. Patient's only complaint is generalized weakness ADL-Prior Level of Function SCALE: Activities may be completed with or without assistive devices. 0-Wkoossgowa-taspcui completes the activity by him/herself with no assistance from a helper. 5-Set-up or Clean-up Assistance-helper sets up or cleans up; patient completes activity. [place] assists only prior to or following the activity. 4-Supervision or Touching Assistance-helper provides verbal cues and/or touching/steadying and/or contact guard assistance as patient completes activity. Assistance may be provided throughout the activity or intermittently. 3-Partial/Moderate Assistance-helper does LESS THAN HALF the effort. [place] lifts, holds or supports trunk or limbs, but provides less than half the effort. 2-Substantial/Maximal Assistance-helper does MORE THAN HALF the effort. [place] lifts or holds trunk or limbs and provides more than half the effort. 6-Jvwkqcxwq-cesaxb does ALL the effort. Patient does none of the effort to complete the activity. Or, the assistance of 2 or more helpers is required for the patient to complete the activity. If activity was not attempted, code reason: 7-Patient Refused. 9-Not Applicable-not attempted and the patient did not perform the activity before the current illness, exacerbation or injury. 10-Not Attempted due to Environmental Limitations-(lack of equipment, weather restraints, etc.). 88-Not Attempted due to Medical Conditions or Safety Concerns. ADL PLOF Comments reports she did not monitor physical and mental ability of ADLS when at home, patient does not like to perform hygiene tasks. Curntly there is a wound on sacrum and patient is BM incont in bed. Patient was not able to shave at home by himself Self Care: Needed Some Help Functional Cognition: Needed Some Help DME/Equipment: Bath Chair DME/Equipment Comments FWW Drive Self: No OT Current Status Subjective confused, required motivation to participate w/ therapy Pain Comment: Rash noteds on upper back Mental Status/Objective Patient Orientation: Person (name, ), Confused, Eyes Open Attachments: IV, Telemetry (not attached) Current Upper Extremity ROM BUE ROM WFLS Upper Extremity Coordination IMPAIRED Upper Extremity Strength +3/5 ADL-Treatment Eating (QC): 5 Oral Hygiene (QC): 4 Shower/Bathe Self (QC): 7 Upper Body Dressing (QC): 3 Lower Body Dressing (QC): 3 On/Off Footwear (QC): 1 Toileting Hygiene (QC): 2 TOILET TRANSFER 4, MIN ASSIST Education OT Patient Education: Correct positioning, Exercise program, Instructions to caregiver, Modified ADL techniques, Progress toward Goal/Update tx plan, Purpose of tx/functional activities, Reviewed precautions, Rehab process, Safety issues, Transfer techniques Teaching Recipient: Patient, Family (SPOUSE AND DAUGHTER) Teaching Methods: Demonstration, Discussion Response to Teaching: Unable to Comprehend OT Fdc Goals Employee Service Officer Goals Eating (QC): 5 Oral Hygiene (QC): 5 Shower/Bathe Self (QC): 5 Upper Body Dressing (QC): 5 Lower Body Dressing (QC): 5 On/Off Footwear (QC): 5 1=Demonstrate adherence to instructed precautions during ADL tasks. 2=Patient will verbalize/demonstrate understanding of assistive devices/modifi cations for ADL. 3=Patient will improve strength/tolerance for activity to enable patient to perform ADL's. OT Education/Plan Problem List/Assessment Assessment: Decreased Activ Tolerance, Decreased Safety Aware, Impaired Cognition, Impaired Coordination, Impaired Funct Balance, Impaired Self-Care Skills Discharge Recommendations Plan/Recommendations: Continue POC Therapy Discharge Recommendati: Post Acute OT Treatment Plan/Plan of Care Treatment,Training & Education: Yes Patient would benefit from OT for education, treatment and training to promote independence in ADL's, mobility, safety and/or upper extremity function for ADL's. Plan of Care: ADL Retraining, Caregiver Training, Cognitive Retraining, Concurrent Therapy, Functional Mobility, Group Exercise/Act as Ind, UE Funct Exercise/Act, UE Neuromus Re-Ed/Coord Treatment Duration: Jun 27, 2023 Frequency: 3 times per week (3-5 TIMJS PER WEEK) Estimated Hrs Per Day: .25 hour per day Agreement: Yes Rehab Potential: Fair Time Start Time: 10:07 Stop Time: 10:32 DATE: Jun 24, 2023 Total Time Billed (hr/min): 23 Billed Treatment Time EVH, ADL 23 MIN ZAINA ARIAS OT Jun 24, 2023 10:27
--- NOTE | 2023-06-24 10:27 | Physical Therapy Evaluation ---
PT Evaluation-General Medical Diagnosis Admission Date Jun 23, 2023 at 19:36 Medical Diagnosis: weakness Onset Date: Jun 23, 2023 Therapy Diagnosis Therapy Diagnosis: generalized weakness/debility Height/Weight Height (Feet): 5 Height (Inches): 10.00 Weight (Pounds): 190 Precautions Precautions/Isolations: Fall Prevention, Standard Precautions Referral Physician: Jemma Reason for Referral: Evaluation/Treatment Medical History Pertinent Medical History: HTN, Prostate CA Additional Medical History brain tumor Current History EMS secondary to progressive weakness (radiation and chemo for brain CA) Reviewed History: Yes Social History Home: Single Level Current Living Status: Spouse Prior Prior Level of Function SCALE: Activities may be completed with or without assistive devices. 8-Optwebqeux-gpomtes completes the activity by him/herself with no assistance from a helper. 5-Set-up or Clean-up Assistance-helper sets up or cleans up; patient completes activity. [place] assists only prior to or following the activity. 4-Supervision or Touching Assistance-helper provides verbal cues and/or touching/steadying and/or contact guard assistance as patient completes activity. Assistance may be provided throughout the activity or intermittently. 3-Partial/Moderate Assistance-helper does LESS THAN HALF the effort. [place] lifts, holds or supports trunk or limbs, but provides less than half the effort. 2-Substantial/Maximal Assistance-helper does MORE THAN HALF the effort. [place] lifts or holds trunk or limbs and provides more than half the effort. 2-Azcihpmkw-uhxrtu does ALL the effort. Patient does none of the effort to complete the activity. Or, the assistance of 2 or more helpers is required for the patient to complete the activity. If activity was not attempted, code reason: 7-Patient Refused. 9-Not Applicable-not attempted and the patient did not perform the activity before the current illness, exacerbation or injury. 10-Not Attempted due to Environmental Limitations-(lack of equipment, weather restraints, etc.). 88-Not Attempted due to Medical Conditions or Safety Concerns. Bed Mobility: 4 Transfers (B,C,W/C): 4 Gait: 4 Indoor Mobility (Ambulation): Needed Some Help Prior Devices Use: Walker PT Evaluation-Current Subjective Patient is very confused and condescending on this date. Objective Patient Orientation: Confused Attachments: IV ROM/Strength ROM Lower Extremities bilateral LE WFL (noted edema bilaterally) Strength Lower Extremities 3/5 grossly bilateral LE all planes Integumentary/Posture Integumentary refer to nursing notes Bowel Incontinence: Yes Bladder Incontinence: Yes Posture slightly kyphotic Neuromuscular (Tone, Coordination, Reflexes) diminished coordination Sensory Vision: Wears Glasses Hearing: Functional Transfers Lying to Sitting/Side of Bed(Q: 4 Sit to Stand (QC): 4 Chair/Kwc-gz-Siqpe Xfer(QC): 4 Toilet Transfer (QC): 4 Gait Mode of Locomotion: Walk Anticipated Mode of Locomotion: Walk Walk 10 feet (QC): 4 Walk 50 ft with 2 Turns(QC): 4 Walk 150 ft (QC): 88 Distance: 50' Gait Assistive Device: FWW Comments/Gait Description shuffle gait sequence/extended UE's with FWW use/VC's for body placement in FWW Balance Sitting Static: Normal Sitting Dynamic: Normal Standing Static: Fair Standing Dynamic: Fair (Fair-) Assessment/Needs Patient will benefit from skilled PT to address functional strength and mobility to improve current LOF to safely return to home or care facility at maximum LOF. Rehab Potential: Guarded PT Paralegal Supervisor Goals Paralegal Supervisor Goals PT Paralegal Supervisor Goals Time Frame: Jul 09, 2023 Roll Left & Right (QC): 5 Sit to Lying (QC): 5 Lying-Sitting on Side/Bed(QC): 5 Sit to Stand (QC): 5 Chair/Yqk-ly-Lyooe Xfer(QC): 5 Toilet Transfer (QC): 5 Walk 10 feet (QC): 4 Walk 50ft with 2 Turns (QC): 4 Walk 150 ft (QC): 4 PT Plan Problem List Problem List: Activity Tolerance, Functional Strength, Safety, Balance, Gait, Transfer, Bed Mobility Treatment/Plan Treatment Plan: Continue Plan of Care Treatment Plan: Bed Mobility, Education, Functional Activity Gem, Functional Strength, Gait, Safety, Therapeutic Exercise, Transfers Treatment Duration: Jul 09, 2023 Frequency: 5 times per week Estimated Hrs Per Day: .25 hour per day Patient and/or Family Agrees t: Yes Time Time In: 951 Time Out: 1009 DATE: Jun 24, 2023 Total Billed Treatment Time: 18 Total Billed Treatment 1 visit EVMod 18 min RIGOBERTO OH PT Jun 24, 2023 10:27
[2023-06-24] MEDS ORDERED: POTASSIUM CHLORIDE 20 MEQ TABLET PO NR (10:30)
[2023-06-24] MEDS: ENOXAPARIN 40 MG/0.4 ML SYRINGE SC SCH (19:55)
[2023-06-25 03:24] VITALS: BP 173/86
[2023-06-25] MEDS: cloNIDine 0.1 MG TABLET PO PRN ×2 (04:24→19:31)
[2023-06-25 05:53] VITALS: BP 152/86
[2023-06-25 05:55] LABS: BASOPHILS % (AUTO) 1 % (0-10); EOSINOPHILS % (AUTO) 1 % (0-10); HEMATOCRIT 40 % (40-54); HEMOGLOBIN 13.8 g/dL (13.3-17.7); LYMPHOCYTES # (AUTO) 1.5 10^3/uL (1.0-4.0); LYMPHOCYTES % (AUTO) 26 % (12-44); MEAN CORPUSCULAR HEMOGLOBIN 32 pg (25-34); MEAN CORPUSCULAR HGB CONC 35 g/dL (32-36); MEAN CORPUSCULAR VOLUME 92 fL (80-99); MEAN PLATELET VOLUME 9.1 fL (9.0-12.2); MONOCYTES # (AUTO) 0.3 10^3/uL (0.0-1.0); MONOCYTES % (AUTO) 5 % (0-12); NEUTROPHILS # (AUTO) 3.8 10^3/uL (1.8-7.8); NEUTROPHILS % (AUTO) 66 % (42-75); PLATELET COUNT 183 10^3/uL (130-400); WHITE BLOOD COUNT 5.8 10^3/uL (4.3-11.0)
[2023-06-25 06:06] LABS: ALBUMIN 3.1 GM/DL (3.2-4.5); POTASSIUM 3.7 MMOL/L (3.6-5.0)
[2023-06-25 06:08] LABS: CALCIUM 8.6 MG/DL (8.5-10.1)
[2023-06-25 06:09] LABS: TOTAL PROTEIN 5.7 GM/DL (6.4-8.2)
[2023-06-25 06:10] LABS: BILIRUBIN,TOTAL 1.4 MG/DL (0.1-1.0)
[2023-06-25 06:12] LABS: CREATININE SERUM 0.72 MG/DL (0.60-1.30)
[2023-06-25 07:39] VITALS: BP 150/84
[2023-06-25] MEDS: DOCUSATE SODIUM 100 MG CAPSULE PO SCH ×2 (08:33→19:31)
[2023-06-25] MEDS: SENNOSIDES 8.6 MG TABLET PO SCH ×2 (08:33→19:31)
--- NOTE | 2023-06-25 10:25 | Progress Note ---
Subjective Date Seen by a Provider: Jun 25, 2023 Time Seen by a Provider: 11:00 Subjective/Events-last exam Improved More alert No pain Restarted home meds Family at bedside and updated on details Review of Systems General: Fatigue, Malaise Objective Exam Last Set of Vital Signs Vital Signs Date Time Temp Pulse Resp B/P (MAP) Pulse Ox O2 Delivery O2 Flow Rate FiO2 06/25/23 08:29 94 Room Air 0.00 06/25/23 07:39 36.7 66 18 150/84 (106) 06/23/23 20:43 21 Capillary Refill : Less Than 3 Seconds I&O Intake and Output 06/25/23 00:00 Intake Total 580 ml Balance 580 ml Intake Oral 580 ml # Voids 7 # Bowel Movements 2 General: Alert, Oriented X3, Cooperative, No Acute Distress Lungs: Clear to Auscultation, Normal Air Movement Heart: Regular Rate, Normal S1, Normal S2, No Murmurs Psych/Mental Status: Mental Status NL, Mood NL Results Lab Laboratory Tests 06/24/23 15:55: Glucometer 137H 06/25/23 05:35: White Blood Count 5.8, Red Blood Count 4.33, Hemoglobin 13.8, Hematocrit 40, Mean Corpuscular Volume 92, Mean Corpuscular Hemoglobin 32, Mean Corpuscular Hemoglobin Concent 35, Red Cell Distribution Width 14.1, Platelet Count 183, Mean Platelet Volume 9.1, Immature Granulocyte % (Auto) 2, Neutrophils (%) (Auto) 66, Lymphocytes (%) (Auto) 26, Monocytes (%) (Auto) 5, Eosinophils (%) (Auto) 1, Basophils (%) (Auto) 1, Neutrophils # (Auto) 3.8, Lymphocytes # (Auto) 1.5, Monocytes # (Auto) 0.3, Eosinophils # (Auto) 0.0, Basophils # (Auto) 0.0, Immature Granulocyte # (Auto) 0.1, Sodium Level 134L, Potassium Level 3.7, Chloride Level 105, Carbon Dioxide Level 19L, Anion Gap 10, Blood Urea Nitrogen 12, Creatinine 0.72, Estimat Glomerular Filtration Rate 94, BUN/Creatinine Ratio 17, Glucose Level 106H, Calcium Level 8.6, Corrected Calcium 9.3, Total Bilirubin 1.4H, Aspartate Amino Transf (AST/SGOT) 25, Alanine Aminotransferase (ALT/SGPT) 28, Alkaline Phosphatase 57, Total Protein 5.7L, Albumin 3.1L Assessment/Plan Assessment/Plan Assess & Plan/Chief Complaint Assessment: AMS Weakness Assessment: Cerebellar mass causing imbalance and falls Lung mass managed at [facility]/ prostate cancer 2009 without follow up HTN HLP Hypokalemia Elevated LFT's Plan: Monitor closely Restart home meds Clinical Quality Measures Admission Status Admission Dx AMS Weakness Assessment: Cerebellar mass causing imbalance and falls Lung mass managed at [facility]/ prostate cancer 2009 without follow up HTN HLP Hypokalemia Elevated LFT's Plan: Home meds PT OT Supportive care LOIDA CHRISTIAN DO Jun 25, 2023 10:25
[2023-06-25 12:01] VITALS: BP 170/85
[2023-06-25] MEDS ORDERED: HYDR12.56 PO (12:28)
[2023-06-25] MEDS ORDERED: ACETAMINOPHEN 325 MG TABLET PO PRN (13:45)
[2023-06-25] MEDS ORDERED: oxyCODONE IMMEDIATE RELEASE 5 MG TABLET PO PRN (13:45)
[2023-06-25] MEDS: NS IV 1000 ML 1,000 ML IV SCH (14:05)
[2023-06-25 15:47] VITALS: BP 167/94
[2023-06-25 18:07] LABS: CLARITY,URINE CLEAR; COLOR,URINE YELLOW
[2023-06-25 18:08] LABS: BACTERIA,URINE NEGATIVE /HPF; BILIRUBIN,URINE NEGATIVE (NEGATIVE); GLUCOSE, URINE (UA) NEGATIVE (NEGATIVE); KETONES,URINE 2+ (NEGATIVE); LEUKOCYTE ESTERASE ,URINE NEGATIVE (NEGATIVE); NITRITE,URINE NEGATIVE (NEGATIVE); PROTEIN,URINE NEGATIVE (NEGATIVE); RBC,URINE RARE /HPF
[2023-06-25] MEDS: ENOXAPARIN 40 MG/0.4 ML SYRINGE SC SCH (19:31)
[2023-06-25 20:00] VITALS: BP 173/85
[2023-06-26] VITALS (8 sets, daily range): BP systolic 122–175; BP diastolic 64–88
[2023-06-26] MEDS: NS IV 1000 ML 1,000 ML IV SCH (05:05)
[2023-06-26 06:11] LABS: BASOPHILS % (AUTO) 1 % (0-10); EOSINOPHILS % (AUTO) 1 % (0-10); HEMATOCRIT 40 % (40-54); HEMOGLOBIN 14.1 g/dL (13.3-17.7); LYMPHOCYTES # (AUTO) 1.7 10^3/uL (1.0-4.0); LYMPHOCYTES % (AUTO) 28 % (12-44); MEAN CORPUSCULAR HEMOGLOBIN 31 pg (25-34); MEAN CORPUSCULAR HGB CONC 35 g/dL (32-36); MEAN CORPUSCULAR VOLUME 90 fL (80-99); MEAN PLATELET VOLUME 8.9 fL (9.0-12.2); MONOCYTES # (AUTO) 0.3 10^3/uL (0.0-1.0); MONOCYTES % (AUTO) 5 % (0-12); NEUTROPHILS # (AUTO) 3.9 10^3/uL (1.8-7.8); NEUTROPHILS % (AUTO) 64 % (42-75); PLATELET COUNT 182 10^3/uL (130-400); WHITE BLOOD COUNT 6.2 10^3/uL (4.3-11.0)
--- NOTE | 2023-06-26 06:19 | Progress Note ---
Subjective Date Seen by a Provider: Jun 26, 2023 Time Seen by a Provider: 09:00 Subjective/Events-last exam Patient doing about the same Patient does not feel any better IV fluids will be discontinued Blood pressure elevated restarted home meds Updated by phone since I just missed her on rounds Review of Systems General: Fatigue Neurological: Confusion Objective Exam Last Set of Vital Signs Vital Signs Date Time Temp Pulse Resp B/P (MAP) Pulse Ox O2 Delivery O2 Flow Rate FiO2 06/26/23 04:00 36.4 64 18 168/87 (114) 96 Room Air 06/25/23 19:11 0.00 06/23/23 20:43 21 Capillary Refill : Less Than 3 Seconds I&O Intake and Output 06/26/23 00:00 Intake Total 422 ml Balance 422 ml Intake Oral 422 ml # Voids 10 # Bowel Movements 1 General: Alert, Oriented X3, Cooperative, No Acute Distress Lungs: Clear to Auscultation, Normal Air Movement Heart: Regular Rate, Normal S1, Normal S2, No Murmurs Psych/Mental Status: Other (Depression) Results Lab Laboratory Tests 06/25/23 17:34: Urine Color YELLOW, Urine Clarity CLEAR, Urine pH 7.0, Urine Specific [place] 1.020, Urine Protein NEGATIVE, Urine Glucose (UA) NEGATIVE, Urine Ketones 2+H, Urine Nitrite NEGATIVE, Urine Bilirubin NEGATIVE, Urine Urobilinogen 2.0, Urine Leukocyte Esterase NEGATIVE, Urine RBC (Auto) TRACEH, Urine RBC RARE, Urine WBC NONE, Urine Crystals NONE, Urine Bacteria NEGATIVE, Urine Casts NONE, Urine Mucus NEGATIVE, Urine Culture Indicated NO 06/26/23 05:56: White Blood Count 6.2, Red Blood Count 4.49, Hemoglobin 14.1, Hematocrit 40, Mean Corpuscular Volume 90, Mean Corpuscular Hemoglobin 31, Mean Corpuscular Hemoglobin Concent 35, Red Cell Distribution Width 13.6, Platelet Count 182, Mean Platelet Volume 8.9L, Immature Granulocyte % (Auto) 2, Neutrophils (%) (Auto) 64, Lymphocytes (%) (Auto) 28, Monocytes (%) (Auto) 5, Eosinophils (%) (Auto) 1, Basophils (%) (Auto) 1, Neutrophils # (Auto) 3.9, Lymphocytes # (Auto) 1.7, Monocytes # (Auto) 0.3, Eosinophils # (Auto) 0.0, Basophils # (Auto) 0.0, Immature Granulocyte # (Auto) 0.1 Assessment/Plan Assessment/Plan Assess & Plan/Chief Complaint Assessment: AMS Weakness Assessment: Cerebellar mass causing imbalance and falls Lung mass managed at [facility]/o prostate cancer 2009 without follow up HTN HLP Hypokalemia Elevated LFT's Plan: Monitor closely Restart home meds Hep-Lock IV fluid Needs [place] [facility] Clinical Quality Measures Admission Status Admission Dx AMS Weakness Assessment: Cerebellar mass causing imbalance and falls Lung mass managed at [facility]/ prostate cancer 2009 without follow up HTN HLP Hypokalemia Elevated LFT's Plan: Home meds PT OT Supportive care LOIDA CHRISTIAN DO Jun 26, 2023 06:19
[2023-06-26 06:30] LABS: ALBUMIN 3.3 GM/DL (3.2-4.5); POTASSIUM 3.3 MMOL/L (3.6-5.0)
[2023-06-26 06:32] LABS: TOTAL PROTEIN 6.1 GM/DL (6.4-8.2)
[2023-06-26 06:34] LABS: BILIRUBIN,TOTAL 1.2 MG/DL (0.1-1.0)
[2023-06-26 06:36] LABS: CREATININE SERUM 0.68 MG/DL (0.60-1.30)
[2023-06-26] MEDS ORDERED: NON-FORMULARY MEDICATION 1 EA EA (Benazepril HCl 10 MG) PO SCH (09:00)
[2023-06-26] MEDS: CELECOXIB 400 MG CAPSULE PO SCH (09:02)
[2023-06-26] MEDS: amLODIPine 5 MG TABLET PO SCH (09:02)
[2023-06-26] MEDS: DOCUSATE SODIUM 100 MG CAPSULE PO SCH ×3 (09:02→20:40)
[2023-06-26] MEDS: SENNOSIDES 8.6 MG TABLET PO SCH ×3 (09:02→20:40)
[2023-06-26] MEDS: ROSUVASTATIN 10 MG TABLET PO SCH (09:02)
[2023-06-26] MEDS ORDERED: POTASSIUM CHLORIDE 20 MEQ TABLET PO ONE (10:00)
[2023-06-26] MEDS: ENOXAPARIN 40 MG/0.4 ML SYRINGE SC SCH (19:36)
[2023-06-27 03:28] VITALS: BP 158/91
[2023-06-27 05:45] LABS: BASOPHILS % (AUTO) 1 % (0-10); EOSINOPHILS % (AUTO) 1 % (0-10); HEMATOCRIT 41 % (40-54); HEMOGLOBIN 14.8 g/dL (13.3-17.7); LYMPHOCYTES # (AUTO) 1.5 10^3/uL (1.0-4.0); LYMPHOCYTES % (AUTO) 23 % (12-44); MEAN CORPUSCULAR HEMOGLOBIN 32 pg (25-34); MEAN CORPUSCULAR HGB CONC 36 g/dL (32-36); MEAN CORPUSCULAR VOLUME 88 fL (80-99); MEAN PLATELET VOLUME 9.3 fL (9.0-12.2); MONOCYTES # (AUTO) 0.3 10^3/uL (0.0-1.0); MONOCYTES % (AUTO) 4 % (0-12); NEUTROPHILS # (AUTO) 4.6 10^3/uL (1.8-7.8); NEUTROPHILS % (AUTO) 70 % (42-75); PLATELET COUNT 210 10^3/uL (130-400); WHITE BLOOD COUNT 6.5 10^3/uL (4.3-11.0)
[2023-06-27 06:00] LABS: ALBUMIN 3.4 GM/DL (3.2-4.5)
[2023-06-27 06:01] LABS: CALCIUM 9.4 MG/DL (8.5-10.1)
[2023-06-27 06:02] LABS: TOTAL PROTEIN 6.3 GM/DL (6.4-8.2)
[2023-06-27 06:06] LABS: CREATININE SERUM 0.72 MG/DL (0.60-1.30)
[2023-06-27] MEDS ORDERED: POTASSIUM CHLORIDE 20 MEQ TABLET PO SCH ×2 (07:00→21:00)
[2023-06-27 07:37] VITALS: BP 144/86
[2023-06-27] MEDS: amLODIPine 5 MG TABLET PO SCH (08:19)
[2023-06-27] MEDS: DOCUSATE SODIUM 100 MG CAPSULE PO SCH (08:19)
[2023-06-27] MEDS: SENNOSIDES 8.6 MG TABLET PO SCH (08:19)
[2023-06-27] MEDS: CELECOXIB 400 MG CAPSULE PO SCH (08:21)
[2023-06-27] MEDS: ROSUVASTATIN 10 MG TABLET PO SCH (08:21)
[2023-06-27] MEDS ORDERED: CLN.1T PO (09:50)
[2023-06-27] MEDS ORDERED: ENOX40DI8 SC (09:50)
[2023-06-27] MEDS ORDERED: SENN-234 PO (09:50)
[2023-06-27] MEDS ORDERED: BENA10TA66 PO (09:50)
[2023-06-27] MEDS ORDERED: POTA-177 PO (09:50)
[2023-06-27] MEDS ORDERED: ROSU10TA28 PO (09:50)
[2023-06-27] MEDS ORDERED: ACET325T38 PO (09:50)
[2023-06-27] MEDS ORDERED: ONDA4TAB11 PO (09:50)
[2023-06-27] MEDS ORDERED: CELE400C16 PO (09:50)
[2023-06-27] MEDS ORDERED: AMLO-250 PO (09:50)
[2023-06-27] MEDS ORDERED: OXC5T PO (09:50)
--- NOTE | 2023-06-27 09:52 | Discharge Summary ---
Diagnosis/Chief Complaint Date of Admission Jun 23, 2023 at 19:36 Date of Discharge Discharge Date: Jun 27, 2023 Discharge Diagnosis AMS Weakness Assessment: Cerebellar mass causing imbalance and falls Lung mass managed at h/o prostate cancer 2009 without follow up HTN HLP Hypokalemia Elevated LFT's Hyponatremia Reason Hospital Visit CC: Weakness and AMS HPI: This is a 77yoWM who was to establish in my clinic on Tuesday who was DC from ARU after cerebellar mass surgery recovery at . He has become very weak and unable to manage at home. He was to finish steroids today so steroid induced myopathy with confusion could very well be the source but also cancer could very well be the factor too. Needs NHP. Discharge Summary Discharge Physical Examination Allergies: Coded Allergies: No Known Drug Allergies (Unverified , 05/12/10) Vitals & I&Os Vital Signs Date Time Temp Pulse Resp B/P (MAP) Pulse Ox O2 Delivery O2 Flow Rate FiO2 06/27/23 14:54 36.5 95 18 120/81 94 Room Air 0.00 06/26/23 10:21 21 General Appearance: Alert, Cooperative Respiratory: Clear to Auscultation Psych/Mental Status: Mental Status NL Hospital Course Was the Problem List Reviewed?: Yes CC: Weakness Course: Johnny is a 77-year-old male that presented to the ED on 06/23 due to increased weakness, incontinence, and AMS. Johnny received a recent diagnosis of brain and lung cancer that is being treated at . In May, Johnny was in the 2nd floor ARU for PT and OT where he showed improvement and was discharged home. After being home for a while, confusion came about and his took him to the ED. At the ED, it was also noted that Johnny was unable to walk after previously having no issues. Of note, Johnny was on steroids. It was suspected that Johnny had AMS and weakness due to the steroids, but given his cancer it is hard to define the direct etiology of these symptoms. Over the course in the hospital, Johnny showed a drop in cognition, having a few days were he was not forming coherent sentences. On 06/27, Johnny showed improved cognition. Imagine has showed no acute processes, just the cerebellar mass. Additionally, while in the hospital it was found that Johnny was hypokalemic, which can also cause weakness. His potassium has been closely monitored and supplemented. He also has a history of chronic hyponatremia, which was also present and managed. Due to the severity of Sherman cancer, it is more likely that his AMS and weakness are related to the malignancy. Given his condition and necessity for care, discharge to an chcf was indicated. Sherman agrees to the plan and believes that this is the best option for his care. Further monitoring is the best plan to see if his change in mental status is permanent or will diminish. Given that every other aspect of his health is stable, there is no indication for further hospital stay. Overall, Johnny has a poor prognosis due to his malignancy, but a chcf is best option for managing his current condition. There are no other concerns. Johnny will go home on his home meds with potassium supplementation. All medications are to be followed per discharge order. [facility] will manage and provide continued care. JAMILA CHOUDHARY Labs (last 24 hrs) Laboratory Tests 06/23/23 16:55: White Blood Count 7.0, Red Blood Count 5.03, Hemoglobin 16.1, Hematocrit 47, Mean Corpuscular Volume 93, Mean Corpuscular Hemoglobin 32, Mean Corpuscular Hemoglobin Concent 34, Red Cell Distribution Width 14.5, Platelet Count 209, Mean Platelet Volume 9.3, Immature Granulocyte % (Auto) 3, Neutrophils (%) (Auto) 74, Lymphocytes (%) (Auto) 19, Monocytes (%) (Auto) 4, Eosinophils (%) (Auto) 0, Basophils (%) (Auto) 0, Neutrophils # (Auto) 5.2, Lymphocytes # (Auto) 1.3, Monocytes # (Auto) 0.3, Eosinophils # (Auto) 0.0, Basophils # (Auto) 0.0, Immature Granulocyte # (Auto) 0.2H, Sodium Level 134L, Potassium Level 4.0, Chloride Level 98, Carbon Dioxide Level 23, Anion Gap 13, Blood Urea Nitrogen 18, Creatinine 0.89, Estimat Glomerular Filtration Rate 88, BUN/Creatinine Ratio 20, Glucose Level 181H, Calcium Level 9.6, Corrected Calcium 9.7, Magnesium Level 2.1, Total Bilirubin 1.3H, Aspartate Amino Transf (AST/SGOT) 23, Alanine Aminotransferase (ALT/SGPT) 43, Alkaline Phosphatase 69, Troponin I < 0.028, C- Reactive Protein High Sensitivity 1.62H, Total Protein 7.2, Albumin 3.9, Lipase 27, Influenza Type A (RT-PCR) Not Detected, Influenza Type B (RT-PCR) Not Detected, SARS-CoV-2 RNA (RT-PCR) Not Detected 06/24/23 05:14: White Blood Count 6.0, Red Blood Count 4.30, Hemoglobin 13.7, Hematocrit 39L, Mean Corpuscular Volume 91, Mean Corpuscular Hemoglobin 32, Mean Corpuscular Hemoglobin Concent 35, Red Cell Distribution Width 14.2, Platelet Count 172, Mean Platelet Volume 8.8L, Immature Granulocyte % (Auto) 2, Neutrophils (%) (Auto) 65, Lymphocytes (%) (Auto) 28, Monocytes (%) (Auto) 5, Eosinophils (%) (Auto) 1, Basophils (%) (Auto) 1, Neutrophils # (Auto) 3.9, Lymphocytes # (Auto) 1.7, Monocytes # (Auto) 0.3, Eosinophils # (Auto) 0.0, Basophils # (Auto) 0.0, Immature Granulocyte # (Auto) 0.1, Sodium Level 136, Potassium Level 3.5L, Chloride Level 103, Carbon Dioxide Level 22, Anion Gap 11, Blood Urea Nitrogen 14, Creatinine 0.68, Estimat Glomerular Filtration Rate 95, BUN/Creatinine Ratio 21, Glucose Level 107H, Calcium Level 8.8, Corrected Calcium 9.4, Total Bilirubin 1.1H, Aspartate Amino Transf (AST/SGOT) 23, Alanine Aminotransferase (ALT/SGPT) 30, Alkaline Phosphatase 54, Total Protein 5.6L, Albumin 3.2 06/24/23 15:55: Glucometer 137H 06/25/23 05:35: White Blood Count 5.8, Red Blood Count 4.33, Hemoglobin 13.8, Hematocrit 40, Mean Corpuscular Volume 92, Mean Corpuscular Hemoglobin 32, Mean Corpuscular Hemoglobin Concent 35, Red Cell Distribution Width 14.1, Platelet Count 183, Mean Platelet Volume 9.1, Immature Granulocyte % (Auto) 2, Neutrophils (%) (Auto) 66, Lymphocytes (%) (Auto) 26, Monocytes (%) (Auto) 5, Eosinophils (%) (Auto) 1, Basophils (%) (Auto) 1, Neutrophils # (Auto) 3.8, Lymphocytes # (Auto) 1.5, Monocytes # (Auto) 0.3, Eosinophils # (Auto) 0.0, Basophils # (Auto) 0.0, Immature Granulocyte # (Auto) 0.1, Sodium Level 134L, Potassium Level 3.7, Chloride Level 105, Carbon Dioxide Level 19L, Anion Gap 10, Blood Urea Nitrogen 12, Creatinine 0.72, Estimat Glomerular Filtration Rate 94, BUN/Creatinine Ratio 17, Glucose Level 106H, Calcium Level 8.6, Corrected Calcium 9.3, Total Bilirubin 1.4H, Aspartate Amino Transf (AST/SGOT) 25, Alanine Aminotransferase (ALT/SGPT) 28, Alkaline Phosphatase 57, Total Protein 5.7L, Albumin 3.1L 06/25/23 17:34: Urine Color YELLOW, Urine Clarity CLEAR, Urine pH 7.0, Urine Specific [place] 1.020, Urine Protein NEGATIVE, Urine Glucose (UA) NEGATIVE, Urine Ketones 2+H, Urine Nitrite NEGATIVE, Urine Bilirubin NEGATIVE, Urine Urobilinogen 2.0, Urine Leukocyte Esterase NEGATIVE, Urine RBC (Auto) TRACEH, Urine RBC RARE, Urine WBC NONE, Urine Crystals NONE, Urine Bacteria NEGATIVE, Urine Casts NONE, Urine Mucus NEGATIVE, Urine Culture Indicated NO 06/26/23 05:56: White Blood Count 6.2, Red Blood Count 4.49, Hemoglobin 14.1, Hematocrit 40, Mean Corpuscular Volume 90, Mean Corpuscular Hemoglobin 31, Mean Corpuscular Hemoglobin Concent 35, Red Cell Distribution Width 13.6, Platelet Count 182, Mean Platelet Volume 8.9L, Immature Granulocyte % (Auto) 2, Neutrophils (%) (Auto) 64, Lymphocytes (%) (Auto) 28, Monocytes (%) (Auto) 5, Eosinophils (%) (Auto) 1, Basophils (%) (Auto) 1, Neutrophils # (Auto) 3.9, Lymphocytes # (Auto) 1.7, Monocytes # (Auto) 0.3, Eosinophils # (Auto) 0.0, Basophils # (Auto) 0.0, Immature Granulocyte # (Auto) 0.1, Sodium Level 133L, Potassium Level 3.3L, Chloride Level 101, Carbon Dioxide Level 19L, Anion Gap 13, Blood Urea Nitrogen 11, Creatinine 0.68, Estimat Glomerular Filtration Rate 95, BUN/Creatinine Ratio 16, Glucose Level 86, Calcium Level 9.0, Corrected Calcium 9.6, Total Bilirubin 1.2H, Aspartate Amino Transf (AST/SGOT) 20, Alanine Aminotransferase (ALT/SGPT) 25, Alkaline Phosphatase 63, Total Protein 6.1L, Albumin 3.3 06/27/23 05:14: White Blood Count 6.5, Red Blood Count 4.64, Hemoglobin 14.8, Hematocrit 41, Mean Corpuscular Volume 88, Mean Corpuscular Hemoglobin 32, Mean Corpuscular Hemoglobin Concent 36, Red Cell Distribution Width 13.5, Platelet Count 210, Mean Platelet Volume 9.3, Immature Granulocyte % (Auto) 2, Neutrophils (%) (Auto) 70, Lymphocytes (%) (Auto) 23, Monocytes (%) (Auto) 4, Eosinophils (%) (Auto) 1, Basophils (%) (Auto) 1, Neutrophils # (Auto) 4.6, Lymphocytes # (Auto) 1.5, Monocytes # (Auto) 0.3, Eosinophils # (Auto) 0.0, Basophils # (Auto) 0.0, Immature Granulocyte # (Auto) 0.1, Sodium Level 132L, Potassium Level 3.0L, Chloride Level 97L, Carbon Dioxide Level 22, Anion Gap 13, Blood Urea Nitrogen 14, Creatinine 0.72, Estimat Glomerular Filtration Rate 94, BUN/Creatinine Ratio 19, Glucose Level 118H, Calcium Level 9.4, Corrected Calcium 9.9, Total Bilirubin 1.0, Aspartate Amino Transf (AST/SGOT) 17, Alanine Aminotransferase (ALT/SGPT) 24, Alkaline Phosphatase 75, Total Protein 6.3L, Albumin 3.4 Pending Labs Laboratory Tests 06/23/23 16:55: White Blood Count 7.0, Red Blood Count 5.03, Hemoglobin 16.1, Hematocrit 47, Mean Corpuscular Volume 93, Mean Corpuscular Hemoglobin 32, Mean Corpuscular Hemoglobin Concent 34, Red Cell Distribution Width 14.5, Platelet Count 209, Mean Platelet Volume 9.3, Immature Granulocyte % (Auto) 3, Neutrophils (%) (Auto) 74, Lymphocytes (%) (Auto) 19, Monocytes (%) (Auto) 4, Eosinophils (%) (Auto) 0, Basophils (%) (Auto) 0, Neutrophils # (Auto) 5.2, Lymphocytes # (Auto) 1.3, Monocytes # (Auto) 0.3, Eosinophils # (Auto) 0.0, Basophils # (Auto) 0.0, Immature Granulocyte # (Auto) 0.2, Sodium Level 134, Potassium Level 4.0, Chloride Level 98, Carbon Dioxide Level 23, Anion Gap 13, Blood Urea Nitrogen 18, Creatinine 0.89, Estimat Glomerular Filtration Rate 88, BUN/Creatinine Ratio 20, Glucose Level 181, Calcium Level 9.6, Corrected Calcium 9.7, Magnesium Level 2.1, Total Bilirubin 1.3, Aspartate Amino Transf (AST/SGOT) 23, Alanine Aminotransferase (ALT/SGPT) 43, Alkaline Phosphatase 69, Troponin I < 0.028, C- Reactive Protein High Sensitivity 1.62, Total Protein 7.2, Albumin 3.9, Lipase 27, Influenza Type A (RT-PCR) Not Detected, Influenza Type B (RT-PCR) Not Detected, SARS-CoV-2 RNA (RT-PCR) Not Detected 06/24/23 05:14: White Blood Count 6.0, Red Blood Count 4.30, Hemoglobin 13.7, Hematocrit 39, Mean Corpuscular Volume 91, Mean Corpuscular Hemoglobin 32, Mean Corpuscular Hemoglobin Concent 35, Red Cell Distribution Width 14.2, Platelet Count 172, Mean Platelet Volume 8.8, Immature Granulocyte % (Auto) 2, Neutrophils (%) (Auto) 65, Lymphocytes (%) (Auto) 28, Monocytes (%) (Auto) 5, Eosinophils (%) (Auto) 1, Basophils (%) (Auto) 1, Neutrophils # (Auto) 3.9, Lymphocytes # (Auto) 1.7, Monocytes # (Auto) 0.3, Eosinophils # (Auto) 0.0, Basophils # (Auto) 0.0, Immature Granulocyte # (Auto) 0.1, Sodium Level 136, Potassium Level 3.5, Chloride Level 103, Carbon Dioxide Level 22, Anion Gap 11, Blood Urea Nitrogen 14, Creatinine 0.68, Estimat Glomerular Filtration Rate 95, BUN/Creatinine Ratio 21, Glucose Level 107, Calcium Level 8.8, Corrected Calcium 9.4, Total Bilirubin 1.1, Aspartate Amino Transf (AST/SGOT) 23, Alanine Aminotransferase (ALT/SGPT) 30, Alkaline Phosphatase 54, Total Protein 5.6, Albumin 3.2 06/24/23 15:55: Glucometer 137 06/25/23 05:35: White Blood Count 5.8, Red Blood Count 4.33, Hemoglobin 13.8, Hematocrit 40, Mean Corpuscular Volume 92, Mean Corpuscular Hemoglobin 32, Mean Corpuscular Hemoglobin Concent 35, Red Cell Distribution Width 14.1, Platelet Count 183, Mean Platelet Volume 9.1, Immature Granulocyte % (Auto) 2, Neutrophils (%) (Auto) 66, Lymphocytes (%) (Auto) 26, Monocytes (%) (Auto) 5, Eosinophils (%) (Auto) 1, Basophils (%) (Auto) 1, Neutrophils # (Auto) 3.8, Lymphocytes # (Auto) 1.5, Monocytes # (Auto) 0.3, Eosinophils # (Auto) 0.0, Basophils # (Auto) 0.0, Immature Granulocyte # (Auto) 0.1, Sodium Level 134, Potassium Level 3.7, Chloride Level 105, Carbon Dioxide Level 19, Anion Gap 10, Blood Urea Nitrogen 12, Creatinine 0.72, Estimat Glomerular Filtration Rate 94, BUN/Creatinine Ratio 17, Glucose Level 106, Calcium Level 8.6, Corrected Calcium 9.3, Total Bilirubin 1.4, Aspartate Amino Transf (AST/SGOT) 25, Alanine Aminotransferase (ALT/SGPT) 28, Alkaline Phosphatase 57, Total Protein 5.7, Albumin 3.1 06/25/23 17:34: Urine Color YELLOW, Urine Clarity CLEAR, Urine pH 7.0, Urine Specific [place] 1.020, Urine Protein NEGATIVE, Urine Glucose (UA) NEGATIVE, Urine Ketones 2+, Urine Nitrite NEGATIVE, Urine Bilirubin NEGATIVE, Urine Urobilinogen 2.0, Urine Leukocyte Esterase NEGATIVE, Urine RBC (Auto) TRACE, Urine RBC RARE, Urine WBC NONE, Urine Crystals NONE, Urine Bacteria NEGATIVE, Urine Casts NONE, Urine Mucus NEGATIVE, Urine Culture Indicated NO 06/26/23 05:56: White Blood Count 6.2, Red Blood Count 4.49, Hemoglobin 14.1, Hematocrit 40, Mean Corpuscular Volume 90, Mean Corpuscular Hemoglobin 31, Mean Corpuscular Hemoglobin Concent 35, Red Cell Distribution Width 13.6, Platelet Count 182, Mean Platelet Volume 8.9, Immature Granulocyte % (Auto) 2, Neutrophils (%) (Auto) 64, Lymphocytes (%) (Auto) 28, Monocytes (%) (Auto) 5, Eosinophils (%) (Auto) 1, Basophils (%) (Auto) 1, Neutrophils # (Auto) 3.9, Lymphocytes # (Auto) 1.7, Monocytes # (Auto) 0.3, Eosinophils # (Auto) 0.0, Basophils # (Auto) 0.0, Immature Granulocyte # (Auto) 0.1, Sodium Level 133, Potassium Level 3.3, Chloride Level 101, Carbon Dioxide Level 19, Anion Gap 13, Blood Urea Nitrogen 11, Creatinine 0.68, Estimat Glomerular Filtration Rate 95, BUN/Creatinine Ratio 16, Glucose Level 86, Calcium Level 9.0, Corrected Calcium 9.6, Total Bilirubin 1.2, Aspartate Amino Transf (AST/SGOT) 20, Alanine Aminotransferase (ALT/SGPT) 25, Alkaline Phosphatase 63, Total Protein 6.1, Albumin 3.3 06/27/23 05:14: White Blood Count 6.5, Red Blood Count 4.64, Hemoglobin 14.8, Hematocrit 41, Mean Corpuscular Volume 88, Mean Corpuscular Hemoglobin 32, Mean Corpuscular Hem oglobin Concent 36, Red Cell Distribution Width 13.5, Platelet Count 210, Mean Platelet Volume 9.3, Immature Granulocyte % (Auto) 2, Neutrophils (%) (Auto) 70, Lymphocytes (%) (Auto) 23, Monocytes (%) (Auto) 4, Eosinophils (%) (Auto) 1, Basophils (%) (Auto) 1, Neutrophils # (Auto) 4.6, Lymphocytes # (Auto) 1.5, Monocytes # (Auto) 0.3, Eosinophils # (Auto) 0.0, Basophils # (Auto) 0.0, Immature Granulocyte # (Auto) 0.1, Sodium Level 132, Potassium Level 3.0, Chloride Level 97, Carbon Dioxide Level 22, Anion Gap 13, Blood Urea Nitrogen 14, Creatinine 0.72, Estimat Glomerular Filtration Rate 94, BUN/Creatinine Ratio 19, Glucose Level 118, Calcium Level 9.4, Corrected Calcium 9.9, Total Bilirubin 1.0, Aspartate Amino Transf (AST/SGOT) 17, Alanine Aminotransferase (ALT/SGPT) 24, Alkaline Phosphatase 75, Total Protein 6.3, Albumin 3.4 Discharge Home Medications: Active Scripts Active Potassium Chloride 10 Meq Tab.er.prt 10 Meq PO DAILY Ondansetron Odt (Ondansetron) 4 Mg Tab.rapdis 4 Mg PO Q6H PRN Senna (Sennosides) 8.6 Mg Tablet 8.6 Mg PO BID Clonidine HCl 0.1 Mg Tablet 0.1 Mg PO Q6H PRN Enoxaparin Sodium 40 Mg/0.4 Ml Syringe 40 Mg SC Q24H Rosuvastatin Calcium 10 Mg Tablet 10 Mg PO DAILY Oxyir Tablet (Oxycodone HCl) 5 Mg Tab 5-10 Mg PO Q4H PRN 1-2 pills every 4 hours prn Celecoxib 400 Mg Capsule 400 Mg PO DAILY Benazepril HCl 10 Mg Tablet 10 Mg PO DAILY Amlodipine Besylate 5 Mg Tablet 5 Mg PO DAILY Tylenol (Acetaminophen) 325 Mg Tablet 650 Mg PO Q4H PRN TAKES 2 (325MG) TABS Instructions to patient/family Please see electronic discharge instructions given to patient. LOIDA CHRISTIAN DO Jun 27, 2023 09:52
--- NOTE | 2023-06-27 09:52 | Discharge Inst-Skilled Nursing ---
Discharge Inst-Skilled NF Reconcile Patient Problems Problems Reviewed?: Yes Patient Instructions Patient Problems: Debility Consult/Follow Up/Orders Follow Up Appt.: Dr Easton [place] rounds Skilled NF Admit to: Via [facility] Certification ([facility]) I certify that SNF services are required to be given on an inpatient basis because of the above named patient's need for detention care on a continuing basis for the conditions(s) for which he/she was receiving inpatient hospital services prior to his/her transfer to the [facility]. Alf Facility Order: Nursing Services, Strategy Lead-Evaluate & Treat, Physical Therapy-Evaluate & Treat, Speech Language-Evaluate & Treat Oxygen Delivery Method: Room Air Discharge Diet: No Restrictions Resuscitation Status: Full Code New & Resume Previous Orders New Medications: Potassium Chloride (Potassium Chloride) 10 Meq Tab.er.prt 10 MEQ PO DAILY, #30 EA Clonidine HCl (Clonidine HCl) 0.1 Mg Tablet 0.1 MG PO Q6H PRN for BLOOD PRESSURE, #15 TAB Enoxaparin Sodium (Enoxaparin Sodium) 40 Mg/0.4 Ml Syringe 40 MG SC Q24H, #14 SYRINGE Ondansetron (Ondansetron Odt) 4 Mg Tab.rapdis 4 MG PO Q6H PRN for NAUSEA/VOMITING-1ST LINE, #20 TAB Sennosides (Senna) 8.6 Mg Tablet 8.6 MG PO BID, #60 TAB Continued Medications: Acetaminophen (Tylenol) 325 Mg Tablet 650 MG PO Q4H PRN for PAIN-MILD (1-4), #30 TAB (This prescription has been renewed) TAKES 2 (325MG) TABS Amlodipine Besylate (Amlodipine Besylate) 5 Mg Tablet 5 MG PO DAILY, #30 TAB (This prescription has been renewed) Benazepril HCl (Benazepril HCl) 10 Mg Tablet 10 MG PO DAILY, #30 TAB (This prescription has been renewed) Celecoxib (Celecoxib) 400 Mg Capsule 400 MG PO DAILY, #30 CAP (This prescription has been renewed) Oxycodone Hcl (Oxyir Tablet) 5 Mg Tab 5-10 MG PO Q4H PRN for PAIN-SEVERE (8-10), #30 TAB (This prescription has been renewed) 1-2 pills every 4 hours prn Rosuvastatin Calcium (Rosuvastatin Calcium) 10 Mg Tablet 10 MG PO DAILY, #30 TAB (This prescription has been renewed) Discontinued Medications: Hydrochlorothiazide (Hydrochlorothiazide) 12.5 Mg Tablet 25 MG PO DAILY, #30 TAB Tiffany Easton Jun 27, 2023 09:51 TIFFANY EASTON DO Jun 27, 2023 09:52
--- NOTE | 2023-06-27 11:05 | Progress Note ---
JAMILA CHOUDHARY 06/27/23 1105: Progress Note 06/27/2023: CC: Weakness Course: Johnny is a 77-year-old male that presented to the ED on 06/23 due to increased weakness, incontinence, and AMS. Johnny received a recent diagnosis of brain and lung cancer that is being treated at . In May, Johnny was in the 2nd floor ARU for PT and OT where he showed improvement and was discharged home. After being home for a while, confusion came about and his took him to the ED. At the ED, it was also noted that Johnny was unable to walk after previously having no issues. Of note, Johnny was on steroids. It was suspected that Johnny had AMS and weakness due to the steroids, but given his cancer it is hard to define the direct etiology of these symptoms. Over the course in the hospital, Johnny showed a drop in cognition, having a few days were he was not forming coherent sentences. On 06/27, Johnny showed improved cognition. Imagine has showed no acute processes, just the cerebellar mass. Additionally, while in the hospital it was found that Johnny was hypokalemic, which can also cause weakness. His potassium has been closely monitored and supplemented. He also has a history of chronic hyponatremia, which was also present and managed. Due to the severity of Sherman cancer, it is more likely that his AMS and weakness are related to the malignancy. Given his condition and necessity for care, discharge to an halfway was indicated. Sherman agrees to the plan and believes that this is the best option for his care. Further monitoring is the best plan to see if his change in mental status is permanent or will diminish. Given that every other aspect of his health is stable, there is no indication for further hospital stay. Overall, Johnny has a poor prognosis due to his malignancy, but a halfway is best option for managing his current condition. There are no other concerns. Johnny will go home on his home meds with potassium supplementation. All medications are to be followed per discharge order. [facility] will manage and provide continued care. TIFFANY CHRISTIAN DO 06/28/23 0511: Supervisory-Addendum Brief Verification & Attestation Participated in pt care: history, MDM, physical Personally performed: exam, history, MDM, supervision of care Care discussed with: Medical Student Procedures: n/a Results interpretation: Verified all documentation Verification and Attestation of Medical Student E/M Service A medical student performed and documented this service in my presence. I reviewed and verified all information documented by the medical student and made modifications to such information, when appropriate. I personally performed the physical exam and medical decision making. Tiffany Christian, Jun 28, 2023,05:11 JAMILA CHOUDHARY Jun 27, 2023 11:05 TIFFANY CHRISTIAN DO Jun 28, 2023 05:11
[2023-06-27 12:37] VITALS: BP 120/81
[2023-06-27 14:54] VITALS: BP 120/81
== END 2023-06-27 09:47 ==
LOC: EDUNIT# 16:43 → ER 16:44 → UNDOADMOB 19:36 → 4TH 19:36 → UNDODISOB 06-27 09:47
PROVIDERS: ADMIT Internal Medicine; ATTEND Internal Medicine
DX: R41.82 Altered mental status, unspecified (principal); R53.1 Weakness; C34.90 Malignant neoplasm of unspecified part of unspecified bronchus or lung; C71.9 Malignant neoplasm of brain, unspecified; G93.6 Cerebral edema; I10 Essential (primary) hypertension; E78.5 Hyperlipidemia, unspecified; E87.6 Hypokalemia; R79.89 Other specified abnormal findings of blood chemistry; E87.1 Hypo-osmolality and hyponatremia; Z79.82 Long term (current) use of aspirin; Z79.891 Long term (current) use of opiate analgesic; Z85.46 Personal history of malignant neoplasm of prostate; Z20.822 Contact with and (suspected) exposure to COVID-19; Z87.891 Personal history of nicotine dependence; Z79.899 Other long term (current) drug therapy
CPT/HCPCS: 71045; 80053 ×5; 81000; 82947; 83690; 83735; 84484; 85025 ×5; 86141; 87636; 93005; 94760; 96361; 96372 ×4; 97162; 97167; 99284; G0008; G0378; 36415; 90471; 90662